=== PATIENT | female | born 1960 | race Caucasian/White ===

== ENCOUNTER 2019-08-10 00:04 | Day surgery (SDC) | payer BC, SELFPAY ==
[2019-08-05 10:26] VITALS: BMI 35.2
--- NOTE | 2019-08-08 15:32 | WPDANESEPP ---
Anes - Eval Pre Procedure Procedure: Operation Date: 08/10/19 11:30 Proposed Procedures p Colonoscopy - Reza Kamara MadelynestebanDO Date/Time: 08/08/19 15:32 Pre Op Diagnosis: LLQ/ Diarrhea Patient Data Age: 59 Gender: F Height: 5 ft 8 in Weight: 105 kg Allergies Allergy/AdvReac Type Severity Reaction Status Date / Time No Known Allergies Allergy Unknown Unverified 08/05/19 10:19 Home Medications Medication Instructions Recorded Confirmed Type aripiprazole 10 mg tablet 10 mg PO DAILY 06/01/19 08/05/19 History eszopiclone 3 mg tablet 3 mg PO HS 06/01/19 08/05/19 History lisinopril 20 mg tablet 20 mg PO DAILY 06/01/19 08/05/19 History hydrochlorothiazide 25 mg PO DAILY 08/05/19 08/05/19 History meclizine 12.5 mg PO BID PRN 08/05/19 08/05/19 History ondansetron HCl [Zofran] 8 mg PO Q12H PRN 08/05/19 08/05/19 History paroxetine HCl 40 mg PO QAM 08/05/19 08/05/19 History sumatriptan succinate 100 mg PO ONCE 08/05/19 08/05/19 History EC12/04/2018 SR 68 Patient hx anesthesia problems: none Family hx anesthesia problems: none PMFSH Past Medical History Medical History (Updated 08/08/19 @ 15:32 by Fely Torre CRNA) Anxiety Colon polyps Depression Depression Diverticulitis GERD (gastroesophageal reflux disease) HTN (hypertension) Hyperlipidemia Obesity (BMI 35.0-39.9 without comorbidity) CAMILLE (obstructive sleep apnea) has CPAP but is noncompliant Overactive bladder Surgical History Surgical History (Updated 08/08/19 @ 15:32 by Fely Torre CRNA) H/O shoulder surgery right History of cholecystectomy History of Luis Felipe fundoplication S/P insertion of spinal cord stimulator bladder stimulator. Status post laparoscopic-assisted sigmoidectomy ruptured diverticulitis Social History Social History Smoking status: Never smoker Smoking end date: 07/01/00 Alcohol intake: current Exam Day of Procedure 08/08/19 15:32
--- NOTE | 2019-08-10 11:01 | WPDANESEFPP ---
Anes - Eval Final PreProcedure Day of Procedure 08/10/19 11:01 Patient weight: obese Heart: regular rate and rhythm Lungs: clear to auscultation Airway: Mallampati scale class II Neurological: alert and oriented Last oral intake: >/= 8 hours ASA classification: III Anesthetic plan: proceed Anesthesia type and monitoring: general GIVS and standard monitoring Informed Consent: The patient's anesthetic plan and its attendant risks and benefits were discussed with the patient/family/POA. Questions were solicited and answers provided to the satisfaction of the patient/family/POA.
--- NOTE | 2019-08-10 11:08 | PM.IMHP ---
H&P: HPI History of Present Illness Chief complaint: LLQ/ Diarrhea Narrative: Kortney Haywood is a 59 year old female presents today for colonoscopy. She has hx of recurrent diverticulitis s/p sigmoid resection 2018. She has been having recurrent sharp LLQ abdominal pain and frequent diarrhea. These episodes can last 5-10 mins where she is doubled over in pain.She had enema xray ordered by Dr. Witt in 05/2019 and revealed diverticulosis. He did not feel this was related to diverticulitis. She also reports new onset nausea, multiple times per week. She has hx of GERD and fundoplication in 2016. She denies any acid reflux or indigestion, dysphagia or pain with swallowing. Denies abnormal weight loss, fever or chills. Review of Systems Review of Systems: All systems reviewed & are unremarkable except as noted in HPI and below PMFSH Past Medical History Medical History (Updated 08/10/19 @ 11:12 by Chelsea Nails, HARDWARE DESIGN ENGINEER) Anxiety Colon polyps Depression Depression Diverticulitis GERD (gastroesophageal reflux disease) HTN (hypertension) Hyperlipidemia Obesity (BMI 35.0-39.9 without comorbidity) CAMILLE (obstructive sleep apnea) has CPAP but is noncompliant Overactive bladder Surgical History Surgical History (Updated 08/08/19 @ 15:32 by Fely Torre, MASS COMMUNICATIONS INSTRUCTOR) H/O shoulder surgery right History of cholecystectomy History of Luis Felipe fundoplication S/P insertion of spinal cord stimulator bladder stimulator. Status post laparoscopic-assisted sigmoidectomy ruptured diverticulitis Social History Social History Smoking status: Never smoker Smoking end date: 07/01/00 Alcohol intake: current Meds Home Medications and Allergies Home Medications Medication Instructions Recorded Confirmed Type aripiprazole 10 mg tablet 10 mg PO DAILY 06/01/19 08/05/19 History eszopiclone 3 mg tablet 3 mg PO HS 06/01/19 08/05/19 History lisinopril 20 mg tablet 20 mg PO DAILY 06/01/19 08/05/19 History hydrochlorothiazide 25 mg PO DAILY 08/05/19 08/05/19 History meclizine 12.5 mg PO BID PRN 08/05/19 08/05/19 History ondansetron HCl [Zofran] 8 mg PO Q12H PRN 08/05/19 08/05/19 History paroxetine HCl 40 mg PO QAM 08/05/19 08/05/19 History sumatriptan succinate 100 mg PO ONCE 08/05/19 08/05/19 History Allergies Allergy/AdvReac Type Severity Reaction Status Date / Time No Known Allergies Allergy Unknown Unverified 08/05/19 10:19 Exam Const: General: cooperative, healthy appearing, comfortable, alert and awake Nutritional Appearance: average body habitus Orientation/consciousness: oriented to person, oriented to place, oriented to time and patient oriented x3 Limitations: no limitations HENMT: Head: normal to inspection and normocephalic Mouth: Yes Normal oral and palatal mucosa present and Yes moist mucous membranes Neck: Neck: normal visual inspection, supple and no JVD Carotids: no bruits Resp: Effort & Inspection: normal respiratory effort and no respiratory distress Auscultation: clear to auscultation bilaterally Cardio: Rate: regular rate Rhythm: regular rhythm Heart sounds: S1 normal heart sound present, S2 normal heart sound present, no gallops, no murmurs and no rubs GI: Inspection: normal to inspection and obesity GI Palp: No abdominal tenderness and No No hepatosplenomegaly present Percussion: Yes normal to percussion Auscultation: normal bowel sounds Rectal Exam: deferred Skin: General skin exam: normal color Lesions: no lesions Rashes: no rashes Neuro: General: oriented to person, oriented to place, oriented to time, patient oriented x3 and moves all extremities Cognition (Neuro): normal cognition Speech: normal speech Gait exam (Neuro): Normal gait present Extrem: General: normal to inspection Psych: Appearance: grossly normal Mental Status: mental status grossly normal Speech and movement: Normal speech and movement present Affect: normal
[2019-08-10] MEDS: LACTATED RINGERS 1,000 ML 150 ML IV CONT (12:04)
[2019-08-10 12:26] VITALS: BP 120/77; PULSE 70; RESP 16; O2SAT 100
[2019-08-10 12:36] VITALS: BP 121/82; PULSE 74; RESP 23; O2SAT 100
[2019-08-10 12:46] VITALS: BP 130/81; PULSE 73; RESP 19; O2SAT 100
== END 2019-08-10 12:52 | disposition home or self-care (01) ==
PROVIDERS: PCP Internal Medicine; Visit Provider Internal Medicine Gastroenterology
PROC: 0DJD8ZZ Inspection of Lower Intestinal Tract, Via Natural or Artificial Opening Endoscopic (ICD-10-PCS; CPT 45378; principal; 2019-08-10 11:30)
DX: K52.9 Noninfective gastroenteritis and colitis, unspecified (principal); D12.0 Benign neoplasm of cecum; K64.8 Other hemorrhoids; K57.30 Diverticulosis of large intestine without perforation or abscess without bleeding; Z98.0 Intestinal bypass and anastomosis status; Z87.19 Personal history of other diseases of the digestive system; K21.9 Gastro-esophageal reflux disease without esophagitis; I10 Essential (primary) hypertension; E78.5 Hyperlipidemia, unspecified; G47.33 Obstructive sleep apnea (adult) (pediatric); F41.8 Other specified anxiety disorders; Z90.49 Acquired absence of other specified parts of digestive tract; E66.9 Obesity, unspecified; Z68.35 Body mass index [BMI] 35.0-35.9, adult
CPT/HCPCS: 45380; 88305; J2704; J7120

== ENCOUNTER 2019-10-28 21:34 | Emergency (ER) | payer BC, SELFPAY ==
--- NOTE | ~2019-10-28 | CT_ITS ---
EXAMINATION: CT pelvis wo con EXAM DATE: 10/28/2019 22:19 INDICATION: Left hip pain. TECHNIQUE: Spiral CT pelvis was performed without contrast. Axial, coronal and sagittal images were reviewed. The dose-length product (DLP) for this examination was 888.44 mGy-cm. The exposure was t ailored according to patient size (auto mA exposure control), and iterative reconstruction (ASIR) was used as additional dose reduction technique. Comparison is made to prior examination from 03/30/2019. FINDINGS: There is minimal symmetric bilateral hip primary osteoarthritis. There is mild bilateral sa croiliac primary osteoarthritis. No evidence of avascular necrosis. Sacrum, sacroiliac joints, sacral arcuate lines are intact. There are no acute fractures identified. Rectosigmoid anastomosis site. Th ere is mild sigmoid colonic diverticulosis. There is no adjacent inflammatory change to suggest dive rticulitis. Small bilateral inguinal fat-containing hernias. No pelvic lymphadenopathy. Uterus is unr emarkable. IMPRESSION: Minimal hip, mild sacroiliac osteoarthritis. Reviewed, dictated and finalized at location G.
--- NOTE | ~2019-10-28 | CT_ITS ---
EXAMINATION: CT lumbar spine wo [facility] EXAM DATE: 10/28/2019 22:19 INDICATION: Low back pain, left hip pain, symptoms for months. TECHNIQUE: Spiral CT of the lumbar spine was performed without contrast. Axial, coronal and sagittal images were reviewed. The dose-length product (DLP) for this examination was 1341.97 mGy-cm. The exposure was tailored according to patient size (auto mA exposure control), and iterative reconstruct ion (ASIR) was used as additional dose reduction technique. There is no prior study for comparison. FINDINGS: Sacral neural stimulator entering at the left S3-4 level. There is rectosigmoid anastomosis . Mild sigmoid diverticulosis. Cholecystectomy clips. There is moderate disc disease at L5-S1 with 2 mm retrolisthesis. Mild disc disease at the other lumbar levels. There is 2-3 mm anterolisthesis L4 o n L5. No spondylolysis. No endplate erosive change. Level by level evaluation: T11-12: There is a mild diffuse disc bulge. Facet arthropathy: Mild. Neural foraminal stenosis: No stenosis. Central canal stenosis: No stenosis. T12-L1: There is a mild diffuse disc bulge. Facet arthropathy: None. Neural foraminal stenosis: No stenosis. Central canal stenosis: No stenosis. L1-L2: There is a mild diffuse disc bulge. Facet arthropathy: Minimal. Neural foraminal stenosis: No stenosis. Central canal stenosis: No stenosis. L2-L3: There is a mild diffuse disc bulge. Facet arthropathy: Mild. Neural foraminal stenosis: No stenosis. Central canal stenosis: No stenosis. L3-L4: There is a mild diffuse disc bulge. Facet arthropathy: Mild on the. Neural foraminal stenosis: Mild bilateral. Central canal stenosis: Mild. L4-L5: There is a mild to moderate diffuse disc bulge. Facet arthropathy: Moderate. Neural foraminal stenosis: Mild to moderate bilateral. Central canal stenosis: Mild to moderate. L5-S1: There is a mild to moderate diffuse disc bulge. Facet arthropathy: Mild to moderate. Neural foraminal stenosis: Moderate left, mild to moderate right. Central canal stenosis: Mild. IMPRESSION: 1. L5-S1 moderate disc disease and left neural foraminal stenosis. 2. Otherwise mild to moderate lumbar spondylosis as detailed above. Reviewed, dictated and finalized at location G.
[2019-10-28 21:36] VITALS: BP 154/87; PULSE 89; RESP 16; TEMP 36.4; O2SAT 100
--- NOTE | 2019-10-28 21:51 | ED.EXTPRO ---
HPI - Extremity Problem General Chief complaint: Extremity Problem,Nontraumatic Stated complaint: hip and back pains Time Seen by Provider: 10/28/19 21:43 History of Present Illness HPI Narrative: 59 yo female w/ h/o IBS, HTN presents c/o hip and back pain. She reports several months of pain in the left hip. She was initally seen by her PCP and had x-rays done, which she reports showed possible arthritis. She was scheduled for physical therapy and had a CT ordered. These were both canceled due to COVID-19. The pain has gotten worsen. She now has difficulty walking, feels as though her leg is giving out at times, and it has begun radiating into her lower back and down the leg. She has been taking tylenol without relief of the pain. No trauma, fever, recent illness. Related Data Home Medications Medication Instructions Recorded Confirmed aripiprazole 10 mg tablet 10 mg PO DAILY 06/01/19 08/05/19 eszopiclone 3 mg tablet 3 mg PO HS 06/01/19 08/05/19 lisinopril 20 mg tablet 20 mg PO DAILY 06/01/19 08/05/19 hydrochlorothiazide 25 mg PO DAILY 08/05/19 08/05/19 meclizine 12.5 mg PO BID PRN 08/05/19 08/05/19 ondansetron HCl [Zofran] 8 mg PO Q12H PRN 08/05/19 08/05/19 paroxetine HCl 40 mg PO QAM 08/05/19 08/05/19 sumatriptan succinate 100 mg PO ONCE 08/05/19 08/05/19 Allergies Allergy/AdvReac Type Severity Reaction Status Date / Time No Known Allergies Allergy Unknown Verified 10/28/19 21:52 Review of Systems Review of Systems: All systems reviewed & are unremarkable except as noted in HPI and below Constitutional: Constitutional: Denies fever(s) ENT: Denies dizziness Cardiovascular: Cardiovascular: Denies chest pain Respiratory: Respiratory: Denies dyspnea Gastrointestinal: Gastrointestinal: Reports abdominal pain Genitourinary: Genitourinary: Denies flank pain Musculoskeletal: Musculoskeletal: Reports back pain and Reports arthralgias Integumentary/Breasts: Skin/Breast: Denies erythema Neurologic: Reports focal weakness and Denies numbness PMF Past Medical History Medical History Anxiety Colon polyps Depression Depression Diverticulitis GERD (gastroesophageal reflux disease) HTN (hypertension) Hyperlipidemia Obesity (BMI 35.0-39.9 without comorbidity) CAMILLE (obstructive sleep apnea) has CPAP but is noncompliant Overactive bladder Surgical History Surgical History H/O shoulder surgery right History of cholecystectomy History of Luis Felipe fundoplication S/P insertion of spinal cord stimulator bladder stimulator. Status post laparoscopic-assisted sigmoidectomy ruptured diverticulitis Family History Family History Father Malignant neoplasm of prostate Hypertension Family history of arthritis Grandparent Diabetes mellitus Family history of glaucoma Sibling Hypertension Other Family history of throat cancer Social History Social History Smoking status: Never smoker Smoking end date: 07/01/00 Alcohol intake: current Gender identity (if verbalized by the patient): Female Exam Const: General: no acute distress and alert Nutritional Appearance: obese Orientation/consciousness: patient oriented x3 HENMT: Head: normal to inspection Resp: Effort & Inspection: normal respiratory effort Auscultation: clear to auscultation bilaterally Cardio: Rate: regular rate Rhythm: regular rhythm GI: GI Palp: Yes Soft to palpation and No Tenderness to palpation present (GI) : General: Yes no CVA tenderness Back/Spine/Pelvis: Other: tenderness through left lower lumbar paraspinal and gluteal muscles Skin: General skin exam: normal color Rashes: no rashes Wounds: no wounds Neuro: General: patient oriented x3, moves all extremities and no focal motor
[2019-10-28 23:30] VITALS: BP 122/82; PULSE 76; RESP 17; O2SAT 100
== END 2019-10-28 23:30 | disposition home or self-care (01) ==
PROVIDERS: Emergency Provider Emergency Medicine
DX: M47.817 Spondylosis without myelopathy or radiculopathy, lumbosacral region (principal); K58.9 Irritable bowel syndrome, unspecified; I10 Essential (primary) hypertension; K21.9 Gastro-esophageal reflux disease without esophagitis; E78.5 Hyperlipidemia, unspecified; E66.9 Obesity, unspecified; Z68.35 Body mass index [BMI] 35.0-35.9, adult; G47.33 Obstructive sleep apnea (adult) (pediatric); M47.818 Spondylosis without myelopathy or radiculopathy, sacral and sacrococcygeal region
CPT/HCPCS: 72131; 72192; 96372; 99284; J1100

== ENCOUNTER 2019-11-17 00:12 | Outpatient (CLI) | payer BC, SELFPAY ==
[2019-11-17 18:40] LABS: SARS-CoV-2 RNA PCR Negative
== END 2019-11-17 00:13 | disposition home or self-care (01) ==
LOC: ANHCOVIDDT 00:12
PROVIDERS: Visit Provider Podiatrist Foot & Ankle Surgery
DX: Z01.818 Encounter for other preprocedural examination (principal); Z11.59 Encounter for screening for other viral diseases
CPT/HCPCS: 87635; C9803; U0003

== ENCOUNTER 2019-11-18 08:58 | Outpatient (CLI) | payer BC, SELFPAY ==
--- NOTE | 2019-11-18 09:00 | ECG_ITS ---
Measurements Intervals [place] Rate: 62 P: 37 [place]: 170 QRS: 27 QRSD: 86 T: 12 QT: 389 QTc: 395 Interpretive Statements SINUS RHYTHM LOW QRS VOLTAGE IN PRECORDIAL LEADS BASELINE ARTIFACT- I, II, III, AVR, AVL, AVF BORDERLINE ECG Electronically Signed On 11-18-2019 10:17:06 CDT by Inder Drake D.O.
[2019-11-18 10:00] LABS: Potassium 4.1 mmol/L (3.4-5.0)
[2019-11-18 10:12] LABS: Blood Urea Nitrogen 15 mg/dL (7-17); Calcium 9.1 mg/dL (8.4-10.2); Carbon Dioxide 32 mmol/L (22-30); Chloride 98 mmol/L (98-107); Estimated Glomerular Filt Rate 57; Glucose 102 mg/dL (65-105); Sodium 135 mmol/L (137-145)
== END 2019-11-18 08:59 | disposition home or self-care (01) ==
LOC: ANHSURGERY 09:00
PROVIDERS: Anesthesiology; PCP Nurse Practitioner Family; Visit Provider Podiatrist Foot & Ankle Surgery
DX: I10 Essential (primary) hypertension (principal); R94.31 Abnormal electrocardiogram [ECG] [EKG]
CPT/HCPCS: 36415; 80048; 93005

== ENCOUNTER 2019-11-20 01:03 | Day surgery (SDC) | payer BC, SELFPAY ==
[2019-11-13 14:25] VITALS: BMI 36.5
[2019-11-20] VITALS (7 sets, daily range): BP systolic 118–155; BP diastolic 71–90; PULSE 73–97; RESP 14–18; TEMP 36.7–37.3; O2SAT 92–100
[2019-11-20] MEDS: LACTATED RINGERS 1,000 ML 30 ML IV CONT ×2 (06:25→08:18)
--- NOTE | 2019-11-20 06:45 | P.PNAN_ITS ---
Anes - Initial Pre Proc Eval Procedure: Operation Date: 11/20/19 07:30 Proposed Procedures p Partial Plantar Fasciotomy Right Foot - Lavelle Figueroa JR, MD Date/Time: 11/20/19 06:45 Surgeon: Lavelle Figueroa JR, MD Pre Op Diagnosis: Plantar Fasciitis Right Foot Patient Data Age: 59 Gender: F Height: 1.73 m Weight: 109.7 kg Last Vital Signs Temp 36.7 C 11/20/19 06:33 Pulse 73 11/20/19 06:33 Resp 18 11/20/19 06:33 BP 118/75 11/20/19 06:33 Pulse Ox 100 11/20/19 06:33 Allergies Allergy/AdvReac Type Severity Reaction Status Date / Time No Known Allergies Allergy Unknown Verified 11/20/19 06:07 Home Medications Medication Instructions Recorded Confirmed Type eszopiclone 3 mg tablet 3 mg PO HS 06/01/19 11/20/19 History lisinopril 20 mg tablet 20 mg PO DAILY 06/01/19 11/20/19 History hydrochlorothiazide 25 mg PO DAILY 08/05/19 11/20/19 History paroxetine HCl 40 mg PO QAM 08/05/19 11/20/19 History glycopyrrolate 1 mg PO BID #60 tablet 08/10/19 11/20/19 Rx amitriptyline 100 mg PO HS 11/13/19 11/20/19 History aripiprazole [Abilify] 15 mg PO HS 11/13/19 11/20/19 History meloxicam 15 mg PO DAILY 11/13/19 11/20/19 History ECG: Date of Service: 11/18/19 Procedure(s): CA 12 lead EKG Accession Number(s): [id number] cc: ~ Measurements Intervals [place] Rate: 62 P: 37 [place]: 170 QRS: 27 QRSD: 86 T: 12 QT: 389 QTc: 395 Interpretive Statements SINUS RHYTHM LOW QRS VOLTAGE IN PRECORDIAL LEADS BASELINE ARTIFACT- I, II, III, AVR, AVL, AVF BORDERLINE ECG Electronically Signed On 11-18-2019 10:17:06 CDT by Inder Drake D.O. Dictated By: Inder Drake DO 11/18/19 0928 Patient hx anesthesia problems: none Family hx anesthesia problems: none PMFSH Social History Social History Smoking status: Never smoker Smoking end date: 07/01/00 Alcohol intake: current Gender identity (if verbalized by the patient): Female Anes - Eval Final PreProcedure Day of Procedure 11/20/19 06:45 Patient weight: obese Heart: regular rate and rhythm Lungs: clear to auscultation and normal air movement Airway: Mallampati scale class II Neurological: alert and oriented Last oral intake: >/= 8 hours ASA classification: III Emergent: no Anesthetic plan: proceed Anesthesia type and monitoring: general LMA Informed Consent: The patient's anesthetic plan and its attendant risks and benefits were discussed with the patient/family/POA. Questions were solicited and answers provided to the satisfaction of the patient/family/POA.
--- NOTE | 2019-11-20 07:13 | WPDHPUPDATE1 ---
History and Physical Update Update Date/Time: 11/20/19 07:13 History and Physical has been reviewed, including an updated exam of the patient. There are NO changes in the patient's condition. Risks, benefits, and alternatives have been discussed and questions answered. Patient agrees to proceed with procedure.
[2019-11-20] MEDS: ceFAZolin 2 GM/D5W 50 ML 2 GM/50 ML BAG IVPB (07:24)
--- NOTE | 2019-11-20 08:05 | PM.OP ---
Procedure Note - Brief Procedure Note - Brief Date of procedure: 11/20/19 Pre-op diagnosis: Plantar Fasciitis Right Foot Post-op diagnosis: same Procedure performed: Partial plantar fasciectomy right foot Anesthesia: GLMA Surgeon: Lavelle Figueroa JR, DPM Estimated blood loss (mL): 1 Complications: No immediate complications Condition: stable Disposition: same day
[2019-11-20] MEDS: KETOROLAC 30 MG/ML VIAL (*BKC) IV PUSH (08:09)
--- NOTE | 2019-11-20 16:16 | OP_ITS ---
DATE OF PROCEDURE: 11/20/2019 PREOPERATIVE DIAGNOSIS: Recalcitrant plantar fasciitis of the right foot. POSTOPERATIVE DIAGNOSIS: Recalcitrant plantar fasciitis of the right foot. PROCEDURE: Partial plantar fasciectomy of the right foot. PATHOLOGY: None. ANESTHESIA: General with LMA with a local anesthetic block. HEMOSTASIS: Pneumatic ankle tourniquet at 250 mmHg. ESTIMATED BLOOD LOSS: Minimal. MATERIALS USED: 3-0 Vicryl, 2-0 Prolene, and 3-0 Prolene. INJECTABLES: 20 cc of Exparel injected preoperatively. COMPLICATIONS: None. PROCEDURE IN DETAIL: Under mild sedation, the patient was brought into the operating room, placed on the operating room table in the supine position. Pneumatic ankle tourniquet was placed about the patient's right ankle. Following general anesthesia, local anesthetic block was performed along the medial aspect of the ankle along the tibial nerve utilizing 20 cc of Exparel local anesthetic. The foot was then scrubbed, prepped, and draped in the usual aseptic manner. An Esmarch bandage was then used to examine the patient's right foot and pneumatic ankle tourniquet was inflated. Attention was directed to the plantar aspect of the right foot where an incision was made starting along the inferior calcaneus at the origin of the medial band of the plantar fascia and extending approximately 3 cm distally. Incision was continued deep down through subcutaneous tissues using sharp and blunt dissection. All bleeders were cauterized as necessary. At this point, the plantar fat pad was visualized and the dissection was continued deep as the plantar fat pad was mobilized medially and laterally. A large [facility] retractor was placed medially and laterally along the origin of the plantar fascia. At this point, utilizing a 15 blade, approximately 4 mm of the medial and central bands of the plantar fascia were transected at its origin and at the medial and central calcaneal tubercle. This plantar fascia was noted to be significantly 2nd, approximately 1 cm with some amorphous tissue noted. A rongeur was used to make sure that there were no remnants remaining and that there was enough plantar fascia resected and fully released. The extensor digitorum brevis muscle belly was visualized after removal of the medial and central portions of the plantar fascia. The lateral band was left intact. The wound site was flushed with copious amounts of sterile saline. Next, the plantar fat pad was reapproximated utilizing 3-0 Vicryl. Next, the subcutaneous structures were reapproximated and coapted utilizing 3-0 Vicryl in simple interrupted suture technique. Next, the skin was reapproximated and coapted utilizing 2-0 Prolene in vertical suture fashion technique interrupted and finally, a 3-0 Prolene was also used to reapproximate the skin in simple interrupted suture technique. Upon completion of the procedure, the incision was dressed with Adaptic, 4 x 4's, Kerlix, and Coban. The pneumatic ankle tourniquet was then deflated and a prompt hyperemic response was noted to all digits of the right foot. Posterior splint was then applied to the right lower extremity. It is important to note that I, Dr. Figueroa, was present throughout the procedure. The patient did very well with the procedure and the anesthesia. She was transferred to the recovery room with vital signs stable and vascular status intact to all toes of the right foot. Following a period of postoperative monitoring, the patient will be discharged home on the following written and oral postoperative instructions: 1. Keep the dressing clean, dry, and intact. 2. The patient to be strictly nonweightbearing for 1 week with a knee scooter/crutches. 3. The patient should ice, elevate the right foot when at rest. 4.
== END 2019-11-20 09:47 | disposition home or self-care (01) ==
PROVIDERS: PCP Nurse Practitioner Family; Visit Provider Podiatrist Foot & Ankle Surgery
PROC: (CPT 28119; principal; 2019-11-20 07:30)
DX: M72.2 Plantar fascial fibromatosis (principal); E66.9 Obesity, unspecified; Z68.36 Body mass index [BMI] 36.0-36.9, adult
CPT/HCPCS: 28060; A9270; C9290; J0690; J1100; J1885; J2250; J2405; J2704; J3010; J7120

== ENCOUNTER 2020-11-12 06:38 | Emergency (ER) | payer MEDICAID, SELFPAY ==
[2020-11-12] VITALS (22 sets, daily range): BP systolic 149–157; BP diastolic 72–92; PULSE 59–76; RESP 15–29; TEMP 36.6–36.7; O2SAT 91–99
--- NOTE | ~2020-11-12 | CT_ITS ---
EXAMINATION: CT abdomen pelvis w con DATE: 11/12/2020 08:26 INDICATION: Nausea, vomiting, diarrhea TECHNIQUE: Computed tomography (CT) of the abdomen and pelvis was performed with 100 cc Omnipaque 350 intravenous contrast. Automated exposure control and iterative reconstruction technique were employe d. Exam dose: 1466.68 mGy-cm total exam DLP. COMPARISON: 10/28/2019 CT pelvis 06/12/2019 water-soluble enema 03/30/2019 CT abdomen pelvis FINDINGS: Minimal bilateral dependent lower lobe atelectasis. Cardiomegaly. Coronary artery calcification. No pericardial or pleural effusion. Small sliding hiatal hernia. Status post cholecystectomy. No hepatic, splenic, pancreatic, adrenal or renal space-occupying mass lesion is evident. No urinary tract calculus or hydroureteronephrosis. Normal caliber of the abdominal aorta. No intraperitoneal or retroperitoneal or pelvic mass lesion or adenopathy or ascites. The urinary bladder, uterus and adnexal areas are unremarkable. There is a suture line at the distal sigmoid colon. Diverticulosis of the colon; no CT evidence of di verticulitis is evident. Normal appendix. No bowel obstruction, bowel wall thickening, pneumatosis or intraperitoneal free air . Small fat-containing umbilical hernia. No suspicious osteolytic or osteoblastic lesions. Degenerative spurring of the thoracic spine. Grade 1 anterolisthesis at L4-5 due to degenerative change at the apophyseal joints. IMPRESSION: Status post sigmoidectomy Diverticulosis of the colon; no CT evidence of diverticulitis Normal appendix Small sliding hiatal hernia Status post cholecystectomy Reviewed, dictated and finalized at [facility]. Reviewed, dictated and finalized at [facility].
--- NOTE | 2020-11-12 07:14 | ED.NAVMDI ---
HPI - Nausea/Vomiting/Diarrhea General Chief complaint: Abdominal Pain Stated complaint: Nausea, vomiting Time Seen by Provider: 11/12/20 07:13 History of Present Illness HPI Narrative: 60 yo female w/ h/o lauren fundoplication presents to the ED for nausea. She has had nausea and dry heaves since this morning. This is associated with mild epigastric pain and bloating. She has also had loose stools for the past few days. No bloody or dark stools. No dysuria, hematuria. Related Data Home Medications Medication Instructions Recorded Confirmed eszopiclone 3 mg tablet 3 mg PO HS 06/01/19 11/20/19 lisinopril 20 mg tablet 20 mg PO DAILY 06/01/19 11/20/19 hydrochlorothiazide 25 mg PO DAILY 08/05/19 11/20/19 paroxetine HCl 40 mg PO QAM 08/05/19 11/20/19 amitriptyline 100 mg PO HS 11/13/19 11/20/19 aripiprazole [Abilify] 15 mg PO HS 11/13/19 11/20/19 meloxicam 15 mg PO DAILY 11/13/19 11/20/19 Allergies Allergy/AdvReac Type Severity Reaction Status Date / Time No Known Allergies Allergy Unknown Verified 11/12/20 09:11 Review of Systems Review of Systems: All systems reviewed & are unremarkable except as noted in HPI and below Constitutional: Constitutional: Denies chills and Denies fever(s) ENT: Reports system reviewed and no additional complaints, except as documented Cardiovascular: Cardiovascular: Denies chest pain Respiratory: Respiratory: Denies dyspnea Gastrointestinal: Gastrointestinal: Reports as per HPI Genitourinary: Genitourinary: Reports as per HPI Musculoskeletal: Musculoskeletal: Denies back pain Neurologic: Denies dizziness and Denies weakness Endocrine: Endocrine: Denies polydipsia [facility] Past Medical History Medical History Anxiety Colon polyps Depression Depression Diverticulitis GERD (gastroesophageal reflux disease) HTN (hypertension) Hyperlipidemia Obesity (BMI 35.0-39.9 without comorbidity) CAMILLE (obstructive sleep apnea) has CPAP but is noncompliant Overactive bladder Surgical History Surgical History H/O shoulder surgery right History of cholecystectomy History of Lauren fundoplication S/P insertion of spinal cord stimulator bladder stimulator. Status post laparoscopic-assisted sigmoidectomy ruptured diverticulitis Family History Family History Father Malignant neoplasm of prostate Hypertension Family history of arthritis Grandparent Diabetes mellitus Family history of glaucoma Sibling Hypertension Other Family history of throat cancer Social History Social History Smoking status: Never smoker Smoking end date: 07/01/00 Alcohol intake: current Gender identity (if verbalized by the patient): Female Exam Const: General: no acute distress and alert Nutritional Appearance: obese Orientation/consciousness: patient oriented x3 HENMT: Head: normal to inspection Neck: Neck: normal visual inspection Chest: Chest palpation & inspection: no tenderness Resp: Effort & Inspection: normal respiratory effort Auscultation: clear to auscultation bilaterally, no rales, no rhonchi and no wheezes Cardio: Jugular venous distension: no JVD Rate: regular rate Rhythm: regular rhythm Heart sounds: no murmurs GI: Inspection: non-distended GI Palp: Yes Soft to palpation, Yes Tenderness to palpation present (GI) (minimal epigastric), No Guarding due to palpation present (GI) and No Rebound tenderness present Auscultation: normal bowel sounds Skin: General skin exam: normal color Neuro: General: patient oriented x3 and moves all extremities Speech: normal speech Extrem: General: normal to inspection and no edema Psych: Appearance: well kempt Affect: normal affect Course Vital Signs Vital signs: Vital Signs Tempera
[2020-11-12 07:35] LABS: Basophils Percent Auto 0.1 % (0.2-1.2); Hematocrit 34.8 % (37.0-47.0); Hemoglobin 11.6 g/dL (12.0-15.0); Immature Granulocyte Absolute 0.03 K/mm3 (0.00-0.031); Immature Granulocyte Percent A 0.4 % (0-0.5); Lymphocytes Absolute Auto 0.82 K/mm3 (0.9-3.2); Lymphocytes Percent Auto 10.2 % (18.3-44.2); Mean Corpuscular HGB Conc 33.3 g/dl (32-36); Mean Corpuscular Hemoglobin 29.1 pg (26-34); Mean Corpuscular Volume 87.4 fl (80-100); Mean Platelet Volume 9.2 fl (7.4-10.4); Monocytes Absolute Auto 0.3 K/mm3 (0.1-0.6); Monocytes Percent Auto 3.6 % (2.6-8.5); Neutrophils Absolute Auto 6.9 K/mm3 (1.3-6.7); Neutrophils Percent Auto 85.7 % (45.5-73.1); Platelet Count Result 361 k/mm3 (150-375); Red Blood Count 3.98 M/mm3 (4.2-5.4); Red Cell Distribution Width 12.9 % (11.5-14.5)
[2020-11-12 07:45] LABS: Alanine Aminotransferase 15 U/L (4-35); Albumin Level 4.5 g/dL (3.5-5.1); Alkaline Phosphatase 92 U/L (38-126); Anion Gap 8 mmol/L (8-16); Aspartate Amino Transferase 21 U/L (14-36); Bilirubin,Total 0.3 mg/dL (0.2-1.3); Blood Urea Nitrogen 12 mg/dL (7-17); Calcium 9.4 mg/dL (8.4-10.2); Carbon Dioxide 29 mmol/L (22-30); Chloride 94 mmol/L (98-107); Estimated CRCL calculation 52 ml/min; Estimated Glomerular Filt Rate > 60; Glucose 133 mg/dL (65-105); Lipase 48 U/L (23-300); Potassium 3.8 mmol/L (3.4-5.0); Sodium 131 mmol/L (137-145)
[2020-11-12] MEDS: ONDANSETRON INJ 4 MG/2 ML VIAL IV PUSH (08:30)
[2020-11-12] MEDS: SODIUM CHLORIDE 0.9% IV 1,000 ML 999 ML IV CONT (08:31)
[2020-11-12] MEDS: METOCLOPRAMIDE HCL INJ 10 MG/2 ML VIAL IV PUSH (09:39)
[2020-11-12 09:41] LABS: Add Urine Microscopic? NO; Appearance Urine Clear (Clear); Bilirubin Urine Negative (Negative); Blood Urine Negative (Negative); Color Urine Yellow (Yellow); Glucose Urine UA Negative (Negative); Ketones Urine Negative (Negative); Leukocyte Esterase Ur Negative LEU/UL (Negative); Nitrate Urine Negative (Negative); Protein Urine Negative (Negative); Urobilinogen Urine Negative mg/dL (<2.0)
[2020-11-12 09:43] LABS: Specific Grav Ur 1.058 (1.001-1.035)
[2020-11-12] MEDS: PANTOPRAZOLE SODIUM IV 40 MG VIAL IV PUSH (11:00)
== END 2020-11-12 11:35 | disposition home or self-care (01) ==
PROVIDERS: Emergency Provider Emergency Medicine; PCP Nurse Practitioner Family
DX: R11.0 Nausea (principal); K21.9 Gastro-esophageal reflux disease without esophagitis; I10 Essential (primary) hypertension; E78.5 Hyperlipidemia, unspecified; F41.9 Anxiety disorder, unspecified; F32.9 Major depressive disorder, single episode, unspecified; G47.33 Obstructive sleep apnea (adult) (pediatric); Z91.19 Patient's noncompliance with other medical treatment and regimen
CPT/HCPCS: 36415; 74177; 80053; 81003; 83690; 85025; 96361; 96374; 96375; 99284; C9113; J0171; J0461; J2405; J2765; J7030; Q9967

== ENCOUNTER 2020-11-13 13:37 | Emergency (ER) | payer MEDICAID, SELFPAY ==
[2020-11-13 13:41] VITALS: BP 147/97; PULSE 82; RESP 20; TEMP 36.8; O2SAT 99
[2020-11-13 13:58] LABS: Basophils Percent Auto 0.1 % (0.2-1.2); Hematocrit 35.1 % (37.0-47.0); Hemoglobin 12.4 g/dL (12.0-15.0); Immature Granulocyte Absolute 0.05 K/mm3 (0.00-0.031); Immature Granulocyte Percent A 0.7 % (0-0.5); Lymphocytes Absolute Auto 1.59 K/mm3 (0.9-3.2); Lymphocytes Percent Auto 21.8 % (18.3-44.2); Mean Corpuscular HGB Conc 35.3 g/dl (32-36); Mean Corpuscular Hemoglobin 29.5 pg (26-34); Mean Corpuscular Volume 83.4 fl (80-100); Mean Platelet Volume 9.2 fl (7.4-10.4); Monocytes Absolute Auto 0.4 K/mm3 (0.1-0.6); Monocytes Percent Auto 5.4 % (2.6-8.5); Neutrophils Absolute Auto 5.2 K/mm3 (1.3-6.7); Platelet Count Result 413 k/mm3 (150-375); Red Blood Count 4.21 M/mm3 (4.2-5.4); Red Cell Distribution Width 12.5 % (11.5-14.5); White Blood Count 7.3 K/mm3 (4.5-10.0)
[2020-11-13 14:08] LABS: Add Urine Microscopic? YES; Appearance Urine Cloudy (Clear); Bilirubin Urine Negative (Negative); Blood Urine 1+ (Negative); Color Urine Yellow (Yellow); Glucose Urine UA Negative (Negative); Ketones Urine Trace mg/dL (Negative); Leukocyte Esterase Ur Trace LEU/UL (Negative); Mucus Urine Rare /lpf; Nitrate Urine Negative (Negative); Protein Urine 2+ mg/dL (Negative); Specific Grav Ur 1.027 (1.001-1.035); Squamous Epithelial Cell Urine Many /hpf (Few); Urobilinogen Urine Negative mg/dL (<2.0)
[2020-11-13 14:12] LABS: Alanine Aminotransferase 16 U/L (4-35); Albumin Level 4.6 g/dL (3.5-5.1); Alkaline Phosphatase 101 U/L (38-126); Anion Gap 12 mmol/L (8-16); Aspartate Amino Transferase 21 U/L (14-36); Bilirubin,Total 0.4 mg/dL (0.2-1.3); Blood Urea Nitrogen 16 mg/dL (7-17); Carbon Dioxide 23 mmol/L (22-30); Chloride 98 mmol/L (98-107); Estimated CRCL calculation 76 ml/min; Estimated Glomerular Filt Rate > 60; Glucose 113 mg/dL (65-105); Lipase 79 U/L (23-300); Potassium 3.1 mmol/L (3.4-5.0); Sodium 133 mmol/L (137-145)
[2020-11-13 14:23] VITALS: BP 180/99; PULSE 78; RESP 22; TEMP 37.4; O2SAT 100
--- NOTE | 2020-11-13 15:08 | ECG_ITS ---
Measurements Intervals [place] Rate: 65 P: 1 [place]: 147 QRS: 33 QRSD: 89 T: 13 QT: 430 QTc: 449 Interpretive Statements SINUS RHYTHM VENTRICULAR PREMATURE COMPLEX LOW VOLTAGE- PRECORDIAL LEADS BORDERLINE ST-T WAVE ABNORMALITY- INFERIOR LEADS BASELINE ARTIFACT- I, II, III, AVR, AVL, AVF, V5-V6 BORDERLINE ECG Electronically Signed On 11-13-2020 19:19:32 CDT by Inder Drake D.O.
--- NOTE | 2020-11-13 15:09 | ED.NAVMDI ---
HPI - Nausea/Vomiting/Diarrhea General Chief complaint: Nausea/Vomiting/Diarrhea Stated complaint: sick to my stomach Time Seen by Provider: 11/13/20 14:36 Source: patient Mode of arrival: ambulatory Limitations: no limitations History of Present Illness HPI Narrative: 60-year-old female Past history of few abdominal operations including a resection for diverticulitis, cholecystectomy, and a fundoplication She complains of about a 2 or 3-day history of nausea no vomiting and a poor appetite No diarrhea no fever, and no urinary symptoms She was here yesterday morning for these very same symptoms and had effectively a completely normal work-up including usual blood work urine and abdominal CT scan She was discharged with [facility] Related Data Home Medications Medication Instructions Recorded Confirmed eszopiclone 3 mg tablet 3 mg PO HS 06/01/19 11/20/19 lisinopril 20 mg tablet 20 mg PO DAILY 06/01/19 11/20/19 hydrochlorothiazide 25 mg PO DAILY 08/05/19 11/20/19 paroxetine HCl 40 mg PO QA 08/05/19 11/20/19 amitriptyline 100 mg PO HS 11/13/19 11/20/19 aripiprazole [Abilify] 15 mg PO HS 11/13/19 11/20/19 meloxicam 15 mg PO DAILY 11/13/19 11/20/19 Allergies Allergy/AdvReac Type Severity Reaction Status Date / Time No Known Allergies Allergy Unknown Verified 11/12/20 09:11 Review of Systems Review of Systems: All systems reviewed & are unremarkable except as noted in HPI and below Constitutional: Constitutional: Denies chills, Denies fever(s) and Denies headache(s) Eyes: Eyes: Reports no additional eye complaints and Denies change in vision ENT: Reports dizziness, Denies headache(s) and Denies sore throat Cardiovascular: Cardiovascular: Denies chest pain and Denies dyspnea Respiratory: Respiratory: Denies cough and Denies dyspnea Gastrointestinal: Gastrointestinal: Reports abdominal pain, Denies bloating, Denies heartburn, Denies diarrhea, Reports nausea and Denies vomiting Genitourinary: Genitourinary: Denies hematuria, Denies urinary frequency and Denies dysuria Musculoskeletal: Musculoskeletal: Reports myalgias, Denies deformity, Denies arthralgias, Denies joint swelling and Denies numbness Integumentary/Breasts: Skin/Breast: Denies rash and Denies wounds Neurologic: Denies headache(s), Denies focal weakness and Denies numbness Psychiatric: Psychiatric: Reports no additional psychiatric complaints Comments: Trouble sleeping Endocrine: Endocrine: Reports no additional endocrine complaints Hematologic/Lymphatic: Hematologic/Lymphatic: Reports no additional hematologic/lymphatic complaints Allergic/Immunologic: Allergic/Immunologic: Reports no additional allergic/immunologic complaints [facility] Past Medical History Medical History (Updated 11/13/20 @ 16:16 by Reza Paniagua MD) Anxiety Colon polyps Depression Depression Diverticulitis GERD (gastroesophageal reflux disease) HTN (hypertension) Hyperlipidemia Obesity (BMI 35.0-39.9 without comorbidity) CAMILLE (obstructive sleep apnea) has CPAP but is noncompliant Overactive bladder Surgical History Surgical History H/O shoulder surgery right History of cholecystectomy History of Luis Felipe fundoplication S/P insertion of spinal cord stimulator bladder stimulator. Status post laparoscopic-assisted sigmoidectomy ruptured diverticulitis Family History Family History Father Malignant neoplasm of prostate Hypertension Family history of arthritis Grandparent Diabetes mellitus Family history of glaucoma Sibling Hypertension Other Family history of throat cancer Social History Social History Smoking status: Never smoker Smoking end date: 07/01/00 Alcohol intake: current Gender identity (if verbalized by the patient): Female Exam Const: Genera
[2020-11-13] MEDS: FAMOTIDINE 20 MG/2 ML VIAL 40 MG IV PUSH (15:29)
[2020-11-13] MEDS: HALOPERIDOL LACTATE 5 MG/ML VIAL IV PUSH (15:30)
[2020-11-13 16:00] VITALS: BP 191/87; PULSE 82; RESP 19; O2SAT 100
[2020-11-13 16:44] LABS: Troponin I < 0.012 ng/mL (0.000-0.034)
== END 2020-11-13 17:41 | disposition home or self-care (01) ==
PROVIDERS: Emergency Medicine; Emergency Provider Emergency Medicine; PCP Nurse Practitioner Family
DX: R11.0 Nausea (principal); I10 Essential (primary) hypertension; E78.5 Hyperlipidemia, unspecified; G47.33 Obstructive sleep apnea (adult) (pediatric); K21.9 Gastro-esophageal reflux disease without esophagitis; N32.81 Overactive bladder; F32.9 Major depressive disorder, single episode, unspecified; F41.9 Anxiety disorder, unspecified; Z86.010 Personal history of colon polyps; I49.3 Ventricular premature depolarization; R94.31 Abnormal electrocardiogram [ECG] [EKG]
CPT/HCPCS: 36415; 80053; 81001; 83690; 84484; 85025; 93005; 96374; 96375; 99284; J1630

== ENCOUNTER 2021-05-30 15:08 | Outpatient (CLI) | payer OTHER, SELFPAY ==
--- NOTE | ~2021-05-30 | US_ITS ---
EXAMINATION: US pelvic complete w TV EXAM DATE: 05/30/2021 15:50 INDICATION: N95.0 - Postmenopausal bleeding . TECHNIQUE: Pelvic transabdominal and transvaginal sonogram was performed. There are multiple graysca le and Doppler images available for interpretation. There is no prior study for comparison. FINDINGS: Uterus measures 5.9 x 2.5 x 4.0 cm, and is morphologically normal. Endometrial stripe arianna sures 2 mm, within normal limits. There is no free pelvic fluid. Right adnexa: The ovary is not identified. There is no adnexal mass. Left adnexa: The ovary is not identified. There is no adnexal mass. 2 small nodules of soft tissue echogenicity along the posterior aspect of the uterus which could be s mall exophytic fibroids correlating with prior CT, correlating with CT scan from October which demonstrat ed rectosigmoid anastomosis. IMPRESSION: 1. 2 small nonspecific soft tissue regions, most likely exophytic fibroids. 2. Normal endometrial thickness. Reviewed, dictated and finalized at [facility]. 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
== END 2021-05-30 15:09 | disposition home or self-care (01) ==
PROVIDERS: PCP Nurse Practitioner Family; Visit Provider Student in an Organized Health Care Education/Training Program
DX: N95.0 Postmenopausal bleeding (principal); R93.89 Abnormal findings on diagnostic imaging of other specified body structures
CPT/HCPCS: 76830; 76856

== ENCOUNTER 2021-06-27 09:43 | Outpatient (CLI) | payer OTHER, SELFPAY ==
--- NOTE | ~2021-06-27 | MM_ITS ---
EXAMINATION: MM screening [facility] BI w alli HISTORY: Screening TECHNIQUE: Craniocaudal and mediolateral oblique 3-D tomosynthesis images were obtained and synthetic 2-D images were generated. CAD analysis was submitted and interpreted. COMPARISON: Comparison to multiple prior studies sequentially, with oldest reviewed study dated 12/24. BREAST PARENCHYMAL COMPOSITION: There are scattered areas of fibroglandular density... FINDINGS: There is no evidence of suspicious mass, calcification, or architectural distortion to sugg est malignancy in either breast. There has been no suspicious interval change. IMPRESSION: 1. No mammographic evidence of malignancy. 2. Recommend routine screening mammography in one year. BI-RADS Category 1: Negative Reviewed, dictated and finalized at location [facility]. OR [employer]
== END 2021-06-27 09:44 | disposition home or self-care (01) ==
LOC: ANHIMG 09:45
PROVIDERS: PCP Nurse Practitioner Family; Visit Provider Student in an Organized Health Care Education/Training Program
DX: Z12.31 Encounter for screening mammogram for malignant neoplasm of breast (principal)
CPT/HCPCS: 77063; 77067

== ENCOUNTER 2021-12-01 08:22 | Outpatient (CLI) | payer OTHER, SELFPAY ==
--- NOTE | ~2021-12-01 | XR_ITS ---
EXAMINATION: XR chest 2V 12/01/2021 09:26 INDICATION: Cough PROCEDURE: 2 view chest COMPARISON: 11/06/2017 FINDINGS: The lungs are clear. The cardiomediastinal silhouette is within normal limits. There are no pleural effusions. There is no pneumothorax suspected. IMPRESSION: 1: NO ACUTE CARDIOPULMONARY DISEASE. Reviewed, dictated and finalized at [facility].
--- NOTE | 2021-12-01 13:47 | P.PCNPFT_ITS ---
PFT Procedure Performed PFT Procedure Performed Spirometry with Pre/Post Bronchodilator Flow Vol Loop PFT Interpretation This is a pulmonary function test with pre and post-bronchodilator spirometry. The test was performed and results interpreted in accordance with the 2019 and 2005 ATS/ERS Task Force guidelines respectively using the Global Lung Function Initiative-2012 reference equations. Patient demonstrated good effort and cooperation. Reproducibility criteria were met. The quality of the pre [facility] hodilator spirometry maneuver was Grade A and post bronchodilator spirometry maneuver was Grade A. Findings: Spirometry: The contour the inspiratory and expiratory flow tracing are normal. The pre bronchodilator FVC is 3.66 L, 100% predicted. The pre bronchodilator FEV1 is 2.57 L, 90% predicted. The pre bronchodilator FEV1: FVC ratio is 70%. The post bronchodilator FVC is 3.59 L, representing a 2% decrease. The post bronchodilator FEV1 is 2.66 L, representing a 4% increase. The post bronchodilator FEV1: FVC ratio is 74%. Impression: The spirometry is normal without evidence of an obstructive abnormality. There are no prior studies for comparison
== END 2021-12-01 08:23 | disposition home or self-care (01) ==
LOC: ANHPFT 08:23
PROVIDERS: PCP Nurse Practitioner Family; Visit Provider Internal Medicine Pulmonary Disease
DX: R05.9 Cough, unspecified (principal)
CPT/HCPCS: 71046; 94060

== ENCOUNTER 2021-12-11 13:20 | Emergency (ER) | payer OTHER, SELFPAY ==
[2021-12-11 13:35] VITALS: BP 147/90; PULSE 69; RESP 18; TEMP 36.6; O2SAT 100
--- NOTE | 2021-12-11 13:54 | ED.URI ---
HPI - URI/Sore Throat General Chief Complaint: Upper Respiratory Infection Stated Complaint: congestion, sore throat, eyes itchy Time Seen by Provider: 12/11/21 13:54 Source: patient Mode of arrival: ambulatory Limitations: no limitations History of Present Illness HPI Narrative: 61-year-old female presents with complaint of nasal congestion, sinus pressure for 2 to 3 days. Denies fever chills. Complaint of postnasal drainage but no cough. States today she woke up with left ear pain and pressure. Mildly decreased hearing. No fever or chills. Is concerned she has ear infection. Has not been taking any [id number] medications to treat congestion. Denies shortness of breath and chest pain. Did a home COVID test yesterday that was negative. All systems reviewed and negative except as noted above. Related Data Home Medications Medication Instructions Recorded Confirmed eszopiclone 3 mg tablet (Lunesta) 3 mg PO HS 06/01/19 06/14/21 paroxetine HCl 40 mg tablet 40 mg PO QAM 08/05/19 06/14/21 amitriptyline 100 mg tablet 100 mg PO HS 11/13/19 06/14/21 aripiprazole 15 mg tablet (Abilify) 15 mg PO HS 11/13/19 06/14/21 ondansetron 4 mg disintegrating 4 mg PO Q8H PRN nausea and vomiting 05/17/21 06/14/21 tablet alprazolam 1 mg tablet (Xanax) 1 mg PO DAILY 11/09/21 omeprazole 20 mg tablet,delayed 20 mg PO DAILY 11/09/21 release ondansetron HCl 8 mg tablet 8 mg PO Q12H PRN nausea and 11/09/21 vomiting oxybutynin chloride 10 mg 10 mg PO DAILY 11/09/21 tablet,extended release 24 hr sumatriptan succinate 100 mg tablet 100 mg PO ONCE PRN migraine 11/09/21 headache valsartan 160 1 tablet PO DAILY 11/09/21 mg-hydrochlorothiazide 25 mg tablet Allergies Allergy/AdvReac Type Severity Reaction Status Date / Time No Known Allergies Allergy Unknown Verified 12/11/21 13:45 Review of Systems Review of Systems: CONSTITUTIONAL: Denies fever, chills, or sweats. EYES: Denies visual changes, redness, or discharge. ENT: Reports rhinorrhea, congestion, postnasal drainage, left ear pain. Denies sore throat. CARDIOVASCULAR: Denies chest pain, palpitations, or edema. RESPIRATORY: Denies cough or dyspnea. GASTROINTESTINAL: Denies abdominal pain, nausea, vomiting, or diarrhea. GENITOURINARY: Denies dysuria or hematuria. SKIN: Denies rash or itching. MUSCULOSKELETAL: Denies back pain, joint pain, or myalgia. NEUROLOGIC: Denies headache, numbness, or weakness. PSYCHIATRIC: Denies anxiety or depression. All other systems reviewed are negative, except as documented in HPI. [facility] Past Medical History Medical History (Updated 12/11/21 @ 14:12 by Mira Whitney NP) Anxiety Colon polyps Depression Depression Diverticulitis GERD (gastroesophageal reflux disease) HTN (hypertension) Hyperlipidemia Obesity (BMI 35.0-39.9 without comorbidity) CAMILLE (obstructive sleep apnea) has CPAP but is noncompliant Overactive bladder Surgical History Surgical History H/O shoulder surgery right History of cholecystectomy History of Luis Felipe fundoplication S/P insertion of spinal cord stimulator bladder stimulator. Status post laparoscopic-assisted sigmoidectomy ruptured diverticulitis Family History Family History Father Malignant neoplasm of prostate Hypertension Family history of arthritis Grandparent Diabetes mellitus Family history of glaucoma Sibling Hypertension Other Family history of throat cancer Social History Social History Smoking status: Former smoker Smoking end date: 07/01/00 Alcohol intake: current Alcohol use details: Social alcohol use Gender identity (if verbalized by the patient): Female Comments At time of signature, agree with nursing past medical, surgical, social and family history. There is no relevant fa
== END 2021-12-11 14:16 | disposition home or self-care (01) ==
PROVIDERS: Emergency Provider Nurse Practitioner Family; PCP Nurse Practitioner Family
DX: H66.92 Otitis media, unspecified, left ear (principal); J01.90 Acute sinusitis, unspecified; Z87.891 Personal history of nicotine dependence; K21.9 Gastro-esophageal reflux disease without esophagitis; I10 Essential (primary) hypertension; E78.5 Hyperlipidemia, unspecified; G47.33 Obstructive sleep apnea (adult) (pediatric); E66.9 Obesity, unspecified; Z68.35 Body mass index [BMI] 35.0-35.9, adult; F41.9 Anxiety disorder, unspecified; F32.A Depression, unspecified
CPT/HCPCS: 99213; G0463

== ENCOUNTER 2021-12-29 15:28 | Emergency (ER) | payer OTHER, SELFPAY ==
[2021-12-29 15:34] VITALS: BP 162/96; PULSE 69; RESP 16; TEMP 37.2; O2SAT 100
--- NOTE | 2021-12-29 16:08 | ED.EYEPROB ---
HPI - Eye Problem General Chief complaint: Eye Problems Stated complaint: right eye irritation Time Seen by Provider: 12/29/21 16:10 Source: patient, RN notes reviewed and old records reviewed Mode of arrival: ambulatory Limitations: no limitations History of Present Illness HPI Narrative: 61 year old female who presents to doctors hospital care with complaints of it feeling like she sandpaper in her right eye since Saturday with increased watering and burning with redness to her right eye. Patient denies any trauma to her right eye, denies any foreign body or any matting from her eye or drainage. Patient denies any fevers, chills or sweats or any nasal congestion or drainage or any URI symptoms. Visual acuity 20/30 left eye and 20/50 to her right eye,denies any change in vision or any sharp pain to her eight eye. MD chief complaint: eye pain and eye redness Onset (ago): day(s) (2) Related Data Home Medications Medication Instructions Recorded Confirmed paroxetine HCl 40 mg tablet 40 mg PO QAM 08/05/19 12/29/21 aripiprazole 15 mg tablet (Abilify) 15 mg PO HS 11/13/19 12/29/21 alprazolam 1 mg tablet (Xanax) 1 mg PO TID 11/09/21 12/29/21 omeprazole 20 mg tablet,delayed 20 mg PO DAILY 11/09/21 12/29/21 release oxybutynin chloride 10 mg 10 mg PO DAILY 11/09/21 12/29/21 tablet,extended release 24 hr valsartan 160 1 tablet PO DAILY 11/09/21 12/29/21 mg-hydrochlorothiazide 25 mg tablet Allergies Allergy/AdvReac Type Severity Reaction Status Date / Time No Known Allergies Allergy Unknown Verified 12/29/21 15:41 Review of Systems Review of Systems: CONSTITUTIONAL: Denies fever, chills, or sweats. EYES: Denies visual changes,positive for burning, redness,and tearing right eye, no sharp pain ENT: Denies rhinorrhea, congestion, sore throat, or otalgia. CARDIOVASCULAR: Denies chest pain, palpitations, or edema. RESPIRATORY: Denies cough or dyspnea. GASTROINTESTINAL: Denies abdominal pain, nausea, vomiting, or diarrhea. GENITOURINARY: Denies dysuria or hematuria. SKIN: Denies rash or itching. MUSCULOSKELETAL: Chronic back pain, joint pain, or myalgia. NEUROLOGIC: Denies headache, numbness, or weakness. PSYCHIATRIC: Positive for anxiety or depression. All systems reviewed & are unremarkable except as noted in HPI and below PMFSH Past Medical History Medical History (Updated 12/30/21 @ 17:36 by Paola Shin NP) Anxiety Colon polyps Depression Depression Diverticulitis GERD (gastroesophageal reflux disease) HTN (hypertension) Hyperlipidemia Obesity (BMI 35.0-39.9 without comorbidity) CAMILLE (obstructive sleep apnea) has CPAP but is noncompliant Overactive bladder Surgical History Surgical History H/O shoulder surgery right History of cholecystectomy History of Luis Felipe fundoplication S/P insertion of spinal cord stimulator bladder stimulator. Status post laparoscopic-assisted sigmoidectomy ruptured diverticulitis Family History Family History Father Malignant neoplasm of prostate Hypertension Family history of arthritis Grandparent Diabetes mellitus Family history of glaucoma Sibling Hypertension Other Family history of throat cancer Social History Social History Smoking status: Former smoker Smoking end date: 07/01/00 Alcohol intake: current Alcohol use details: Social alcohol use Gender identity (if verbalized by the patient): Female Comments At time of signature, agree with nursing past medical, surgical, social and family history. There is no relevant family history pertinent to the presenting complaint Exam Narrative: GENERAL: Well-appearing, well-nourished, and in no acute distress. HEAD: Normocephalic, atraumatic. EYES: PERRLA and EOMI.Right eye is red with some mild redness to conjunctiva, no lesions
== END 2021-12-29 16:31 | disposition home or self-care (01) ==
PROVIDERS: Emergency Provider Registered Nurse; PCP Nurse Practitioner Family
DX: H10.9 Unspecified conjunctivitis (principal); Z87.891 Personal history of nicotine dependence; K21.9 Gastro-esophageal reflux disease without esophagitis; I10 Essential (primary) hypertension; E78.5 Hyperlipidemia, unspecified; G47.33 Obstructive sleep apnea (adult) (pediatric); E66.9 Obesity, unspecified; Z68.36 Body mass index [BMI] 36.0-36.9, adult; F41.9 Anxiety disorder, unspecified; F32.A Depression, unspecified
CPT/HCPCS: 99213; G0463

== ENCOUNTER 2022-06-14 00:03 | Emergency (ER) | payer OTHER, SELFPAY ==
--- NOTE | ~2022-06-14 | XR_ITS ---
EXAMINATION: XR abdomen obstructive series DATE: 06/14/2022 01:48 INDICATION: Nausea. TECHNIQUE: Upright and supine views of the abdomen on 4 radiographs were obtained. COMPARISON: CT abdomen and pelvis 11/12/2020 FINDINGS: There are no dilated loops of bowel. There is a moderate volume of stool in the proximal co harjinder. Surgical clips in the right upper quadrant are likely from cholecystectomy. No free intraperiton eal gas. Calcifications in the pelvis are likely phleboliths. IMPRESSION: 1. Nonobstructive bowel gas pattern. Reviewed, dictated and finalized at location [facility]. [facility]ER
[2022-06-14 00:09] VITALS: BP 179/93; PULSE 60; RESP 18; O2SAT 100
[2022-06-14 00:15] VITALS: PULSE 62; RESP 20; TEMP 36.6; O2SAT 98
--- NOTE | 2022-06-14 00:45 | ED.NAVMDI ---
HPI - Nausea/Vomiting/Diarrhea General Chief complaint: Nausea/Vomiting/Diarrhea Stated complaint: N/V GENERALIZED WEAKNESS Time Seen by Provider: 06/14/22 00:35 History of Present Illness HPI Narrative: This is a 62-year-old female past medical history of anxiety and GERD status post Luis Felipe fundoplication, brought in by EMS for nausea for the past 3 hours. Patient states her roommate has had cough, nausea vomiting and diarrhea for the past several days. Today she developed nausea, myalgias, and nonproductive cough. She denies chest pain or diarrhea. She states Zofran given her to her today did not help. EMS had a similar report with normal vital signs. The patient was given 4 mg IV Zofran in route. Related Data Home Medications Medication Instructions Recorded Confirmed paroxetine HCl 40 mg tablet 40 mg PO QAM 08/05/19 12/29/21 aripiprazole 15 mg tablet (Abilify) 15 mg PO HS 11/13/19 12/29/21 alprazolam 1 mg tablet (Xanax) 1 mg PO TID 11/09/21 12/29/21 omeprazole 20 mg tablet,delayed 20 mg PO DAILY 11/09/21 12/29/21 release oxybutynin chloride 10 mg 10 mg PO DAILY 11/09/21 12/29/21 tablet,extended release 24 hr valsartan 160 1 tablet PO DAILY 11/09/21 12/29/21 mg-hydrochlorothiazide 25 mg tablet Allergies Allergy/AdvReac Type Severity Reaction Status Date / Time No Known Allergies Allergy Unknown Verified 12/29/21 15:41 Review of Systems Review of Systems: CONSTITUTIONAL: Denies fever, chills, or sweats. EYES: Denies visual changes, redness, or discharge. ENT: Rhinorrhea, congestion denies sore throat, or otalgia. CARDIOVASCULAR: Denies chest pain, palpitations, or edema. RESPIRATORY: Denies cough or dyspnea. GASTROINTESTINAL: Nausea denies abdominal pain, vomiting, or diarrhea. GENITOURINARY: Denies dysuria or hematuria. SKIN: Denies rash or itching. MUSCULOSKELETAL: Myalgias denies back pain, joint pain NEUROLOGIC: Denies headache, numbness, dizziness, or weakness. PSYCHIATRIC: Denies anxiety or depression. [facility] Past Medical History Medical History (Updated 06/14/22 @ 00:50 by Fabien Rubio MD) Anxiety Colon polyps Depression Depression Diverticulitis GERD (gastroesophageal reflux disease) HTN (hypertension) Hyperlipidemia Obesity (BMI 35.0-39.9 without comorbidity) CAMILLE (obstructive sleep apnea) has CPAP but is noncompliant Overactive bladder Surgical History Surgical History H/O shoulder surgery right History of cholecystectomy History of Luis Felipe fundoplication S/P insertion of spinal cord stimulator bladder stimulator. Status post laparoscopic-assisted sigmoidectomy ruptured diverticulitis Family History Family History Father Malignant neoplasm of prostate Hypertension Family history of arthritis Grandparent Diabetes mellitus Family history of glaucoma Sibling Hypertension Other Family history of throat cancer Social History Social History Smoking status: Former smoker Smoking end date: 07/01/00 Alcohol intake: current Alcohol use details: Social alcohol use Gender identity (if verbalized by the patient): Female Exam Narrative: GENERAL: Well-developed, well-nourished, appears uncomfortable HEAD: Normocephalic, atraumatic. EYES: PERRLA and EOMI. ENT: Nares clear, no rhinorrhea or epistaxis. Mucous membranes moist. Oropharynx without tonsillar hypertrophy exudate or other lesions. NECK: Supple. No adenopathy or masses. No carotid bruits or JVD CHEST: Clear to auscultation. No respiratory distress. No wheezes rales or rhonchi HEART: Regular rate and rhythm. No murmur heard. Normal peripheral pulses. ABDOMEN: Soft, nontender, nondistended, normal active bowel sounds. EXTREMITIES: Normal range of motion. No edema. SKIN: Warm, dry, no rash. NEURO: No focal deficits.
[2022-06-14] MEDS: PROCHLORPERAZINE EDISYLATE 10 MG/2 ML VIAL IV PUSH (00:56)
[2022-06-14] MEDS: SODIUM CHLORIDE 0.9% IV 1,000 ML 999 ML IV CONT (00:56)
[2022-06-14 01:33] LABS: Influenza A QL RT-PCR Negative (Negative); Influenza B QL RT-PCR Negative (Negative); SARS-CoV-2 RNA PCR Negative
--- NOTE | 2022-06-14 01:52 | ECG_ITS ---
Measurements Intervals [place] Rate: 69 P: 53 NH: 160 QRS: 45 QRSD: 92 T: 32 QT: 415 QTc: 447 Interpretive Statements SINUS RHYTHM WITH OCCASIONAL VENTRICULAR PREMATURE COMPLEXES LOW QRS VOLTAGE IN PRECORDIAL LEADS [QRS DEFLECTION < 1.0 mV IN CHEST LEADS] COMPARED TO ECG 11/13/2020 15:24:15 NO SIGNIFICANT CHANGES Electronically Signed On 06-14-2022 11:43:50 CPO by Consuelo Rod M.D.
[2022-06-14] MEDS: LORazepam INJ (*CRX) 2 MG/ML VIAL 0.5 MG IV PUSH (02:00)
[2022-06-14 02:51] LABS: Troponin I < 0.012 ng/mL (0.000-0.034)
[2022-06-14 03:49] VITALS: PULSE 77; RESP 18; O2SAT 98
== END 2022-06-14 03:51 | disposition home or self-care (01) ==
PROVIDERS: Emergency Provider Preventive Medicine Aerospace Medicine; PCP Nurse Practitioner Family
DX: J11.1 Influenza due to unidentified influenza virus with other respiratory manifestations (principal); R11.0 Nausea; Z20.822 Contact with and (suspected) exposure to COVID-19; I10 Essential (primary) hypertension; E78.5 Hyperlipidemia, unspecified; K21.9 Gastro-esophageal reflux disease without esophagitis; G47.33 Obstructive sleep apnea (adult) (pediatric); N32.81 Overactive bladder; F41.9 Anxiety disorder, unspecified; F32.A Depression, unspecified; E66.9 Obesity, unspecified; Z96.82 Presence of neurostimulator; Z90.49 Acquired absence of other specified parts of digestive tract; Z87.891 Personal history of nicotine dependence; I49.3 Ventricular premature depolarization
CPT/HCPCS: 36415; 74019; 84484; 87636; 93005; 96361; 96374; 96375; 99284; J0780; J2060; J7030

== ENCOUNTER 2022-09-18 09:01 | Outpatient (CLI) | payer OTHER, SELFPAY ==
--- NOTE | ~2022-09-18 | MM_ITS ---
EXAMINATION: MM screening earl BI w alli HISTORY: Screening TECHNIQUE: Craniocaudal and mediolateral oblique 3-D tomosynthesis images were obtained and synthetic 2-D images were generated. CAD analysis was submitted and interpreted. COMPARISON: Comparison to multiple prior studies sequentially, with oldest reviewed study dated 12/24. BREAST PARENCHYMAL COMPOSITION: There are scattered areas of fibroglandular density. FINDINGS: There is no evidence of suspicious mass, calcification, or architectural distortion to sugg est malignancy in either breast. There has been no suspicious interval change. IMPRESSION: 1. No mammographic evidence of malignancy. 2. Recommend routine screening mammography in one year. BI-RADS Category 1: Negative Reviewed, dictated and finalized at location [facility].
--- NOTE | ~2022-09-18 | DEXA_ITS ---
Bone Density Report Name: DAVID COBOS Age: 62 Sex: Female Ethnicity: White Date of : 1960 Indication: postmenopausal; screening for osteoporosis; height loss; Referring Provider: ERICA MCMAHON Study: Bone densitometry was performed. Exam Date: September 18, 2022 Accession number: [id number] Bone Density: Region BMD T-score Z-score Classification AP Spine(L1-L4) 0.977 -0.6 0.9 Normal Femoral Neck (Left) 0.773 -0.7 0.7 Normal Total Hip (Left) 0.991 0.4 1.4 Normal Femoral Neck (Right) 0.784 -0.6 0.7 Normal Total Hip (Right) 0.956 0.1 1.1 Normal Total Hip Mean 0.974 0.3 1.3 Normal World Health Organization criteria for BMD impression classify patients as: Normal (T-score at or above -1.0), Osteopenia (T-score between -1.0 and -2.5), or Osteoporosis (T-score at or below -2.5). 10-year Fracture Risk: FRAX not reported because: All T-scores for Spine Total, Hip Total, Femoral Neck at or above -1.0 Previous Exams: Region Exam Age BMD T-score BMD Change BMD Change Date g/cm2 vs Baseline vs Previous AP Spine (L1-L4) 09/18/2022 62 0.977 -0.6 -0.054 (-5.2%) -0.049 (-4.7%) 04/08/2019 58 1.025 -0.2 -0.005 (-0.5%) 0.030 (3.0%)* 01/06/2016 55 0.995 -0.5 -0.036 (-3.4%) -0.036 (-3.4%) 03/05/2013 52 1.031 -0.1 Total Hip(Left) 09/18/2022 62 0.991 0.4 -0.059 (-5.7%) -0.068 (-6.4%) 04/08/2019 58 1.059 1.0 0.008 (0.8%)# 0.061 (6.1%)* 01/06/2016 55 0.997 0.5 -0.053 (-5.0%) -0.053 (-5.0%) 03/05/2013 52 1.050 0.9 Total Hip(Right) 09/18/2022 62 0.956 0.1 -0.122 (-11.3% -0.077 (-7.5%) 04/08/2019 58 1.033 0.7 -0.045 (-4.2%) 0.007 (0.7%) 01/06/2016 55 1.026 0.7 -0.052 (-4.8%) -0.052 (-4.8%) 03/05/2013 52 1.078 1.1 *Denotes significance at 95% confidence level, LSC for AP Spine = 0.022 g/cm2, LSC for Total Hip = 0.027 g/cm2 # Denotes dissimilar scan types or analysis methods Clinical Information Provided by Patient: Patient maximum height was 69 Menopause Age: 52 No regular weight bearing exercise Drinks caffeinated beverages Onset of menses at age 16 Number of children 0 Impression: The patient has normal bone mass. The BMD for the AP Spine (L1-L4) decreased, changing by -4.7% since the last DXA exam. The BMD for the Total Hip(Left) decreased, changing by -6.4% since the last DXA exam. The BMD for the Total Hip(Right) decreased, changing by -7.5% since the l
== END 2022-09-18 09:02 | disposition home or self-care (01) ==
LOC: ANHIMG 09:03
PROVIDERS: PCP Family Medicine Sports Medicine; Visit Provider Obstetrics & Gynecology
DX: Z12.31 Encounter for screening mammogram for malignant neoplasm of breast (principal); Z78.0 Asymptomatic menopausal state
CPT/HCPCS: 77063; 77067; 77080

== ENCOUNTER 2023-06-16 12:12 | Emergency (ER) | payer OTHER, SELFPAY ==
[2023-06-16] VITALS (16 sets, daily range): BP systolic 148–165; BP diastolic 73–98; PULSE 51–71; RESP 13–26; TEMP 36.6; O2SAT 91–100
--- NOTE | 2023-06-16 12:51 | ED.NAVMDI ---
HPI - Nausea/Vomiting/Diarrhea General Chief complaint: Nausea/Vomiting/Diarrhea Stated complaint: nausea, gen. weakness, SOB Time Seen by Provider: 06/16/23 12:18 History of Present Illness HPI Narrative: Patient is a 63-year-old female with a history of hypertension, GERD presenting with nausea. Patient states that for the last couple of days she has been persistently nauseated. States that she had a fundoplication in the past due to GERD so she is unable to throw up even when she wants to. she denies abdominal pain. Reports loose stools but no vomiting. No hematochezia or melena. No chest pain, cough, fevers. States that she feels a little short of breath whenever she is feeling very nauseated. No dysuria or hematuria. No flank pain. No further complaints. Related Data Home Medications Medication Instructions Recorded Confirmed paroxetine HCl 40 mg tablet 40 mg PO QAM 08/05/19 04/09/23 aripiprazole 15 mg tablet (Abilify) 15 mg PO HS 11/13/19 04/09/23 alprazolam 1 mg tablet (Xanax) 1 mg PO TID 11/09/21 04/09/23 omeprazole 20 mg tablet,delayed 20 mg PO DAILY 11/09/21 04/09/23 release oxybutynin chloride 10 mg 10 mg PO DAILY 11/09/21 04/09/23 tablet,extended release 24 hr valsartan 160 1 tablet PO DAILY 11/09/21 04/09/23 mg-hydrochlorothiazide 25 mg tablet sumatriptan succinate 25 mg tablet See Rx Instructions PO .COMPLEX 07/12/22 04/09/23 (Imitrex) Allergies Allergy/AdvReac Type Severity Reaction Status Date / Time No Known Allergies Allergy Unknown Verified 06/16/23 12:19 Review of Systems Review of Systems: All systems reviewed & are unremarkable except as noted in HPI and below PMFSH Past Medical History Medical History Anxiety Colon polyps Depression Depression Diverticulitis GERD (gastroesophageal reflux disease) HTN (hypertension) Hyperlipidemia Obesity (BMI 35.0-39.9 without comorbidity) CAMILLE (obstructive sleep apnea) has CPAP but is noncompliant Overactive bladder Surgical History Surgical History H/O shoulder surgery right History of cholecystectomy History of Luis Felipe fundoplication S/P insertion of spinal cord stimulator bladder stimulator. Removed in 08/2021 Status post laparoscopic-assisted sigmoidectomy ruptured diverticulitis Family History Family History Father Malignant neoplasm of prostate Hypertension Family history of arthritis Grandparent Diabetes mellitus Family history of glaucoma Sibling Hypertension Other Family history of throat cancer Social History Social History Smoking status: Former smoker Smoking end date: 07/01/00 Alcohol intake: former Substance use: never Substance use type: does not use Lack of Transportation: No Lack of Food: Never True Current Housing: I Have Housing Concerned About Future Housing: No Difficulty Paying Gas/Electric Bills: No Difficulty Paying for Meds: No Currently Unemployed: No Education: High School Diploma/GED Living arrangements: with friend(s) Occupation/Education: unemployed Gender identity (if verbalized by the patient): Female Exam Narrative: GENERAL: Well-appearing, In no acute distress, pleasant cooperative HEAD: Normocephalic, atraumatic. EYES: PERRLA and EOMI. ENT: Mucous membranes moist. NECK: Supple. CHEST: Clear to auscultation. No respiratory distress. HEART: Regular rate and rhythm ABDOMEN: Soft, nontender, nondistended EXTREMITIES: Normal range of motion. SKIN: Warm, dry, no rash. NEURO: Alert and oriented x3. PSYCH: Normal mood and affect. Course Vital Signs Vital signs: Vital Signs Temperature 97.8 F 06/16/23 12:12 Pulse Rate 65 06/16/23 12:12 Respiratory Rate 21 H 06/16/23 12
[2023-06-16] MEDS: SODIUM CHLORIDE 0.9% IV 1,000 ML 999 ML IV CONT ×2 (12:58→13:45)
[2023-06-16] MEDS: ONDANSETRON INJ 4 MG/2 ML VIAL IV PUSH (12:58)
[2023-06-16] MEDS: FAMOTIDINE 20 MG/2 ML VIAL IV PUSH (12:58)
[2023-06-16 13:14] LABS: Basophils Percent Auto 0.3 % (0.2-1.2); Eosinophils Percent Auto 0.1 % (0-4.4); Hematocrit 39.9 % (37.0-47.0); Hemoglobin 13.3 g/dL (12.0-15.0); Immature Granulocyte Absolute 0.03 K/mm3 (0.00-0.031); Immature Granulocyte Percent A 0.4 % (0-0.5); Lymphocytes Absolute Auto 1.92 K/mm3 (0.9-3.2); Lymphocytes Percent Auto 26.9 % (18.3-44.2); Mean Corpuscular HGB Conc 33.3 g/dl (32-36); Mean Corpuscular Hemoglobin 28.4 pg (26-34); Mean Corpuscular Volume 85.1 fl (80-100); Mean Platelet Volume 8.9 fl (7.4-10.4); Monocytes Absolute Auto 0.6 K/mm3 (0.1-0.6); Monocytes Percent Auto 7.7 % (2.6-8.5); Neutrophils Absolute Auto 4.6 K/mm3 (1.3-6.7); Neutrophils Percent Auto 64.6 % (45.5-73.1); Platelet Count Result 399 k/mm3 (150-375); Red Blood Count 4.69 M/mm3 (4.2-5.4); Red Cell Distribution Width 13.1 % (11.5-14.5); White Blood Count 7.2 K/mm3 (4.5-10.0)
[2023-06-16 13:20] LABS: Appearance Urine Cloudy (Clear); Bacteria Urine 1+ /hpf; Bilirubin Urine Negative (Negative); Blood Urine Negative (Negative); Color Urine Yellow (Yellow); Glucose Urine UA Negative (Negative); Ketones Urine Negative (Negative); Leukocyte Esterase Ur 2+ LEU/UL (Negative); Nitrate Urine Negative (Negative); Non Pathogenic Casts 0-2; Protein Urine Negative (Negative); RBC Urine 0-2 /hpf (0-2); Squamous Epithelial Cell Urine Moderate /hpf (Few); Urobilinogen Urine 0.2 mg/dL (<2.0); WBC Urine 21-50 /hpf; pH Urine 6.5 (5.0-9.0)
[2023-06-16 13:24] LABS: Alanine Aminotransferase 19 U/L (6-35); Albumin Level 4.4 g/dL (3.5-5.1); Alkaline Phosphatase 94 U/L (38-126); Anion Gap 7 mmol/L (8-16); Aspartate Amino Transferase 23 U/L (14-36); Bilirubin,Total 0.7 mg/dL (0.2-1.3); Blood Urea Nitrogen 16 mg/dL (7-17); Calcium 10.2 mg/dL (8.4-10.2); Carbon Dioxide 29 mmol/L (22-30); Chloride 94 mmol/L (98-107); Estimated CRCL calculation 71 ml/min; Estimated Glomerular Filt Rate > 60; Glucose 102 mg/dL (65-110); Lipase 46 U/L (23-300); Potassium 3.7 mmol/L (3.4-5.0); Sodium 130 mmol/L (137-145)
[2023-06-16 13:27] LABS: Add Urine Microscopic? YES
--- NOTE | 2023-06-16 14:32 | PC.NURSE ---
patient tolerating PO challenge
[2023-06-16] MEDS: CEPHALEXIN 500 MG CAPSULE PO (15:24)
== END 2023-06-16 15:41 | disposition home or self-care (01) ==
PROVIDERS: Emergency Provider Emergency Medicine; PCP Family Medicine Sports Medicine
DX: N39.0 Urinary tract infection, site not specified (principal); I10 Essential (primary) hypertension; E78.5 Hyperlipidemia, unspecified; E66.9 Obesity, unspecified; Z68.34 Body mass index [BMI] 34.0-34.9, adult; K21.9 Gastro-esophageal reflux disease without esophagitis; G47.33 Obstructive sleep apnea (adult) (pediatric); N32.81 Overactive bladder; F32.A Depression, unspecified; F41.9 Anxiety disorder, unspecified; Z86.010 Personal history of colon polyps; Z90.49 Acquired absence of other specified parts of digestive tract; Z87.891 Personal history of nicotine dependence
CPT/HCPCS: 36415; 80053; 81001; 83690; 85025; 87086; 87088; 96361; 96374; 96375; 99284; A9270; J2405; J7030

== ENCOUNTER 2023-10-17 17:36 | Emergency (ER) | payer OTHER, SELFPAY ==
--- NOTE | 2023-10-17 18:24 | ED.NAVMDI ---
HPI - Nausea/Vomiting/Diarrhea General Chief complaint: Nausea/Vomiting/Diarrhea <Jag Retana APRN - Last Filed: 11/06/23 08:49> Stated complaint: nausea <Jag Retana [employer]ICE - Last Filed: 11/06/23 08:49> Time Seen by Provider: 10/17/23 22:17 <Jag Retana APRN - Last Filed: 11/06/23 08:49> Focused HPI: GENERAL: ill-appearing, well-nourished, and in no acute distress. HEAD: Normocephalic, atraumatic. CHEST: Clear to auscultation. No respiratory distress. HEART: Regular rate and rhythm. NEURO: Alert and oriented x3. Patient screened in triage and initial orders placed. Additional care and disposition to be based upon diagnostic testing and treatment. 63-year-old female status post Luis Felipe fundoplication and cholecystectomy presents to the emergency room for evaluation of nausea since yesterday. Denies any abdominal pain. No constipation or diarrhea. Denies back pain flank pain. Denies fevers. Reports last bowel movement was this morning. <Jag Retana APRN - Last Filed: 11/06/23 08:49> Focused HPI: Patient screened in triage and initial orders placed. Additional care and disposition to be based upon diagnostic testing and treatment. 63-year-old female status post Luis Felipe fundoplication and cholecystectomy presents to the emergency room for evaluation of nausea since yesterday. Denies any abdominal pain. No constipation or diarrhea. Denies back pain flank pain. Denies fevers. Reports last bowel movement was this morning. GENERAL: ill-appearing, well-nourished, and in no acute distress. HEAD: Normocephalic, atraumatic. CHEST: Clear to auscultation. No respiratory distress. HEART: Regular rate and rhythm. NEURO: Alert and oriented x3. <Alexi Crowell MD - Last Filed: 10/17/23 23:16> History of Present Illness HPI Narrative: Agree with above HPI. Dry heaving throughout the day. No improvement with oral Zofran at home and no improvement with IV Zofran by EMS. No diarrhea. No abdominal pain. <Alexi Crowell MD - Last Filed: 10/17/23 23:16> Related Data Home medications: Home Medications Medication Instructions Recorded Confirmed paroxetine HCl 40 mg tablet 40 mg PO QAM 08/05/19 09/04/23 aripiprazole 15 mg tablet (Abilify) 15 mg PO HS 11/13/19 09/04/23 alprazolam 1 mg tablet (Xanax) 1 mg PO TID 11/09/21 09/04/23 omeprazole 20 mg tablet,delayed 20 mg PO DAILY 11/09/21 09/04/23 release oxybutynin chloride 10 mg 10 mg PO DAILY 11/09/21 09/04/23 tablet,extended release 24 hr valsartan 160 1 tablet PO DAILY 11/09/21 09/04/23 mg-hydrochlorothiazide 25 mg tablet sumatriptan succinate 25 mg tablet See Rx Instructions PO .COMPLEX 07/12/22 09/04/23 (Imitrex) <Jag Retana APRN - Last Filed: 11/06/23 08:49> Allergies/Adverse reactions: Allergies Allergy/AdvReac Type Severity Reaction Status Date / Time No Known Allergies Allergy Unknown Verified 09/04/23 13:47 <Jag Retana APRN - Last Filed: 11/06/23 08:49> Review of Systems Review of Systems: All systems reviewed & are unremarkable except as noted in HPI and below <Alexi Crowell MD - Last Filed: 10/17/23 23:16> ENT: Reports system reviewed and no additional complaints, except as documented <Alexi Crowell MD - Last Filed: 10/17/23 23:16> Cardiovascular: Cardiovascular: Reports no additional cardiovascular complaints <Alexi Crowell MD - Last Filed: 10/17/23 23:16> Respiratory: Respiratory: Reports no additional respiratory complaints <Alexi Crowell MD - Last Filed: 10/17/23 23:16> Gastrointestinal: Gastrointestinal: Denies abdominal pain, Denies constipation, Denies diarrhea, Reports nausea and Denies vomiting <Alexi Crowell MD - Last Filed: 10/17/23 23:16> Genitourinary: Genitourinary: Reports no additional female genitourinary complaints <Alexi Crowell MD - Last Filed: 10/17/23 23:16> Musculoskeletal: Musculoskeletal: Reports no additi
[2023-10-17 18:25] VITALS: BP 181/84; PULSE 70; RESP 16; TEMP 37.7; O2SAT 98
[2023-10-17 20:35] LABS: Basophils Percent Auto 0.2 % (0.2-1.2); Hemoglobin 13.2 g/dL (12.0-15.0); Immature Granulocyte Absolute 0.06 K/mm3 (0.00-0.031); Immature Granulocyte Percent A 0.7 % (0-0.5); Lymphocytes Percent Auto 17.4 % (18.3-44.2); Mean Corpuscular Hemoglobin 28.4 pg (26-34); Mean Platelet Volume 9.3 fl (7.4-10.4); Monocytes Absolute Auto 0.7 K/mm3 (0.1-0.6); Monocytes Percent Auto 7.9 % (2.6-8.5); Neutrophils Absolute Auto 6.8 K/mm3 (1.3-6.7); Neutrophils Percent Auto 73.8 % (45.5-73.1); Platelet Count Result 528 k/mm3 (150-375); Red Blood Count 4.65 M/mm3 (4.2-5.4); Red Cell Distribution Width 12.7 % (11.5-14.5); White Blood Count 9.2 K/mm3 (4.5-10.0)
[2023-10-17 20:48] LABS: Alanine Aminotransferase 16 U/L (6-35); Albumin Level 5.1 g/dL (3.5-5.1); Alkaline Phosphatase 116 U/L (38-126); Anion Gap 10 mmol/L (4-12); Aspartate Amino Transferase 20 U/L (14-36); Bilirubin,Total 0.8 mg/dL (0.2-1.3); Blood Urea Nitrogen 17 mg/dL (7-17); Calcium 10.7 mg/dL (8.4-10.2); Carbon Dioxide 26 mmol/L (22-30); Chloride 92 mmol/L (98-107); Estimated CRCL calculation 73 ml/min; Estimated Glomerular Filt Rate > 60; Glucose 106 mg/dL (65-110); Lipase 55 U/L (23-300); Sodium 128 mmol/L (137-145)
[2023-10-17 21:47] LABS: Appearance Urine Clear (Clear); Bacteria Urine 1+ /hpf; Bilirubin Urine Negative (Negative); Blood Urine Negative (Negative); Color Urine Yellow (Yellow); Glucose Urine UA Negative (Negative); Ketones Urine 1+ mg/dL (Negative); Leukocyte Esterase Ur 1+ LEU/UL (Negative); Need Manual Microscopic Reviewed; Nitrate Urine Negative (Negative); Non Pathogenic Casts 0-2; Protein Urine 1+ mg/dL (Negative); RBC Urine 0-2 /hpf (0-2); Specific Grav Ur 1.021 (1.001-1.035); Squamous Epithelial Cell Urine Occasional /hpf (Few); WBC Urine 0-5 /hpf (0-3); pH Urine 7.5 (5.0-9.0)
[2023-10-17 21:48] LABS: Add Urine Microscopic? NO
[2023-10-17] MEDS: SODIUM CHLORIDE 0.9% IV 500 ML 999 ML IV CONT (22:39)
[2023-10-17] MEDS: PROMETHAZINE HCL 25 MG/ML AMPUL 12.5 MG IV PUSH (22:40)
[2023-10-17] MEDS: POTASSIUM CHLORIDE 20 MEQ PACKET (FOR LIQUID) 40 MEQ PO (23:16)
[2023-10-17] MEDS: BELLADONNA ALK/PHENOB ELIX 10 ML, MAG HYDROX/ALUMINUM HYD/SIMETH 30 ML, LIDOCAINE HCL 2... PO (23:41)
[2023-10-17 23:49] VITALS: BP 150/69; PULSE 69; RESP 16; O2SAT 100
== END 2023-10-18 00:27 | disposition home or self-care (01) ==
PROVIDERS: Nurse Practitioner Family; Emergency Provider Emergency Medicine; PCP Family Medicine Sports Medicine
DX: R11.0 Nausea (principal); I10 Essential (primary) hypertension; E78.5 Hyperlipidemia, unspecified; E66.9 Obesity, unspecified; Z68.35 Body mass index [BMI] 35.0-35.9, adult; K21.9 Gastro-esophageal reflux disease without esophagitis; G47.33 Obstructive sleep apnea (adult) (pediatric); F32.A Depression, unspecified; F41.9 Anxiety disorder, unspecified; Z96.82 Presence of neurostimulator; Z86.010 Personal history of colon polyps; Z87.891 Personal history of nicotine dependence; Z90.49 Acquired absence of other specified parts of digestive tract
CPT/HCPCS: 36415; 80053; 81003; 83690; 85025; 96361; 96374; 99284; A9270; J2550; J7040

== ENCOUNTER 2023-10-19 01:23 | Emergency (ER) | payer OTHER, SELFPAY ==
[2023-10-19 01:26] VITALS: BP 220/90; PULSE 70; RESP 20; TEMP 36.9; O2SAT 100
[2023-10-19 02:03] LABS: Basophils Percent Auto 0.2 % (0.2-1.2); Hematocrit 40.2 % (37.0-47.0); Hemoglobin 13.3 g/dL (12.0-15.0); Immature Granulocyte Absolute 0.05 K/mm3 (0.00-0.031); Immature Granulocyte Percent A 0.5 % (0-0.5); Lymphocytes Absolute Auto 1.15 K/mm3 (0.9-3.2); Lymphocytes Percent Auto 10.6 % (18.3-44.2); Mean Corpuscular HGB Conc 33.1 g/dl (32-36); Mean Corpuscular Hemoglobin 28.7 pg (26-34); Mean Corpuscular Volume 86.8 fl (80-100); Mean Platelet Volume 9.1 fl (7.4-10.4); Monocytes Absolute Auto 0.3 K/mm3 (0.1-0.6); Monocytes Percent Auto 2.9 % (2.6-8.5); Neutrophils Absolute Auto 9.3 K/mm3 (1.3-6.7); Neutrophils Percent Auto 85.8 % (45.5-73.1); Platelet Count Result 497 k/mm3 (150-375); Red Blood Count 4.63 M/mm3 (4.2-5.4); Red Cell Distribution Width 12.7 % (11.5-14.5); White Blood Count 10.9 K/mm3 (4.5-10.0)
[2023-10-19 02:21] LABS: Alanine Aminotransferase 16 U/L (6-35); Alkaline Phosphatase 112 U/L (38-126); Anion Gap 9 mmol/L (4-12); Aspartate Amino Transferase 23 U/L (14-36); Bilirubin,Total 0.6 mg/dL (0.2-1.3); Blood Urea Nitrogen 20 mg/dL (7-17); Calcium 10.7 mg/dL (8.4-10.2); Carbon Dioxide 27 mmol/L (22-30); Chloride 97 mmol/L (98-107); Estimated CRCL calculation 66 ml/min; Estimated Glomerular Filt Rate 56; Glucose 141 mg/dL (65-110); Lipase 78 U/L (23-300); Potassium 3.3 mmol/L (3.4-5.0); Sodium 133 mmol/L (137-145)
[2023-10-19 02:41] LABS: Influenza A QL RT-PCR Negative (Negative); Influenza B QL RT-PCR Negative (Negative); RSV RNA, RT-PCR Negative (Negative); SARS-CoV-2 RNA PCR Negative (Negative)
[2023-10-19 02:47] LABS: Bacteria Urine 2+ /hpf; RBC Urine 0-2 /hpf (0-2); Squamous Epithelial Cell Urine Few /hpf (Few); WBC Urine 21-50 /hpf (0-3)
[2023-10-19 03:02] LABS: Appearance Urine Cloudy (Clear); Bilirubin Urine Negative (Negative); Blood Urine Negative (Negative); Color Urine Yellow (Yellow); Glucose Urine UA Negative (Negative); Ketones Urine Trace mg/dL (Negative); Leukocyte Esterase Ur 1+ LEU/UL (Negative); Nitrate Urine Negative (Negative); Protein Urine 1+ mg/dL (Negative); Specific Grav Ur 1.025 (1.001-1.035); Urobilinogen Urine 0.2 mg/dL (<2.0); pH Urine 5.5 (5.0-9.0)
[2023-10-19 03:06] LABS: Add Urine Microscopic? YES
[2023-10-19] MEDS: PROCHLORPERAZINE EDISYLATE 10 MG/2 ML VIAL IV PUSH (03:26)
[2023-10-19] MEDS: CEPHALEXIN 500 MG CAPSULE PO (03:26)
[2023-10-19] MEDS: SODIUM CHLORIDE 0.9% IV 1,000 ML 999 ML IV CONT (03:26)
[2023-10-19 04:00] VITALS: BP 186/90; PULSE 69; RESP 15; O2SAT 99
[2023-10-19] MEDS: ONDANSETRON INJ 4 MG/2 ML VIAL IV PUSH (04:55)
--- NOTE | 2023-10-19 05:00 | ED.NAVMDI ---
HPI - Nausea/Vomiting/Diarrhea General Chief complaint: Nausea/Vomiting/Diarrhea <Fabien Rubio MD - Last Filed: 10/19/23 05:17> Stated complaint: nausea <Fabien Rubio MD - Last Filed: 10/19/23 05:17> Time Seen by Provider: 10/19/23 02:04 <Fabien Rubio MD - Last Filed: 10/19/23 05:17> History of Present Illness HPI Narrative: This is a 63 year old female, with history of anxiety hypertension, who returns to the emergency department complaining of nausea. The patient states he was here approximately 2 days ago with nausea that initially improved with Zofran. She states earlier this evening, she ate and felt not sure. She states she is unable to vomit due to previous Luis Felipe fundoplication. She has no other complaints at this time. <Fabien Rubio MD - Last Filed: 10/19/23 05:17> Related Data Home medications: Home Medications Medication Instructions Recorded Confirmed paroxetine HCl 40 mg tablet 40 mg PO QAM 08/05/19 09/04/23 aripiprazole 15 mg tablet (Abilify) 15 mg PO HS 11/13/19 09/04/23 alprazolam 1 mg tablet (Xanax) 1 mg PO TID 11/09/21 09/04/23 omeprazole 20 mg tablet,delayed 20 mg PO DAILY 11/09/21 09/04/23 release oxybutynin chloride 10 mg 10 mg PO DAILY 11/09/21 09/04/23 tablet,extended release 24 hr valsartan 160 1 tablet PO DAILY 11/09/21 09/04/23 mg-hydrochlorothiazide 25 mg tablet sumatriptan succinate 25 mg tablet See Rx Instructions PO .COMPLEX 07/12/22 09/04/23 (Imitrex) <Fabien Rubio MD - Last Filed: 10/19/23 05:17> Allergies/Adverse reactions: Allergies Allergy/AdvReac Type Severity Reaction Status Date / Time No Known Allergies Allergy Unknown Verified 09/04/23 13:47 <Fabien Rubio MD - Last Filed: 10/19/23 05:17> Review of Systems Review of Systems: CONSTITUTIONAL: Denies fever, chills, or sweats. ENT: Denies rhinorrhea, congestion, sore throat, or otalgia. CARDIOVASCULAR: Denies chest pain, palpitations, or edema. RESPIRATORY: Denies cough or dyspnea. GASTROINTESTINAL: Nausea Denies abdominal pain, vomiting, or diarrhea. GENITOURINARY: Denies dysuria or hematuria. SKIN: Denies rash or itching. MUSCULOSKELETAL: Denies back pain, joint pain, or myalgia. NEUROLOGIC: Denies headache, numbness, dizziness, or weakness. PSYCHIATRIC: Denies anxiety or depression. <Fabien Rubio MD - Last Filed: 10/19/23 05:17> [facility] Past Medical History Medical History: Medical History Anxiety Colon polyps Depression Depression Diverticulitis GERD (gastroesophageal reflux disease) HTN (hypertension) Hyperlipidemia Obesity (BMI 35.0-39.9 without comorbidity) CAMILLE (obstructive sleep apnea) has CPAP but is noncompliant Overactive bladder <Fabien Rubio MD - Last Filed: 10/19/23 05:17> Surgical History Surgical History: Surgical History H/O shoulder surgery right History of cholecystectomy History of Luis Felipe fundoplication S/P insertion of spinal cord stimulator bladder stimulator. Removed in 08/2021 Status post laparoscopic-assisted sigmoidectomy ruptured diverticulitis <Fabien Rubio MD - Last Filed: 10/19/23 05:17> Family History Family History: Family History Father Malignant neoplasm of prostate Hypertension Family history of arthritis Grandparent Diabetes mellitus Family history of glaucoma Sibling Hypertension Other Family history of throat cancer <Fabien Rubio MD - Last Filed: 10/19/23 05:17> Social History Social History: Social History Smoking status: Former smoker Smoking end date: 07/01/00 Alcohol intake: former Substance use: never Substance use type: does not use Lack of Transportation: No [place]
[2023-10-19] MEDS: PANTOPRAZOLE SODIUM IV 40 MG VIAL IV PUSH (05:22)
[2023-10-19] MEDS: HALOPERIDOL LACTATE 5 MG/ML VIAL 2.5 MG IV PUSH (05:35)
[2023-10-19] MEDS: diphenhydrAMINE HCl INJ 50 MG/ML VIAL 25 MG IV PUSH (05:36)
[2023-10-19 06:44] VITALS: BP 180/91; PULSE 66; RESP 15; O2SAT 97
== END 2023-10-19 06:48 | disposition home or self-care (01) ==
PROVIDERS: Preventive Medicine Aerospace Medicine; Emergency Provider Emergency Medicine; PCP Family Medicine Sports Medicine
DX: N30.00 Acute cystitis without hematuria (principal); R11.0 Nausea; Z20.822 Contact with and (suspected) exposure to COVID-19; I10 Essential (primary) hypertension; E78.5 Hyperlipidemia, unspecified; E66.9 Obesity, unspecified; Z68.35 Body mass index [BMI] 35.0-35.9, adult; K21.9 Gastro-esophageal reflux disease without esophagitis; N32.81 Overactive bladder; G47.33 Obstructive sleep apnea (adult) (pediatric); F41.9 Anxiety disorder, unspecified; F32.A Depression, unspecified; Z96.82 Presence of neurostimulator; Z86.010 Personal history of colon polyps; Z87.891 Personal history of nicotine dependence; Z90.49 Acquired absence of other specified parts of digestive tract
CPT/HCPCS: 36415; 80053; 81001; 83690; 85025; 87086; 87088; 87637; 96361; 96374; 96375; 99284; A9270; C9113; J0780; J1200; J1630; J2405; J7030

== ENCOUNTER 2023-11-09 23:28 | Emergency (ER) | payer OTHER, SELFPAY ==
--- NOTE | ~2023-11-09 | CT_ITS ---
EXAMINATION: CT brain wo con DATE: 11/10/2023 01:45 INDICATION: Headache, nausea. Hypertension. TECHNIQUE: Computed tomography (CT) of the head was performed without intravenous contrast. The mA wa s adjusted according to patient size. Iterative reconstruction technique was employed. Exam dose: 60 5.33 mGy-cm total exam DLP. COMPARISON: 04/06/2014 CT brain FINDINGS: No intracranial mass lesion or hemorrhage or bronchovascular accident. No midline shift or mass effect. Normal ventricular size. Bilateral carotid siphon internal carotid artery calcifications. No subdural or epidural hematoma. There is mild patchy soft tissue thickening of the left ethmoid air cells. Included paranasal sinuses and the mastoid air cells otherwise appear normally developed and aerated. No fracture or bone destruction of the cranial vault. IMPRESSION: Cerebral atherosclerosis; no acute intracranial finding Reviewed, dictated and finalized at [facility]. Reviewed, dictated and finalized at location A.
--- NOTE | ~2023-11-09 | XR_ITS ---
XR chest 2V DATE: 11/10/2023 00:12 INDICATION: Nausea TECHNIQUE: PA and lateral views COMPARISON: 12/01/2021 2 view chest FINDINGS: Normal heart size. Aortic arch calcification, minimal aortic unfolding. No hilar or mediast inal enlargement. No pulmonary infiltrate or consolidation, pleural effusion or pulmonary velocity congestion or pneumo thorax. Chronic mild elevation right diaphragm. Surgical clips, right upper quadrant, likely due to cholecystectomy. IMPRESSION: No active cardiopulmonary disease or significant change since 12/01/2021 Reviewed, dictated and finalized at location A. IMPRESSION: No active cardiopulmonary disease or significant change since 022
[2023-11-09 23:44] VITALS: BP 199/117; PULSE 85; RESP 18; TEMP 36.3; O2SAT 100
--- NOTE | 2023-11-09 23:44 | ECG_ITS ---
SEE SCANNED COPY FOR CONFIRMED REPORT MTDD
--- NOTE | 2023-11-10 00:09 | PC.NURSE ---
Patient taken to xray via w/c from waiting room.
[2023-11-10 00:19] LABS: Alanine Aminotransferase 18 U/L (6-35); Albumin Level 5.2 g/dL (3.5-5.1); Alkaline Phosphatase 107 U/L (38-126); Anion Gap 13 mmol/L (4-12); Aspartate Amino Transferase 20 U/L (14-36); Bilirubin,Total 0.7 mg/dL (0.2-1.3); Blood Urea Nitrogen 20 mg/dL (7-17); Calcium 11.3 mg/dL (8.4-10.2); Carbon Dioxide 24 mmol/L (22-30); Chloride 95 mmol/L (98-107); Estimated Glomerular Filt Rate > 60; Glucose 154 mg/dL (65-110); Lipase 48 U/L (23-300); Potassium 3.9 mmol/L (3.4-5.0); Sodium 132 mmol/L (137-145)
[2023-11-10 00:20] LABS: INR 0.9; Prothrombin Time 12.8 Seconds (11.1-14.7)
[2023-11-10 00:21] LABS: Basophils Percent Auto 0.1 % (0.2-1.2); Hematocrit 39.4 % (37.0-47.0); Hemoglobin 13.4 g/dL (12.0-15.0); Immature Granulocyte Absolute 0.02 K/mm3 (0.00-0.031); Immature Granulocyte Percent A 0.3 % (0-0.5); Lymphocytes Absolute Auto 0.92 K/mm3 (0.9-3.2); Mean Corpuscular Hemoglobin 28.9 pg (26-34); Mean Corpuscular Volume 84.9 fl (80-100); Mean Platelet Volume 9.2 fl (7.4-10.4); Monocytes Absolute Auto 0.2 K/mm3 (0.1-0.6); Monocytes Percent Auto 2.1 % (2.6-8.5); Neutrophils Percent Auto 84.5 % (45.5-73.1); Partial Thromboplastin Time 26.7 Seconds (22.3-36.8); Platelet Count Result 454 k/mm3 (150-375); Red Blood Count 4.64 M/mm3 (4.2-5.4); Red Cell Distribution Width 12.6 % (11.5-14.5); White Blood Count 7.1 K/mm3 (4.5-10.0)
[2023-11-10 00:31] LABS: Troponin I < 0.012 ng/mL (0.000-0.034)
[2023-11-10 01:21] VITALS: BP 201/104; PULSE 73; RESP 25; TEMP 37; O2SAT 100
--- NOTE | 2023-11-10 01:32 | ED.NAVMDI ---
HPI - Nausea/Vomiting/Diarrhea General Chief complaint: Nausea/Vomiting/Diarrhea <Nelly Kim PA-C - Last Filed: 11/10/23 03:01> Stated complaint: Nausea <Nelly Kim PA-C - Last Filed: 11/10/23 03:01> Time Seen by Provider: 11/10/23 01:15 <Nelly Kim PA-C - Last Filed: 11/10/23 03:01> History of Present Illness HPI Narrative: 63-year-old female with a history of hypertension and GERD, s/p Gorge fundoplication presents to emergency department for nausea it started this morning. Patient states she was taking her morning medications which he felt like a pill got stuck in her lower esophagus and resulted in nausea. She states the pill later went down but she has had residual nausea with dry heaving and spitting up. She states she is unable to void secondary to descend and application. She denies chest pain, fever, abdominal pain, diarrhea, dysuria or hematuria. Patient found to be very hypertensive upon arrival. She is reporting a frontal headache for the past 2 days but denies vision changes, focal numbness or weakness, loss of consciousness. She takes valsartan and hydrochlorothiazide for hypertension and states she takes her blood pressure daily. Pressures are normally between 160/180 systolic and 99-116 diastolic. States she recently had her hydrochlorothiazide increased by her PCP and is scheduled for follow-up in 2 days. <Nelly Kim PA-C - Last Filed: 11/10/23 03:01> Related Data Home medications: Home Medications Medication Instructions Recorded Confirmed paroxetine HCl 40 mg tablet 40 mg PO QAM 08/05/19 09/04/23 aripiprazole 15 mg tablet (Abilify) 15 mg PO HS 11/13/19 09/04/23 alprazolam 1 mg tablet (Xanax) 1 mg PO TID 11/09/21 09/04/23 omeprazole 20 mg tablet,delayed 20 mg PO DAILY 11/09/21 09/04/23 release oxybutynin chloride 10 mg 10 mg PO DAILY 11/09/21 09/04/23 tablet,extended release 24 hr valsartan 160 1 tablet PO DAILY 11/09/21 09/04/23 mg-hydrochlorothiazide 25 mg tablet sumatriptan succinate 25 mg tablet See Rx Instructions PO .COMPLEX 07/12/22 09/04/23 (Imitrex) <Nelly Kim PA-C - Last Filed: 11/10/23 03:01> Allergies/Adverse reactions: Allergies Allergy/AdvReac Type Severity Reaction Status Date / Time No Known Allergies Allergy Unknown Verified 09/04/23 13:47 <Nelly Kim PA-C - Last Filed: 11/10/23 03:01> Review of Systems Review of Systems: CONSTITUTIONAL: Denies fever, chills, or sweats. EYES: Denies visual changes, redness, or discharge. ENT: Denies rhinorrhea, congestion, sore throat, or otalgia. CARDIOVASCULAR: Denies chest pain, palpitations, or edema. RESPIRATORY: Denies cough or dyspnea. GASTROINTESTINAL: See HPI GENITOURINARY: Denies dysuria or hematuria. SKIN: Denies rash or itching. MUSCULOSKELETAL: Denies back pain, joint pain, or myalgia. NEUROLOGIC: Denies headache, numbness, or weakness. PSYCHIATRIC: Denies anxiety or depression. <Nelly Kim PA-C - Last Filed: 11/10/23 03:01> [facility] Past Medical History Medical History: Medical History Anxiety Colon polyps Depression Depression Diverticulitis GERD (gastroesophageal reflux disease) HTN (hypertension) Hyperlipidemia Obesity (BMI 35.0-39.9 without comorbidity) CAMILLE (obstructive sleep apnea) has CPAP but is noncompliant Overactive bladder <Nelly Kim PA-C - Last Filed: 11/10/23 03:01> Surgical History Surgical History: Surgical History H/O shoulder surgery right History of cholecystectomy History of Luis Felipe fundoplication S/P insertion of spinal cord stimulator bladder stimulator. Removed in 08/2021 Status post laparoscopic-assisted sigmoidectomy ruptured diverticulitis <Nelly Kim PA-C - Last Filed: 11/10/23 03:01> Family History Family History: Fam
[2023-11-10] MEDS: ONDANSETRON INJ 4 MG/2 ML VIAL IV PUSH (01:51)
[2023-11-10] MEDS: SODIUM CHLORIDE 0.9% IV 1,000 ML 999 ML IV CONT ×2 (01:51→02:38)
[2023-11-10] MEDS: FAMOTIDINE 20 MG/2 ML VIAL IV PUSH (01:51)
[2023-11-10] MEDS: ACETAMINOPHEN 325 MG TABLET 650 MG PO (02:01)
[2023-11-10 02:35] LABS: Influenza A QL RT-PCR Negative (Negative); Influenza B QL RT-PCR Negative (Negative); SARS-CoV-2 RNA PCR Negative (Negative)
[2023-11-10] MEDS: PROCHLORPERAZINE EDISYLATE 10 MG/2 ML VIAL IV PUSH (02:38)
[2023-11-10] MEDS: diphenhydrAMINE HCl INJ 50 MG/ML VIAL 25 MG IV PUSH ×2 (02:38→03:52)
[2023-11-10 02:48] VITALS: BP 186/97; PULSE 91; RESP 16; O2SAT 96
--- NOTE | 2023-11-10 02:48 | ECG_ITS ---
SEE SCANNED COPY FOR CONFIRMED REPORT MTDD
[2023-11-10 03:16] LABS: Troponin I < 0.012 ng/mL (0.000-0.034)
[2023-11-10 03:18] VITALS: BP 198/109; PULSE 88; RESP 16; O2SAT 98
[2023-11-10] MEDS: METOCLOPRAMIDE HCL 10 MG/10 ML SOLN UDC PO (03:53)
[2023-11-10 04:05] LABS: Appearance Urine Clear (Clear); Bacteria Urine None Seen /hpf; Bilirubin Urine Negative (Negative); Blood Urine Trace (Negative); Color Urine Yellow (Yellow); Glucose Urine UA Negative (Negative); Ketones Urine Negative (Negative); Leukocyte Esterase Ur Negative LEU/UL (Negative); Nitrate Urine Negative (Negative); Non Pathogenic Casts 0-2; Protein Urine 1+ mg/dL (Negative); Specific Grav Ur 1.015 (1.001-1.035); Squamous Epithelial Cell Urine None Seen /hpf (Few); Urobilinogen Urine 0.2 mg/dL (<2.0); WBC Urine 0-5 /hpf (0-3); pH Urine 6.5 (5.0-9.0)
[2023-11-10 04:20] LABS: Add Urine Microscopic? YES
[2023-11-10 04:32] VITALS: BP 161/114; PULSE 81; RESP 16; O2SAT 99
[2023-11-10] MEDS: SCOPOLAMINE 1 MG PATCH 1 PATCH TRANSDERM (05:22)
== END 2023-11-10 05:27 | disposition home or self-care (01) ==
PROVIDERS: Physician Assistant; Emergency Provider Preventive Medicine Aerospace Medicine; PCP Family Medicine Sports Medicine
DX: R51.9 Headache, unspecified (principal); R11.0 Nausea; I10 Essential (primary) hypertension; E78.5 Hyperlipidemia, unspecified; E66.9 Obesity, unspecified; Z68.35 Body mass index [BMI] 35.0-35.9, adult; G47.33 Obstructive sleep apnea (adult) (pediatric); N32.81 Overactive bladder; K21.9 Gastro-esophageal reflux disease without esophagitis; Z86.010 Personal history of colon polyps; F32.A Depression, unspecified; F41.9 Anxiety disorder, unspecified; Z96.82 Presence of neurostimulator; Z87.891 Personal history of nicotine dependence; Z90.49 Acquired absence of other specified parts of digestive tract
CPT/HCPCS: 36415; 70450; 71046; 80053; 81001; 83690; 84484; 85025; 85610; 85730; 87636; 93005; 96361; 96374; 96375; 99284; A9270; J0780; J1200; J2405; J7030

== ENCOUNTER 2023-12-04 20:16 | Emergency (ER) | payer OTHER, SELFPAY ==
--- NOTE | ~2023-12-04 | CT_ITS ---
CT brain wo con Ordering provider: Patricia Monson MD History: 63 years Female with . headache . Comparison: November 10, 2023 Technique: CT of the head without contrast. Radiation reduction technique utilized. FINDINGS: BRAIN PARENCHYMA AND CSF SPACES: No midline shift, mass effect or hemorrhage. The brain parenchyma a nd CSF spaces are otherwise normal. VISUALIZED PARANASAL SINUSES: Normal. MASTOIDS: Normal. BONES: Normal. SOFT TISSUES: Visualized nasopharynx is normal. Superficial soft tissues are normal. IMPRESSION: No acute intracranial findings. Reviewed, dictated and finalized at location A.
--- NOTE | ~2023-12-04 | XR_ITS ---
XR chest 1V portable Ordering provider: Patricia Monson MD History: 63 years Female with . weakness, htn, and sob . Comparison: November 10, 2023 FINDINGS: MEDIASTINUM: The cardiac silhouette is not enlarged. LUNGS: No infiltrates, effusions or pneumothorax. OTHER: Degenerative spine. No free air under the diaphragm. IMPRESSION: No acute cardiopulmonary pathology. Reviewed, dictated and finalized at location A.
[2023-12-04 20:20] VITALS: BP 216/116; PULSE 76; RESP 17; TEMP 37.3; O2SAT 100
[2023-12-04 20:24] VITALS: BP 216/116; PULSE 74; RESP 19; TEMP 37.3; O2SAT 96
--- NOTE | 2023-12-04 20:26 | ECG_ITS ---
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 Measurements Intervals [place] Rate: 78 P: 25 MT: 169 QRS: 12 QRSD: 88 T: -1 QT: 380 QTc: 434 Interpretive Statements SINUS RHYTHM LOW QRS VOLTAGE IN PRECORDIAL LEADS [QRS DEFLECTION < 1.0 mV IN CHEST LEADS] No previous ECG available for comparison Electronically Signed On 12-05-2023 13:37:03 CDT by Deandra Modi M.D.
[2023-12-04 20:41] VITALS: BP 191/96; PULSE 94; RESP 20; O2SAT 94
[2023-12-04] MEDS: ASPIRIN 81 MG CHEWABLE TABLET 324 MG PO (20:41)
[2023-12-04 20:52] LABS: Basophils Absolute Auto 0.1 K/mm3 (0.0-0.1); Basophils Percent Auto 0.9 % (0.2-1.2); Eosinophils Absolute Auto 0.1 K/mm3 (0-0.3); Eosinophils Percent Auto 2.5 % (0-4.4); Hematocrit 35.2 % (37.0-47.0); Hemoglobin 11.7 g/dL (12.0-15.0); Immature Granulocyte Absolute 0.01 K/mm3 (0.00-0.031); Immature Granulocyte Percent A 0.2 % (0-0.5); Lymphocytes Absolute Auto 2.01 K/mm3 (0.9-3.2); Mean Corpuscular HGB Conc 33.2 g/dl (32-36); Mean Corpuscular Hemoglobin 28.5 pg (26-34); Mean Corpuscular Volume 85.9 fl (80-100); Mean Platelet Volume 9.1 fl (7.4-10.4); Monocytes Absolute Auto 0.4 K/mm3 (0.1-0.6); Neutrophils Percent Auto 53.4 % (45.5-73.1); Platelet Count Result 338 k/mm3 (150-375); Red Cell Distribution Width 12.6 % (11.5-14.5); White Blood Count 5.6 K/mm3 (4.5-10.0)
[2023-12-04 21:02] LABS: Alanine Aminotransferase 12 U/L (6-35); Albumin Level 4.3 g/dL (3.5-5.1); Alkaline Phosphatase 81 U/L (38-126); Anion Gap 6 mmol/L (4-12); Aspartate Amino Transferase 18 U/L (14-36); Bilirubin,Total 0.5 mg/dL (0.2-1.3); Blood Urea Nitrogen 12 mg/dL (7-17); Calcium 9.8 mg/dL (8.4-10.2); Carbon Dioxide 26 mmol/L (22-30); Chloride 102 mmol/L (98-107); Estimated CRCL calculation 73 ml/min; Estimated Glomerular Filt Rate > 60; Glucose 101 mg/dL (65-110); Lipase 63 U/L (23-300); Potassium 3.2 mmol/L (3.4-5.0); Sodium 134 mmol/L (137-145)
[2023-12-04 21:04] LABS: INR 0.9; Prothrombin Time 13.1 Seconds (11.1-14.7)
[2023-12-04 21:13] LABS: Troponin I < 0.012 ng/mL (0.000-0.034)
[2023-12-04] MEDS: LABETALOL HCL INJ 100 MG/20 ML VIAL 20 MG IV PUSH (21:18)
--- NOTE | 2023-12-04 21:26 | ED.GENADULT ---
HPI - General Adult General Chief complaint: Headache Stated complaint: hedache Time Seen by Provider: 12/04/23 21:03 History of Present Illness HPI narrative: Patient is a 64-year-old female who presents to the emergency department this evening complaining of elevated blood pressure and headache. Patient states that she does have a history of high blood pressure and normally takes her medications regularly. Today she felt sluggish and decided to check her blood pressure and initially it was in the 140 systolic. Patient states that throughout the day she continue to monitor it and it got as high as 213 systolic. Patient states that she also had a headache which since then has somewhat improved, but states that she still does have a mild headache at this time. Denies any history of recurrent headaches. Denies any chest pain or shortness of breath. Denies any sick contacts at home. No additional symptoms or concerns at this time. Related Data Home Medications Medication Instructions Recorded Confirmed paroxetine HCl 40 mg tablet 40 mg PO QAM 08/05/19 11/21/23 aripiprazole 15 mg tablet (Abilify) 15 mg PO HS 11/13/19 11/21/23 omeprazole 20 mg tablet,delayed 20 mg PO DAILY 11/09/21 11/21/23 release oxybutynin chloride 10 mg 10 mg PO DAILY 11/09/21 11/21/23 tablet,extended release 24 hr valsartan 160 1 tablet PO DAILY 11/09/21 11/21/23 mg-hydrochlorothiazide 25 mg tablet Allergies Allergy/AdvReac Type Severity Reaction Status Date / Time No Known Allergies Allergy Unknown Verified 11/21/23 14:56 Review of Systems Review of Systems: All systems are reviewed and are negative unless stated otherwise in the HPI. [facility] Past Medical History Medical History Anxiety Colon polyps Depression Depression Diverticulitis Dysphagia GERD (gastroesophageal reflux disease) HTN (hypertension) Hyperlipidemia Obesity (BMI 35.0-39.9 without comorbidity) CAMILLE (obstructive sleep apnea) has CPAP but is noncompliant Overactive bladder Surgical History Surgical History H/O shoulder surgery right History of cholecystectomy History of Luis Felipe fundoplication S/P insertion of spinal cord stimulator bladder stimulator. Removed in 08/2021 Status post laparoscopic-assisted sigmoidectomy ruptured diverticulitis Family History Family History Father Malignant neoplasm of prostate Hypertension Family history of arthritis Grandparent Diabetes mellitus Family history of glaucoma Sibling Hypertension Other Family history of throat cancer Social History Social History Smoking status: Former smoker Smoking end date: 07/01/00 Alcohol intake: current Alcohol use details: social Substance use: never Substance use type: does not use Lack of Transportation: No Lack of Food: Never True Current Housing: I Have Housing Concerned About Future Housing: No Difficulty Paying Gas/Electric Bills: No Difficulty Paying for Meds: No Currently Unemployed: No Education: High School Diploma/GED Living arrangements: with friend(s) Occupation/Education: unemployed Gender identity (if verbalized by the patient): Female Exam Narrative: General: Alert, awake, afebrile, in no acute distress. HEENT: PERRL, no rhinorrhea, no post nasal drip, oropharynx clear, no temporal tenderness. Cardiovascular: Regular rate and rhythm, no murmurs, rubs or gallops, no peripheral edema. Respiratory: Clear to auscultation bilaterally, no tachypnea, no wheezing, no rhonchi, no rubs, no respiratory distress. Abdomen: Soft, nontender, nondistended, no rebound, no guarding, no peritoneal signs. Musculoskeletal: No joint swelling or deformity, normal muscle tone. Skin: No rashes or petechia,
[2023-12-04 21:40] LABS: Magnesium 1.5 mg/dL (1.6-2.3)
[2023-12-04] MEDS: MAGNESIUM SULF 1 GM/D5W 100 ML 1 GM/100 ML BAG IVPB (21:58)
[2023-12-04] MEDS: POTASSIUM CHLORIDE 20 MEQ ER TABLET 40 MEQ PO (22:18)
[2023-12-04 22:24] VITALS: BP 154/86; PULSE 64; RESP 15; O2SAT 100
--- NOTE | 2023-12-04 22:26 | PC.NURSE ---
Pt unable to swallow potassium tablet whole and spit it out. A new 20 meq potassium pill was pulled from setObject, pill cutter used to cut pill in half. Pt received the ordered 40 meq of potassium.
[2023-12-04 23:06] VITALS: BP 155/83; PULSE 64; RESP 16; O2SAT 97
== END 2023-12-04 23:08 | disposition home or self-care (01) ==
PROVIDERS: Emergency Provider Emergency Medicine; PCP Family Medicine Sports Medicine
DX: R51.9 Headache, unspecified (principal); I10 Essential (primary) hypertension; F41.8 Other specified anxiety disorders; K21.9 Gastro-esophageal reflux disease without esophagitis; E78.5 Hyperlipidemia, unspecified; G47.33 Obstructive sleep apnea (adult) (pediatric); E66.9 Obesity, unspecified; Z68.35 Body mass index [BMI] 35.0-35.9, adult; Z87.891 Personal history of nicotine dependence
CPT/HCPCS: 36415; 70450; 71045; 80053; 83690; 83735; 84484; 85025; 85610; 85730; 93005; 96365; 96375; 99284; A9270; J3475

== ENCOUNTER 2023-12-09 19:41 | Emergency (ER) | payer OTHER, SELFPAY ==
[2023-12-09 19:52] VITALS: BP 181/95; PULSE 82; RESP 14; TEMP 37.2; O2SAT 96
--- NOTE | 2023-12-09 19:52 | ECG_ITS ---
Test Date: 2023-12-09 19:56:54 Measurements Intervals [place] Rate: 86 P: 38 MN: 150 QRS: 25 QRSD: 83 T: 12 QT: 362 QTc: 433 Interpretive Statements SINUS RHYTHM Compared to ECG 12/04/2023 20:31:50 No significant changes Electronically Signed On 12-10-2023 10:50:56 CDT by Deandra Modi M.D.
--- NOTE | 2023-12-09 21:13 | ED.GENADULT ---
HPI - General Adult General Chief complaint: Recheck/Abnormal Lab/Rx Stated complaint: elevated BP Time Seen by Provider: 12/09/23 21:03 Source: patient Mode of arrival: ambulatory Limitations: no limitations History of Present Illness HPI narrative: 63-year-old female presenting for high blood pressure. She this is her 3rd visit to a hospital in last 5 days for high blood pressure. She recently started checking it because she was having some headaches. Was started on amlodipine few days ago. Scheduled to see her doctor tomorrow came in today because her blood pressure was elevated again. Has a slight headache but no chest pain or shortness of breath. Triage notes that she was feeling dizzy but she is not describing that at all to me. Related Data Home Medications Medication Instructions Recorded Confirmed paroxetine HCl 40 mg tablet 40 mg PO QAM 08/05/19 11/21/23 aripiprazole 15 mg tablet (Abilify) 15 mg PO HS 11/13/19 11/21/23 omeprazole 20 mg tablet,delayed 20 mg PO DAILY 11/09/21 11/21/23 release oxybutynin chloride 10 mg 10 mg PO DAILY 11/09/21 11/21/23 tablet,extended release 24 hr valsartan 160 1 tablet PO DAILY 11/09/21 11/21/23 mg-hydrochlorothiazide 25 mg tablet Allergies Allergy/AdvReac Type Severity Reaction Status Date / Time No Known Allergies Allergy Unknown Verified 11/21/23 14:56 Review of Systems Review of Systems: All systems reviewed & are unremarkable except as noted in HPI and below PMFSH Past Medical History Medical History Anxiety Colon polyps Depression Depression Diverticulitis Dysphagia GERD (gastroesophageal reflux disease) HTN (hypertension) Hyperlipidemia Obesity (BMI 35.0-39.9 without comorbidity) CAMILLE (obstructive sleep apnea) has CPAP but is noncompliant Overactive bladder Surgical History Surgical History H/O shoulder surgery right History of cholecystectomy History of Luis Felipe fundoplication S/P insertion of spinal cord stimulator bladder stimulator. Removed in 08/2021 Status post laparoscopic-assisted sigmoidectomy ruptured diverticulitis Family History Family History Father Malignant neoplasm of prostate Hypertension Family history of arthritis Grandparent Diabetes mellitus Family history of glaucoma Sibling Hypertension Other Family history of throat cancer Social History Social History Smoking status: Former smoker Smoking end date: 07/01/00 Alcohol intake: current Alcohol use details: social Substance use: never Substance use type: does not use Lack of Transportation: No Lack of Food: Never True Current Housing: I Have Housing Concerned About Future Housing: No Difficulty Paying Gas/Electric Bills: No Difficulty Paying for Meds: No Currently Unemployed: No Education: High School Diploma/GED Living arrangements: with friend(s) Occupation/Education: unemployed Gender identity (if verbalized by the patient): Female Exam Narrative: Constitutional: Generally well appearing, no acute distress Head: Atraumatic, no deformities. Eyes: Pupils equal, round, and reactive to light. Neck: Supple, no tracheal deviation, no JVD. ENMT: Mucous membranes moist Cardiovascular: S1, S2 auscultated. No murmurs, rubs, or gallops. No S3/S4. Normal Distal pulses. No peripheral edema. Respiratory: Lung sounds equal. No wheezes, rales, or rhonchi. Gastrointestinal: Abdomen was soft and non-tender. Non-distended. No rebound or guarding. Genitourinary: Deferred Musculoskeletal: Normal muscle tone and bulk. No obvious deformities or tenderness over extremities. Skin: No rashes. Neurological: Strength 5/5 in extremities. Cranial nerves I-XII grossly intact. Distal sensation intact.
[2023-12-09] MEDS: ACETAMINOPHEN 500 MG TABLET 1000 MG PO (21:32)
[2023-12-09 21:34] VITALS: BP 165/92; PULSE 80; RESP 23; O2SAT 97
== END 2023-12-09 21:42 | disposition home or self-care (01) ==
PROVIDERS: Emergency Provider Emergency Medicine; PCP Family Medicine Sports Medicine
DX: I10 Essential (primary) hypertension (principal); E78.5 Hyperlipidemia, unspecified; E66.9 Obesity, unspecified; Z68.36 Body mass index [BMI] 36.0-36.9, adult; N32.81 Overactive bladder; G47.33 Obstructive sleep apnea (adult) (pediatric); K21.9 Gastro-esophageal reflux disease without esophagitis; F32.A Depression, unspecified; F41.9 Anxiety disorder, unspecified; Z86.010 Personal history of colon polyps; Z90.49 Acquired absence of other specified parts of digestive tract; Z87.891 Personal history of nicotine dependence; Z79.899 Other long term (current) drug therapy
CPT/HCPCS: 93005; 99283; A9270

== ENCOUNTER 2024-01-06 00:12 | Day surgery (SDC) | payer MEDICARE, OTHER, SELFPAY ==
[2023-12-19 13:23] VITALS: BMI 35.9
[2024-01-06 12:46] VITALS: BP 130/74; PULSE 71; RESP 18; TEMP 36.1; O2SAT 100
[2024-01-06] MEDS: LACTATED RINGERS 1,000 ML 150 ML IV CONT (12:56)
--- NOTE | 2024-01-06 12:57 | WPDANESEPPF ---
Anes - Initial Pre Proc Eval Procedure: Operation Date: 01/06/24 14:00 Proposed Procedures p Esophagogastroduodenoscopy & Colonoscopy - Nolberto Grace MD Date/Time: 01/06/24 12:57 Surgeon: Nolberto Grace MD Pre Op Diagnosis: Diarrhea unspecified, GERD without esophagitis Patient Data Age: 63 Gender: F Height: 1.73 m Weight: 103.6 kg Last Vital Signs Temp 97 F L 01/06/24 12:46 Pulse 71 01/06/24 12:46 Resp 18 01/06/24 12:46 BP 130/74 01/06/24 12:46 Pulse Ox 100 01/06/24 12:46 O2 Del Method Room Air 01/06/24 12:46 Allergies Allergy/AdvReac Type Severity Reaction Status Date / Time No Known Allergies Allergy Unknown Verified 01/06/24 12:38 Home Medications Medication Instructions Recorded Confirmed Type paroxetine HCl 40 mg tablet 40 mg PO QAM 08/05/19 12/19/23 History aripiprazole 15 mg tablet (Abilify) 15 mg PO HS 11/13/19 12/19/23 History omeprazole 20 mg tablet,delayed 20 mg PO DAILY 11/09/21 12/19/23 History release oxybutynin chloride 10 mg 10 mg PO DAILY 11/09/21 12/19/23 History tablet,extended release 24 hr ondansetron 4 mg disintegrating 4 mg PO Q8H PRN nausea and 06/16/23 12/19/23 Rx tablet vomiting #14 tabs prochlorperazine maleate 10 mg 10 mg PO Q8H PRN nausea and 10/19/23 12/19/23 Rx tablet vomiting #15 tabs metoclopramide HCl 5 mg/5 mL oral 5 mg (5 mL) PO Q8H nausea #473 mL 11/10/23 12/19/23 Rx solution amlodipine 10 mg tablet 10 mg PO DAILY 12/19/23 01/06/24 History hydrochlorothiazide 25 mg tablet 25 mg PO DAILY 12/19/23 01/06/24 History magnesium oxide 400 mg PO DAILY 12/19/23 12/19/23 History trazodone 100 mg tablet 100 mg PO HS 12/19/23 12/19/23 History valsartan 160 mg tablet 160 mg PO DAILY 12/19/23 01/06/24 History Patient hx anesthesia problems: none Family hx anesthesia problems: none Results Review: All pre-operative results and documents have been reviewed as part of the pre-operative evaluation. [facility] Past Medical History Medical History Anxiety Colon polyps Depression Depression Diverticulitis Dysphagia GERD (gastroesophageal reflux disease) HTN (hypertension) Hyperlipidemia Obesity (BMI 35.0-39.9 without comorbidity) CAMILLE (obstructive sleep apnea) has CPAP but is noncompliant Overactive bladder Surgical History Surgical History H/O shoulder surgery right History of cholecystectomy History of Luis Felipe fundoplication S/P insertion of spinal cord stimulator bladder stimulator. Removed in 08/2021 Status post laparoscopic-assisted sigmoidectomy ruptured diverticulitis Family History Family History Father Malignant neoplasm of prostate Hypertension Family history of arthritis Grandparent Diabetes mellitus Family history of glaucoma Sibling Hypertension Other Family history of throat cancer Social History Social History Years smoked: 2 Smoking status: Former smoker Tobacco type: cigarettes Smoking end date: 07/01/00 Alcohol intake: never Alcohol use details: social Substance use: never Substance use type: does not use Lack of Transportation: No Lack of Food: Never True Current Housing: I Have Housing Concerned About Future Housing: No Difficulty Paying Gas/Electric Bills: No Difficulty Paying for Meds: No Currently Unemployed: No Education: High School Diploma/GED Living arrangements: with roommate(s) Occupation/Education: unemployed Gender identity (if verbalized by the patient): Female Spiritual care concerns: No Anes - Eval Final PreProcedure Day of Procedure 01/06/24 12:57 Patient weight: obese Heart: regular rate and rhythm Lungs: clear to auscultation Airway: Mallampati scale class II
--- NOTE | 2024-01-06 13:35 | PM.HPGS ---
History of Present Illness History of Present Illness Consent: Risks, benefits, and alternatives have been discussed and questions answered. Patient agrees to proceed with procedure. Chief complaint: Diarrhea unspecified, GERD without esophagitis Narrative: Kortney Haywood is a 63 year old female here for egd and colonoscopy, h/o diverticulitis s/p sigmoid resection 2017 and at baseline with loose stools, last colonoscopy [address] Ozuna with small TA polyp and normal colon but bx showed mild colitis. She also has GERD and fundoplication in 2016 since unable to throw up. Lately with nausea and also some discomfort after swallowing pills- feels will get stuck and this will cause more nausea, last EGD more than 4 years ago. Review of Systems Review of Systems: All systems reviewed & are unremarkable except as noted in HPI and below PMFSH Past Medical History Medical History Anxiety Colon polyps Depression Depression Diverticulitis Dysphagia GERD (gastroesophageal reflux disease) HTN (hypertension) Hyperlipidemia Obesity (BMI 35.0-39.9 without comorbidity) CAMILLE (obstructive sleep apnea) has CPAP but is noncompliant Overactive bladder Surgical History Surgical History H/O shoulder surgery right History of cholecystectomy History of Luis Felipe fundoplication S/P insertion of spinal cord stimulator bladder stimulator. Removed in 08/2021 Status post laparoscopic-assisted sigmoidectomy ruptured diverticulitis Family History Family History Father Malignant neoplasm of prostate Hypertension Family history of arthritis Grandparent Diabetes mellitus Family history of glaucoma Sibling Hypertension Other Family history of throat cancer Social History Social History Years smoked: 2 Smoking status: Former smoker Tobacco type: cigarettes Smoking end date: 07/01/00 Alcohol intake: never Alcohol use details: social Substance use: never Substance use type: does not use Lack of Transportation: No Lack of Food: Never True Current Housing: I Have Housing Concerned About Future Housing: No Difficulty Paying Gas/Electric Bills: No Difficulty Paying for Meds: No Currently Unemployed: No Education: High School Diploma/GED Living arrangements: with roommate(s) Occupation/Education: unemployed Gender identity (if verbalized by the patient): Female Spiritual care concerns: No Meds Home Medications and Allergies Home Medications Medication Instructions Recorded Confirmed Type paroxetine HCl 40 mg tablet 40 mg PO QA 08/05/19 12/19/23 History aripiprazole 15 mg tablet (Abilify) 15 mg PO HS 11/13/19 12/19/23 History omeprazole 20 mg tablet,delayed 20 mg PO DAILY 11/09/21 12/19/23 History release oxybutynin chloride 10 mg 10 mg PO DAILY 11/09/21 12/19/23 History tablet,extended release 24 hr ondansetron 4 mg disintegrating 4 mg PO Q8H PRN nausea and 06/16/23 12/19/23 Rx tablet vomiting #14 tabs prochlorperazine maleate 10 mg 10 mg PO Q8H PRN nausea and 10/19/23 12/19/23 Rx tablet vomiting #15 tabs metoclopramide HCl 5 mg/5 mL oral 5 mg (5 mL) PO Q8H nausea #473 mL 11/10/23 12/19/23 Rx solution amlodipine 10 mg tablet 10 mg PO DAILY 12/19/23 01/06/24 History hydrochlorothiazide 25 mg tablet 25 mg PO DAILY 12/19/23 01/06/24 History magnesium oxide 400 mg PO DAILY 12/19/23 12/19/23 History trazodone 100 mg tablet 100 mg PO HS 12/19/23 12/19/23 History valsartan 160 mg tablet 160 mg PO DAILY 12/19/23 01/06/24 History Allergies Allergy/AdvReac Type Severity Reaction Status Date / Time No Known Allergies Allergy Unknown Verified 01/06/24 12:38 Vital Signs Vital Signs - 24 hr 01/06/24 12:46 Temperature 97 F L Pulse Rate 71
--- NOTE | 2024-01-06 13:40 | SUR.OPER ---
EGD: START- 134, END-1347 COLON: START-1351 END-1358
[2024-01-06 14:03] VITALS: BP 120/65; PULSE 61; RESP 24; O2SAT 100
[2024-01-06 14:13] VITALS: BP 118/66; PULSE 69; RESP 20; O2SAT 100
[2024-01-06 14:22] VITALS: BP 157/89; PULSE 69; RESP 18; O2SAT 100
== END 2024-01-06 14:36 | disposition home or self-care (01) ==
PROVIDERS: PCP Family Medicine Sports Medicine; Visit Provider Internal Medicine Gastroenterology
PROC: 0DJ08ZZ Inspection of Upper Intestinal Tract, Via Natural or Artificial Opening Endoscopic (ICD-10-PCS; CPT 43235; principal; 2024-01-06 14:00)
DX: K20.0 Eosinophilic esophagitis (principal); K57.30 Diverticulosis of large intestine without perforation or abscess without bleeding; F41.9 Anxiety disorder, unspecified; K21.9 Gastro-esophageal reflux disease without esophagitis; F32.A Depression, unspecified; I10 Essential (primary) hypertension; E78.5 Hyperlipidemia, unspecified; G47.33 Obstructive sleep apnea (adult) (pediatric); N32.81 Overactive bladder; E66.9 Obesity, unspecified; Z68.34 Body mass index [BMI] 34.0-34.9, adult; Z99.89 Dependence on other enabling machines and devices; Z98.890 Other specified postprocedural states; Z98.0 Intestinal bypass and anastomosis status; Z90.49 Acquired absence of other specified parts of digestive tract; Z96.82 Presence of neurostimulator; Z98.1 Arthrodesis status; Z87.891 Personal history of nicotine dependence; Z86.010 Personal history of colon polyps; Z80.42 Family history of malignant neoplasm of prostate; Z80.1 Family history of malignant neoplasm of trachea, bronchus and lung
CPT/HCPCS: 43239; 45380; 88305; J2704; J7120

== ENCOUNTER 2024-01-15 14:53 | Outpatient (CLI) | payer MEDICARE, MEDICAID, SELFPAY ==
--- NOTE | ~2024-01-15 | MM_ITS ---
EXAMINATION: MM screening [facility] HISTORY: Screening TECHNIQUE: Craniocaudal and mediolateral oblique 3-D tomosynthesis images were obtained and synthetic 2-D images were generated. CAD analysis was submitted and interpreted. COMPARISON: Comparison to multiple prior studies sequentially, with oldest reviewed study dated 06/01. BREAST PARENCHYMAL COMPOSITION: There are scattered areas of fibroglandular density. FINDINGS: There is no evidence of suspicious mass, calcification, or architectural distortion to sugg est malignancy in either breast. There has been no suspicious interval change. IMPRESSION: 1. No mammographic evidence of malignancy. 2. Recommend routine screening mammography in one year. BI-RADS Category 1: Negative Reviewed, dictated and finalized at location B.
== END 2024-01-15 14:54 | disposition home or self-care (01) ==
LOC: ANHIMG 14:55
PROVIDERS: PCP Family Medicine Sports Medicine; Visit Provider Registered Nurse
DX: Z12.31 Encounter for screening mammogram for malignant neoplasm of breast (principal)
CPT/HCPCS: 77063; 77067

== ENCOUNTER 2024-01-21 10:59 | Outpatient (RCR) | payer MEDICARE, MEDICAID, SELFPAY ==
--- NOTE | 2024-01-21 14:26 | OPREHPOC ---
Outpatient Therapy Plan of Care This is a Multidisciplinary Plan of Care that may contain components documented by all disciplines (PT, OT, and ST.) PT Problem 1 PT Problem #1 Knowledge Deficit PT Goal 1 Goal Pt to be IND with issued HEP Target Visit 10 PT Problem 2 PT Problem #2 Pain PT Goal 1 Goal Pt to report ankle pain no greater than 3/10 in the last week. Target Visit 10 PT Goal 2 Goal Pt to report 75% improvement in overall symptoms. Target Visit 10 PT Problem 3 PT Problem #3 Impaired Strength PT Goal 1 Goal Pt to improve 5xSTS time from 24s to 15s. Target Visit 10 PT Goal 2 Goal Pt to demonstrate 10 full range cory heel raises to show improving ankle strength for ambulation. Target Visit 10 PT Problem 4 PT Problem #4 Impaired Strength PT Goal 1 Goal Pt to demonstrate a 20lb lift and carry from ground level. Target Visit 10
--- NOTE | 2024-01-21 14:26 | PTOPEVAL1 ---
Assessment and note entered by Pedro Smith, PT, DPT Evaluation Information Assessment Status Evaluation Diagnosis L foot peroneal tendonitis ICD-10 Condition Codes (PT) M25.572,Difficulty Walking R26.2,R26.9,Weakness R53.1 Subjective Information Pt reports lateral L foot/ankle pain for the last 6-8 months. She states at times it is too painful to walk, she states she feels a snapping sensation . She declines a ORESTSE. She attempted injections without an relief. She got an insert from the foot doctor but does not wear them often. Reported Pain Level Pain Score 0: Self Report Assessment PT Clinical Summary Kortney presents to therapy today for her initial evaluation with a diagnosis of L foot peroneal tendonitis. Today she demonstrates significant strength deficits throughout her hips, feet, and ankles cory. She demonstrates an absent plantar arch with increased calcaneal inversion. She also demonstrates significant balance deficits. Skilled therapy services are indicated to address the deficits noted above, to manage pain, and to improve functional mobility. Plan of Care Interventions Gait Training,Hot Pack/Cold Pack,Manual Therapy, Neuro Re-education,Patient/Caregiver Educati, Therapeutic Activities,Therapeutic Exercise, Ultrasound PT Services Indicated Yes Treatment Frequency and 2x/wk for 10 visits Duration These treatments will address the objective and functional deficits as defined above. The patient will be advanced safely and appropriately in order for the patient to progress towards his/her prior level of function. Additional exercises will be introduced and as well as a comprehensive home exercise program upon discharge, if needed, ?to ensure carryover of functional gains achieved in the clinic. This treatment plan has been reviewed and agreement upon by the patient.
--- NOTE | 2024-01-24 13:17 | PCPTNOTE ---
Pt. cancelled this date due to feeling ill.
--- NOTE | 2024-01-31 10:41 | PCPTNOTE ---
Patient was a no show/no call for today's treatment.
--- NOTE | 2024-02-04 10:09 | PCPTNOTE ---
Called to follow up with pt as she has missed her last 3 appointments. She states she has a lot going on medically and will likely need to cancel all of her appointments.
--- NOTE | 2024-02-06 11:46 | PCPTNOTE ---
Patient called & cancelled scheduled appointment this date due to having other medical conditions going on. Called and LVM to see what we should do with the rest of her appointments.
--- NOTE | 2024-02-11 08:50 | PTOPDC ---
Assessment and note entered by Pedro Smith, PT, DPT Evaluation Information Assessment Status Discharge - Pt Not Present Diagnosis L foot peroneal tendonitis ICD-10 Condition Codes (PT) M25.572,Difficulty Walking R26.2,R26.9,Weakness R53.1 Subjective Information Pt called and cancelled all of her remaining appointments d/t having other current health issues she needs to worry about. Informed pt she will need a new order when she wants to return to therapy. Assessment PT Clinical Summary Pt completed her evaluation and did not attend any follow up visits. She will be discharged at this time.
== END 2024-02-11 09:21 | disposition home or self-care (01) ==
LOC: ANHGOSHPT 10:59
PROVIDERS: PCP Family Medicine Sports Medicine; Visit Provider Podiatrist Foot & Ankle Surgery
DX: M76.72 Peroneal tendinitis, left leg (principal)
CPT/HCPCS: 97110; 97161

== ENCOUNTER 2024-02-28 14:56 | Emergency (ER) | payer MEDICARE, MEDICAID, SELFPAY ==
[2024-02-28 15:19] VITALS: BP 152/71; PULSE 77; RESP 16; TEMP 36.7; O2SAT 100
[2024-02-28 15:37] VITALS: BP 164/73; PULSE 63; RESP 23; O2SAT 100
--- NOTE | 2024-02-28 15:42 | ECG_ITS ---
Test Date: 2024-02-28 15:40:27 Measurements Intervals [place] Rate: 63 P: 1 NM: 157 QRS: 34 QRSD: 107 T: 9 QT: 485 QTc: 497 Interpretive Statements SINUS RHYTHM PROLONGED QT INTERVAL Compared to ECG 12/09/2023 19:56:54 Prolonged QT interval now present Electronically Signed On 02-29-2024 14:32:29 CDT by Jose Manuel Castillo M.D.
[2024-02-28 15:54] LABS: Basophils Percent Auto 0.3 % (0.2-1.2); Hematocrit 36.6 % (37.0-47.0); Hemoglobin 12.4 g/dL (12.0-15.0); Immature Granulocyte Absolute 0.02 K/mm3 (0.00-0.031); Immature Granulocyte Percent A 0.2 % (0-0.5); Lymphocytes Absolute Auto 1.21 K/mm3 (0.9-3.2); Lymphocytes Percent Auto 11.3 % (18.3-44.2); Mean Corpuscular HGB Conc 33.9 g/dl (32-36); Mean Corpuscular Hemoglobin 28.7 pg (26-34); Mean Corpuscular Volume 84.7 fl (80-100); Mean Platelet Volume 9.3 fl (7.4-10.4); Monocytes Absolute Auto 0.5 K/mm3 (0.1-0.6); Monocytes Percent Auto 4.9 % (2.6-8.5); Neutrophils Absolute Auto 8.9 K/mm3 (1.3-6.7); Neutrophils Percent Auto 83.3 % (45.5-73.1); Platelet Count Result 397 k/mm3 (150-375); Red Blood Count 4.32 M/mm3 (4.2-5.4); Red Cell Distribution Width 13.5 % (11.5-14.5); White Blood Count 10.7 K/mm3 (4.5-10.0)
[2024-02-28 16:02] VITALS: BP 156/81; PULSE 64; RESP 23; O2SAT 100
[2024-02-28 16:04] LABS: Alanine Aminotransferase 15 U/L (6-35); Albumin Level 4.7 g/dL (3.5-5.1); Alkaline Phosphatase 113 U/L (38-126); Anion Gap 19 mmol/L (4-12); Aspartate Amino Transferase 20 U/L (14-36); Bilirubin,Total 0.7 mg/dL (0.2-1.3); Blood Urea Nitrogen 20 mg/dL (7-17); Calcium 10.4 mg/dL (8.4-10.2); Carbon Dioxide 19 mmol/L (22-30); Chloride 93 mmol/L (98-107); Estimated CRCL calculation 60 ml/min; Estimated Glomerular Filt Rate 50; Glucose 164 mg/dL (65-110); Lipase 75 U/L (23-300); Potassium 3.1 mmol/L (3.4-5.0); Sodium 131 mmol/L (137-145)
--- NOTE | 2024-02-28 16:05 | ED.NAVMDI ---
HPI - Nausea/Vomiting/Diarrhea General Chief complaint: Nausea/Vomiting/Diarrhea <Nelly Kim PA-C - Last Filed: 02/29/24 15:01> Stated complaint: Nausea/ Dry Heaves <Nelly Kim PA-C - Last Filed: 02/29/24 15:01> Time Seen by Provider: 02/28/24 15:37 <RAYMON Shaw Last Filed: 02/29/24 15:01> History of Present Illness HPI Narrative: 63-year-old female with history of partial colectomy secondary to diverticulitis, hypertension, CAMILLE and obesity presents to the emergency department via EMS for nausea after eating a [employer] hamburger. Patient states she was slightly nauseous prior to the [employer] and then when she ate half of a [employer] hamburger she became more nauseous. She has been spitting up but has not been vomiting. She states this happens frequently after her Gorge fundoplication. She denies focal abdominal pain, chest pain, fever, diarrhea, cough or congestion, dysuria or hematuria. She received Zofran EN route without improvement. <Nelly Kim PA-C - Last Filed: 02/29/24 15:01> Related Data Home medications: Home Medications Medication Instructions Recorded Confirmed paroxetine HCl 40 mg tablet 40 mg PO [facility] 08/05/19 01/15/24 aripiprazole 15 mg tablet (Abilify) 15 mg PO HS 11/13/19 01/15/24 omeprazole 20 mg tablet,delayed 20 mg PO DAILY 11/09/21 01/15/24 release oxybutynin chloride 10 mg 10 mg PO DAILY 11/09/21 01/15/24 tablet,extended release 24 hr amlodipine 10 mg tablet 10 mg PO DAILY 12/19/23 01/15/24 hydrochlorothiazide 25 mg tablet 25 mg PO DAILY 12/19/23 01/15/24 magnesium oxide 400 mg PO DAILY 12/19/23 01/15/24 trazodone 100 mg tablet 100 mg PO HS 12/19/23 01/15/24 valsartan 160 mg tablet 160 mg PO DAILY 12/19/23 01/15/24 <RAYMON Shaw Last Filed: 02/29/24 15:01> Allergies/Adverse reactions: Allergies Allergy/AdvReac Type Severity Reaction Status Date / Time No Known Allergies Allergy Unknown Verified 02/28/24 15:11 <Nelly Kim PA-C - Last Filed: 02/29/24 15:01> Review of Systems Review of Systems: All systems reviewed & are unremarkable except as noted in HPI and below <Nelly Kim PA-C - Last Filed: 02/29/24 15:01> [facility] Past Medical History Medical History: Medical History Anxiety Colon polyps Depression Depression Diverticulitis Dysphagia GERD (gastroesophageal reflux disease) HTN (hypertension) Hyperlipidemia Obesity (BMI 35.0-39.9 without comorbidity) CAMILLE (obstructive sleep apnea) has CPAP but is noncompliant Overactive bladder <Nelly Kim PA-C - Last Filed: 02/29/24 15:01> Surgical History Surgical History: Surgical History H/O shoulder surgery right History of cholecystectomy History of Luis Felipe fundoplication S/P insertion of spinal cord stimulator bladder stimulator. Removed in 08/2021 Status post laparoscopic-assisted sigmoidectomy ruptured diverticulitis <Nelly Kim PA-C - Last Filed: 02/29/24 15:01> Family History Family History: Family History Father Malignant neoplasm of prostate Hypertension Family history of arthritis Grandparent Diabetes mellitus Family history of glaucoma Sibling Hypertension Other Family history of throat cancer <Nelly Kim PA-C - Last Filed: 02/29/24 15:01> Social History Social History: Social History Years smoked: 2 Smoking status: Former smoker Tobacco type: cigarettes Smoking end date: 07/01/00 Alcohol intake: never Alcohol use details: social Substance use: never Substance use type: does not use Lack of Transportation: No Lack of Food: Never True Current Housing: I Have Housing Concerned About Future H
[2024-02-28] MEDS: METOCLOPRAMIDE HCL INJ 10 MG/2 ML VIAL IV PUSH (16:15)
[2024-02-28] MEDS: POTASSIUM CHLORIDE 20 MEQ PACKET (FOR LIQUID) 40 MEQ PO (16:18)
[2024-02-28] MEDS: SODIUM CHLORIDE 0.9% IV 1,000 ML 999 ML IV CONT ×2 (16:20→17:21)
[2024-02-28 16:43] LABS: Add Urine Microscopic? YES; Appearance Urine Clear (Clear); Bacteria Urine Rare /hpf; Bilirubin Urine Negative (Negative); Blood Urine Negative (Negative); Color Urine Yellow (Yellow); Glucose Urine UA Negative (Negative); Ketones Urine 2+ mg/dL (Negative); Leukocyte Esterase Ur 1+ LEU/UL (Negative); Need Manual Microscopic Reviewed; Nitrate Urine Negative (Negative); Protein Urine 1+ mg/dL (Negative); RBC Urine 0-2 /hpf (0-2); Specific Grav Ur 1.017 (1.001-1.035); Squamous Epithelial Cell Urine Occasional /hpf (Few); WBC Urine 0-5 /hpf (0-3); pH Urine 8.5 (5.0-9.0)
[2024-02-28 16:56] LABS: Influenza A QL RT-PCR Negative (Negative); Influenza B QL RT-PCR Negative (Negative); RSV RNA, RT-PCR Negative (Negative); SARS-CoV-2 RNA PCR Negative (Negative)
[2024-02-28 17:07] LABS: Magnesium 1.5 mg/dL (1.6-2.3)
[2024-02-28] MEDS: diphenhydrAMINE HCl INJ 50 MG/ML VIAL 25 MG IV PUSH (17:17)
[2024-02-28] MEDS: PROCHLORPERAZINE EDISYLATE 10 MG/2 ML VIAL 5 MG IV PUSH (17:19)
[2024-02-28] MEDS: MAGNESIUM SULF 2 GM/WATER 50ML 2 GM/50 ML BAG IVPB (17:26)
[2024-02-28 17:38] VITALS: BP 163/77; PULSE 63; RESP 24; O2SAT 99
[2024-02-28 18:55] VITALS: BP 167/78; PULSE 65; RESP 21; O2SAT 100
[2024-02-28 19:10] LABS: Anion Gap 13 mmol/L (4-12); Blood Urea Nitrogen 19 mg/dL (7-17); Calcium 9.4 mg/dL (8.4-10.2); Carbon Dioxide 20 mmol/L (22-30); Chloride 98 mmol/L (98-107); Estimated CRCL calculation 73 ml/min; Estimated Glomerular Filt Rate > 60; Glucose 139 mg/dL (65-110); Potassium 3.4 mmol/L (3.4-5.0); Sodium 131 mmol/L (137-145)
[2024-02-28 19:12] VITALS: BP 176/62; PULSE 69; RESP 18; O2SAT 100
[2024-02-28] MEDS: TRIMETHOBENZAMIDE HCL 200 MG/2 ML VIAL IM (19:30)
== END 2024-02-28 21:15 | disposition home or self-care (01) ==
PROVIDERS: Emergency Provider Physician Assistant; PCP Family Medicine Sports Medicine
DX: R11.0 Nausea (principal); Z20.822 Contact with and (suspected) exposure to COVID-19; I10 Essential (primary) hypertension; E78.5 Hyperlipidemia, unspecified; E66.9 Obesity, unspecified; Z68.35 Body mass index [BMI] 35.0-35.9, adult; K21.9 Gastro-esophageal reflux disease without esophagitis; G47.33 Obstructive sleep apnea (adult) (pediatric); F41.9 Anxiety disorder, unspecified; F32.A Depression, unspecified; Z86.010 Personal history of colon polyps; Z90.49 Acquired absence of other specified parts of digestive tract; R94.31 Abnormal electrocardiogram [ECG] [EKG]; Z79.899 Other long term (current) drug therapy
CPT/HCPCS: 36415; 80048; 80053; 81001; 83690; 83735; 85025; 87086; 87637; 93005; 96361; 96365; 96366; 96372; 96375; 99284; A9270; J0780; J1200; J2765; J3250; J3475; J7030

== ENCOUNTER 2024-03-02 05:26 | Emergency (ER) | payer MEDICARE, MEDICAID, SELFPAY ==
[2024-03-02] VITALS (11 sets, daily range): BP systolic 136–158; BP diastolic 93–106; PULSE 74–82; RESP 16; TEMP 36.6; O2SAT 95–100
--- NOTE | ~2024-03-02 | CT_ITS ---
CT of the Abdomen and Pelvis: Indication: Epigastric pain Technique: 2.5 mm axial scans were obtained through the abdomen and pelvis following intravenous adm inistration of 100 cc of Omnipaque 350. Dose reduction technique was used on this scan by utilizing a utomated exposure control and iterative reconstruction technique. The dose-length product (DLP) was 1 396.45 mGy-cm. COMPARISON: 11/12/2020 Findings: Scans through the lung bases are unremarkable. The liver, spleen, pancreas, adrenals and kidneys are within normal limits. Cholecystectomy clips are present. No evidence of aortic aneurysm. No lymphadenopathy. No bowel obstruction or bowel wall thickening. Rectosigmoid anastomosis noted. Images through the pelvis were performed. Urinary bladder unremarkable. 1.8 cm right ovarian cyst pre sent. No other pelvic mass seen. No ascites. Impression: No acute abnormality. 1.8 cm right ovarian cyst. Reviewed, dictated and finalized at [facility]. Impression: No acute abnormality. 1.8 cm right ovarian cyst.
[2024-03-02 06:07] LABS: Basophils Percent Auto 0.5 % (0.2-1.2); Eosinophils Percent Auto 0.3 % (0-4.4); Hemoglobin 12.7 g/dL (12.0-15.0); Immature Granulocyte Absolute 0.03 K/mm3 (0.00-0.031); Immature Granulocyte Percent A 0.3 % (0-0.5); Lymphocytes Absolute Auto 1.53 K/mm3 (0.9-3.2); Lymphocytes Percent Auto 17.5 % (18.3-44.2); Mean Corpuscular HGB Conc 34.3 g/dl (32-36); Mean Corpuscular Hemoglobin 29.3 pg (26-34); Mean Corpuscular Volume 85.5 fl (80-100); Mean Platelet Volume 9.4 fl (7.4-10.4); Monocytes Absolute Auto 0.7 K/mm3 (0.1-0.6); Monocytes Percent Auto 7.4 % (2.6-8.5); Neutrophils Absolute Auto 6.5 K/mm3 (1.3-6.7); Platelet Count Result 373 k/mm3 (150-375); Red Blood Count 4.33 M/mm3 (4.2-5.4); Red Cell Distribution Width 13.2 % (11.5-14.5); White Blood Count 8.7 K/mm3 (4.5-10.0)
[2024-03-02 06:19] LABS: Alanine Aminotransferase 13 U/L (6-35); Albumin Level 4.3 g/dL (3.5-5.1); Alkaline Phosphatase 86 U/L (38-126); Anion Gap 11 mmol/L (4-12); Aspartate Amino Transferase 20 U/L (14-36); Bilirubin,Total 0.6 mg/dL (0.2-1.3); Blood Urea Nitrogen 16 mg/dL (7-17); Calcium 9.8 mg/dL (8.4-10.2); Carbon Dioxide 25 mmol/L (22-30); Chloride 95 mmol/L (98-107); Estimated CRCL calculation 56 ml/min; Estimated Glomerular Filt Rate > 60; Glucose 105 mg/dL (65-110); Lipase 48 U/L (23-300); Potassium 3.4 mmol/L (3.4-5.0); Sodium 131 mmol/L (137-145)
[2024-03-02 06:58] LABS: Bacteria Urine None Seen /hpf; Non Pathogenic Casts 0-2; RBC Urine 0-2 /hpf (0-2); Squamous Epithelial Cell Urine None Seen /hpf (Few); WBC Urine 0-5 /hpf (0-3)
--- NOTE | 2024-03-02 07:04 | ED.NAVMDI ---
HPI - Nausea/Vomiting/Diarrhea General Chief complaint: Nausea/Vomiting/Diarrhea Stated complaint: nausea Time Seen by Provider: 03/02/24 07:01 Source: patient Mode of arrival: ambulatory Limitations: no limitations History of Present Illness HPI Narrative: 63-year-old female presents with persistent nausea. She has had this frequently occurring intermittently the past several years ever since having any sand fundoplication procedure years ago here at [facility] with Dr. Pineda. She is unable to vomit but has been dry heaving and occasionally spits up stuff but denies it being bloody. She was seen for this here in the emergency department on Saturday and diagnosed with gastritis and discharged with Zofran which she has been taking without any relief. Her last bowel movement was Saturday and she reports being normal without diarrhea, constipation, or blood. Last oral intake was Saturday. She does not have an appetite. Denies any fevers. Has a roommate who does not have similar symptoms. Denies any chest pain or shortness of breath. Related Data Home Medications Medication Instructions Recorded Confirmed paroxetine HCl 40 mg tablet 40 mg PO [facility] 08/05/19 01/15/24 aripiprazole 15 mg tablet (Abilify) 15 mg PO 11/13/19 01/15/24 omeprazole 20 mg tablet,delayed 20 mg PO DAILY 11/09/21 01/15/24 release oxybutynin chloride 10 mg 10 mg PO DAILY 11/09/21 01/15/24 tablet,extended release 24 hr amlodipine 10 mg tablet 10 mg PO DAILY 12/19/23 01/15/24 hydrochlorothiazide 25 mg tablet 25 mg PO DAILY 12/19/23 01/15/24 magnesium oxide 400 mg PO DAILY 12/19/23 01/15/24 trazodone 100 mg tablet 100 mg PO HS 12/19/23 01/15/24 valsartan 160 mg tablet 160 mg PO DAILY 12/19/23 01/15/24 Allergies Allergy/AdvReac Type Severity Reaction Status Date / Time No Known Allergies Allergy Unknown Verified 03/02/24 05:44 [facility] Past Medical History Medical History Anxiety Colon polyps Depression Diverticulitis Dysphagia GERD (gastroesophageal reflux disease) HTN (hypertension) Hyperlipidemia CAMILLE (obstructive sleep apnea) has CPAP but is noncompliant Overactive bladder Surgical History Surgical History H/O shoulder surgery right History of cholecystectomy History of Luis Felipe fundoplication Dr Oren Pineda S/P insertion of spinal cord stimulator bladder stimulator. Removed in 08/2021 Status post laparoscopic-assisted sigmoidectomy ruptured diverticulitis Family History Family History Father Malignant neoplasm of prostate Hypertension Family history of arthritis Grandparent Diabetes mellitus Family history of glaucoma Sibling Hypertension Other Family history of throat cancer Social History Social History Years smoked: 2 Smoking status: Former smoker Tobacco type: cigarettes Smoking end date: 07/01/00 Alcohol intake: never Alcohol use details: social Substance use: never Substance use type: does not use Lack of Transportation: No Lack of Food: Never True Current Housing: I Have Housing Concerned About Future Housing: No Difficulty Paying Gas/Electric Bills: No Difficulty Paying for Meds: No Currently Unemployed: No Education: High School Diploma/GED Living arrangements: with roommate(s) Occupation/Education: unemployed Gender identity (if verbalized by the patient): Female Spiritual care concerns: No Exam Narrative: GENERAL: Well-appearing, well-nourished, and in no acute distress. HEAD: Normocephalic, atraumatic. EYES: Non injected, non icteric ENT: Nares clear, no rhinorrhea or epistaxis. Tacky mucous membranes NECK: Supple. CHEST: Speaking in full sentences. No respiratory distress. HEART: Regular rate and rhythm. . AB
[2024-03-02 07:22] LABS: Appearance Urine Clear (Clear); Color Urine Light Yellow (Yellow); Glucose Urine UA Negative (Negative); Ketones Urine Negative (Negative); Protein Urine Negative (Negative); pH Urine 6.5 (5.0-9.0)
[2024-03-02 07:23] LABS: Add Urine Microscopic? YES; Bilirubin Urine Negative (Negative); Blood Urine Trace-Lysed (Negative); Leukocyte Esterase Ur Trace LEU/UL (Negative); Nitrate Urine Negative (Negative); Urobilinogen Urine 0.2 mg/dL (<2.0)
[2024-03-02] MEDS: SODIUM CHLORIDE 0.9% IV 1,000 ML 999 ML IV CONT (07:23)
[2024-03-02] MEDS: FAMOTIDINE 20 MG/2 ML VIAL IV PUSH (07:23)
[2024-03-02] MEDS: KETOROLAC 15 MG/ML VIAL (*BKC) IV PUSH (08:58)
[2024-03-02] MEDS: diphenhydrAMINE HCl INJ 50 MG/ML VIAL 25 MG IV PUSH (08:59)
[2024-03-02] MEDS: PROCHLORPERAZINE EDISYLATE 10 MG/2 ML VIAL IV PUSH (08:59)
--- NOTE | 2024-03-02 09:37 | PC.NURSE ---
Patent states nausea has resolved. patient resting at this time
== END 2024-03-02 09:55 | disposition home or self-care (01) ==
PROVIDERS: Emergency Medicine; Emergency Provider Student in an Organized Health Care Education/Training Program; PCP Family Medicine Sports Medicine
DX: E87.1 Hypo-osmolality and hyponatremia (principal); N83.201 Unspecified ovarian cyst, right side; R11.0 Nausea; I10 Essential (primary) hypertension; E78.5 Hyperlipidemia, unspecified; Z87.891 Personal history of nicotine dependence
CPT/HCPCS: 36415; 74177; 80053; 81001; 83690; 85025; 96361; 96374; 96375; 99284; J0780; J1200; J1885; J7030; Q9967

== ENCOUNTER 2024-03-17 07:59 | Outpatient (CLI) | payer MEDICARE, MEDICAID, SELFPAY ==
--- NOTE | ~2024-03-17 | NM_ITS ---
EXAM: NM gastric emptying study DATE: 03/17/2024 12:42 INDICATION: Nausea TECHNIQUE: A gastric emptying study was performed using the methodology of Mukesh DALLAS, et al. J Nucl Med 2007; 48:568-572. The patient was given a meal consisting of 2 scrambled eggs labeled with 0.972 mCi Tc-99m sulfur colloid, 2 slices of toast, two packages of jam, and approximately 120 mL of water . Simultaneous anterior and posterior 1-min images of the abdomen were obtained with the patient supi ne at multiple time points over a total period of 4 hours. The geometric mean of anterior and posteri or views was determined, and the percentage retention was calculated for each time point. COMPARISON: None. FINDINGS: Gastric retention of the radiotracer-labeled meal was 57%, 46%, and 20% at the 1-hour, 2-hour, and 4- hour time points, respectively. With this technique, apparent rapid gastric emptying is suggested by <30% gastric retention at 1 hour. Delayed gastric emptying is defined by gastric retention of >90% at 1 hour, >60% retention at 2 hours, or >10% retention at 4 hours. IMPRESSION: 1. Delayed gastric emptying. Reviewed, dictated and finalized at location B.
--- NOTE | ~2024-03-17 | US_ITS ---
US transvaginal Ordering provider: Mitzy Knox APRN History: . N83.209 - Unspecified ovarian cyst, unspecified side . Comparison: None. Technique: Transabdominal and endovaginal ultrasound of the pelvis (Doppler ultrasound interrogation techniques used as needed for this exam.) FINDINGS: CERVIX: Normal. UTERUS: Measures 4.6x 2x 3.4 cm in length which is within normal limits and is anteverted. No myomet rial masses. ENDOMETRIUM: Normal in thickness measuring 4 mm. (Note: the premenopausal endometrium may measure up to 16 mm when in the secretory phase.) No endometrial masses, cysts or fluid. CUL DE SAC: Mediastinal or free fluid. RIGHT OVARY: Normal in size measuring 1.3x 1.3x 1.2 Normal echotexture. Doppler vascular flow present . Small right ovarian cyst measuring 9 .6 0.7 x 0.8 cm. LEFT OVARY: Normal in size measuring 1.1x 0.9x 0. 8 cm. Normal echotexture. Doppler vascular flow present. ADNEXA: Normal. No mass. IMPRESSION: Small right ovarian cyst. Minimal fluid in the pelvis. Otherwise, normal pelvic ultrasound. Reviewed, dictated and finalized at location A.
== END 2024-03-17 08:00 | disposition home or self-care (01) ==
LOC: ANHIMG 08:00
PROVIDERS: PCP Family Medicine Sports Medicine; Visit Provider Surgery
DX: K30 Functional dyspepsia (principal); N83.201 Unspecified ovarian cyst, right side; R11.0 Nausea
CPT/HCPCS: 76830; 78264; A9541

== ENCOUNTER 2024-03-27 08:33 | Outpatient (CLI) | payer MEDICARE, MEDICAID, SELFPAY ==
--- NOTE | ~2024-03-27 | XR_ITS ---
EXAMINATION: XR UGI w barium swallow DATE: 03/27/2024 09:13 INDICATION: Dysphagia TECHNIQUE: The patient drank thick barium, gas-producing crystals, and thin barium. Fluoroscopic spot radiographs of the hypopharynx, esophagus, stomach and proximal small bowel were obtained. Fluorosco py exposure time was 2.7 minutes. A total of 1620 fluoroscopic images were recorded. Total DAP was 21 .0 Gycm^2 COMPARISON: None. FINDINGS: The pharynx is symmetric and without evidence of mass lesion or mucosal irregularity. The esophagus i s normal without mass or stricture. Esophageal motility is normal. There is no hiatal hernia. There i s an abnormal contour to the stomach at the gastric fundus with masslike projection of the gastroesop hageal junction into the gastric cardia which corresponds to a patient reported prior Luis Felipe complica tion which is also evident on the prior CT. The stomach and proximal small bowel are otherwise normal . There was no gastroesophageal reflux with provocative maneuvers. IMPRESSION: 1. Changes at the gastroesophageal junction consistent with prior Luis Felipe fundoplication. Otherwise no rmal esophagram and upper GI study. Reviewed, dictated and finalized at location A. IMPRESSION: 1. Changes at the gastroesophageal junction consistent with prior Luis Felipe fundop lication. Otherwise normal esophagram and upper GI study.
== END 2024-03-27 08:34 | disposition home or self-care (01) ==
PROVIDERS: PCP Family Medicine Sports Medicine; Visit Provider Surgery
DX: R13.10 Dysphagia, unspecified (principal)
CPT/HCPCS: 74240

== ENCOUNTER 2024-09-17 09:34 | Outpatient (CLI) | payer MEDICARE, SELFPAY ==
--- OUTSIDE RECORDS SUMMARY | 2024-09-17 10:01 | XMS_ITS | CONTINUITY OF CARE DOCUMENT ---
Author Name nanci christine Address Unknown Organization [facility] Address [address] [facility] [address] [place] [address] Phone [phone] Care Team Providers Care Double End Sewer Name Role Phone Matthias Mallory MD Unavailable [phone] Matthias Mallory MD Unavailable [phone] JASON BLANCHARD-BCYOANNA Unavailable PROBLEMS Condition Status Date Provider Notes HTN essential active Matthias Mallory MD Chest pain- neg workup active Meghna Rodriguez Pulmonic insufficiency active Meghna Rodriguez Tobacco use, quit active Meghna Rodriguez ENCOUNTERS Date Type Provider Location Encounter Diag nosis - In-person encounter Office Visit Matthias Mallory MD [place] [facility] Chest pain- neg workupPulmonic insufficiencyTobacco use, quit VITAL SIGNS Date Observation Value Provider Body Mass Index (Ratio) 37.40 kg/m2 Juan Rodriguez blood pressure, cuff size large Ke rri Gerardo blood pressure, diastolic 80 mm[Hg] Ke rri Shawuenekathy blood pressure, systolic 120 mm[Hg] Fernando Carrillo oxygen saturation, oximetry 94 % Shannon Carrillo respiratory rate E&M 16 /min Shannon rodrigues pulse rate 73 /min Shannon Menchaca [facility] weight E&M 246 [lb_av] Shannon Menchaca [facility] height E&M 68 [in_i] Shannon Menchaca [facility] weight E&M 230 [lb_av] Arsalan pablo height E&M 68 [in_i] Arsalan pablo RESULTS Date Observation Value Provider Reference Range Interpretation Location 7 alanine aminotransferase (SGPT), serum 12 1/L [facility] 0-32 7 aspartate aminotransferase (SGOT), serum 10 1/L [facility] 0-40 7 alkaline phosphatase, serum 107 1/L [facility] 39-117 7 bilirubin, serum, total 0.2 mg/dL [facility] 0.0-1.2 7 albumin/globulin ratio, serum 1.4 [facility] 1.2-2.2 7 globulin, serum 2.8 [facility] 1.5-4.5 7 albumin, serum 4.0 g/dL [facility] 3.8-4.9 7 protein, total, serum 6.8 g/dL [facility] 6.0-8.5 7 calcium, serum 9.3 mg/dL [facility] 8.7-10.2 7 carbon dioxide, venous blood 26 mmol/L [facility] 20-29 7 chloride, serum 97 mmol/L [facility] 96-106 7 potassium, serum 4.4 mmol/L [facility] 3.5-5.2 7 sodium, serum 137 mmol/L [facility] 811-209 1142/04/1 7 urea nitrogen/creatinine ratio, serum 13 [facility] 9-23 7 eGFR if 74 mL/min/{1 .73_m2} [facility] >59 7 eGFR if not 64 mL/min/{1 .73_m2} [facility] >59 7 creatinine, serum 0.97 mg/dL [facility] 0.57-1.00 7 urea nitrogen, blood 13 mg/dL [facility] 6-24 7 blood glucose, random 75 mg/dL [facility] 65-99 HISTORY OF MEDICATION USE Medication Status Instructions Dates Provider Indications Com ments LUNESTA TABLET active as needed for sleep 10/14 Shannon Jeannineer ZOFRAN TABLET active as needed 10/14 Shannon Carrillo HYDROCHLOROTHIAZIDE 12.5 MG ORAL CAPSULE active ONE TAB. DAILY. decreased dose 12/23 Meghna Rodriguez #90, 90 days supply, Prescribed by YOANNA GOMEZ, Filled 08/09/2020 LISINOPRIL 20 MG ORAL TABLET active TAKE 1 TABLET BY MOUTH ONCE DAILY 08/23 Shannon Carrillo #90, 90 days supply, Prescribed by YOANNA GOMEZ, Filled 08/23/2020 ONDANSETRON HCL 8 MG ORAL TABLET active TAKE 1 TABLET BY MOUTH EVERY 8 HOURS NEEDED FOR NAUSEA 11/04 Shannon Carrillo Chest pain- neg workup #30, 10 days supply, Prescribed by MEDARDO RIVERA, Filled 08/24/2020 PAROXETINE HCL 40 MG ORAL TABLET active TAKE 1 TABLET BY MOUTH ONCE DAILY 09/06 Shannon Carrillo #30, 30 days supply, Prescribed by MEDARDO JOSEPH, Filled 10/11/2020 ARIPIPRAZOLE 15 MG ORAL TABLET active TAKE 1 TABLET BY MOUTH ONCE DAILY 09/06 Shannon Paezer #30, 30 days supply, Prescribed by MEDARDO JOSEPH, Filled 10/11/2020 ASPIRIN 81 MG ORAL TABLET CHEWABLE active CHEW AND SWALLOW 1 TABLET BY MOUTH ONCE DAILY 10/02 Shannon Carrillo #30, 30 days supply, Prescribed by KARUNA GAO, Filled 10/13/2020 SOCIAL HISTORY Date Observation Value Provider social history E&M S moking History: Anyi uzair is a former smoker. Meghna Rodriguez social history reviewed E&M revi ewed - no changes required Rakeshgarth Michael number of years as a smoker 3 a Shannon Carrillo smoking history, tot al pack/day 2 cigs a day Shannon Carrillo smoking, year quit 2000 Shannon willis cigarette use yes Shannon layton smoking status Former smoker Shannon chavez INSURANCE PROVIDERS Payer name Policy type / Coverage type [employer] party ID [employer] MEDICAID (2) Medicaid [id number] ADVANCE DIRECTIVES Name Date DISCUSSED - NO DECISION MADE TREATMENT PLAN Date Name Performer [facility] w up 15 [facility] Follow up 15:no recurrence Stress 10/11/2020 Summary and Interpretation 1 . Normal exercise capacity 2 . Normal hemodynamic response to exercise 3 . No diagnostic ST or T changes 4 . No significant arrhythmias 5 . There is no evidence for exercise-induced myocardial ischemia Early 09/2020 Admitted to [facility] where she had negative workup including tropnonins, CXR, BNP, tele. fern Rodriguez Electrophysiology Ho spital Follow up 15:Echo 10/06/2020 O NCLUSIONS: 1 . Normal left ventricular systolic function. Normal left ventricular size. Normal left ventricular wall thickness. There is E to A w ave reversal consistent with impaired LV relaxation. E/E': 5.5. Left ventricular ejection fraction is measured at 65 %. 2 . Left atrium is upper limits of normal in size. 3 . There is non-specific thickening of the mitral valve leaflets. There is trace physiologic mitral valve regurgitation. 4 . Pulmonic valve leaflets appear structurally normal. Normal pulmonic valve velocities by Doppler. There is mild pulmonic r egurgitation. Meghna Rodriguez Electrophysiology spital Follow up 15: B P today: 120/80 Her updated medication list for this problem includes: Hydrochlorothiazide 12.5 Mg Oral Capsule (Hydrochlorothiazide) ..... One tab. daily. decreased dose Lisinopril 20 Mg Oral Tablet (Lisinopril) ..... Take 1 tablet by mouth once daily Aspirin 81 Mg Oral Tablet Chewable (Aspirin) ..... Chew and swallow 1 tablet by mouth once daily Orders: E KG (CPT-59175) C OMPREHENSIVE METABOLIC PANEL, W/EGFR (66079) Meghna Rodriguez Date Name COMPREHENSIVE METABO LIC PANEL, W/EGFR COMPREHENSIVE METABO LIC PANEL, W/EGFR Stress Routine Complete Echo HISTORY OF PROCEDURES Procedure Date Procedure Name Provider Procedure Notes S tatus EKG Matthias Mallory MD comp leted Schedule Followup Matthias lee execise stress test and ECHO and fu with Dr. Mohamud HAGAN completed
--- OUTSIDE RECORDS SUMMARY | 2024-09-17 10:01 | XMS_ITS | Encounter Summary ---
Author Organization [facility] Address [address] [place] [address] Phone Care Team Providers Care Sign Erector Name Role Phone Belen Kemp APRN, ADVANCED QUALITY ENGINEER Unavailable [phone] Reza Ozuna DO Unavailable [phone] aDnna Tran GOLD CHARMER Primary Care Provi doug Louise Recio APRN, ADVANCED QUALITY ENGINEER Primary Care Provider Reason for Visit * Reason Comments Medication Refill Encounter Details Date Type Department Care Team (Late st Contact Info) Description 01/02/2021 Refill [facility] - Gastroenterology - [address] [place] [id number] Reza Ozuna, [address] [address] Medication Refill Social History Tobacco Use Types Packs/Day Years Used Date Smoking Tobacco: Former Cigarettes 0.5 2 0 08/30/1993 - 08/31/1995 Smokeless Tobacco: Never Alcohol Use Standard Drinks/Week Comments Yes 1 (1 standard drink = 0.6 oz pur e alcohol) occasionally Comments No Sex and Gender Information Value Date Recorded Sex Assigned at Female 06/27/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 Legal Sex Female 7:32 PM CDT Gender Identity Female 06/27/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 [address] [place] [address] PCP - General Advanced Practice Nurse 08/20/19 Louise Recio, AMIE, ADVANCED QUALITY ENGINEER [address] [place] [address] [address] [place] [address] PCP - General Advanced Practice Nurse 03/21/21 Belen Kemp APRN, ADVANCED QUALITY ENGINEER Nurse Practitioner Advanced Practice Nurse 12/29/15 Reza Ozuna DO Consulting Physician Gastroenterology 10/31/17 documented as of this encounter
--- OUTSIDE RECORDS SUMMARY | 2024-09-17 10:01 | XMS_ITS | Clinical Summary ---
Author Organization [facility] Address [address] [facility] [address] [place] [address] Phone Care Team Providers Care Cognos Name Role Phone Belen Kemp APRN, FOOD SERVICE EMPLOYEE Unavailable [phone] Reza Ozuna DO Unavailable [phone] Louise Recio IMPLEMENTATION DIRECTOR, FOOD SERVICE EMPLOYEE Primary Care Provider Allergies No known active allergies Medications lisinopril-hydro chlorothiazide (PRINZIDE, ZESTORETIC) 10-12.5 MG TabletIndication s:once a day daily. Indications: once a day Active ARIPiprazole (ABILIFY) 10 MG Tablet Take 10 mg by mouth daily. Active hydroCHLOROthiaz benjamin 25 MG Tablet Take 25 mg by mouth daily. Active eszopiclone (LUNESTA) 2 MG Tablet Take 2 mg by mouth nightly as needed. Active PARoxetine (PAXIL) 20 MG Tablet Take 40 mg by mouth. 9 Active ondansetron (ZOFRAN) 8 MG Tablet Take 1 Tablet by mouth every 8 hours as needed for Nausea - 1st line. 120 Tablet 1 Active omeprazole (PriLOSEC) 20 MG CAPSULE DELAYED RELEASEIndicatio ns:Irritable bowel syndrome with diarrhea,Gastroe sophageal reflux disease, unspecified whether esophagitis present,Orophary ngeal dysphagia Take 1 Capsule by mouth daily. 90 Capsule 3 1 Active lisinopril (PRINIVIL, ZESTRIL) 10 MG Tablet Take 10 mg by mouth every morning. Active FLUoxetine (PROzac) 40 MG CapsuleIndicatio ns:Depression Take 40 mg by mouth daily. Indications: Depression Active ALPRAZolam (Xanax XR) 1 MG TABLET SR 24 HR Take 1 mg by mouth if needed for Anxiety. Active Active Problems Problem Noted Date Diagnosed Date Unspecified neurocognitive disorder 06/20/2023 History of diverticulitis 12/04/2017 Overview (01/26/2020): Chronic - Bowel resection scheduled Last Assessment & Plan: Patient states she had a colonoscopy 08/2019 and has chronic diverticuli. She is seen by Dr. Ozuna (GI) and has an appointment on 09/18/2019 and will wait for the appointment for treatment. Class 2 obesity due to exces s calories without serious comorbidity with body mass index (BMI) of 36.0 to 36.9 in adult 12/04/2017 Overview (01/26/2020): Last Assessment & Plan: BMI Follow-up includes: exercise counseling. HTN (hypertension) 04/18/2017 IBS (irritable bowel syndrome) 04/18/2017 Sleep apnea 04/18/2017 Overview (01/26/2020): Overview: CPAP CAP Adjustment disorder with mixed anxiety and depre ssed mood 11/14/2013 Overview (01/26/2020): Overview: Adjustment reaction with anxiety and depression Benign essential hypertension 11/14/2013 Overview (01/26/2020): Benign essential HTN Last Assessment & Plan: Hypertension is improving with treatment. Weight loss. Continue current medications. Blood pressure will be reassessed 6 months. Urinary incontinence 11/14/2013 Overview (01/26/2020): Overview: Incontinence of urine Persistent insomnia 11/14/2013 Overview (01/26/2020): Overview: Insomnia, persistent Multiple-type hyperlipidemia 11/14/2013 Overview (01/26/2020): Combined hyperlipidemia Last Assessment & Plan: Lipid abnormalities are stable. Pharmacotherapy not needed. Lipid level stable - Lipids will be reassessed in 1 year Abdominal pain Overview (06/08/2015): LLQ off and on Carpal tunnel syndrome Overview (06/08/2015): Bilateral release Dyslipidemia Esophageal reflux Nausea with vomiting Colon polyps Immunizations Immunization Administration Dates Next Due Covid-19, Mrna, Lnp-s, PF, 1 00 mcg/0.5 mL Dose (Moderna) 09/13/2020,08/16/2020 Influenza Vaccine 03/29/2015 Influenza Vaccine greater than 3 yrs 03/31/2015 Influenza Vaccine, Quadrivalent, PF 05/19/2019,0 03/18/2018,03/19/2017 Influenza Vaccine,unspecified Formulation 2017,03/31/2017 Influenza, Seasonal, Injectable, Undefined 03/31,03/25/2014 TDAP Vaccine 03/31/2017 Family History Medical History Relation Name Comments Cancer Brother 1 (72) unsure Crohn's Disease Brother 1 (72) Hypertension Brother 1 (72) Cancer Father Hypertension Father Prostate Cancer Father Diabetes Maternal Grandmother Other-comment Mother mother fr om surgery complications Cancer Paternal Uncle esophageal Relation Name Status Comments Brother 1 (72) Alive Brother 2 (70) Alive Brother 3 (63) Brother 4 (68) Alive Father Maternal Grandmother Mother Paternal Uncle Social History Tobacco Use Types Packs/Day Years Used Date Smoking Tobacco: Former Cigarettes 0.5 2 0 08/30/1993 - 08/31/1995 Smokeless Tobacco: Never Tobacco Cessation:Counseling Given: Not Answered Alcohol Use Standard Drinks/Week Comments Not Currently 1 (1 standard drink = 0.6 oz pur e alcohol) occasionally Sexually Active Control Partners Comments Not Currently Female Comments No Sex and Gender Information Value Date Recorded Sex Assigned at Female 06/27/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 Legal Sex Female 7:32 PM CDT Gender Identity Female 06/27/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19 03/16/2021 1:55 PM CDT Plan of Treatment Health Maintenance Due Date Last Done Comments Hepatitis C Virus (HCV) Screening 1961 Mammogram 1961 Pap Smear 1982 Cervical Cancer Screening (CCS) 1991 HPV/Cotest 1991 Cologuard 2011 Pneumococcal Immunization (50+ years) (1 of 1 - PCV) 2011 Immunochemical Fecal Occult Blood 12/17/2015 12/16/2014 Influenza Immunization (#1) 03/01/202405/31, 07/10/2022, 07/14/2021, Additional history exists SARS-COV-2 Immunization ( season) 2024 06/12/2023, 03/15/2022, 05/30/2021, Additional history exists Colonoscopy 08/10/2024 08/10/2019, 01/30, 09/10/2011 Colorectal Cancer Screening 08/10/2024 Td Immunization Every 10 Years (Adults With 1 Tdap) 03/31/2027 03/31/2017 Respiratory Syncytial Virus (RSV) Immunization (Adult) (1 - 1-dose 75+ series) 2036 08/10/2019, 01/30, 09/10/2011 DTaP/Tdap/Td Immunization Discontinued 03/31/2017 Zoster Immunization Completed 09/09/2022, 01/10/202 3 Hepatitis B Immunization Aged Out No longer eligible based on patient's age to complete this topic Meningococcal Immunization (ACWY) Aged Out No longer eligible based on patient's age to complete this topic Rotavirus Immunization Aged Out No lo nger eligible based on patient's age to complete this topic Procedures Procedure Name Priority Date/Time Associated Diagnosis Comments COLONOSCOPY Routine 08/10/2019 STOOL, OCCULT BLOOD, DIAGNOS TIC, VIA GUAIAC Routine 12/16/2014 from Last 3 Months or Most Recently Relevant to Health Maintenance Results * HM COLONOSCOPY (08/10/2019) us Reza Ozuna DO PROCEDURE/MINOR SURGICAL ORDERA BLES Final Result * STOOL, OCCULT BLOOD, DIAGNOSTIC (12/16/2014) Stool specimen (specimen) STOOL SPECIMEN / Unknown Marsha Hyde MD BODY FLUIDS & STOOLS ORDERA BLES Final Result from Last 3 Months or Most Recently Relevant to Health Maintenance Insurance MEDICAID [employer] Care Teams Cognos Relationship Specialty Start Date End Date Louise Recio APRN, FOOD SERVICE EMPLOYEE [address] [facility] [place] [place] [address] [place] [address] PCP - General Advanced Practice Nurse 03/21/21 Belen Kemp APRN, FOOD SERVICE EMPLOYEE Nurse Practitioner Advanced Practice Nurse 12/29/15 Reza Ozuna DO Consulting Physician Gastroenterology 10/31/17
--- OUTSIDE RECORDS SUMMARY | 2024-09-17 10:01 | XMS_ITS | Clinical Summary ---
Author Organization [facility] Address [address] [address] Care Team Providers Care Oil Separator Name Role Phone Unavailable Primary Care Provider Unavailabl e Source Comments [facility],non-owned Affiliates and Associated Physician Practices is amultiple site organization consisting of ambulatory clinics and hospital sitesin [place], [place], [place] and [place]. This disclosure is being madepursuant to the Care Everywhere program and may not contain all information available regarding this patient. Last updated 18.[facility] Allergies No known active allergies Medications * Be aware that medications may not be up to date on this document. Alwaysverify current medications with the patient. Medication Sig Dispensed Refills Start Date End Date Status hydroCHLOROthiazide (HYDRODIURIL) 25 MG tablet Take 25 mg by mouth once daily Active lisinopril (PRINIVIL; ZESTRIL) 10 MG tablet Take 10 mg by mouth once daily Active ARIPiprazole (ABILIFY) 10 MG tablet Take 10 mg by mouth once daily Active dicyclomine (BENTYL) 20 MG tablet Take 20 mg by mouth 2 times daily Active eszopiclone (LUNESTA) 2 MG tablet Take 2 mg by mouth nightly as needed for Insomnia Active sertraline (ZOLOFT) 50 MG tablet Take 50 mg by mouth Act chikis venlafaxine (EFFEXOR) 37.5 MG tablet Take 75 mg by mouth once daily Active Active Problems Problem Noted Date Diagnosed Date Carpal tunnel syndrome 04/18/2017 Overview (04/18/2017): Overview: Bilateral release Dyslipidemia 04/18/2017 GERD (gastroesophageal reflux disease) 7 Anxiety 04/18/2017 Depression 04/18/2017 HTN (hypertension) 04/18/2017 IBS (irritable bowel syndrome) 04/18/2017 Sleep apnea 04/18/2017 Overview (04/18/2017): CPAP Obesity due to excess calories with serious marlon rbidity 04/18/2017 Class 2 obesity due to exces s calories with serious comorbidity in adult 04/18/2017 Family History Medical History Relation Name Comments Crohn's Disease Brother Hypertension Brother Cancer - Prostate Father Diabetes - Gestational Maternal Grandmother Diabetes - Type 2 Maternal Grandmother Relation Name Status Comments Brother Father Maternal Grandmother Social History Tobacco Use Types Packs/Day Years Used Date Smoking Tobacco: Never Smokeless Tobacco: Never Alcohol Use Standard Drinks/Week Comments No 0 (1 standard drink = 0.6 oz pur e alcohol) Sex and Gender Information Value Date Recorded Sex Assigned at Not on file Gender Identity Not on file Sexual Orientation Not on file Last Filed Vital Signs Vital Sign Reading Time Taken Comments Blood Pressure 137/89 04/18/2017 9:57 AM CDT Pulse 76 04/18/2017 9:57 AM CDT Temperature - - Respiratory Rate - - Oxygen Saturation - - Inhaled Oxygen Concentration - - Weight 108.4 kg (239 lb) 04/18/2017 9:57 AM CDT Height 171.5 cm (5' 7.5 ) 04/18/2017 9:57 AM CDT Body Mass Index 36.88 04/18/2017 9:57 AM CDT Plan of Treatment Health Maintenance Due Date Last Done Comments COLOGUARD (AGES 45-75) - COLON CA SCREENING 1961 COLON MONITORING 1961 COLONOSCOPY - COLON CA SCREENING 1961 CT COLONOGRAPHY - COLON CA SCREENING 1961 Colorectal Cancer Screening 1961 FIT - COLON CA SCREENING 1961 FLEX SIG - COLON CA SCREENING 1961 MAMMOGRAM 1961 PAP SMEAR 1961 HIV SCREENING 1976 DTAP/TDAP/TD VACCINES (1 - Tdap) 1980 PNEUMOCOCCAL VACCINE 50+ (1 of 1 - PCV) 2011 ZOSTER VACCINE (1 of 2) 2011 SCREENING FOR DIABETES 04/18/2020 04/18/2017, 2016 LIPID TESTING 04/18/2022 04/18/2017 COVID-19 VACCINE ( season) 2024 05/10/2021, 09/13/2020, 08/16/2020 INFLUENZA VACCINE (#1) 2024 , 07/10/2022, 07/14/2021, Additional history exists DEPRESSION SCREENING 07/01/2024 Respiratory Syncytial Virus (RSV) Vaccine Pt: or over 60 yrs (1 - 1-dose 75+ series) 2036 HEPATITIS C SCREENING Completed 02/25/2024, 024 HEPATITIS B VACCINE Aged Out No longe r eligible based on patient's age to complete this topic HIB VACCINE Aged Out No longer eligi ble based on patient's age to complete this topic HPV VACCINE Aged Out No longer eligi ble based on patient's age to complete this topic MENINGOCOCCAL (Group B) VACCINE SHARED DECISION-MAKING Aged Out No longer eligible based on patient's age to complete this topic MENINGOCOCCAL GROUPS A/C/Y/W VACCINE Aged Out No longer eligible based on patient's age to complete this topic PNEUMOCOCCAL VACCINE Aged Out No long er eligible based on patient's age to complete this topic Procedures Procedure Name Priority Date/Time Associated Diagnosis Comments HEMOGLOBIN A1C Routine 04/18/2017 12:24 PM CDT Class 2 obesity due to excess calories with serious comorbidity in adult, unspecified BMI Essential hypertension Dyslipidemia Gastroesophageal reflux disease, esophagitis presence not specified Irritable bowel syndrome, unspecified type Sleep apnea, unspecified type LIPID PROFILE Routine 04/18/2017 12:24 PM CDT Class 2 obesity due to excess calories with serious comorbidity in adult, unspecified BMI Essential hypertension Dyslipidemia Gastroesophageal reflux disease, esophagitis presence not specified Irritable bowel syndrome, unspecified type Sleep apnea, unspecified type from Last 3 Months or Most Recently Relevant to Health Maintenance Results * HEMOGLOBIN A1C (04/18/2017 12:24 PM CDT) Hemoglobin A1c 5.5 4.8 - 5.6 % [facility] ACCOUNT BILL Comment: . Pre-diabetes: 5.7 - 6.4 Diabetes: >6.4 Glycemic control for adults with diabetes: <7.0 Whole Blood BLOOD SPECIMEN WITH EDTA / Unknown 04/18/2017 12:24 PM CDT 04/18/2017 Narrative Resulting Agency Comment [facility] [place] [address] [address] [id number] Anoop Romero MD LAB - CHEMISTRY O RDERABLES [facility] ACCOUNT BILL [address] [place] [address] * (ABNORMAL) LIPID PROFILE (04/18/2017 12:24 PM CDT) Cholesterol 235(H) 100 - 199 mg/dL [facility] ACCOUNT BILL Triglycerides 135 0 - 149 mg/dL [facility] ACCOUNT BILL HDL Cholesterol 55 >39 mg/dL [facility] ACCOUNT BILL VLDL Calculated 27 5 - 40 mg/dL [facility] ACCOUNT BILL LDL Calculated 153(H) 0 - 99 mg/dL [facility] ACCOUNT BILL Comment NOT NEEDED [facility] ACCOUNT BILL Comment:Ancillary determined the test is not needed Blood BLOOD SPECIMEN / Unknown 04/18/2017 12:24 PM CDT 04/18/2017 Narrative Resulting Agency Comment [facility] [place] [address] [id number] Anoop Romero MD LAB - CHEMISTRY O RDERABLES Performing Organization Address City/[facility]/ZIP Co de Phone Number [facility] ACCOUNT BILL [address] [place] [address] from Last 3 Months or Most Recently Relevant to Health Maintenance KORTNEY HAYWOOD Personal/Family [address] [place] [address] KORTNEY HAYWOOD Personal/Family [address] [place] [address] KORTNEY HAYWOOD Personal/Family [address] [place] [address] Kortney Haywood Personal/Family Self 1960 [address] [place] [address]
[2024-09-18 08:08] LABS: CA-125 10 U/mL (<35)
== END 2024-09-17 09:35 | disposition home or self-care (01) ==
PROVIDERS: PCP Family Medicine Sports Medicine; Visit Provider Nurse Practitioner Obstetrics & Gynecology
DX: R19.09 Other intra-abdominal and pelvic swelling, mass and lump (principal)
CPT/HCPCS: 36415; 86304

== ENCOUNTER 2024-10-05 10:39 | Outpatient (CLI) | payer MEDICARE, SELFPAY ==
--- NOTE | ~2024-10-05 | CT_ITS ---
CT Scan of the Chest without Contrast: Clinical Indication: Shortness of breath Technique: Contiguous sections were acquired throughout the chest without intravenous contrast. Dose reduction technique was used on this scan by utilizing automated exposure control and iterative recon struction technique. The dose-length product (DLP) was 499.60 mGy-cm. Findings: There is no evidence of any significant mediastinal, hilar or axillary lymphadenopathy. Coronary isabella ry calcifications present. There is no evidence of pleural or pericardial effusion. The lungs are clear. No pulmonary nodules or infiltrates are noted. Images through the upper abdomen reveal no abnormalities. Impression: No significant abnormalities seen. Reviewed, dictated and finalized at location . Impression: No significant abnormalities seen.
--- OUTSIDE RECORDS SUMMARY | 2024-10-05 12:22 | XMS_ITS | Encounter Summary ---
Author Organization [facility] Address [address] [place] [address] Care Team Providers Care Civil Engineering Designer Name Role Phone Reza Ozuna DO Unavailable [phone] Bharath Witt MD Unavailable [phone] Atul Garrido MD Unavailable [phone] Jane Felix MD Primary Care Provider Yamilet Bernal DO Unavailable [phone] Brandon Gutierrez MD Unavailable [phone] Brandon Roque MD Unavailable [phone] Tucekr Evans Unavailable Unavailable Nolberto Uriostegui MD Unavailable + David Guy MD Primary Care Provider Jane Felix MD Primary Care Provider Jane Felix MD Primary Care Provider Louise Recio NP Primary Care Provider [phone] Encounter Details Date Type Department Care Team (Late st Contact Info) Description 01/28/[address] [address] [address] [place], [place] Social History Tobacco Use Types Packs/Day Years Used Date Smoking Tobacco: Former Cigarettes 0 07/01/1978 - 07/01/2001 Passive Smoke Exposure: Past Smokeless Tobacco: Never Passive Exposure Comments:Da d smoked Alcohol Use Standard Drinks/Week Comments Yes 0 (1 standard drink = 0.6 oz pur e alcohol) rarely AUDIT-C Answer Date Recorded Q1: How often do you have a drink containing alcohol? Never 12/25/2023 Q2: How many drinks containi ng alcohol do you have on a typical day when you are drinking? Patient does not drink Q3: How often do you have si x or more drinks on one occasion? Never 12/25/2023 PHQ-2 Answer Date Recorded PHQ-2 Total Score (If total score is 3 or more points, staff should administer the PHQ-9) 2 01/07/2023 Personal Safety Answer Date Recorded Have you ever been in or are you currently in a harmful physical or emotional relationship or is someone making you feel afraid or unsafe? 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 Gender Identity Female 09/08/2020 1:16 PM PRINCIPAL SYSTEM SOFTWARE ENGINEER Sexual Orientation Not on file documented as of this encounter Plan of Treatment Not on file documented as of this encounter Visit Diagnoses Not on filedocumented in this encounter Care Teams Civil Engineering Designer Relationship Specialty Start Date End Date Jane Felix MD [address] [address] [facility] [address] [place] [address] PCP - General Family Practice 07/09/22 04/09/24 David Guy MD [address] [place] [address] DR CEJA A [facility] [address] [place] [address] PCP - General Family Medicine 04/10/24 08/02/24 Jane Felix MD [address] [facility] [address] [place] [address] PCP - General Family Medicine 08/03/24 08/03/24 Jane Felix MD [address] [facility] [address] [place] [address] PCP - General Family Medicine 08/19/24 08/19/24 Louise Recio COLOR MIXER [address] [facility] [address] [place], [place] [id number] PCP - General Family Medicine 08/20/24 Reza Ozuna DO Consulting Physician Gastroenterology 12/04/17 02/24/24 Bharath Witt MD [address] [facility] [address] [place] [address] Referring Physician Vascular Surgery 12/04/17 Atul Garrido MD [address] [facility] [address] [place] [address] Referring Physician Obstetrics and Gynecology 04/17/19 Yamilet Bernal DO [address] BRENNA Guerrier [facility] [address] [place] [address] Consulting Physician Otolaryngology 02/25/24 Brandon Gutierrez MD [address] [place] [address] DR BRENNA Guerrier [facility] [address] [place] [address] Consulting Physician Neurology 02/25/24 Brandon Roque MD [address] [facility] [address] [place] [address] Consulting Physician Cardiology 02/25/24 Tucker Evans Neuropsychology 02/25/24 Nolberto Uriostegui MD [address] [facility] [address] [place] [address] Referring Physician Gastroenterology 02/25/24 documented as of this encounter
--- OUTSIDE RECORDS SUMMARY | 2024-10-05 12:22 | XMS_ITS | Referral Summary ---
Author Organization [facility] Medical Office Building B Address [address] [place] [address] Care Team Providers Care Side Stitcher Name Role Phone Bharath Witt MD Unavailable [phone] Atul Garrido MD Unavailable [phone] Yamilet Bernal DO Unavailable [phone] Brandon Gutierrez MD Unavailable [phone] Brandon Roque MD Unavailable [phone] Tucker Evans Unavailable Unavailable Nolberto Uriostegui MD Unavailable + Louise Recio NP Primary Care Provider [phone] Encounters Date Type Department Care Team Description 08/27/2024 Telephone [facility] Primary Care at [address] [phone] Louise Recio NP 08/26/2024 Orders Only [facility] Primary Care at [address] [phone] Louise Recio NP Primary hypertension (Primary Dx); Palpitations 08/26/2024 1:20 PM INTERVENTIONAL RADIOLOGY TECH Office Visit [facility] Orthopaedic Surgery [address] [place] [address] 2nd [address] [place] [address] Rex Che MD Trigger middle finger of left hand (Primary Dx) 08/21/2024 Results Follow-Up [facility] Primary Care at [address] [phone] Bethany Islas NP 08/21/2024 2:22 PM INTERVENTIONAL RADIOLOGY TECH - 08/21/2024 11:59 PM INTERVENTIONAL RADIOLOGY TECH Hospital Encounter [address] [address] Right flank pain; Acute cystitis with hematuria Discharge Disposition: Discharge to home or self care 08/21/2024 8:04 AM INTERVENTIONAL RADIOLOGY TECH - 08/21/2024 11:59 PM INTERVENTIONAL RADIOLOGY TECH Hospital Encounter [address] [address] Right flank pain Discharge Disposition: Discharge to home or self care 08/20/[address] [address] Mira Hay, 08/20/2024 1:30 PM INTERVENTIONAL RADIOLOGY TECH Office Visit [facility] Primary Care at [address] [phone] Louise Recio NP Mixed hyperlipidemia (Primary Dx); Primary hypertension; Right flank pain; Adjustment disorder with mixed anxiety and depressed mood; Memory loss; Acute cystitis with hematuria; Stress incontinence of urine 08/16/2024 11:30 AM INTERVENTIONAL RADIOLOGY TECH Office Visit [facility] Care at [address] [place] [address] Yuridia Gillespie NP Acute cystitis with hematuria (Primary Dx) 08/06/2024 Orders Only [facility] Primary Care at [address] [phone] Bethany Islas NP 08/04/2024 7:45 AM INTERVENTIONAL RADIOLOGY TECH - 08/04/2024 8:30 AM INTERVENTIONAL RADIOLOGY TECH Surgery [facility] [address] [address] Rex Che MD Left long finger trigger release 08/04/2024 7:35 AM INTERVENTIONAL RADIOLOGY TECH Anesthesia Event [facility] [address] [address] Kwame Scott MD Gangloff, Kerry Marie, NP 08/04/2024 5:54 AM INTERVENTIONAL RADIOLOGY TECH - 08/04/2024 8:59 AM INTERVENTIONAL RADIOLOGY TECH Hospital Encounter [facility] [id number] [place] [phone] Rex Che MD Trigger middle finger of left hand (Primary Dx) Discharge Disposition: Discharge to home or self care 08/03/2024 1:11 PM INTERVENTIONAL RADIOLOGY TECH - 08/03/2024 11:59 PM INTERVENTIONAL RADIOLOGY TECH Hospital Encounter [address] [address] Encounter for screening examination for intermediate hyperglycemia and diabetes mellitus; Primary hypertension Discharge Disposition: Discharge to home or self care 08/03/2024 1:15 PM INTERVENTIONAL RADIOLOGY TECH Lab [facility] Outpatient Lab at [address] [phone] Primary hypertension (Primary Dx) 08/03/2024 12:30 PM INTERVENTIONAL RADIOLOGY TECH Office Visit [facility] Primary Care at [address] [phone] Bethany Islas NP Primary hypertension (Primary Dx); Encounter for screening examination for intermediate hyperglycemia and diabetes mellitus 08/03/2024 Nurse Triage [facility] Primary Care at [address] [place] [phone] David Guy MD 07/22/2024 11:10 AM INTERVENTIONAL RADIOLOGY TECH Office Visit [facility] Orthopaedic Surgery [address] [facility] 2nd Floor [address] [place] [address] Rex Che MD Trigger middle finger of left hand (Primary Dx) from Last 3 Months Allergies No known active allergies Medications ARIPiprazole (ABILIFY) 15 mg tabletIndications :Depression Treatment Adjunct,depressio n Take 1 tablet (15 mg total) by mouth daily with lunch Active SUMAtriptan (IMITREX) 100 mg tabletIndications :Migraine Take one tabet po q2h prn as soon as feel headache is coming. No more than 2 tablets in 24 hours. 9 tablet 3 3 Active busPIRone (BUSPAR) 15 mg tabletIndications :Generalized Anxiety Disorder Take 1 tablet (15 mg total) by mouth 2 (two) times a day 4 Active traZODone (DESYREL) 150 mg tabletIndications :insomnia associated with depression Take 1 tablet (150 mg total) by mouth nightly 4 Active zolpidem (AMBIEN) 10 mg tabletIndications :Sleep-Onset Insomnia Take 1 tablet (10 mg total) by mouth nightly at bedtime. 4 Active donepeziL (ARICEPT) 10 mg tablet Take half tablet by mouth once a day for two weeks, then one tablet once a day 30 tablet 5 4 Active valsartan (DIOVAN) 160 mg tabletIndications :Primary hypertension Take 1 tablet (160 mg total) by mouth 2 (two) times a day 180 tablet 1 4 Active oxyBUTYnin XL (DITROPAN-XL) 5 mg 24 hr tablet Take 1 tablet by mouth once daily 90 tablet 5 Active triamcinolone (KENALOG) 0.1 % creamIndications: Skin Inflammation Apply 1 g topically as needed for irritation 5 Active acetaminophen (TYLENOL) 500 mg tablet Take 2 tablets (1,000 mg total) by mouth every 6 (six) hours as needed for pain Active metoclopramide (REGLAN) 10 mg tablet 5 Active metoprolol XL (TOPROL-XL) 25 mg extended release tabletIndications :Primary hypertension Take 1 tablet (25 mg total) by mouth daily 90 tablet 1 5 02/17/20 25 Active amLODIPine (NORVASC) 10 mg tablet Take 1 tablet (10 mg total) by mouth daily 90 tablet 1 5 Active Active Problems Problem Noted Date Diagnosed Date Right flank pain 08/20/2024 Assessment & Plan (08/20/2024 2:48 PM INTERVENTIONAL RADIOLOGY TECH): Urine dip shows trace of blood. Otherwise negative. Will send urine for culture but I do not think this is a UTI. She has had no improvement with Bactrim. Could be muscular but we are going to rule out a kidney stone. Order CT renal stone protocol stat at [facility]. Trigger middle finger of left hand 07/23/2024 Chronic pain of both knees 02/25/2024 Overview (02/25/2024): Suspect knee OA. Trial of PT. Fall precautions recommended Memory loss 04/24/2023 Assessment & Plan (08/20/2024 1:55 PM INTERVENTIONAL RADIOLOGY TECH): Has follow up with neurology in August. Was started on donepezil last year for mild cognitive decline. Assessment & Plan (02/25/2024 5:39 PM CDT): Chronic. Saw neuropsychology. Working with neuropsych as well as Neurology. Was felt to have a degree of neurocognitive decline and not just pure pseudodementia. Continue working closely with specialists. Had recent lumbar puncture and brain MRI Gastroparesis 01/07/2023 Assessment & Plan (02/25/2024 5:38 PM CDT): Chronic. Sees GI. Avoid dietary triggers. Patient believes she is on Compazine currently. Pulmonary hypertension 10/24/2022 Assessment & Plan (02/25/2024 5:37 PM CDT): Chronic. Following with specialists. Continue risk factor modification. Encouraged weight loss PVC's (premature ventricular contractions) 08/31 Chronic fatigue 08/31/2022 Assessment & Plan (02/25/2024 5:37 PM CDT): Chronic. Likely multifactorial. Check labs. Could be side effect of mental health issues and her mental health meds. Has CAMILLE but is treated. Sensorineural hearing loss ( SNHL) of left ear with restricted hearing of right ear 02/28/2022 Assessment & Plan (02/28/2022 2:35 PM CDT): Hearing and Balance testing [facility] Imaging based on Hearing test results OAB (overactive bladder) 05/04/2021 Assessment & Plan (02/25/2024 5:37 PM CDT): Chronic. Struggles some despite oxybutynin. Continue prescription medication Assessment & Plan (07/12/2021 2:14 PM INTERVENTIONAL RADIOLOGY TECH): Has he use pads daily so they are getting expensive. Asking for help pain for them to her insurance. Will order prescription. Pulmonary valve insufficiency 10/14/2020 History of tobacco abuse 10/14/2020 Chronic migraine without aur a without status migrainosus, not intractable 08/06/2018 CAMILLE on CPAP 12/04/2017 Overview (01/27/2019): CAP Assessment & Plan (02/25/2024 5:37 PM CDT): Chronic. On CPAP. Encouraged compliance Assessment & Plan (01/08/2022 1:40 PM CDT): Pt has a cpap. Uses a nasal pillow. Uses every night. Follow sleep medicine Assessment & Plan (07/12/2021 2:14 PM INTERVENTIONAL RADIOLOGY TECH): History of sleep apnea but no longer uses CPAP. Will refer back to Sleep Medicine IBS (irritable bowel syndrome) 04/18/2017 Assessment & Plan (12/25/2021 2:28 PM CDT): Hi fiuber diet Mixed hyperlipidemia 11/14/2013 Overview (10/04/2016): Combined hyperlipidemia Assessment & Plan (08/20/2024 2:46 PM INTERVENTIONAL RADIOLOGY TECH): The 10-year ASCVD risk score (Agustin BLISS, et al., 2019) is: 7% Values used to calculate the score: Age: 64 years Sex: Female Is Non- : No Diabetic: No Tobacco smoker: No Systolic Blood Pressure: 134 mmHg Is BP treated: Yes HDL Cholesterol: 54 mg/dL Total Cholesterol: 218 mg/dL Statin may be recommended. Assessment & Plan (02/25/2024 5:36 PM CDT): Chronic. Encouraged healthy diet, exercise, weight loss. Last cholesterol level was not high enough to warrant cholesterol medication given ASCVD risk less than 10%. Assessment & Plan (01/08/2022 1:31 PM CDT): Lipid abnormalities are stable, reviewed previous lipid levels in [facility]. Pharmacotherapy as ordered. Order for lipid panel was given today to be obtained. Pt voiced understanding of lab drawn and continuation of current medication regimen. Assessment & Plan (09/19/2020 9:46 AM CDT): Lipid abnormalities are stable, reviewed previous lipid levels in [facility]. Pharmacotherapy as ordered. Order for lipid panel was given today to be obtained. Pt voiced understanding of lab drawn and continuation of current medication regimen. Assessment & Plan (12/24/2019 8:59 PM CDT): Lipid abnormalities are stable. Pharmacotherapy not needed. Lipid level stable - Lipids will be reassessed in 1 year Assessment & Plan (06/22/2019 1:32 PM INTERVENTIONAL RADIOLOGY TECH): Diet controlled. Last LDL 133. Will have her f/u in 6 months with repeat lipid panel and cmp Adjustment disorder with mixed anxiety and depre ssed mood 11/14/2013 Overview (10/04/2016): Adjustment reaction with anxiety and depression Assessment & Plan (08/20/2024 1:54 PM INTERVENTIONAL RADIOLOGY TECH): Managed by psychiatry. Has been on abilify and buspar for many years. Assessment & Plan (02/25/2024 5:36 PM CDT): Chronic. Improving. Could be a little bit better. Continue close follow up with Psychiatry. Patient is able to contract for safety. Continue counseling Assessment & Plan (09/19/2020 9:46 AM CDT): Stable. Being treated by Psychiatry Primary hypertension 11/14/2013 Overview (10/04/2016): Benign essential HTN Assessment & Plan (08/20/2024 2:47 PM INTERVENTIONAL RADIOLOGY TECH): Improved but not quite at goal. Will increase amlodipine to 10 mg once daily. She will send his home blood pressures. Follow up in 6 months Assessment & Plan (08/03/2024 1:08 PM INTERVENTIONAL RADIOLOGY TECH): Initial BP elevated, repeat improved (still increased but better). EKG fine in office, labs ordered. Add in Amlodipine to 2.5 mg daily and continue Valsartan and Metoprolol. Home BP log x 1 week, follow up in 2 weeks to establish with Ramona Recio DNP (used to see her in [place]). ER precautions provided. Assessment & Plan (02/25/2024 5:37 PM CDT): Chronic. HTN controlled. Cont prescription Rx as indicated in HPI under HTN diagnosis. Low sodium diet (DASH or Mediterranean), exercise, wt loss (if over weight) discussed Assessment & Plan (01/08/2022 1:31 PM CDT): Stable/ Improved. Blood pressure is adequately controlled on current medication. We will not make any medication changes today. Will have her follow-up in 6 months for continued monitoring and management Assessment & Plan (06/16/2021 9:24 AM INTERVENTIONAL RADIOLOGY TECH): Discontinue hydrochlorothiazide. Discontinue lisinopril 20 mg. Will change to valsartan hydrochlorothiazide. Will have her follow-up in 1 month for recheck on cough and blood pressure Assessment & Plan (09/19/2020 9:46 AM CDT): No blood pressure obtained today. Will continue current medications. I encouraged her to get a blood pressure either by stopping in the office when she gets her labs drawn or at other outside facility since she does not have a blood pressure cuff at home and report back to us Assessment & Plan (12/24/2019 8:55 PM CDT): Hypertension is improving with treatment. Weight loss. Continue current medications. Blood pressure will be reassessed 6 months. Assessment & Plan (06/22/2019 1:31 PM INTERVENTIONAL RADIOLOGY TECH): Hypertension is improving with treatment. Regular aerobic exercise. Continue current medications. Blood pressure will be reassessed 6 months. Urinary incontinence 11/14/2013 Overview (10/04/2016): Incontinence of urine Assessment & Plan (08/20/2024 2:49 PM INTERVENTIONAL RADIOLOGY TECH): Stable. Continue oxybutynin Assessment & Plan (02/25/2024 5:37 PM CDT): Primarily urge incontinence. Uses adult pad/diapers. Has tried bladder training and timed voiding. On oxybutynin for treatment of overactive bladder. Continue Rx Lumbago 11/05/2013 Assessment & Plan (09/08/2019 3:51 PM CDT): Patient states she has been seen previously for this condition and was sent for xray and the plan was to get a CT scan of the hip for further evaluation. She has not gotten that CT as of yet. She states she has pain on range of motion and when in bed. Resolved Problems Problem Noted Date Diagnosed Date Resolved Date Trigger finger, right ring finger 02/12/2023 08/20/2024 DENNIS (dyspnea on exertion) 08/31/2022 Exercise intolerance 08/31/2022 023 Trigger ring finger of right hand 08/10/2022 01/07/2023 Overview (08/10/2022): Added automatically from request for surgery [id number] Dizziness and giddiness 02/28/2022 02/2 Assessment & Plan (02/28/2022 2:33 PM CDT): Hearing and Balance testing [facility] Hypoglycemia 01/08/2022 02/25/2024 Assessment & Plan (01/08/2022 1:41 PM CDT): Having symptomatic episodes. We discussed lower carb meals. Will check hemoglobin A1c with labs today. Does have family history of diabetes Dysphagia 12/25/2021 01/08/2022 Assessment & Plan (12/25/2021 2:28 PM CDT): Post Gorge egd and dil Dysphagia 12/25/2021 08/20/2024 Overview (02/02/2022): Added automatically from request for surgery [id number] Assessment & Plan (02/25/2024 5:38 PM CDT): Intermittent episodes of dysphagia. Saw GI. Had EGD which may have had very subtle eosinophilic esophagitis. She will continue working with the specialists. She also has a history of gastroparesis Trigger middle finger of right hand 10/23/2021 01/08/2022 Overview (10/23/2021): Added automatically from request for surgery [id number] Chronic cough 07/12/2021 01/08/2022 Assessment & Plan (07/12/2021 2:15 PM INTERVENTIONAL RADIOLOGY TECH): Encouraged her to follow back up with GI which she has scheduled in August at [facility] Morbid (severe) obesity due to excess calories 07/11/2021 01/08/2022 Assessment & Plan (07/12/2021 2:13 PM INTERVENTIONAL RADIOLOGY TECH): BMI Follow-up includes: exercise counseling. ZHANG-inhibitor cough 06/16/2021 07/11/19 Assessment & Plan (06/16/2021 9:23 AM INTERVENTIONAL RADIOLOGY TECH): will change to Arb Acute bronchitis 05/05/2021 07/12/2021 Unexplained night sweats 09/19/202005/2022 Assessment & Plan (09/19/2020 9:49 AM CDT): Will obtain chest x-ray, TSH, CBC and urine culture. Along with other labs. Differential includes increase in menopausal symptoms. Chronic left hip pain 09/08/20192022 Assessment & Plan (09/08/2019 4:06 PM CDT): Pt has had xrays of left hip and back. She has not tried meds or Physical therapy yet. We will order diclofenac 75mg twice daily as needed for pain Will also give diclofenac gel to use for pain as this will not be as systemically absorbed and will cause less GI distress We will have patient do a month of physical therapy. If not improving, we will order CT left hip. She cannot have MRI due to bladder stimulator. Pt feels comfortable with this plan. Meralgia paresthetica of right side 05/08/2019 01/08/2022 Dizziness 05/04/2019 06/22/2019 Assessment & Plan (05/04/2019 2:33 PM INTERVENTIONAL RADIOLOGY TECH): Have eye exam Increase to 64 ounces of caffeine free and soda free fluid daily Decrease to 2 glasses of ice tea per day. Call if no improvement after eye exam recommendations completed, will order Vestibular rehab Talk to Dr. Gutierrez regarding Right leg numbness and tingling Colon polyps 10/03/2018 01/08/2022 Occipital neuralgia of right side 08/29/2018 01/08/2022 Gait disturbance 08/06/2018 01/27/2019 Vestibular disequilibrium in volving both inner ears 07/07/2018 06/22/2019 Assessment & Plan (07/07/2018 12:27 PM INTERVENTIONAL RADIOLOGY TECH): Patient presents symptoms of feeling imbalance with a tendency to fall to one side or the other. She has not felt as though the right or the left side was more susceptible. She is also experiencing some numbness over her right thigh. There is no symptoms of spinning, change in hearing, tinnitus, change in vision, lightheadedness or headaches associated with her symptoms. Today's examination revealed normal Romberg, tandem Romberg and Vladislav-Hallpike maneuver. There was no signs of any cranial neuropathies or unilateral neurological deficits. Patient would benefit from an ENG, calorics, posturography and additional vestibular testing. We will get her scheduled. Possible need for MRI of the head with and without gadolinium. Diverticulitis 12/13/2017 01/27/2019 Nausea 12/04/2017 01/07/2023 Assessment & Plan (06/05/2022 2:39 PM INTERVENTIONAL RADIOLOGY TECH): Continue the reglan and zofran. History of diverticulitis 12/04/2017 Overview (12/04/2017): Chronic - Bowel resection scheduled Assessment & Plan (09/08/2019 3:50 PM CDT): Patient states she had a colonoscopy 08/2019 and has chronic diverticuli. She is seen by Dr. Ozuna (GI) and has an appointment on 09/18/2019 and will wait for the appointment for treatment. Class 2 obesity due to exces s calories without serious comorbidity with body mass index (BMI) of 38.0 to 38.9 in adult 12/04/201705/2022 Assessment & Plan (12/24/2019 8:55 PM CDT): BMI Follow-up includes: exercise counseling. Assessment & Plan (09/08/2019 4:08 PM CDT): Healthy, low carbohydrate lifestyle and exercise for 150min/week recommended Assessment & Plan (10/22/2018 2:09 PM CDT): Obesity is worsening. Discussed the patient's BMI. The BMI is above average; BMI management plan is completed. General weight loss/lifestyle modification strategies discussed (elicit support from others; identify saboteurs; non-food rewards, etc). Assessment & Plan (12/04/2017 8:53 AM CDT): Obesity is newly identified. Discussed the patient's BMI. The BMI is above average; BMI management plan is completed. General weight loss/lifestyle modification strategies discussed (elicit support from others; identify saboteurs; non-food rewards, etc). Fracture of phalanx of finger 05/28/2017 01/27/2019 Anxiety 04/18/2017 09/19/2020 Overview (01/27/2019): Managed by Dr. Melendez Carpal tunnel syndrome 04/18/201701/07 Overview (10/03/2018): Overview: Overview: Bilateral release Overview: Bilateral release Depression 04/18/2017 09/19/2020 Dyslipidemia 04/18/2017 10/22/2018 HTN (hypertension) 04/18/2017 9 Gastroesophageal reflux disease 11/14/2013 12/04/2017 Overview (10/04/2016): GERD (gastroesophageal reflux disease) Persistent insomnia 11/14/2013 01/08/20 Overview (10/04/2016): Insomnia, persistent Other chest pain 11/14/2013 02/25/2024 Overview (10/04/2016): Chest pain syndrome Snoring 11/14/2013 06/22/2019 Overview (10/05/2016): Primary snoring Immunizations Immunization Administration Dates Next Due Influenza, Quadrivalent, Kiley l Culture-based MDCK, Preservative Free, Antibiotic Free, Intramuscular 07/14/2021 Influenza, Quadrivalent, Spl it, Preservative Free, Intramuscular 06/12/2023,07/10/2022,05/19/2019,03/18,03/19/2017 Influenza, Trivalent, IM (MDV) 03/31/2015,2013 Influenza, Trivalent, Preser vative Free, Intramuscular 05/08/2024,03/29/2015 Influenza, Unspecified 06/12/2023,2021(Deferred: Patient Refused),03/31/2020(Deferred: Patient Refused),05/31/2018,03/31/2017 Moderna SARS-CoV-2 Monovalen t Vaccination (12+ YRS) 05/10/2021,09/13/2020,08/16/2020 RSV Vaccine, Pref, Recombina nt, Subunit, Adjuvanted, PF, IM (Arexvy) 05/08/2024 Tdap 03/31/2017 ZOSTER Recombinant 09/09/2022,07/10/2022 Social History Tobacco Use Types Packs/Day Years Used Date Smoking Tobacco: Former Cigarettes 0 07/01/1978 - 07/01/2001 Passive Smoke Exposure: Past Smokeless Tobacco: Never Tobacco Cessation:Counseling Given: Not Answered Passive Exposure Comments:Dad smoked Alcohol Use Standard Drinks/Week Comments Yes 0 (1 standard drink = 0.6 oz pur e alcohol) rarely AUDIT-C Answer Date Recorded Q1: How often do you have a drink containing alc ohol? Monthly or less 08/04/2024 Q2: How many drinks containi ng alcohol do you have on a typical day when you are drinking? 1 or 2 08/04/2024 Q3: How often do you have si x or more drinks on one occasion? Never 08/04/2024 PHQ-2 Answer Date Recorded PHQ-2 Total Score (If total score is 3 or more points, staff should administer the PHQ-9) 2 02/25/2024 PHQ-9 Answer Date Recorded PHQ-9 Total Score 11 02/25/2024 Personal Safety Answer Date Recorded Have you ever been in or are you currently in a harmful physical or emotional relationship or is someone making you feel afraid or unsafe? Denies 08/04/2024 Comments No Sex and Gender Information Value Date Recorded Sex Assigned at Not on file Legal Sex Female 3:05 PM INTERVENTIONAL RADIOLOGY TECH Gender Identity Female 09/08/2020 1:16 PM INTERVENTIONAL RADIOLOGY TECH Sexual Orientation Not on file Last Filed Vital Signs Vital Sign Reading Time Taken Comments Blood Pressure 134/90 08/20/2024 1:30 PM INTERVENTIONAL RADIOLOGY TECH Pulse 63 08/20/2024 1:30 PM INTERVENTIONAL RADIOLOGY TECH Temperature 36.6 C (97.9 F) 08/20/2024 1:30 PM INTERVENTIONAL RADIOLOGY TECH Respiratory Rate 18 08/20/2024 1:30 PM INTERVENTIONAL RADIOLOGY TECH Oxygen Saturation 97% 08/20/2024 1:30 PM INTERVENTIONAL RADIOLOGY TECH Inhaled Oxygen Concentration - - Weight 107.4 kg (236 lb 12.8 oz) 08/20/2024 1:30 PM INTERVENTIONAL RADIOLOGY TECH Height 172.7 cm (5' 8 ) 08/20/2024 1:30 PM INTERVENTIONAL RADIOLOGY TECH Body Mass Index 36.01 08/20/2024 1:30 PM INTERVENTIONAL RADIOLOGY TECH Plan of Treatment Not on file Medical Devices Explanted Type Area [employer] Device Identifier Shelf Expiration Date Model / Serial / Lot Other-Bladder Stimulator-08/30 Implanted:08/30 (Quantity not on file) Explanted:Qty: 1 on 09/05/2021 by Roger Gillespie MD at [facility] Other - see comments Pelvis [employer] [id number] / [id number] / Description:DEVICE: BLADDER STIMULATOR [employer] MODEL # 3058 SERIAL # [id number] CONTACT # 09-25-2013 NEEDS: TRANSMIT RECEIVE HEAD COIL Procedures Procedure Name Priority Date/Time Associated Diagnosis Comments URINE CULTURE Routine 08/21/2024 2:22 PM INTERVENTIONAL RADIOLOGY TECH Right flank pain Acute cystitis with hematuria CT RENAL STONE Schedule DANYA, Read DANYA (Appt Today, Awaiting Results) 08/21/2024 8:18 AM INTERVENTIONAL RADIOLOGY TECH Right flank pain POCT URINALYSIS DIPSTICK Routine 08/20/2024 2:15 PM INTERVENTIONAL RADIOLOGY TECH Right flank pain POCT URINALYSIS DIPSTICK Routine 08/16/2024 11:31 AM INTERVENTIONAL RADIOLOGY TECH Acute cystitis with hematuria RELEASE TRIGGER FINGER 08/04/2024 7:40 AM INTERVENTIONAL RADIOLOGY TECH Trigger middle finger of left hand EGFR Routine 08/03/2024 1:11 PM INTERVENTIONAL RADIOLOGY TECH Primary hypertension DIFFERENTIAL AUTO Routine 08/03/2024 1:1 1 PM INTERVENTIONAL RADIOLOGY TECH Primary hypertension CBC WITH AUTO DIFFERENTIAL Routine 08/03/2024 1:11 PM INTERVENTIONAL RADIOLOGY TECH Primary hypertension COMPREHENSIVE METABOLIC PANEL Routine 08/03/2024 1:11 PM INTERVENTIONAL RADIOLOGY TECH Primary hypertension LIPID PANEL Routine 08/03/2024 1:11 PM INTERVENTIONAL RADIOLOGY TECH Primary hypertension THYROID FUNCTION CASCADE Routine 08/03/2024 1:11 PM INTERVENTIONAL RADIOLOGY TECH Primary hypertension HEMOGLOBIN A1C Routine 08/03/2024 1:11 PM INTERVENTIONAL RADIOLOGY TECH Encounter for screening examination for intermediate hyperglycemia and diabetes mellitus ECG 12-LEAD Routine 08/03/2024 12:54 PM INTERVENTIONAL RADIOLOGY TECH Primary hypertension HM PAP SMEAR Routine 02/27/2024 10:56 AM CDT HM MAMMOGRAPHY Routine 02/26/2024 10:11 AM CDT HM COLONOSCOPY Routine 01/10/2024 4:12 PM CDT HEPATITIS C ANTIBODY Routine 12/22/2019 2:20 PM CDT Encounter for hepatitis C screening test for low risk patient from Last 3 Months or Most Recently Relevant to Health Maintenance Results * Urine culture Urine, clean voided (08/21/2024 2:22 PM INTERVENTIONAL RADIOLOGY TECH) Report Final Report: Less than 100,000 colonies/mL (clinically insignificant growth based on current clinical standards) Comment:Testing performed by : [facility], [address] [place]., [address] Organism (CLINICALLY INSIGNIFICANT GROWTH JASMYN Urine, clean voided 08/21/2024 2:22 PM INTERVENTIONAL RADIOLOGY TECH 08/21/2024 6:07 PM INTERVENTIONAL RADIOLOGY TECH Narrative JASMYN - 08/22/2024 8:19 PM INTERVENTIONAL RADIOLOGY TECH Testing performed by [facility] ([phone]) Louise Recio NP LAB MICROBIOLOGY - GENERAL OR DERABLES Final Result JASMYN [id number] [address] Department of Laboratories [place], [place] [id number] * CT Renal Stone (08/21/2024 8:18 AM INTERVENTIONAL RADIOLOGY TECH) Anatomical Region Laterality Modality Abdomen N/A Computed Tomogra phy 08/21/2024 1:1 0 PM INTERVENTIONAL RADIOLOGY TECH Narrative 08/21/2024 1:38 PM INTERVENTIONAL RADIOLOGY TECH EXAM DESCRIPTION: CT RENAL STONE REASON FOR STUDY: Abdominal/flank pain, stone suspected R flank pain, frequent urination, and microscopic hematuria x 2 weeks. Pt reports being on antibiotics or UTI TECHNIQUE: CT scan of the abdomen and pelvis performed without intravenous and without oral contrast using helical scanning technique. Reconstructed coronal and sagittal MPR images reviewed. All images stored on PACS. Automated exposure control was used as a dose optimization technique for this examination. COMPARISON: 11/15/2020 FINDINGS: The sensitivity for detection of visceral lesions is diminished without the use of intravenous contrast. LOWER CHEST: There is no consolidation in either lung base. Mild atelectasis. There are a few distal paraesophageal nodes present, subcentimeter in size, stable from prior study. LIVER: The liver is within normal limits in size. Suspicious mass within the limitations of this study. GALLBLADDER: Surgically absent BILE DUCTS: Within normal limits post cholecystectomy. SPLEEN: Normal size. No focal lesions. PANCREAS: No peripancreatic inflammatory process or fluid collection. No pancreatic ductal dilatation. ADRENALS: Unremarkable. KIDNEYS/URINARY TRACT: The kidneys are symmetric in size. Punctate 1 mm nonobstructing calculi suggested at the lower pole of both kidneys. There is no hydronephrosis or hydroureter. No obstructing urolithiasis.. Urinary bladder is unremarkable for the degree of decompression. GI: Stomach is unremarkable. Proximal small bowel loops are normal in caliber. There are a few fluid filled small bowel loops in the left hemiabdomen, which do remain within normal limits in caliber. Fluid-filled loops lead up to an area of fecalization of contents within the small bowel as demonstrated on axial image number 117 and coronal image number 44 there is a change in caliber as visualized on axial images numbers 109-112, and on coronal image number 41 just distal to this fecalization. This could represent mild small bowel wall thickening and a mild transition zone. Alternatively this could represent some stasis with decompression of the bowel distal to the fecalized section. Correlate clinically with regards to enteritis. The remainder of the small bowel is unremarkable. The appendix is normal. There is diverticulosis of the colon, without diverticulitis. The descending colon is position within the central abdomen in the supraumbilical region and and extends to the right lower quadrant. Anastomosis in the region of the rectosigmoid is again noted, unremarkable. PERITONEUM: There is no free intraperitoneal air. There is no free fluid. No mesenteric adenopathy. RETROPERITONEUM: No retroperitoneal mass or adenopathy. REPRODUCTIVE: The uterus is unremarkable. There is a cystic lesion within the right ovary measuring 2 cm. Correlation with ultrasound recommended in this postmenopausal female. VASCULATURE: The abdominal aorta is atherosclerotic, without aneurysm. MUSCULOSKELETAL: There is no acute osseous abnormality. Thoracic and lumbar spondylosis with degenerative disc disease. Mild osteoarthritis of the SI joints. OTHER: There are small bilateral fat containing inguinal hernias. Tiny fat containing umbilical hernia. IMPRESSION: No obstructing urolithiasis, hydronephrosis or hydroureter. Punctate 1 mm nonobstructing calculi suggested at the lower pole of both kidneys. Fluid-filled small bowel loops in the left hemiabdomen, which remain within normal limits in caliber. There is some fecalization of contents within the small bowel just distal to these fluid-filled loops and just proximal to either decompressed or mildly thickened small bowel as detailed above. This could reflect stasis. A pseudo transition point related to peristalsis could have this appearance, as could a true transition point such as with a partial small-bowel obstruction. Though partial small bowel obstruction is less likely, it can not be entirely excluded. Correlate with any current symptomatology. Small-bowel follow-through with Gastrografin can be considered for further evaluation if warranted clinically. Diverticulosis. 2 cm cystic lesion within the right ovary. Correlation with ultrasound recommended in this postmenopausal female. Additional findings as above. Findings were discussed with Bethany Islas NP via phone call at 1:32 p.m. on 08/21/2024 THIS IS AN ELECTRONICALLY VERIFIED FINAL REPORT 08/21/2024 1:38 PM - Electronically signed by Cris Navarrete M.D. TW: TW Report ID: [id number] Reading Location: [id number] Procedure Note Cris Navarrete MD - 08/21/2024 EXAM DESCRIPTION: CT RENAL STONE REASON FOR STUDY: Abdominal/flank pain, stone suspected R flank pain, frequent urination, and microscopic hematuria x 2 weeks. Pt reports being on antibiotics or UTI TECHNIQUE: CT scan of the abdomen and pelvis performed without intravenousand without oral contrast using helical scanning technique. Reconstructed coronal and sagittal MPR images reviewed. All images stored on PACS.Automated exposure control was used as a dose optimization technique for this examination. COMPARISON: 11/15/2020 FINDINGS: The sensitivity for detection of visceral lesions is diminished withoutthe use of intravenous contrast. LOWER CHEST: There is no consolidation in either lung base. Mild atelectasis. There are a few distal paraesophageal nodes present, subcentimeter in size, stable from prior study. LIVER: The liver is within normal limits in size. Suspicious masswithin the limitations of this study. GALLBLADDER: Surgically absent BILE DUCTS: Within normal limits post cholecystectomy. SPLEEN: Normal size. No focal lesions. PANCREAS: No peripancreatic inflammatory process or fluid collection.No pancreatic ductal dilatation. ADRENALS: Unremarkable. KIDNEYS/URINARY TRACT: The kidneys are symmetric in size. Punctate 1 mm nonobstructing calculi suggested at the lower pole of both kidneys. Thereis no hydronephrosis or hydroureter. No obstructing urolithiasis..Urinary bladder is unremarkable for the degree of decompression. GI: Stomach is unremarkable. Proximal small bowel loops are normal in caliber. There are a few fluid filled small bowel loops in the left hemiabdomen, which do remain within normal limits in caliber.Fluid-filled loops lead up to an area of fecalization of contents within the smallbowel as demonstrated on axial image number 117 and coronal image number 44 thereis a change in caliber as visualized on axial images numbers 109-112, and on coronal image number 41 just distal to this fecalization. This could represent mild small bowel wall thickening and a mild transition zone. Alternatively this could represent some stasis with decompression of thebowel distal to the fecalized section. Correlate clinically with regards to enteritis. The remainder of the small bowel is unremarkable. Theappendix is normal. There is diverticulosis of the colon, without diverticulitis.The descending colon is position within the central abdomen in thesupraumbilical region and and extends to the right lower quadrant. Anastomosis in theregion of the rectosigmoid is again noted, unremarkable. PERITONEUM: There is no free intraperitoneal air. There is no freefluid. No mesenteric adenopathy. RETROPERITONEUM: No retroperitoneal mass or adenopathy. REPRODUCTIVE: The uterus is unremarkable. There is a cystic lesionwithin the right ovary measuring 2 cm. Correlation with ultrasound recommendedin this postmenopausal female. VASCULATURE: The abdominal aorta is atherosclerotic, without aneurysm. MUSCULOSKELETAL: There is no acute osseous abnormality. Thoracic andlumbar spondylosis with degenerative disc disease. Mild osteoarthritis of the SI joints. OTHER: There are small bilateral fat containing inguinal hernias. Tinyfat containing umbilical hernia. IMPRESSION: No obstructing urolithiasis, hydronephrosis or hydroureter. Punctate 1 mm nonobstructing calculi suggested at the lower pole of both kidneys. Fluid-filled small bowel loops in the left hemiabdomen, which remainwithin normal limits in caliber. There is some fecalization of contents withinthe small bowel just distal to these fluid-filled loops and just proximal to either decompressed or mildly thickened small bowel as detailed above.This could reflect stasis. A pseudo transition point related to peristalsiscould have this appearance, as could a true transition point such as with apartial small-bowel obstruction. Though partial small bowel obstruction is less likely, it can not be entirely excluded. Correlate with any current symptomatology. Small-bowel follow-through with Gastrografin can be considered for further evaluation if warranted clinically. Diverticulosis. 2 cm cystic lesion within the right ovary. Correlation with ultrasound recommended in this postmenopausal female. Additional findings as above. Findings were discussed with Bethany Islas NP via phone call at 1:32 p.m. on 08/21/2024 THIS IS AN ELECTRONICALLY VERIFIED FINAL REPORT 08/21/2024 1:38 PM - Electronically signed by Cris Navarrete M.D. TW: TW Report ID: [id number] Reading Location: [id number] Louise Recio NP IMG CT PROCEDURES Final Resul t * (ABNORMAL) POCT urinalysis dipstick (08/20/2024 2:15 PM INTERVENTIONAL RADIOLOGY TECH) Color, Urine, POC Yellow Clarity, ur, POC Clear Clear Glucose, ur, POC Negative Negative MG/DL Bilirubin, ur, POC Negative Negative, Small, Moderate, Large Ketones, ur, POC Negative Negative Specific [place], POC 1.015 1.003 - 1.030 Blood, ur, POC Trace(A) Negative pH, ur, POC 6.0 5.0 - 8.0 Protein, ur, POC Negative Negative Urobilinogen, urine, POC 0.2 0.2 - 1.0 mg/dL Nitrite, ur, POC Negative Negative Leukocytes, ur, POC Negative Negative Lot Number [id number] Urine 08/20/2024 2:15 PM INTERVENTIONAL RADIOLOGY TECH Louise Recio [employer] POINT OF CARE TEST ORDERABLES Final Result * (ABNORMAL) POCT urinalysis dipstick (08/16/2024 11:31 AM INTERVENTIONAL RADIOLOGY TECH) Color, Urine, POC Light Yellow Clarity, ur, POC Clear Clear Glucose, ur, POC Negative Negative MG/DL Bilirubin, ur, POC Negative Negative, Small, Moderate, Large Ketones, ur, POC Negative Negative Specific [place], POC 1.020 1.003 - 1.030 Blood, ur, POC Small(A) Negative pH, ur, POC 7.0 5.0 - 8.0 Protein, ur, POC 30.(A) Negative Urobilinogen, urine, POC 0.2 0.2 - 1.0 mg/dL Nitrite, ur, POC Negative Negative Leukocytes, ur, POC Trace(A) Negative Lot Number [id number] Urine 08/16/2024 11:3 1 AM INTERVENTIONAL RADIOLOGY TECH Yuridia Gillespie [employer] POINT OF CARE TEST ORDERABLES Final Result * eGFR (08/03/2024 1:11 PM INTERVENTIONAL RADIOLOGY TECH) eGFR 63 >=60 mL/min/1. 73 m2 Comment: Interpretive Data Reference Interval Normal >/= 90 mL/min/1.73m2 Mildly decreased* 60 - 89 mL/min/1.73m2 Mildly to moderately decreased 45 - 59 mL/min/1.73m2 Moderately to severely decreased 30 - 44 mL/min/1.73m2 Severely decreased 15 - 29 mL/min/1.73m2 Kidney Failure < 15 mL/min/1.73m2 *Relative to young adult level Estimated glomerular filtration rate is determined by the 2020 CKD-EPI equation recommended by the National Kidney Foundation (A Unifying Approach to GFR Estimation: Recommendations of the NKF-ASK Task Force on Reassessing the Inclusion of Race in Diagnosing Kidney Disease, JASN 2020). The CKD-EPI equation should not be used for patients with unstable renal function and has not been validated in children and those over 70. Current interpretive data was last reviewed 2021. Blood 08/03/2024 1:11 PM INTERVENTIONAL RADIOLOGY TECH 08/04/2024 12:03 AM INTERVENTIONAL RADIOLOGY TECH us Bethany Islas NP LAB BLOOD ORDERABLES Final Resul t [facility] [address] [address] Department [place] [address] * Differential, auto (08/03/2024 1:11 PM INTERVENTIONAL RADIOLOGY TECH) Neutrophil abs 3.2 1.5 - 6.5 K/cumm Imm gran abs 0.0 0.0 - 0.1 K/cumm [facility] Lymphocyte abs 1.9 0.8 - 3.3 K/cumm [facility] Monocyte abs 0.5 0.2 - 0.8 K/cumm [facility] Eosinophil abs 0.1 0.0 - 0.5 K/cumm [facility] Basophil abs 0.1 0.0 - 0.1 K/cumm [facility] Neutrophil pct 54.7 % [facility] Comment: Interpretive Data Percent cell count reference ranges are not reported, since discordance with absolute values may lead to misinterpretation of CBC data. Current Interpretive Data was last revised on 2017. Imm gran pct 0.3 % [facility] Comment: Interpretive Data Percent cell count reference ranges are not reported, since discordance with absolute values may lead to misinterpretation of CBC data. Current Interpretive Data was last revised on 2017. Lymphocyte pct 32.9 % [facility] Comment: Interpretive Data Percent cell count reference ranges are not reported, since discordance with absolute values may lead to misinterpretation of CBC data. Current Interpretive Data was last revised on 2017. Monocyte pct 8.9 % [facility] Comment: Interpretive Data Percent cell count reference ranges are not reported, since discordance with absolute values may lead to misinterpretation of CBC data. Current Interpretive Data was last revised on 2017. Eosinophil pct 2.0 % [facility] Comment: Interpretive Data Percent cell count reference ranges are not reported, since discordance with absolute values may lead to misinterpretation of CBC data. Current Interpretive Data was last revised on 2017. Basophil pct 1.2 % [facility] Comment: Interpretive Data Percent cell count reference ranges are not reported, since discordance with absolute values may lead to misinterpretation of CBC data. Current Interpretive Data was last revised on 2017. Blood 08/03/2024 1:11 PM INTERVENTIONAL RADIOLOGY TECH 08/03/2024 11:26 PM INTERVENTIONAL RADIOLOGY TECH us Bethany Islas [employer] LAB BLOOD ORDERABLES Final Resul t Performing Organization Address [facility] Co de Phone Number JASMYN [id number] [address] Department [place] [place] [address] * Thyroid Function [place] (08/03/2024 1:11 PM INTERVENTIONAL RADIOLOGY TECH) Pathologist [facility] TSH 1.37 0.30 - 4.20 mcIUnit/mL Blood 08/03/2024 1:11 PM INTERVENTIONAL RADIOLOGY TECH 08/03/2024 11:26 PM INTERVENTIONAL RADIOLOGY TECH us Bethany Islas [employer] LAB BLOOD ORDERABLES Final Resul t Performing Organization Address [facility] de Phone Number JASMYN [address] [address] Department [employer] [place], [place] [phone] * (ABNORMAL) CBC with auto differential (08/03/2024 1:11 PM INTERVENTIONAL RADIOLOGY TECH) Pathologist [facility] WBC 5.9 3.8 - 9.9 K/cumm Hgb 12.5 11.9 - 15.5 g/dL [facility] Hct 39.2 35.6 - 45.5 % [facility] Plt 392 150 - 400 K/cumm [facility] MPV 9.4 9.1 - 12.3 fL [facility] RBC 4.32 3.90 - 5.20 M/cumm [facility] MCV 90.7 81.3 - 96.4 fL [facility] MCH 28.9 27.1 - 33.3 pg [facility] MCHC 31.9(L) 32.3 - 35.7 g/dL [facility] RDW CV 13.3 11.1 - 14.9 % [facility] RDW SD 44.3 35.7 - 48.1 fL [facility] NRBC abs 0.00 0.00 - 0.01 K/cumm JASMYN Blood 08/03/2024 1:11 PM INTERVENTIONAL RADIOLOGY TECH 08/03/2024 11:26 PM INTERVENTIONAL RADIOLOGY TECH Bethany Islas [employer] LAB BLOOD ORDERABLES Final Resul t Performing Organization Address [facility] de Phone Number [facility] [id number] [address] [facility] [place] [address] * Hemoglobin A1c (08/03/2024 1:11 PM INTERVENTIONAL RADIOLOGY TECH) Hgb A1C 5.4 4.0 - 5.6 % Estimated Average Glucose 108 mg/dL JASMYN Comment: The ADA recommends reporting an estimated Average Glucose (eAG) with all Hemoglobin A1c results using the equation derived from a study of 507 normal and diabetic adults. Minority populations were underrepresented and children were not included. (Diabetes Care 31:8218-4060, 2008). The eAG is not equivalent to a fasting glucose. Blood 08/03/2024 1:11 PM INTERVENTIONAL RADIOLOGY TECH 08/03/2024 11:26 PM INTERVENTIONAL RADIOLOGY TECH us Bethany Islas [employer] LAB BLOOD ORDERABLES Final Resul t Performing Organization Address [facility] de Phone Number [facility] [address] [address] [facility] [place] [address] * (ABNORMAL) Lipid panel (08/03/2024 1:11 PM INTERVENTIONAL RADIOLOGY TECH) Cholesterol 218(H) 30 - 199 mg/dL Comment: Interpretive Data Ages < or = 19 years Acceptable: <170 mg/dL Borderline high: 170-199 mg/dL High: >or= 200 mg/dL Ages > or = 20 years Desirable: <200 mg/dL Borderline high: 200-239 mg/dL High: >or= 240 mg/dL Literature References: 1. Expert Panel on Integrated Guidelines for Cardiovascular Health and Risk Reduction in Children and Adolescents. Pediatrics 2011;128:S213 2. NCEP Expert Panel. Circulation 2004;110:227 Current Interpretive Data was last revised on 2018. Triglycerides 97 <=149 mg/dL JASMYN Comment: Interpretive Data Ages < or = 9 years Acceptable: <75 mg/dL Borderline high: 75-99 mg/dL High: >or= 100 mg/dL Ages 10 to 20 years Acceptable: <90 mg/dL Borderline high: 90-129 mg/dL High: >or= 130 mg/dL Ages > or = 20 years Desirable: <150 mg/dL Borderline high: 150-199 mg/dL High: 200-499 mg/dL Very high: >or= 499 mg/dL Literature References: 1. Expert Panel on Integrated Guidelines for Cardiovascular Health and Risk Reduction in Children and Adolescents. Pediatrics 2011;128:S213 2. NCEP Expert Panel. Circulation 2004;110:227 Current Interpretive Data was last revised on 2018. HDL 54 >=40 mg/dL JASMYN Comment: Interpretive Data Ages < or = 19 years Acceptable: >45 mg/dL Borderline low: 40-45 mg/dL Low: <40 mg/dL Ages > or = 20 years Desirable: >or= 60 mg/dL Low: <40 mg/dL Literature References: 1. Expert Panel on Integrated Guidelines for Cardiovascular Health and Risk Reduction in Children and Adolescents. Pediatrics 2011;128:S213 2. NCEP Expert Panel. Circulation 2004;110:227 Current Interpretive Data was last revised on 2018. LDL, calculated 147(H) <=129 mg/dL JASMYN Comment: Interpretive Data Ages < or = 19 years Acceptable: <110 mg/dL Borderline high: 110-129 mg/dL High: >or= 130 mg/dL Ages > or = 20 years Optimal: <100 mg/dL Near optimal: 100-129 mg/dL Borderline high: 130-159 mg/dL High: >160 mg/dL Calculated using the [place] LDL-C estimating equation. This equation was implemented on 2024. Prior to this date LDL-C was estimated using the Friedewald equation. Literature References: 1. Expert Panel on Integrated Guidelines for Cardiovascular Health and Risk Reduction in Children and Adolescents. Pediatrics 2011;128:S213 2. NCEP Expert Panel. Circulation 2004;110:227 3. [place] Santos al. NASIMA Cardiol. 2019October 29;5(5):540-548. doi: 10.1001/jamacardio.2020.0013 Current Interpretive Data was last revised on 2024. Non-HDL Cholesterol 164 mg/dL [facility] Comment: Interpretive Data Ages < or = 19 years Acceptable: <120 mg/dL Borderline high: 120-144 mg/dL High: >145 mg/dL Ages > or = 20 years When triglycerides are >200 mg/dL, Non-HDL cholesterol is a secondary target of therapy with treatment goals that are 30 mg/dL greater than the LDL cholesterol target. Literature References: 1. Expert Panel on Integrated Guidelines for Cardiovascular Health and Risk Reduction in Children and Adolescents. Pediatrics 2011;128:S213 2. NCEP Expert Panel. Circulation 2004;110:227 Current Interpretive Data was last revised on 2018. Chol/HDL ratio 4 [facility] Blood 08/03/2024 1:11 PM INTERVENTIONAL RADIOLOGY TECH 08/03/2024 11:26 PM INTERVENTIONAL RADIOLOGY TECH us Bethany Islas NP LAB BLOOD ORDERABLES Final Resul t [facility] [id number] [address] Department [place] [address] * Comprehensive metabolic panel (08/03/2024 1:11 PM INTERVENTIONAL RADIOLOGY TECH) Sodium 137 135 - 145 mmol/L Potassium, pl 4.3 3.3 - 4.9 mmol/L [facility] Chloride 100 97 - 110 mmol/L [facility] CO2 25 22 - 32 mmol/L [facility] Anion gap 12 2 - 15 mmol/L [facility] 13 6 - 25 mg/dL [facility] Creatinine 1.01 0.60 - 1.10 mg/dL [facility] Glucose 88 70 - 199 mg/dL [facility] Comment: Interpretive Data Fasting glucose >/= 126 mg/dl is diagnostic for diabetes. Fasting is defined as no caloric intake for at least 8 hours. Fasting glucose between 100 mg/dl to 125 mg/dl is diagnostic of prediabetes. In a patient with classic symptoms of hyperglycemia or hyperglycemic crisis, a random glucose >/= 200 mg/dl is diagnostic for diabetes. In the absence of unequivocal hyperglycemia, results should be confirmed by repeat testing. The classification and Diagnosis of Diabetes Diabetes Care 2021; 46: S19-S40. Current interpretive data was last revised 2022. Calcium 10.2 8.5 - 10.3 mg/dL [facility] Bilirubin, total 0.3 0.1 - 1.2 mg/dL [facility] Protein, pl 7.6 6.5 - 8.5 g/dL [facility] Albumin 4.3 3.5 - 5.0 g/dL [facility] Alk phos 107 40 - 130 Units/L [facility] ALT 12 7 - 45 Units/L [facility] AST 28 10 - 45 Units/L [facility] Blood 08/03/2024 1:11 PM INTERVENTIONAL RADIOLOGY TECH 08/03/2024 11:26 PM INTERVENTIONAL RADIOLOGY TECH Result [facility] Bethany Islas NP LAB BLOOD ORDERABLES Final Resul t JASMYN FELIX [address] [address] Department of Laboratories [place] [phone] * ECG 12-LEAD (08/03/2024 12:54 PM INTERVENTIONAL RADIOLOGY TECH) Narrative Bethany Islas NP - 08/03/2024 12:54 PM INTERVENTIONAL RADIOLOGY TECH Bethany Islas NP 08/03/2024 12:55 PM ECG 12 lead Date/Time: 08/03/2024 12:54 PM Performed by: Bethany Islas NP Authorized by: Bethany Islas NP Rhythm: sinus rhythm Rate: normal QRS axis: normal Conduction: conduction normal ST Segments: ST segments normal T Waves: T waves normal Result [facility] Bethany Islas NP ECG ORDERABLES Edited Result - Final * PAP SMEAR (02/27/2024 10:56 AM CDT) SCRIBED Pap test n Historical Provider HEALTH MAINTENANCE Final Result * MAMMOGRAPHY (02/26/2024 10:11 AM CDT) Mammography Normal Historical Provider HEALTH MAINTENANCE Final Result * COLONOSCOPY (01/10/2024 4:12 PM CDT) Scribed HM Colonoscopy Normal Nolberto Slaughter MD HEALTH MAINTENANCE Final Result * Hepatitis C antibody (12/22/2019 2:20 PM CDT) Hep C Ab Nonreactive Nonreactive JASMYN HATCH ([place]) Comment: Interpretive Data Nonreactive: Antibodies to HCV not detected. Does NOT exclude the possibility of recent exposure to HCV. Equivocal: Equivocal for HCV antibodies. Supplemental molecular testing will be automatically performed to determine infection status in accordance with current CDC screening recommendations. Reactive: Positive for HCV antibodies. This may represent current or past HCV infection. Supplemental molecular testing will be automatically performed to determine current infection status in accordance with current CDC screening recommendations. Interpretive data was last revised on 2019. Testing performed by: [facility], [address] [place] [address]., [id number] Blood specimen (specimen) 12/22/2019 2:20 PM CDT 12/23/2019 9:46 AM CDT Louise Recio NP LAB MICROBIOLOGY - GENERAL OR DERABLES Final Result JASMYN HATCH ([place]) [facility] Department [place] [address] from Last 3 Months or Most Recently Relevant to Health Maintenance Insurance [employer] MEDICARE PPO [facility] HU[employer] CHOICE MEDICARE PPO Advance Directives For more information, please contact: [phone] * Full Code (Latest Code Status on File) Date Activated Date Inactivated Comments 02/08/2022 11:09 AM 02/08/2022 5:49 PM * Full Code Date Activated Date Inactivated Comments 02/08/2022 11:09 AM 02/08/2022 11:09 AM Care Teams Side Stitcher Relationship Specialty Start Date End Date Louise Recio NP [address] [facility] [address] [place] [address] PCP - General Family Medicine 08/20/24 Bharath Witt MD [address] [place] [address] Referring Physician Vascular Surgery 12/04/17 Atul Garrido MD [address] [facility] [address] [facility] [address] [place], [place] [id number] Referring Physician Obstetrics and Gynecology 04/17/19 Yamilet Bernal DO [address] [place] [address] DR BRENNA Guerrier [facility] [address] [place] [address] Consulting Physician Otolaryngology 02/25/24 Brandon Gutierrez MD [address] [place] [address] DR BRENNA Guerrier [facility] [address] [place] [address] Consulting Physician Neurology 02/25/24 Brandon Roque MD [address] [place] [address] Consulting Physician Cardiology 02/25/24 Tucker Evans Neuropsychology 02/25/24 Nolberto Uriostegui MD [address] [place] [address] Referring Physician Gastroenterology 02/25/24
--- OUTSIDE RECORDS SUMMARY | 2024-10-05 12:22 | XMS_ITS | CONTINUITY OF CARE DOCUMENT ---
Author Name nanci christine Address Unknown Organization [facility] Address [address] [place] [address] Phone [phone] Care Team Providers Care Restaurant Supervisor Name Role Phone Matthias Mallory MD Unavailable Matthias Mallory MD Unavailable [phone] JASON BLANCHARD-BCYOANNA Unavailable [phone] PROBLEMS Condition Status Date Provider Notes HTN essential active Matthias Mallory MD Chest pain- neg workup active Meghna Rodriguez Pulmonic insufficiency active Meghna Rodriguez Tobacco use, quit active Meghna Rodriguez ENCOUNTERS Date Type Provider Location Encounter Diag nosis - In-person encounter Office Visit Matthias Mallory MD [facility] Chest pain- neg workupPulmonic insufficiencyTobacco use, [...] rodrigues pulse rate 73 /min Shannon Menchaca [facility] weight E&M 246 [lb_av] Shannon Menchaca [facility] height E&M 68 [in_i] Shannon Menchaca [facility] weight E&M 230 [lb_av] Arsalan [...] 3.5-5.2 7 sodium, serum 137 mmol/L [employer] [id number] 1071/04/1 7 urea nitrogen/creatinine ratio, serum 13 [employer] [...] Payer name Policy type / Coverage type [place] [employer] party ID [employer] MEDICA[employer] (2) Medicaid [id number] ADVANCE DIRECTIVES Name Date DISCUSSED - NO DECISION MADE TREATMENT PLAN Date Name Performer Electrophysiology [facility] w up [facility] Follow up 15:no recurrence Stress 10/11/2020 Summary and Interpretation 1 . Normal exercise capacity 2 . Normal hemodynamic response to exercise 3 . No diagnostic ST or T changes 4 . No significant arrhythmias 5 . There is no evidence for exercise-induced myocardial ischemia Early 09/[address] [facility] where she had negative workup including tropnonins, [...] by mouth once daily Orders: E KG ([id number]) C OMPREHENSIVE METABOLIC PANEL, W/EGFR ([id number]) Meghna Rodriguez Date Name COMPREHENSIVE METABO LIC PANEL, W/EGFR COMPREHENSIVE METABO LIC PANEL, W/EGFR Stress Routine Complete Echo HISTORY OF PROCEDURES Procedure Date Procedure Name Provider Procedure Notes S tatus EKG Matthias Mallory MD comp leted Schedule Followup Matthias lee execise stress test and ECHO and fu with Dr. Mohamud HAGAN completed
--- OUTSIDE RECORDS SUMMARY | 2024-10-05 12:22 | XMS_ITS | Encounter Summary ---
Author Organization [facility] Address [address] [place] [address] Care Team Providers Care Cod Clerk Name Role Phone Bharath Wtit MD Unavailable [phone] Atul Garrido MD Unavailable [phone] Yamilet Bernal DO Unavailable [phone] Brandon Gutierrez MD Unavailable [phone] Brandon Roque MD Unavailable [phone] Tucker Evans Unavailable Unavailable Nolberto Uriostegui MD Unavailable + Louise Recio NP Primary Care Provider [phone] Encounter Details Date Type Department Care Team (Late st Contact Info) Description 08/21/2024 Results Follow-Up [facility] Primary Care at [address] [address] Bethany Islas NP [address] [place] [address] [address] [place] [address] Social History Tobacco Use Types Packs/Day Years [...] on file Legal Sex Female 3:05 PM PRECINCT CAPTAIN Gender Identity Female 09/08/2020 1:16 PM PRECINCT CAPTAIN Sexual Orientation Not on file documented as of this encounter Miscellaneous Notes * Telephone Encounter - Yolis Grey MA - 08/27/2024 7:37 AM CST Called and left patient a voicemail asking for return call. Please relay if patient calls back INCT CAPTAIN * Telephone Encounter - Louise Recio NP - 08/26/2024 7:40 AM CST I placed referral to cardiology to Rick. However, she did not complain of a high heart rate when Isaw her in office. It was a new patient appointment and we went over chronic conditions and then itwas all about her right flank pain. Her blood pressure was borderline, but her heart rate was 63. If she is feeling weak and shaky she needs to be seen or go to ER. INCT CAPTAIN * Telephone Encounter - Yolis Grey MA - 08/25/2024 5:07 PM CST Spoke with patient. She said that she is concerned on about her heart rate and blood pressure. Saidher brother felt the same way when he had heart issues. She said that she will get short of breath with small tasks like doing dishes. Feels real weak and shaky. Recommended that she goes to the ER to be evaluated. She said she will monitor and go if she starts to feel worse. She would like a new referral for cardiology at [facility]. INCT CAPTAIN * Result Encounter Note - Louise Recio NP - 08/23/2024 1:56 PM CST Urine culture negative, so no urinary tract infection either. INCT CAPTAIN documented in this encounter Plan of Treatment Not on file documented as of this encounter Visit Diagnoses Not on filedocumented in this encounter Care Teams Cod Clerk Relationship Specialty Start Date End Date Louise Recio NP [address] [facility] [address] [place] [address] PCP - General Family Medicine 08/20/24 Bharath Witt MD [address] [facility] [address] [facility] [address] [place] [address] Referring Physician Vascular Surgery 12/04/17 Atul Garrido MD [address] [facility] [address] [facility] [address] [place] [address] Referring Physician Obstetrics and Gynecology 04/17/19 Yamilet Bernal DO [address] [place] [address] DR BRENNA Guerrier [facility] [address] [place] [address] Consulting Physician Otolaryngology 02/25/24 Brandon Gutierrez MD [address] [place] [address] DR BRENNA Guerrier [facility] [address] [place] [address] Consulting Physician Neurology 02/25/24 Brandon Roque MD [address] [facility] [address] [place] [address] Consulting Physician Cardiology 02/25/24 Tucker Evans Neuropsychology 02/25/24 Nolberto Uriostegui MD [address] [facility] [address] [place] [address] Referring Physician Gastroenterology 02/25/24 documented as of this encounter
--- OUTSIDE RECORDS SUMMARY | 2024-10-05 12:22 | XMS_ITS | Clinical Summary ---
Author Organization [facility] Address [address] [place] [address] Care Team Providers Care Safety Physician Name Role Phone Unavailable Primary Care Provider Unavailabl e Source Comments [facility],non-owned Affiliates and Associated Physician Practices is amultiple site organization consisting of ambulatory clinics and hospital sitesin [place], [place], [place] and [place]. This disclosure is being madepursuant to the Care Everywhere program and may not contain all information available regarding this patient. Last updated 18.[facility] Allergies No known active allergies Medications * [...] VACCINE ( season) 2024 05/10/2021, 09/13/2020, 08/16/2020 DEPRESSION SCREENING 07/01/2024 INFLUENZA VACCINE (Season Ended) 2025 06/12/2023, 07/10/2022, 07/14/2021, Additional history exists Respiratory Syncytial Virus (RSV) Vaccine Pt: or [...] CDT 04/18/2017 Narrative Resulting Agency Comment [facility] [address] [facility] [id number] Anoop Romero MD LAB - CHEMISTRY O RDERABLES [facility] ACCOUNT BILL [address] [place] [address] * (ABNORMAL) LIPID PROFILE (04/18/2017 12:24 PM [...] Narrative Resulting Agency Comment [facility] [place] [address] [facility] [phone] Anoop Romero MD LAB - CHEMISTRY O RDERABLES Performing Organization Address City/[facility]/ZIP Co de Phone Number [facility] ACCOUNT BILL [address] [place] [address] from Last 3 Months or Most Recently Relevant to Health Maintenance KORTNEY HAYWOOD Personal/Family [address] [place] [address] KORTNEY HAYWOOD Personal/Family [address] [place] [address] KORTNEY HAYWOOD Personal/Family [address] [place] [address] Kortney Haywood Personal/Family Self 1960 [address] [place] [address]
--- OUTSIDE RECORDS SUMMARY | 2024-10-05 12:22 | XMS_ITS | Clinical Summary ---
Author Organization [facility] Address [address] [facility] [address] [place] [address] Phone Care Team Providers Care Diesel Crane Operator Name Role Phone Belen Kemp APRN, QUALITY PROCESS AUDITOR Unavailable [phone] Reza Ozuna DO Unavailable [phone] Louise Recio FINISH ROLLS OPERATOR, QUALITY PROCESS AUDITOR Primary Care Provider Allergies No known active [...] Sex Assigned at Female 06/27/2023 7:46 PM FRONT DESK CLERK Legal Sex Female 7:32 PM CDT Gender Identity Female 06/27/2023 7:46 PM FRONT DESK CLERK Sexual Orientation Choose not to disclose 12/28/ 2023 7:46 PM FRONT DESK CLERK Occupation Industry Job Start Date Job End Date [employer] Not on file Not on file Not [...] Insurance MEDICAID [employer] Care Teams Diesel Crane Operator Relationship Specialty Start Date End Date Louise Recio APRN, QUALITY PROCESS AUDITOR [address] [facility] [place] [address] PCP - General Advanced Practice Nurse 03/21/21 Belen Kemp APRN, QUALITY PROCESS AUDITOR Nurse Practitioner Advanced Practice Nurse 12/29/15 Reza Ozuna DO Consulting Physician Gastroenterology 10/31/17
--- OUTSIDE RECORDS SUMMARY | 2024-10-05 12:22 | XMS_ITS | Encounter Summary ---
Author Organization [facility] Address [address] [place] [address] Phone Care Team Providers Care Alliance Manager Name Role Phone Belen Kemp APRN, BALANCE CLERK Unavailable [phone] Reza Ozuna DO Unavailable Danna Tran PRIVACY SPECIALIST Primary Care Provi doug Louise Recio APRN, BALANCE CLERK Primary Care Provider Reason for Visit * Reason Comments Medication Refill Encounter Details Date Type Department Care Team (Late st Contact Info) Description 01/02/2021 Refill [facility] - [place] [address] [place] [id number] Reza Ozuna, [address] [address] Medication Refill Social History Tobacco Use Types Packs/Day Years Used Date Smoking Tobacco: Former Cigarettes 0.5 2 0 08/30/1993 - 08/31/1995 Smokeless Tobacco: Never Alcohol Use Standard Drinks/Week Comments Yes 1 (1 standard drink = 0.6 oz pur e alcohol) occasionally Comments No Sex and Gender Information Value Date Recorded Sex Assigned at Female 06/27/2023 7:46 PM PATENT PROSECUTION PARALEGAL Legal Sex Female 7:32 PM CDT Gender Identity Female 06/27/2023 7:46 PM PATENT PROSECUTION PARALEGAL Sexual Orientation Choose not to disclose 2022 7:46 PM PATENT PROSECUTION PARALEGAL Occupation Industry Job Start Date Job End [...] on filedocumented in this encounter Care Teams Alliance Manager Relationship Specialty Start Date End Date Danna Tran NP [address] [facility] [address] [place] [address] PCP - General Advanced Practice Nurse 08/20/19 Louise Recio, AMIE, BALANCE CLERK [address] [place] [address] [address] [place] [address] PCP - General Advanced Practice Nurse 03/21/21 Belen Kemp APRN, BALANCE CLERK Nurse Practitioner Advanced Practice Nurse 12/29/15 Reza Ozuna DO Consulting Physician Gastroenterology 10/31/17 documented as of this encounter
--- OUTSIDE RECORDS SUMMARY | 2024-10-05 12:22 | XMS_ITS | Clinical Summary ---
Author Organization [facility] Medical Office Building [address] Address [address] [place] [address] Care Team Providers Care Boom Man Name Role Phone Bharath Witt MD Unavailable [phone] Atul Garrido MD Unavailable [phone] Yamilet Bernal DO Unavailable [phone] Brandon Gutierrez MD Unavailable [phone] Brandon Roque MD Unavailable [phone] Tucker Evans Unavailable Unavailable Nolberto Uriostegui MD Unavailable + Louise Recio NP Primary Care Provider Allergies No known active allergies Medications ARIPiprazole (ABILIFY) 15 mg tabletIndications :Depression Treatment Adjunct,depressio n Take 1 tablet (15 mg total) by mouth daily with lunch 1 Active SUMAtriptan (IMITREX) 100 mg tabletIndications :Migraine [...] 08/20/2024 Assessment & Plan (08/20/2024 2:48 PM STATISTICAL CLERK): Urine dip shows trace of blood. Otherwise negative. Will send urine for culture but I do not think this is a UTI. She has had no improvement with Bactrim. Could be muscular but we are going to rule out a kidney stone. Order CT renal stone protocol stat at [facility]. Trigger middle finger of left hand 07/23/2024 Chronic pain of both knees 02/25/2024 Overview (02/25/2024): Suspect knee OA. Trial of PT. Fall precautions recommended Memory loss 04/24/2023 Assessment & Plan (08/20/2024 1:55 PM STATISTICAL CLERK): Has follow up with neurology in August. [...] 2:35 PM CDT): Hearing and Balance testing [facility] Audiology Imaging based on Hearing test results OAB (overactive bladder) 05/04/2021 Assessment & Plan (02/25/2024 5:37 PM CDT): Chronic. Struggles some despite oxybutynin. Continue prescription medication Assessment & Plan (07/12/2021 2:14 PM STATISTICAL CLERK): Has he use pads daily so they [...] medicine Assessment & Plan (07/12/2021 2:14 PM STATISTICAL CLERK): History of sleep apnea but no longer uses CPAP. Will refer back to Sleep Medicine IBS (irritable bowel syndrome) 04/18/2017 Assessment & Plan (12/25/2021 2:28 PM CDT): Hi fiuber diet Mixed hyperlipidemia 11/14/2013 Overview (10/04/2016): Combined hyperlipidemia Assessment & Plan (08/20/2024 2:46 PM STATISTICAL CLERK): The 10-year ASCVD risk score (Agustin BLISS, [...] are stable, reviewed previous lipid levels in [facility]. Pharmacotherapy as ordered. Order for lipid panel was given today to be obtained. Pt voiced understanding of lab drawn and continuation of current medication regimen. Assessment & Plan (09/19/2020 9:46 AM CDT): Lipid abnormalities are stable, reviewed previous lipid levels in [facility]. Pharmacotherapy as ordered. Order for lipid panel was given today to be obtained. Pt voiced understanding of lab drawn and continuation of current medication regimen. Assessment & Plan (12/24/2019 8:59 PM CDT): Lipid abnormalities are stable. Pharmacotherapy not needed. Lipid level stable - Lipids will be reassessed in 1 year Assessment & Plan (06/22/2019 1:32 PM STATISTICAL CLERK): Diet controlled. Last LDL 133. Will have her f/u in 6 months with repeat lipid panel and cmp Adjustment disorder with mixed anxiety and depre ssed mood 11/14/2013 Overview (10/04/2016): Adjustment reaction with anxiety and depression Assessment & Plan (08/20/2024 1:54 PM STATISTICAL CLERK): Managed by psychiatry. Has been on abilify [...] HTN Assessment & Plan (08/20/2024 2:47 PM STATISTICAL CLERK): Improved but not quite at goal. Will increase amlodipine to 10 mg once daily. She will send his home blood pressures. Follow up in 6 months Assessment & Plan (08/03/2024 1:08 PM STATISTICAL CLERK): Initial BP elevated, repeat improved (still increased but better). EKG fine in office, labs ordered. Add in Amlodipine to 2.5 mg daily and continue Valsartan and Metoprolol. Home BP log x 1 week, follow up in 2 weeks to establish with Ramona Recio DNP (used to see her in [place]). ER precautions provided. Assessment & Plan (02/25/2024 [...] management Assessment & Plan (06/16/2021 9:24 AM STATISTICAL CLERK): Discontinue hydrochlorothiazide. Discontinue lisinopril 20 mg. Will [...] months. Assessment & Plan (06/22/2019 1:31 PM STATISTICAL CLERK): Hypertension is improving with treatment. Regular aerobic exercise. Continue current medications. Blood pressure will be reassessed 6 months. Urinary incontinence 11/14/2013 Overview (10/04/2016): Incontinence of urine Assessment & Plan (08/20/2024 2:49 PM STATISTICAL CLERK): Stable. Continue oxybutynin Assessment & Plan (02/25/2024 [...] (08/10/2022): Added automatically from request for surgery [id number] Dizziness and giddiness 02/28/2022 02/2 Assessment & Plan (02/28/2022 2:33 PM CDT): Hearing and Balance testing [facility] Audiology Hypoglycemia 01/08/2022 02/25/2024 Assessment & Plan (01/08/2022 1:41 PM CDT): Having symptomatic episodes. We discussed lower carb meals. Will check hemoglobin A1c with labs today. Does have family history of diabetes Dysphagia 12/25/2021 01/08/2022 Assessment & Plan (12/25/2021 2:28 PM CDT): Post Gorge egd and dil Dysphagia 12/25/2021 08/20/2024 Overview (02/02/2022): Added automatically from request for surgery [id number] Assessment & Plan (02/25/2024 5:38 PM CDT): Intermittent episodes of dysphagia. Saw GI. Had EGD which may have had very subtle eosinophilic esophagitis. She will continue working with the specialists. She also has a history of gastroparesis Trigger middle finger of right hand 10/23/2021 01/08/2022 Overview (10/23/2021): Added automatically from request for surgery [id number] Chronic cough 07/12/2021 01/08/2022 Assessment & Plan (07/12/2021 2:15 PM STATISTICAL CLERK): Encouraged her to follow back up with GI which she has scheduled in August at [facility] Morbid (severe) obesity due to excess calories 07/11/2021 01/08/2022 Assessment & Plan (07/12/2021 2:13 PM STATISTICAL CLERK): BMI Follow-up includes: exercise counseling. ZHANG-inhibitor cough 06/16/2021 07/11/19 Assessment & Plan (06/16/2021 9:23 AM STATISTICAL CLERK): will change to Arb Acute bronchitis 05/05/2021 [...] 06/22/2019 Assessment & Plan (05/04/2019 2:33 PM STATISTICAL CLERK): Have eye exam Increase to 64 ounces [...] 06/22/2019 Assessment & Plan (07/07/2018 12:27 PM STATISTICAL CLERK): Patient presents symptoms of feeling imbalance with [...] 01/07/2023 Assessment & Plan (06/05/2022 2:39 PM STATISTICAL CLERK): Continue the reglan and zofran. History of [...] 09/19/2020 Dyslipidemia 04/18/2017 10/22/2018 HTN (hypertension) 04/18/2017 04/24/201 9 Gastroesophageal reflux disease 11/14/2013 12/04/2017 Overview (10/04/2016): GERD (gastroesophageal reflux disease) Persistent insomnia 11/14/2013 01/08/20 Overview (10/04/2016): Insomnia, persistent Other chest pain 11/14/2013 02/25/2024 Overview (10/04/2016): Chest pain syndrome Snoring 11/14/2013 06/22/2019 Overview (10/05/2016): Primary snoring Encounters Date Type Department Care Team Description 08/27/[address] [facility] Primary Care at [address] [phone] Louise Recio NP 08/26/2024 1:20 PM STATISTICAL CLERK Office Visit [facility] Orthopaedic Surgery [address] [place] [address] 2nd Floor [address] [place] [phone] Rex Che MD Trigger middle finger of left hand (Primary Dx) 08/26/2024 Orders Only [facility] Primary Care at [address] [phone] Louise Recio NP Primary hypertension (Primary Dx); Palpitations 08/21/2024 2:22 PM STATISTICAL CLERK - 08/21/2024 11:59 PM STATISTICAL CLERK Hospital Encounter [address] [address] Right flank pain; Acute cystitis with hematuria Discharge Disposition: Discharge to home or self care 08/21/2024 8:04 AM STATISTICAL CLERK - 08/21/2024 11:59 PM STATISTICAL CLERK Hospital Encounter [facility] [address] [place] [address] Right flank pain Discharge Disposition: Discharge to home or self care 08/21/2024 Results Follow-Up [facility] Primary Care at [address] [phone] Bethany Islas NP 08/20/2024 1:30 PM STATISTICAL CLERK Office Visit [facility] Primary Care at [address] [phone] Louise Recio NP Mixed hyperlipidemia (Primary Dx); Primary hypertension; Right flank pain; Adjustment disorder with mixed anxiety and depressed mood; Memory loss; Acute cystitis with hematuria; Stress incontinence of urine 08/20/[address] [facility] [address] [place] [address] Mira Hay, RT 08/16/2024 11:30 AM STATISTICAL CLERK Office Visit [facility] Medical [facility] Care at [address] [place] [address] [place] [phone] Yuridia Gillespie NP Acute cystitis with hematuria (Primary Dx) 08/06/2024 Orders Only [facility] Primary Care at [address] [phone] Bethany Islas NP 08/04/2024 7:45 AM STATISTICAL CLERK - 08/04/2024 8:30 AM STATISTICAL CLERK Surgery [facility] Operating [facility] at the [facility] [address] [place] [id number] Rex Che MD Left long finger trigger release 08/04/2024 7:35 AM STATISTICAL CLERK Anesthesia Event [facility] [address] [place] [phone] Kwame Scott MD Gangloff, Kerry Marie, NP 08/04/2024 5:54 AM STATISTICAL CLERK - 08/04/2024 8:59 AM STATISTICAL CLERK Hospital Encounter [facility] [address] [place] [phone] Rex Che MD Trigger middle finger of left hand (Primary Dx) Discharge Disposition: Discharge to home or self care 08/03/2024 1:15 PM STATISTICAL CLERK Lab [facility] Medical [facility] Outpatient Lab at [address] [phone] Primary hypertension (Primary Dx) 08/03/2024 1:11 PM STATISTICAL CLERK - 08/03/2024 11:59 PM STATISTICAL CLERK Hospital Encounter [address] [address] Encounter for screening examination for intermediate hyperglycemia and diabetes mellitus; Primary hypertension Discharge Disposition: Discharge to home or self care 08/03/2024 12:30 PM STATISTICAL CLERK Office Visit [facility] Primary Care at [address] [phone] Bethany Islas NP Primary hypertension (Primary Dx); Encounter for screening examination for intermediate hyperglycemia and diabetes mellitus 08/03/2024 Nurse Triage [facility] Primary Care at [address] [place] [phone] David Guy MD 07/22/2024 11:10 AM STATISTICAL CLERK Office Visit [facility] Orthopaedic Surgery [address] [facility] 2nd Floor [address] [place] [address] Rex Che MD Trigger middle finger of left hand (Primary Dx) from Last 3 Months Immunizations Immunization Administration Dates Next Due Influenza, [...] (Arexvy) 05/08/2024 Tdap 03/31/2017 ZOSTER Recombinant 09/09/2022,07/10/2022 Surgical History Surgery Date Site/Laterality Comments LAPAROSCOPIC CHOLECYSTECTOMY 07/01/1999 - 06/30/2000 lap [place] ELBOW SURGERY 07/01/1998 - 06/30/1999 right tennis elbow OTHER SURGICAL HISTORY 07/01/1996 - 06/30/1997 left ulnar release OTHER SURGICAL HISTORY 07/01/1994 - 06/30/1995 cervical cryo/? cone KNEE ARTHROSCOPY 07/01/2000 - 06/30/2001 Right Arthroscopy knee CARPAL TUNNEL RELEASE 07/01/1996 - 06/30/1997 Bilateral Carpal tunnel release KALINA FUNDOPLICATION 07/01/2015 - 06/30/2016 BLADDER SURGERY 07/01/2012 - 06/30/2013 Interstim in and removed in 2021 FOOT ARTHRODESIS 12/15/2018 Right arthrodesis of 1st metatarsophangel joint of R foot due to osteoarthritis Dr. Figueroa PLANTAR FASCIA SURGERY 07/01/2019 - 06/30/2020 Right BOWEL RESECTION diverticulitis TRIGGER FINGER RELEASE 10/31/2021 Right Right Long Finger ESOPHAGOGASTRODUODENOSCOPY 07/01/2021 - 06/30/2022 CHOLECYSTECTOMY 07/01/1998 - 06/30/1999 ABDOMINAL SURGERY [place] FLUORO GUIDED LUMBAR PUNCTURE 02/12/2024 Right ESOPHAGOGASTRODUODENOSCOPY 02/08/2022 TRIGGER FINGER RELEASE 03/19/2023 Right 4th finger COLON SURGERY Medical History Medical History Date Comments Gastroesophageal reflux disease well controlled Depression Depression Anxiety disorder Anxiety Hypertension well controlled Hx Other Medical inner stim for bladder control; Comments: EMB 06/21/2015 - Hx Other Medical right shoulder surgery; Comments: EMB 06/21/2015 - Diverticulosis IBS (irritable bowel syndrome) Rosacea Headache, tension-type Sleep apnea Couldn't tolerat e cpap, pt is planning on dental appt for oral appliance Bronchitis 05/2021 reports lingeri ng dry cough- reports seeing pulm 10/2021. Denies SOB OAB (overactive bladder) Trigger middle finger of right hand 10/23/2021 Added automatically from request for surgery [id number] Dysphagia Anemia Arthritis History of diverticulitis 12/04/2017 Chroni c - Bowel resection scheduled Carpal tunnel syndrome 04/18/2017 Overview: Overview: Bilateral release Overview: Bilateral release Persistent insomnia 11/14/2013 Insomnia, pe rsistent Chickenpox Basal cell carcinoma (BCC) 10/2023 4 excision planned Family History Medical History Relation Name Comments Prostate cancer Brother Rex Arthritis Father Alex Family history of arthritis - (Added by TW Conv) Bleeding Disorder Father Alex Family his tory of bleeding disorder - (Added by TW Conv) Cancer Father Alex Family history of malignant neoplasm - (Added by TW Conv) Hypertension Father Alex Hypertension; / Family history of hypertension - (Added by TW Conv) Arthritis Mother Faith Family history of arthritis - (Added by TW Conv) Bleeding Disorder Mother [place] Family his tory of bleeding disorder - (Added by TW Conv) Cancer Mother Faith Family history of malignant neoplasm - (Added by TW Conv) Hypertension Mother Faith Family history of hypertension - (Added by TW Conv) Prostate cancer Other Family histo ry of Cancer, prostate; Anesthesia problems Neg Hx Malig Hypertension Neg Hx Malig Hyperthermia Neg Hx Pseudochol deficiency Neg Hx Relation Name Status Comments Brother Rex Alive Father Alex Mother [place] Other Social History Tobacco Use Types Packs/Day Years [...] on file Legal Sex Female 3:05 PM STATISTICAL CLERK Gender Identity Female 09/08/2020 1:16 PM STATISTICAL CLERK Sexual Orientation Not on file Obstetrics History Last Filed Vital Signs Vital Sign Reading Time Taken Comments Blood Pressure 134/90 08/20/2024 1:30 PM STATISTICAL CLERK Pulse 63 08/20/2024 1:30 PM STATISTICAL CLERK Temperature 36.6 C (97.9 F) 08/20/2024 1:30 PM STATISTICAL CLERK Respiratory Rate 18 08/20/2024 1:30 PM STATISTICAL CLERK Oxygen Saturation 97% 08/20/2024 1:30 PM STATISTICAL CLERK Inhaled Oxygen Concentration - - Weight 107.4 kg (236 lb 12.8 oz) 08/20/2024 1:30 PM STATISTICAL CLERK Height 172.7 cm (5' 8 ) 08/20/2024 1:30 PM STATISTICAL CLERK Body Mass Index 36.01 08/20/2024 1:30 PM STATISTICAL CLERK Plan of Treatment Health Maintenance Due Date Last Done Comments Depression Screening 02/24/2025 02/25/2024, 02/25/2024, 01/07/2023, Additional history exists Regular Well Visit/Exam 18-64 02/24/2025 02/25/2024, 01/07/2023, 12/24/2019 Breast Cancer Screening-Mammogram 02/25/2025 02/26/2024, 01/30/2024, 09/18/2022, Additional history exists Cervical Cancer Screening 02/26/20252023, 08/12/2023, 03/18/2019 DTaP/Tdap/Td Vaccine (2 - Td or Tdap) 03/31/2027 03/31/2017 Colon Cancer Screening-Colonoscopy 01/09/2029 01/10/2024, 01/06/2024, 08/10/2019, Additional history exists Hepatitis C Screening Completed 12/22/2019 Zoster Vaccine Completed 09/09/2022, 07/10/2022 Colon Cancer Screening-CT Colonography Discontinued 01/10/2024, 01/06/2024, 08/10/2019, Additional history exists Colon Cancer Screening-DNA Stool Discontinued 01/10/2024, 01/06/2024, 08/10/2019, Additional history exists Colon Cancer Screening-FIT Discontinued 01/09, 01/06/2024, 08/10/2019, Additional history exists Colon Cancer Screening-Sigmoidoscopy Discontinued 01/10/2024, 01/06/2024, 08/10/2019, Additional history exists Hepatitis B Screening Completed 02/25/2024 Covid-19 Vaccine Completed 05/08/2024, , 03/15/2022, Additional history exists Influenza Vaccine Completed 05/08/2024, , 06/12/2023, Additional history exists Pneumococcal vaccine <65 Aged Out No longer eligible based on patient's age to complete this topic Medical Devices Explanted Type Area Credit Officer Device Identifier Shelf Expiration Date Model / Serial / Lot Other-Bladder Stimulator-08/30 Implanted:08/30 (Quantity not on file) Explanted:Qty: 1 on 09/05/2021 by Roger Gillespie MD at [facility] Other - see comments Pelvis [employer] 3058 / [id number] / Description:DEVICE: BLADDER STIMULATOR [employer] MODEL # 3058 SERIAL # [id number] CONTACT # 09-25-2013 NEEDS: TRANSMIT RECEIVE HEAD COIL Procedures Procedure Name Priority Date/Time Associated Diagnosis Comments URINE CULTURE Routine 08/21/2024 2:22 PM STATISTICAL CLERK Right flank pain Acute cystitis with hematuria CT RENAL STONE Schedule DANYA, Read DANYA (Appt Today, Awaiting Results) 08/21/2024 8:18 AM STATISTICAL CLERK Right flank pain POCT URINALYSIS DIPSTICK Routine 08/20/2024 2:15 PM STATISTICAL CLERK Right flank pain POCT URINALYSIS DIPSTICK Routine 08/16/2024 11:31 AM STATISTICAL CLERK Acute cystitis with hematuria RELEASE TRIGGER FINGER 08/04/2024 7:40 AM STATISTICAL CLERK Trigger middle finger of left hand EGFR Routine 08/03/2024 1:11 PM STATISTICAL CLERK Primary hypertension DIFFERENTIAL AUTO Routine 08/03/2024 1:1 1 PM STATISTICAL CLERK Primary hypertension CBC WITH AUTO DIFFERENTIAL Routine 08/03/2024 1:11 PM STATISTICAL CLERK Primary hypertension COMPREHENSIVE METABOLIC PANEL Routine 08/03/2024 1:11 PM STATISTICAL CLERK Primary hypertension LIPID PANEL Routine 08/03/2024 1:11 PM STATISTICAL CLERK Primary hypertension THYROID FUNCTION CASCADE Routine 08/03/2024 1:11 PM STATISTICAL CLERK Primary hypertension HEMOGLOBIN A1C Routine 08/03/2024 1:11 PM STATISTICAL CLERK Encounter for screening examination for intermediate hyperglycemia and diabetes mellitus ECG 12-LEAD Routine 08/03/2024 12:54 PM STATISTICAL CLERK Primary hypertension HM PAP SMEAR Routine 02/27/2024 10:56 AM CDT HM MAMMOGRAPHY Routine 02/26/2024 10:11 AM CDT HM COLONOSCOPY Routine 01/10/2024 4:12 PM CDT HEPATITIS C ANTIBODY Routine 12/22/2019 2:20 PM CDT Encounter for hepatitis C screening test for low risk patient from Last 3 Months or Most Recently Relevant to Health Maintenance Results * Urine culture Urine, clean voided (08/21/2024 2:22 PM STATISTICAL CLERK) Report Final Report: Less than 100,000 colonies/mL (clinically insignificant growth based on current clinical standards) Comment:Testing performed by : [facility], [address] [place]., [address] Organism (CLINICALLY INSIGNIFICANT GROWTH JASMYN FELIX Urine, clean voided 08/21/2024 2:22 PM STATISTICAL CLERK 08/21/2024 6:07 PM STATISTICAL CLERK Narrative JASMYN FELIX - 08/22/2024 8:19 PM STATISTICAL CLERK Testing performed by [facility] Microbiology Laboratory ([phone]) Louise Recio NP LAB MICROBIOLOGY - GENERAL OR DERABLES Final Result JASMYN FELIX [address] Department [place] [address] * CT Renal Stone (08/21/2024 8:18 AM STATISTICAL CLERK) Anatomical Region Laterality Modality Abdomen N/A Computed Tomogra phy 08/21/2024 1:10 PM STATISTICAL CLERK Narrative 08/21/2024 1:38 PM STATISTICAL CLERK EXAM DESCRIPTION: CT RENAL STONE REASON FOR [...] Electronically signed by Cris Navarrete M.D. TW: MERCEDES Report ID: [id number] Reading Location: [id number] Procedure Note Cris Navarrete MD - 08/21/2024 [...] Electronically signed by Cris Navarrete M.D. TW: MERCEDES Report ID: [id number] Reading Location: [id number] Louise Reico NP IMG CT PROCEDURES Final Resul t * (ABNORMAL) POCT urinalysis dipstick (08/20/2024 2:15 PM STATISTICAL CLERK) Color, Urine, POC Yellow Clarity, ur, POC Clear Clear Glucose, ur, POC Negative Negative MG/DL Bilirubin, ur, POC Negative Negative, Small, Moderate, Large Ketones, ur, POC Negative Negative Specific [place], POC 1.015 1.003 - 1.030 Blood, ur, POC Trace(A) Negative pH, ur, POC 6.0 5.0 - 8.0 Protein, ur, POC Negative Negative Urobilinogen, urine, POC 0.2 0.2 - 1.0 mg/dL Nitrite, ur, POC Negative Negative Leukocytes, ur, POC Negative Negative Lot Number 0 Urine 08/20/2024 2:15 PM STATISTICAL CLERK Louise Recio LOGISTICS SERVICE REPRESENTATIVE POINT OF CARE TEST ORDERABLES Final Result * (ABNORMAL) POCT urinalysis dipstick (08/16/2024 11:31 AM STATISTICAL CLERK) Color, Urine, POC Light Yellow Clarity, ur, POC Clear Clear Glucose, ur, POC Negative Negative MG/DL Bilirubin, ur, POC Negative Negative, Small, Moderate, Large Ketones, ur, POC Negative Negative Specific [place], POC 1.020 1.003 - 1.030 Blood, ur, POC Small(A) Negative pH, ur, POC 7.0 5.0 - 8.0 Protein, ur, POC 30.(A) Negative Urobilinogen, urine, POC 0.2 0.2 - 1.0 mg/dL Nitrite, ur, POC Negative Negative Leukocytes, ur, POC Trace(A) Negative Lot Number [id number] Urine 08/16/2024 11:3 1 AM STATISTICAL CLERK Yuridia Gillespie LOGISTICS SERVICE REPRESENTATIVE POINT OF CARE TEST ORDERABLES Final Result * eGFR (08/03/2024 1:11 PM STATISTICAL CLERK) eGFR 63 >=60 mL/min/1. 73 m2 Comment: [...] of Race in Diagnosing Kidney Disease, JASN 202). The CKD-EPI equation should not be used for patients with unstable renal function and has not been validated in children and those over 70. Current interpretive data was last reviewed 2021. Blood 08/03/2024 1:11 PM STATISTICAL CLERK 08/04/2024 12:03 AM STATISTICAL CLERK us Bethany Islas NP LAB BLOOD ORDERABLES Final Resul t [facility] [address] [address] Department [place] [address] * Differential, auto (08/03/2024 1:11 PM STATISTICAL CLERK) Neutrophil abs 3.2 1.5 - 6.5 K/cumm Imm gran abs 0.0 0.0 - 0.1 K/cumm [facility] Lymphocyte abs 1.9 0.8 - 3.3 K/cumm [facility] Monocyte abs 0.5 0.2 - 0.8 K/cumm [facility] Eosinophil abs 0.1 0.0 - 0.5 K/cumm [facility] Basophil abs 0.1 0.0 - 0.1 K/cumm [facility] Neutrophil pct 54.7 % [facility] Comment: Interpretive Data Percent cell count reference ranges are not reported, since discordance with absolute values may lead to misinterpretation of CBC data. Current Interpretive Data was last revised on 2017. Imm gran pct 0.3 % [facility] Comment: Interpretive Data Percent cell count reference ranges are not reported, since discordance with absolute values may lead to misinterpretation of CBC data. Current Interpretive Data was last revised on 2017. Lymphocyte pct 32.9 % [facility] Comment: Interpretive Data Percent cell count reference ranges are not reported, since discordance with absolute values may lead to misinterpretation of CBC data. Current Interpretive Data was last revised on 2017. Monocyte pct 8.9 % [facility] Comment: Interpretive Data Percent cell count reference ranges are not reported, since discordance with absolute values may lead to misinterpretation of CBC data. Current Interpretive Data was last revised on 2017. Eosinophil pct 2.0 % [facility] Comment: Interpretive Data Percent cell count reference ranges are not reported, since discordance with absolute values may lead to misinterpretation of CBC data. Current Interpretive Data was last revised on 2017. Basophil pct 1.2 % [facility] Comment: Interpretive Data Percent cell count reference ranges are not reported, since discordance with absolute values may lead to misinterpretation of CBC data. Current Interpretive Data was last revised on 2017. Blood 08/03/2024 1:11 PM STATISTICAL CLERK 08/03/2024 11:26 PM STATISTICAL CLERK Bethany Islas LOGISTICS SERVICE REPRESENTATIVE LAB BLOOD ORDERABLES Final Resul t Performing Organization Address [facility] de Phone Number [facility] [facility] [address] [address] [place] [address] * Thyroid Function [place] (08/03/2024 1:11 PM STATISTICAL CLERK) Pathologist [facility] TSH 1.37 0.30 - 4.20 mcIUnit/mL Blood 08/03/2024 1:11 PM STATISTICAL CLERK 08/03/2024 11:26 PM STATISTICAL CLERK Bethany Islas LOGISTICS SERVICE REPRESENTATIVE LAB BLOOD ORDERABLES Final Resul t Performing Organization Address [facility] de Phone Number [facility] [address] [address] [place] [address] * (ABNORMAL) CBC with auto differential (08/03/2024 1:11 PM STATISTICAL CLERK) Pathologist [facility] WBC 5.9 3.8 - 9.9 K/cumm Hgb 12.5 11.9 - 15.5 g/dL [facility] Hct 39.2 35.6 - 45.5 % [facility] Plt 392 150 - 400 K/cumm [facility] MPV 9.4 9.1 - 12.3 fL [facility] RBC 4.32 3.90 - 5.20 M/cumm [facility] MCV 90.7 81.3 - 96.4 fL [facility] MCH 28.9 27.1 - 33.3 pg [facility] MCHC 31.9(L) 32.3 - 35.7 g/dL [facility] RDW CV 13.3 11.1 - 14.9 % [facility] RDW SD 44.3 35.7 - 48.1 fL [facility] NRBC abs 0.00 0.00 - 0.01 K/cumm [facility] Blood 08/03/2024 1:11 PM STATISTICAL CLERK 08/03/2024 11:26 PM STATISTICAL CLERK us Bethany Islas NP LAB BLOOD ORDERABLES Final Resul t Performing Organization Address City/[facility] de Phone Number [facility]UL[facility]AN[facility] FEL[facility] [address] [address] [place] [address] * Hemoglobin A1c (08/03/2024 1:11 PM STATISTICAL CLERK) Hgb A1C 5.4 4.0 - 5.6 % Estimated Average Glucose 108 mg/dL [facility] Comment: The ADA recommends reporting an estimated Average Glucose (eAG) with all Hemoglobin A1c results using the equation derived from a study of 507 normal and diabetic adults. Minority populations were underrepresented and children were not included. (Diabetes Care 31:2447-3893, 2008). The eAG is not equivalent to a fasting glucose. Blood 08/03/2024 1:11 PM STATISTICAL CLERK 08/03/2024 11:26 PM STATISTICAL CLERK us Bethany Islas NP LAB BLOOD ORDERABLES Final Resul t Performing Organization Address City/[facility] Co de Phone Number [facility] [address] [address] [facility] [place] [place] [address] * (ABNORMAL) Lipid panel (08/03/2024 1:11 PM STATISTICAL CLERK) Cholesterol 218(H) 30 - 199 mg/dL Comment: [...] on 2018. HDL 54 >=40 mg/dL JASMY[facility] FELIX Comment: Interpretive Data Ages < or = [...] NCEP Expert Panel. Circulation 2004;110:227 3. [place] Mandel et al. NASIMA Cardiol. 2019October 29;5(5):540-548. doi: 10.1001/jamacardio.2020.0013 Current Interpretive Data was last revised on 2024. Non-HDL Cholesterol 164 mg/dL CERNER Comment: Interpretive Data Ages < or = [...] revised on 2018. Chol/HDL ratio 4 [facility] CH Blood 08/03/2024 1:11 PM STATISTICAL CLERK 08/03/2024 11:26 PM STATISTICAL CLERK us Bethany Islas NP LAB BLOOD ORDERABLES Final Resul t JASMYN [address] [address] Department [place] [address] * Comprehensive metabolic panel (08/03/2024 1:11 PM STATISTICAL CLERK) Sodium 137 135 - 145 mmol/L Potassium, pl 4.3 3.3 - 4.9 mmol/L [facility] Chloride 100 97 - 110 mmol/L [facility] CO2 25 22 - 32 mmol/L [facility] Anion gap 12 2 - 15 mmol/L [facility] BUN 13 6 - 25 mg/dL [facility] Creatinine 1.01 0.60 - 1.10 mg/dL [facility] Glucose 88 70 - 199 mg/dL [facility] Comment: Interpretive Data Fasting glucose >/= 126 [...] Units/L [facility] CH Blood 08/03/2024 1:11 PM STATISTICAL CLERK 08/03/2024 11:26 PM STATISTICAL CLERK Bethany Islas NP LAB BLOOD ORDERABLES Final Resul t JASMYN [address] [address] Department of Laboratories [place] [id number] * ECG 12-LEAD (08/03/2024 12:54 PM STATISTICAL CLERK) Narrative Bethany Islas NP - 08/03/2024 12:54 PM STATISTICAL CLERK Bethany Islas NP 08/03/2024 12:55 PM ECG 12 lead Date/Time: 08/03/2024 12:54 PM Performed by: Bethany Islas NP Authorized by: Bethany Islas NP Rhythm: sinus rhythm Rate: normal QRS axis: normal Conduction: conduction normal ST Segments: ST segments normal T Waves: T waves normal Bethany Islas NP ECG ORDERABLES Edited Result - Final * HM PAP SMEAR (02/27/2024 10:56 AM CDT) SCRIBED Pap test n Historical Provider HEALTH MAINTENANCE Final Result * MAMMOGRAPHY (02/26/2024 10:11 AM CDT) Mammography Normal Historical Provider HEALTH MAINTENANCE Final Result * COLONOSCOPY (01/10/2024 4:12 PM CDT) Scribed HM Colonoscopy Normal Nolberto Slaughter MD HEALTH MAINTENANCE Final Result * Hepatitis C antibody (12/22/2019 2:20 PM CDT) Hep C Ab Nonreactive Nonreactive JASMYN HATCH (COPIAGUE) Comment: Interpretive Data Nonreactive: Antibodies to HCV [...] last revised on 2019. Testing performed by: [facility], [address] [place] [address]., [id number] Blood specimen (specimen) 12/22/2019 2:20 PM CDT 12/23/2019 9:46 AM CDT Louise Recio NP LAB MICROBIOLOGY - GENERAL OR DERABLES Final Result JASMYN HATCH (COPIAGUE) 1 [facility] Department [place] [address] from Last 3 Months or Most Recently Relevant to Health Maintenance Insurance [facility] CHOICE MEDICARE PPO [facility] CHOICE MEDICARE PPO Advance Directives For more information, please contact: [phone] * Full Code (Latest Code Status on File) Date Activated Date Inactivated Comments 02/08/2022 11:09 AM 02/08/2022 5:49 PM * Full Code Date Activated Date Inactivated Comments 02/08/2022 11:09 AM 02/08/2022 11:09 AM Care Teams Boom Man Relationship Specialty Start Date End Date Louise Recio NP [address] [facility] [address] [place] [address] PCP - General Family Medicine 08/20/24 Bharath Witt MD [address] [facility] [address] [facility] [address] [place] [address] Referring Physician Vascular Surgery 12/04/17 Atul Garrido MD [address] [place] [address] Referring Physician Obstetrics and Gynecology 04/17/19 Yamilet Bernal DO [address] [place] [address] DR BRENNA Guerrier [facility] [address] [place] [address] Consulting Physician Otolaryngology 02/25/24 Brandon Gutierrez MD [address] [place] [address] DR BRENNA Guerrier [facility] [address] [place] [address] Consulting Physician Neurology 02/25/24 Brandon Roque MD [address] [place] [address] Consulting Physician Cardiology 02/25/24 Tucker Evans Neuropsychology 02/25/24 Nolberto Uriostegui MD [address] [place] [address] Referring Physician Gastroenterology 02/25/24
== END 2024-10-05 10:40 | disposition home or self-care (01) ==
PROVIDERS: PCP Family Medicine Sports Medicine; Visit Provider Physician Assistant
DX: R06.09 Other forms of dyspnea (principal)
CPT/HCPCS: 71250

== ENCOUNTER 2024-10-14 16:02 | Outpatient (CLI) | payer MEDICARE, SELFPAY ==
--- NOTE | ~2024-10-14 | US_ITS ---
EXAM: PELVIC ULTRASOUND HISTORY: N83.209 - Unspecified ovarian cyst, unspecified side . Postmenopausal. COMPARISON: 03/17/2024 FINDINGS: UTERUS: 7.8 x 1.8 x 3.3 cm. The uterus is anteverted and anteflexed. The endometrial complex measures 2.8 mm. RIGHT OVARY: The right ovary was difficult to evaluate, secondary to poor acoustic penetration. Despite patient urinating immediately before the transvaginal portion of the examination, the bladder remained distended with urine, suggesting post void residual. The right ovary appeared to have a small amount of ovarian tissue along the periphery of the ovary bu t was primarily cystic along the internal portion of the ovary. Secondary to poor acoustic penetratio n, the cystic portion was difficult to measure. Dopplerable flow is identified within the noncystic portion of the ovarian tissue. LEFT OVARY: The left ovary is unremarkable in echogenicity and size measuring 0.8 x 0.8 x 1.1cm. Dopplerable flow is identified. No free fluid is identified within the pelvis. IMPRESSION: Small cystic portion of the right ovary, difficult to evaluate secondary to poor acoustic penetration . In addition, findings which suggest a post void residual following bladder emptying for further evalu ation may be performed. Reviewed, dictated and finalized at location A. IMPRESSION: Small cystic portion of the right ovary, difficult to evaluate secondary to poo r acoustic penetration. In addition, findings which suggest a post void residual following bladder empt marques for further evaluation may be performed.
--- OUTSIDE RECORDS SUMMARY | 2024-10-14 16:52 | XMS_ITS | CONTINUITY OF CARE DOCUMENT ---
Author Name nanci christine Address Unknown Organization [facility] Address [address] [place] [address] Phone [phone] Care Team Providers Care Automotive Maintenance Technician Name Role Phone Matthias Mallory MD Unavailable [phone] Matthias Mallory MD Unavailable [phone] JASON BLANCHARD-BCYOANNA Unavailable [phone] PROBLEMS Condition Status Date Provider Notes HTN essential active Matthias Mallory MD Tobacco use, quit active Meghna Rodriguez Pulmonic insufficiency active Meghna Rodriguez Chest pain- neg workup active Meghna Rodriguez ENCOUNTERS Date Type Provider Location Encounter Diag nosis - In-person encounter Office Visit Matthias Mallory MD [place] [facility] Chest pain- neg workupPulmonic insufficiencyTobacco use, quit VITAL SIGNS Date Observation Value Provider Body Mass Index (Ratio) 37.40 kg/m2 Juan Rodriguez blood pressure, cuff size large Ke rri Gerardo blood pressure, diastolic 80 mm[Hg] Ke rri Gerardo blood pressure, systolic 120 mm[Hg] Fernando Carrillo oxygen saturation, oximetry 94 % Shannon Carrillo respiratory rate E&M 16 /min Shannon rodrigues pulse rate 73 /min Shannon [place] weight E&M 246 [lb_av] Shannon [place] height E&M 68 [in_i] Shannon [place] [facility] weight E&M 230 [lb_av] Arsalan pablo height [...] 3.5-5.2 7 sodium, serum 137 mmol/L [employer] [id number] 6944/04/1 7 urea nitrogen/creatinine ratio, serum 13 [employer] [...] Payer name Policy type / Coverage type [place] [employer] [place] [employer] MEDICA[employer] (2) Medicaid [id number] ADVANCE DIRECTIVES Name Date DISCUSSED - NO DECISION MADE TREATMENT PLAN Date Name Performer [facility] w up [facility] Follow up 15:no recurrence Stress 10/11/2020 Summary and Interpretation 1 . Normal exercise capacity 2 . Normal hemodynamic response to exercise 3 . No diagnostic ST or T changes 4 . No significant arrhythmias 5 . There is no evidence for exercise-induced myocardial ischemia Early 09/[address] [facility] where she had negative workup including [...] by mouth once daily Orders: E KG (CPT-[id number]) C OMPREHENSIVE METABOLIC PANEL, W/EGFR (15509) Meghna Rodriguez Date Name COMPREHENSIVE METABO LIC PANEL, W/EGFR COMPREHENSIVE METABO LIC PANEL, W/EGFR Stress Routine Complete Echo HISTORY OF PROCEDURES Procedure Date Procedure Name Provider Procedure Notes S tatus EKG Matthias Mallory MD comp leted Schedule Followup Matthias lee execise stress test and ECHO and fu with Dr. Mohamud HAGAN completed
--- OUTSIDE RECORDS SUMMARY | 2024-10-14 16:52 | XMS_ITS | Continuity of Care Document ---
Author Organization [facility] Address [address] [place] [address] [address] [place] [address] Phone Care Team Providers Care Swahili Teacher Name Role Phone Kal PT,MPT,ATC, Herrera Unavailable [...] Diagnoses Date Provider Providers Copied on Encounter [facility], [id number], tel:[phone] [place] No Information 0 - 4 [facility]. [facility], [address] [facility], [place], [place], [id number], tel:[phone] [place] No Information 0 8 [facility] [place]. Referring Provider: Nguyễn Abel1 [facility] 6th Floor [address], [place], [address]. tel:[phone] [facility] [address] [place] [address], [place], [place], [id number], tel:[phone] [place] No Information 0 3-201 8 Bernard Potter. [address] [facility], [address], [place], [address], [place]. tel:[phone] Referring Provider: Ed Abel [facility] 6th Floor [address], [place], [address]. tel:[phone] [place] [address], [address] [place], [place] [address], [place], [place], [id number], [place] tel:[phone] [place] No Information Dec-2 9-201 7 [facility]. [address] [place] [address], [address], [place], [place], [facility], . tel:[phone] Referring Provider: Ed Abel [facility] 6th Floor [address], [place], [address]. tel:[phone] [place] [address], [address] [place], [place] [address], [place], [place], [address], tel:[phone] [place] No Information Dec-2 7-201 7 [facility]. [address] [place] [address], [address], [place], [facility], [place]. tel:[phone] Referring Provider: Ed Abel [facility] 6th Floor [address], [place], [address]. tel:[phone] [place] [address], [address] [facility], [place], [place], [address], [place] tel:[phone] [place] No Information Dec-2 2-201 7 [facility]. [address] [place] [address], [address], [place], [address], [place]. tel:[phone] Referring Provider: Ed Abel [facility] 6th Floor [address], [place], [address]. tel:[phone] [place] [address], [address] [facility], [place], [place], [id number], [place] tel:[phone] [place] No Information Dec-2 0-201 7 Hamateo Escobarfer. [address] [place] [address], [address], [place], [address], [place]. tel:[phone] Referring Provider: Ed Abel [facility] 6th Floor [address], [place], [address]. tel:[phone] [place] [address], [facility] [address], [place], [place], [id number], [place] tel:[phone] [place] No Information Bernard Potter. [address] [facility], [address], [place], [facility], [place]. tel:[phone] Referring Provider: Nguyễn Abel1 [facility] 6th Floor [address], [place], [address]. tel:[phone] [place] [address], [id number], tel:[phone] [place] No Information Bernard Potter. [address] [place] [address], [address], [place], [facility], [place]. tel:[phone] Referring Provider: Rex Che [address] [place] [address] [address]th [address], [place], [address]. tel:[phone] [place] [address], [id number], tel:[phone] [place] No Information Bernard Potter. [address] [place] [address], [address], [place], [facility], [place]. tel:[phone] Referring Provider: Rex Che [facility] 6th Floor [address], [place], [address]. tel:[phone] [place] [address], [id number], [place] tel:[phone] [place] Stiffness of right hand, not elsewhere classifiedPain in right handEffusion, right handOth symptoms and signs involving the musculoskeletal systemOther specified health statusDisp fx of dist phalanx of r idx fngr, 7thD Bernard Potter. [address] [place] [address], [address], [place], [facility], [place]. tel:[phone] Referring Provider: Ed Abel [facility] 6th Floor [address], [place], [address]. tel:[phone] [facility], [address] [place] [address] [address], [place], [place], [id number], tel:[phone] [place] No Information 1 0-201 4 Therese Chandler. [address] [place] [address], [address], [place], [facility], . tel:[phone] Referring Provider: Jayson Gutiérrez, [address], [place], [address]. tel:[phone] [facility] [address] [place], [place] [address], [place], [place], [id number], tel:[phone] [place] No Information Aug-0 7-201 4 Therese Chandler. [address] [place] [address], [address], [place], [facility], . tel:[phone] Referring Provider: Jayson Gutiérrez, [address], [place], [address]. tel:[phone] [facility] [address] [place], [place] [address], [place], [place], [address], tel:[phone] [place] No Information 0 6-201 4 Therese Chandler. [address] [place] [address], [address], [place], [facility], . tel:[phone] Referring Provider: Jayson Gutiérrez, [address], [place], [address]. tel:[phone] [facility] [address] [place], [place] [address], [place], [place], [id number], tel:[phone] [place] No Information b0 3-201 4 Therese Chandler. [address] [place] [address], [address], [place], [facility], . tel:[phone] Referring Provider: Jayson Gutiérrez, [address], [place], [address]. tel:[phone] [facility], [facility] [address], [place], [place], [id number], tel:[phone] [place] No Information Fabrizio-3 1-201 4 Therese Chandler. [address] [place] [address], [address], [place], [facility], . tel:[phone] Referring Provider: Jayson Gutiérrez, [address], [place], [address]. tel:[phone] [address], [place], [place], [id number], tel:[phone] [place] No Information 4 Therese Chandler. [address] [place] [address], [address], [place], [facility], [place]. tel:[phone] Referring Provider: Jayson Gutiérrez, [address], [place], [address]. tel:[phone] [address], [place], [place], [address], tel:[phone] [place] No Information 4 Therese Chandler. [address] [place] [address], [address], [place], [facility], [place]. tel:[phone] Referring Provider: Jayson Gutiérrez, [address], [place], [address]. tel:[phone] [address], [place], [place], [id number], [place] tel:[phone] [place] No Information 4 Therese Chandler. [address] [place] [address], [address], [place], [facility], [place]. tel:[phone] Referring Provider: Jayson Gutiérrez, [address], [place], [address]. tel:[phone] [address], [place], [place], [address], tel:[phone] [place] No Information 0 4 Therese Chandler. [address] [place] [address], [address], [place], [facility], . tel:[phone] Referring Provider: Jayson Gutiérrez, [address], [place], [address]. tel:[phone] [facility], [address], [place], [place], [address], [place] tel:[phone] [place] No Information 4 Therese Chandler. [address] [place] [address], [address], [place], [facility], . tel:[phone] Referring Provider: Jayson Gutiérrez, [address], [place], [address]. tel:[phone] [facility] [address], [place], [place], [id number], [place] tel:[phone] [place] No Information 4 Therese Chandler. [address] [place] [address], [address], [place], [facility], . tel:[phone] Referring Provider: Jayson Gutiérrez, [address], [place], [address]. tel:[phone] [facility], [facility] [address], [place], [place], [id number], [place] tel:[phone] [place] No Information 4 Therese Chandler. [address] [place] [address], [address], [place], [facility], . tel:[phone] Referring Provider: Jayson Gutiérrez, [address], [place], [address]. tel:[phone] [facility], [address], [place], [place], [address], [place] tel:[phone] [place] No Information 4 Therese Chandler. [address] [place] [address], [address], [place], [facility], . tel:[phone] Referring Provider: Jayson Gutiérrez, [address], [place], [address]. tel:[phone] [facility], [facility] [address], [place], [place], [address], tel:[phone] [place] No Information 0 8-201 4 Therese Chandler. [address] [place] [address], [address], [place], [facility], . tel:[phone] Referring Provider: Jayson Gutiérrez, [address], [place], [address]. tel:[phone] [address], [place], [place], [address], tel:[phone] [place] No Information Jul-0 3-201 4 Therese Chandler. [address] [place] [address], [address], [place], [facility], . tel:[phone] Referring Provider: Jayson Gutiérrez, [address], [place], [address]. tel:[phone] [address], [place], [place], [address], tel:[phone] [place] No Information 0 2-201 4 Therese Chandler. [address] [place] [address], [address], [place], [facility], . tel:[phone] Referring Provider: Jayson Gutiérrez, [address], [place], [address]. tel:[phone] [address], [place], [place], [address], tel:[phone] [place] No Information May-3 0-201 3 Therese Chandler. [address] [place] [address], [address], [place], [facility], [place]. tel:[phone] Referring Provider: Jayson Gutiérrez, [address], [place], [address]. tel:[phone] [facility], [address] [place], [place] [address], [place], [place], [address], tel:[phone] [place] No Information Dec-2 6-201 3 Mcmahan Alda. [address] [place] [address], [address], [place], [facility], . tel:[phone] Referring Provider: Jayson Gutiérrez, [address], [place], [address]. tel:[phone] [address], [place], [place], [address], tel:[phone] [place] No Information Dec-2 0-201 3 Trinity Villarreal. [address] [place] [address], [address], [place], [facility], . tel:[phone] Referring Provider: Jayson Gutiérrez, [address], [place], [address]. tel:[phone] [address], [place], [place], [address], tel:[phone] [place] No Information Dec-1 8-201 3 Therese Chandler. [address] [place] [address], [address], [place], [facility], . tel:[phone] Referring Provider: Jayson Gutiérrez, [address], [place], [address]. tel:[phone] [address], [place], [place], [address], tel:[phone] [place] No Information Dec-1 6-201 3 Therese Chandler. [address] [place] [address], [address], [place], [facility], . tel:[phone] Referring Provider: Jayson Gutiérrez, [address], [place], [address]. tel:[phone] [address], [place], [place], [address], tel:[phone] [place] No Information Dec-1 3-201 3 Therese Chandler. [address] [place] [address], [address], [place], [facility], . tel:[phone] Referring Provider: Jayson Gutiérrez, [address], [place], [address]. tel:[phone] [facility], [facility] [address], [place], [place], [address], tel:[phone] [place] No Information Dec-1 1-201 3 Therese Chandler. [address] [place] [address], [address], [place], [facility], . tel:[phone] Referring Provider: Jayson Gutiérrez, [address], [place], [address]. tel:[phone] [facility] [address], [place], [place], [address], tel:[phone] [place] No Information Dec-0 9-201 3 Therese Chandler. [address] [place] [address], [address], [place], [facility], . tel:[phone] Referring Provider: Jayson Gutiérrez, [address], [place], [address]. tel:[phone] [facility], [facility] [address], [place], [place], [address], tel:[phone] [place] No Information Dec-0 6-201 3 Therese Chandler. [address] [place] [address], [address], [place], [facility], . tel:[phone] Referring Provider: Jayson Gutiérrez, [address], [place], [address]. tel:[phone] [facility] [address], [place], [place], [address], tel:[phone] [place] No Information Dec-0 4-201 3 Therese Chandler. [address] [place] [address], [address], [place], [facility], . tel:[phone] Referring Provider: Jayson Gutiérrez, [address], [place], [address]. tel:[phone] [facility], [facility] [address], [place], [place], [address], tel:[phone] [place] No Information Oct-1 5-201 3 Therese Chandler. [address] [place] [address], [address], [place], [facility], . tel:[phone] Referring Provider: Jayson Gutiérrez, [address], [place], [address]. tel:[phone] [address], [place], [place], [address], tel:[phone] [place] No Information Oct-1 1-201 3 Therese Chandler. [address] [place] [address], [address], [place], [facility], . tel:[phone] Referring Provider: Jayson Gutiérrez, [address], [place], [address]. tel:[phone] [address], [place], [place], [address], tel:[phone] [place] No Information Oct-1 0-201 3 Haq Maribell. [address] [place] [address], [address], [place], [facility], . tel:[phone] Referring Provider: Jayson Gutiérrez, [address], [place], [address]. tel:[phone] [address], [place], [place], [address], tel:[phone] [place] No Information Mar-0 9-201 3 Therese Chandler. [address] [place] [address], [address], [place], [facility], . tel:[phone] Referring Provider: Jayson Gutiérrez, [address], [place], [address]. tel:[phone] [address], [place], [place], [address], tel:[phone] [place] No Information Oct-0 4-201 3 Therese Chandler. [address] [place] [address], [address], [place], [facility], . tel:[phone] Referring Provider: Jayson Gutiérrez, [address], [place], [address]. tel:[phone] [facility], [address] [place] [address] [address], [place], [place], [address], tel:[phone] [place] No Information Oct-0 2-201 3 Therese Chandler. [address] [place] [address], [address], [place], [facility], . tel:[phone] Referring Provider: Jayson Gutiérrez, [address], [place], [address]. tel:[phone], [place], [place], [address], tel:[phone] [place] No Information Sep-3 0-201 3 Therese Chandler. [address] [place] [address], [address], [place], [facility], . tel:[phone] Referring Provider: Jayson Gutiérrez, [address], [place], [address]. tel:[phone], [place], [place], [address], tel:[phone] [place] No Information Sep-2 7-201 3 Therese Chandler. [address] [place] [address], [address], [place], [facility], . tel:[phone] Referring Provider: Jayson Gutiérrez, [address], [place], [address]. tel:[phone] [facility], [facility] [address], [place], [place], [address], tel:[phone] [place] No Information Sep-2 5-201 3 Therese Chandler. [address] [place] [address], [address], [place], [facility], . tel:[phone] Referring Provider: Jayson Gutiérrez, [address], [place], [address]. tel:[phone] [facility], [facility] [address], [place], [place], [address], [place] tel:[phone] [place] No Information Sep-2 3 Therese Chandler. [address] [place] [address], [address], [place], [facility], . tel:[phone] Referring Provider: Jayson Gutiérrez, [address], [place], [address]. tel:[phone], [place], [place], [address], [place] tel:[phone] [place] No Information Sep-1 9 3 Therese Chandler. [address] [place] [address], [address], [place], [facility], . tel:[phone] Referring Provider: Jayson Gutiérrez, [address], [place], [address]. tel:[phone] [facility] [address] [place], [place] [address], [place], [place], [address], [place] tel:[phone] [place] No Information Sep-1 8 3 Haqrebecca Gardineri. [address] [place] [address], [address], [place], [facility], [place]. tel:[phone] Referring Provider: Jayson Gutiérrez, [address], [place], [address]. tel:[phone] [facility] [address], [place], [place], [address], [place] tel:[phone] [place] No Information Sep-1 3201 3 Therese Chandler. [address] [place] [address], [address], [place], [facility], [place]. tel:[phone] Referring Provider: Jayson Gutiérrez, [address], [place], [address]. tel:[phone] [facility] [address], [place], [place], [address], [place] tel:[phone] [place] No Information Sep-1 3 Therese Chandler. [address] [place] [address], [address], [place], [facility], . tel:[phone] Referring Provider: Jayson Gutiérrez, [address], [place], [address]. tel:[phone] [address], [place], [place], [address], tel:[phone] [place] No Information Sep-1 0-201 3 Therese Chandler. [address] [place] [address], [address], [place] [address], . tel:[phone] Referring Provider: Jayson Gutiérrez, [address], [place], [address]. tel:[phone], [place], [place], [address], tel:[phone] [place] No Information Sep-0 4-201 3 Therese Chandler. [address] [place] [address], [address], [place], [facility], . tel:[phone] Referring Provider: Jayson Gutiérrez, [address], [place], [address]. tel:[phone], [place], [place], [address], tel:[phone] [place] No Information Sep-0 3-201 3 Therese Chandler. [address] [place] [address], [address], [place], [facility], . tel:[phone] Referring Provider: Jayson Gutiérrez, [address], [place], [address]. tel:[phone] [place] [address], [id number], tel:[phone] [place] No Information Aug-3 0-201 3 Therese Chandler. [address] [place] [address], [address], [place], [facility], . tel:[phone] Referring Provider: Jayson Gutiérrez, [address], [place], [address]. tel:[phone] [facility], [address], [place], [place], [address], [place] tel:[phone] [place] No Information 3 Therese Chandler. [address] [place] [address], [address], [place], [address], [place]. tel:[phone] Referring Provider: Jayson Gutiérrez, [address] [facility] [address], [place], [address]. tel:[phone] [facility], [address], [place], [place], [address], [place] tel:[phone] [place] No Information 3 Therese Chandler. [address] [place] [address], [address], [place], [address], [place]. tel:[phone] [facility] [address], [place], [place], [address], [place] tel:[phone] [place] No Information 3 Therese Chandler. [address] [place] [address], [address], [place], [address], [place]. tel:[phone] [facility] [address], [place], [place], [address], [place] tel:[phone] [place] No Information 3 Trinity Villarreal. [address] [place] [address], [address], [place], [address], [place]. tel:[phone] [facility] [address], [place], [place], [address], [place] tel:[phone] [place] No Information 3 Therese Chandler. [address] [place] [address], [address], [place], [address], [place]. tel:[phone] [facility], [address], [place], [place], [address], [place] tel:[phone] [place] No Information 3 Therese Chandler. [facility], [address], [place], [facility], [place]. tel:[phone], [id number], tel:[phone] [place] No Information 3 Therese Arteaga. [address] [facility], [address], [place], [facility], [place]. tel:[phone], [place], [place], [address], tel:[phone] [place] Pain in joint involving shoulder region 3 Therese Arteaga. [address] [facility], [address], [place], [address], [place]. tel:[phone] Family History Family Member Type Diagnosis Age At Onset No Information Payers Payer name Insurance type Covered democrat ID Anshu nguyễn(s) Medicare [place] MB [id number] Medicaid OON Write Off CI 00 Social [...]
--- OUTSIDE RECORDS SUMMARY | 2024-10-14 16:52 | XMS_ITS | Encounter Summary ---
Author Organization [facility] Address [address] [place] [address] Phone Care Team Providers Care Speech Correction Assistant Name Role Phone Belen Kemp APRN, HYBRID POWERTRAIN DEVELOPMENT ENGINEER Unavailable [phone] Reza Ozuna DO Unavailable [phone] Danna Tran TESTING ANALYST Primary Care Provi doug Louise Recio APRN, HYBRID POWERTRAIN DEVELOPMENT ENGINEER Primary Care Provider Reason for Visit * Reason Comments Medication Refill Encounter Details Date Type Department Care Team (Late st Contact Info) Description 01/02/2021 Refill [facility] - Gastroenterology - [place] [address] [place] [phone] Reza Ozuna, [address] [address] Medication Refill Social History Tobacco Use Types Packs/Day Years Used Date Smoking Tobacco: Former Cigarettes 0.5 2 0 08/30/1993 - 08/31/1995 Smokeless Tobacco: Never Alcohol Use Standard Drinks/Week Comments Yes 1 (1 standard drink = 0.6 oz pur e alcohol) occasionally Comments No Sex and Gender Information Value Date Recorded Sex Assigned at Female 06/27/2023 7:46 PM INTERIOR DESIGN TEACHER Legal Sex Female 7:32 PM CDT Gender Identity Female 06/27/2023 7:46 PM INTERIOR DESIGN TEACHER Sexual Orientation Choose not to disclose 2022 7:46 PM INTERIOR DESIGN TEACHER Occupation Industry Job Start Date Job End [...] on filedocumented in this encounter Care Teams Speech Correction Assistant Relationship Specialty Start Date End Date Danna Tran NP [address] [place] [address] PCP - General Advanced Practice Nurse 08/20/19 Louise Recio, AMIE, HYBRID POWERTRAIN DEVELOPMENT ENGINEER [address] [place] [address] [address] [place] [address] PCP - General Advanced Practice Nurse 03/21/21 Belen Kemp APRN, HYBRID POWERTRAIN DEVELOPMENT ENGINEER Nurse Practitioner Advanced Practice Nurse 12/29/15 Reza Ozuna DO Consulting Physician Gastroenterology 10/31/17 documented as of this encounter
--- OUTSIDE RECORDS SUMMARY | 2024-10-14 16:52 | XMS_ITS | Clinical Summary ---
Author Organization [facility] Address [address], [facility] [address] [place] [address] Phone Care Team Providers Care Loan Underwriter Name Role Phone Belen Kemp APRN, AIRLINE TICKET AGENT Unavailable [phone] Reza Ozuna DO Unavailable [phone] Louise Recio DIRECTOR OF EMPLOYEE DEVELOPMENT, AIRLINE TICKET AGENT Primary Care Provider Allergies No known active allergies Medications lisinopril-hydro chlorothiazide (PRINZIDE, ZESTORETIC) 10-12.5 MG TabletIndication s:once a day daily. Indications: once a day Active ARIPiprazole (ABILIFY) 10 MG Tablet Take 10 mg by mouth daily. Active hydroCHLOROthiaz benjaimn 25 MG Tablet Take 25 mg by [...] chronic diverticuli. She is seen by Dr. zOuna (GI) and has an appointment on 09/18/2019 [...] Sex Assigned at Female 06/27/2023 7:46 PM CLINICAL APPEALS REVIEWER Legal Sex Female 7:32 PM CDT Gender Identity Female 06/27/2023 7:46 PM CLINICAL APPEALS REVIEWER Sexual Orientation Choose not to disclose 12/28/ 2023 7:46 PM CLINICAL APPEALS REVIEWER Occupation Industry Job Start Date Job End Date reji evidanza Not on file Not on file Not [...] Insurance MEDICAID [employer] Care Teams Loan Underwriter Relationship Specialty Start Date End Date Louise Recio APRN, AIRLINE TICKET AGENT [address] [place] [address] PCP - General Advanced Practice Nurse 03/21/21 Belen Kemp APRN, AIRLINE TICKET AGENT Nurse Practitioner Advanced Practice Nurse 12/29/15 Reza Ozuna DO Consulting Physician Gastroenterology 10/31/17
--- OUTSIDE RECORDS SUMMARY | 2024-10-14 16:52 | XMS_ITS | Continuity of Care Document ---
Author Organization [facility] Address [address] [place] [address] [address] [place] [address] Phone Care Team Providers Care Switch Adjuster Name Role Phone Vero, Edprudecnio Unavailable Unavailable Advance Directives Directive Yes / No Effective Date File Name No Information Encounters Encounter Description Practice Location Reason(s) For Visit Diagnoses Date Provider Providers Copied on Encounter [facility], [address], [place], [place], [id number], [place] tel:[phone] [facility] No Information Dec-2 4-200 2 Do[address] Edward. [address] , [address], [place], [address], [place]. tel:[phone] Family History Family Member Type Diagnosis Age [...]
--- OUTSIDE RECORDS SUMMARY | 2024-10-14 16:52 | XMS_ITS | Clinical Summary ---
Author Organization [facility] Address [address] [facility] [place] [address] Care Team Providers Care Flanging Operator Name Role Phone Unavailable Primary Care Provider Unavailabl e Source Comments [facility],non-owned Affiliates and Associated Physician Practices is amultiple site organization consisting of ambulatory clinics and hospital sitesin [place], [place], [place] and [place]. This disclosure is being madepursuant to the Care Everywhere program and may not contain all information available regarding this patient. Last updated 18.[facility] Allergies No known active allergies Medications * Be aware that medications may not be up to date on this document. Alwaysverify current medications with the patient. hydroCHLOROthia zide (HYDRODIURIL) 25 MG tablet Take 25 mg [...] MG tablet Take 50 mg by mouth Active venlafaxine (EFFEXOR) 37.5 MG tablet Take 75 [...] drink = 0.6 oz pur e alcohol) Comments Unknown Sex and Gender Information Value Date Recorded Sex Assigned at Not on file Legal Sex Female 8:59 AM CDT Gender Identity Not on file Sexual Orientation [...] CDT 04/18/2017 Narrative Resulting Agency Comment [facility] [address] [facility] [id number] Anoop Romero MD LAB - CHEMISTRY ORDERABLE S Final Result Performing Organization Address City/[facility]/ZIP Co de Phone Number [facility] ACCOUNT BILL [address] [place] [address] * (ABNORMAL) LIPID PROFILE (04/18/2017 12:24 PM [...] CDT 04/18/2017 Narrative Resulting Agency Comment [facility] [address] [facility] [id number] Anoop Romero MD LAB - CHEMISTRY ORDERABLE S Final Result Performing Organization Address [facility] de Phone Number [facility] ACCOUNT BILL [address] [place] [address] from Last 3 Months or Most Recently Relevant to Health Maintenance Insurance [facility] * Guarantor: KORTNEY HAYWOOD Account Type Relation to Patient Date of Phone Billing Address Personal/Family [address] [address] [facility] SELF PAY NO INSURANCE Member Subscriber Plan / Payer (Ef fective for All Dates) Name:Kortney Haywood Member ID:Not on file Relation to Subscriber:Not on file Name:KORTNEY HAYWOOD Subscriber ID:Not on file Address: [address] [place] [address] Payer ID:Not on file Group ID:Not on file Type:Self Pay Address: [place], [place] * Guarantor: KORTNEY HAYWOOD Account Type Relation to Patient Date of Phone Billing Address Personal/Family [address] [place] [address] [facility] SELF PAY NO INSURANCE Member Subscriber Plan / Payer (Ef fective for All Dates) Name:Korntey Haywood Member ID:Not on file Relation to Subscriber:Not on file Name:KORTNEY HAYWOOD Subscriber ID:Not on file (Home) Address: [address] [place] [address] Payer ID:Not on file Group ID:Not on file Type:Self Pay Address: [place], [place] * Guarantor: KORTNEY HAYWOOD Account Type Relation to Patient Date of Phone Billing Address Personal/Family [address] [place] [address] [facility] SELF PAY NO INSURANCE Member Subscriber Plan / Payer (Ef fective for All Dates) Name:Kortney Haywood Member ID:Not on file Relation to Subscriber:Not on file Name:KORTNEY HAYWOOD Subscriber ID:Not on file (Home) Address: [address] [place] [address] Payer ID:Not on file Group ID:Not on file Type:Self Pay Address: [place], [place]
--- OUTSIDE RECORDS SUMMARY | 2024-10-14 16:52 | XMS_ITS | Encounter Summary ---
Author Organization [facility] Address [address] [place] [address] Care Team Providers Care Entertainment & Media Correspondent Name Role Phone Bharath Witt MD Unavailable [phone] Atul Garrido MD Unavailable [phone] Yamilet Bernal DO Unavailable [phone] Brandon Gutierrez MD Unavailable [phone] Brandon Roque MD Unavailable [phone] Tucker Evans Unavailable Unavailable Nolberto Uriostegui MD Unavailable + Louise Recio NP Primary Care Provider [phone] Encounter Details Date Type Department Care Team (Late st Contact Info) Description 08/21/2024 Results Follow-Up [facility] Primary Care at [address] [address] Bethany Islas NP [address] [place] [address] [address] [place] [address] Social History Tobacco Use Types [...] on file Legal Sex Female 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 Please relay if patient calls back T METAL ROOFER * Telephone Encounter - Louise Recio NP [...] to be seen or go to ER. T METAL ROOFER * Telephone Encounter - Yolis Grey MA [...] like a new referral for cardiology at [facility]. T METAL ROOFER * Result Encounter Note - Louise Recio NP - 08/23/2024 1:56 PM CST Urine culture negative, so no urinary tract infection either. T METAL ROOFER documented in this encounter Plan of Treatment Not on file documented as of this encounter Visit Diagnoses Not on filedocumented in this encounter Care Teams Entertainment & Media Correspondent Relationship Specialty Start Date End Date Louise Recio NP [address] [facility] [address] [place] [address] PCP - General Family Medicine 08/20/24 Bharath Witt MD [address] [facility] [address] [facility] [address] [place] [address] Referring Physician Vascular Surgery 12/04/17 Atul Garrido MD [address] [facility] [address] [facility] [address] [place] [address] Referring Physician Obstetrics and Gynecology 04/17/19 Yamilet Bernal DO [address] [place] [address] [address] BRENNA Gu[address] [facility] [address] [place] [address] Consulting Physician Otolaryngology 02/25/24 Brandon Gutierrez MD [address] [place] [address] [address] BRENNA Gu[address] [facility] [address] [place] [address] Consulting Physician Neurology 02/25/24 Brandon Roque MD [address] [facility] [address] [place] [address] Consulting Physician Cardiology 02/25/24 Tucker Evans Neuropsychology 02/25/24 Nolberto Uriostegui MD [address] [facility] [address] [place] [address] Referring Physician Gastroenterology 02/25/24 documented as of this encounter
--- OUTSIDE RECORDS SUMMARY | 2024-10-14 16:52 | XMS_ITS | Encounter Summary ---
Author Organization [facility] Address [address] [place] [address] Care Team Providers Care Enrober Tender Name Role Phone Reza Ozuna DO Unavailable [phone] Bharath Witt MD Unavailable [phone] Atul Garrido MD Unavailable [phone] Jane Felix MD Primary Care Provider Yamilet Bernal DO Unavailable [phone] Brandon Gutierrez MD Unavailable [phone] Brandon Roque MD Unavailable [phone] Tucker Evans Unavailable Unavailable Nolberto Uriostegui MD Unavailable + David Guy MD Primary Care Provider Jane Felix MD Primary Care Provider Jane Felix MD Primary Care Provider Louise Recio NP Primary Care Provider [phone] Encounter Details Date Type Department Care Team (Late st Contact Info) Description 01/28/[address] [address] El[address] Arriaza, [place] Social History Tobacco Use [...] on file 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 Gender Identity Female 09/08/2020 1:16 PM SULFIDE HEAD OPERATOR Sexual Orientation Not on file documented as of this encounter Plan of Treatment Not on file documented as of this encounter Visit Diagnoses Not on filedocumented in this encounter Care Teams Enrober Tender Relationship Specialty Start Date End Date Jane Felix MD [address] [facility] [address] [facility] [address] [place] [address] PCP - General Family Practice 07/09/22 04/09/24 David Guy MD [address] [place] [address] [address] CEJA A [facility] [address] [place] [address] PCP - General Family Medicine 04/10/24 08/02/24 Jane Felix MD [address] [facility] [address] [place] [address] PCP - General Family Medicine 08/03/24 08/03/24 Jane Felix MD [address] [facility] [address] [place] [address] PCP - General Family Medicine 08/19/24 08/19/24 Louise Recio LINEMAN A CLASS [address] [facility] [address] [place], [place] [address] PCP - General Family Medicine 08/20/24 Reza Ozuna DO Consulting Physician Gastroenterology 12/04/17 02/24/24 Bharath Witt MD [address] [facility] [address] [place] [address] Referring Physician Vascular Surgery 12/04/17 Atul Garrido MD [address] [facility] [address] [place] [address] Referring Physician Obstetrics and Gynecology 04/17/19 Yamilet Bernal DO [address] [facility] [address] Gu[address] [facility] [address] [place] [address] Consulting Physician Otolaryngology 02/25/24 Brandon Gutierrez MD [address] [place] [address] [address] BRENNA Gu[address] [facility] [address] [place] [address] Consulting Physician Neurology 02/25/24 Brandon Roque MD [address] [facility] [address] [place] [address] Consulting Physician Cardiology 02/25/24 Tucker Evans Neuropsychology 02/25/24 Nolberto Uriostegui MD [address] [facility] [address] [place] [address] Referring Physician Gastroenterology 02/25/24 documented as of this encounter
--- OUTSIDE RECORDS SUMMARY | 2024-10-14 16:52 | XMS_ITS | Referral Summary ---
Author Organization [facility] Building B Address [address] [place] [address] Care Team Providers Care Button Sewer Hand Name Role Phone Bharath Witt MD Unavailable [phone] Atul Garrido MD Unavailable [phone] Yamilet Bernal DO Unavailable [phone] Brandon Gutierrez MD Unavailable [phone] Brandon Roque MD Unavailable [phone] Tucker Evans Unavailable Unavailable Nolberto Uriostegui MD Unavailable + Louise Recio NP Primary Care Provider [phone] Encounters Date Type Department Care Team Description 08/27/2024 Telephone [facility] Primary Care at [address] [phone] Louise Recio NP 08/26/2024 Orders Only [facility] Primary Care at [address] [phone] Louise Recio NP Primary hypertension (Primary Dx); Palpitations 08/26/2024 1:20 PM EMPLOYMENT ASSISTANT Office Visit [facility] Orthopaedic Surgery [address] [place] [address] [address]nd [address] [place] [address] Rex Che MD Trigger middle finger of left hand (Primary Dx) 08/21/2024 Results Follow-Up [facility] Primary Care at [address] [phone] Bethany Islas NP 08/21/2024 2:22 PM EMPLOYMENT ASSISTANT - 08/21/2024 11:59 PM EMPLOYMENT ASSISTANT Hospital Encounter [address] [address] Right flank pain; Acute cystitis with hematuria Discharge Disposition: Discharge to home or self care 08/21/2024 8:04 AM EMPLOYMENT ASSISTANT - 08/21/2024 11:59 PM EMPLOYMENT ASSISTANT Hospital Encounter [address] [address] Right flank pain Discharge Disposition: Discharge to home or self care 08/20/[address] [address] Mira Hay, 08/20/2024 1:30 PM EMPLOYMENT ASSISTANT Office Visit [facility] Primary Care at [address] [phone] Louise Recio NP Mixed hyperlipidemia (Primary Dx); Primary hypertension; Right flank pain; Adjustment disorder with mixed anxiety and depressed mood; Memory loss; Acute cystitis with hematuria; Stress incontinence of urine 08/16/2024 11:30 AM EMPLOYMENT ASSISTANT Office Visit [facility] Care at [address] [place] [address] Yuridia Gillespie NP Acute cystitis with hematuria (Primary Dx) 08/06/2024 Orders Only [facility] Primary Care at [address] [phone] Bethany Islas NP 08/04/2024 7:45 AM EMPLOYMENT ASSISTANT - 08/04/2024 8:30 AM EMPLOYMENT ASSISTANT Surgery [facility] Operating Room at the Orthopedic [address] [address] Rex Che MD Left long finger trigger release 08/04/2024 7:35 AM EMPLOYMENT ASSISTANT Anesthesia Event [facility] Operating Room at the Orthopedic [address] [address] Kwame Scott MD Gangloff, Kerry Marie, NP 08/04/2024 5:54 AM EMPLOYMENT ASSISTANT - 08/04/2024 8:59 AM EMPLOYMENT ASSISTANT Hospital Encounter [facility] [id number] [place] [address] Rex Che MD Trigger middle finger of left hand (Primary Dx) Discharge Disposition: Discharge to home or self care 08/03/2024 1:11 PM EMPLOYMENT ASSISTANT - 08/03/2024 11:59 PM EMPLOYMENT ASSISTANT Hospital Encounter [address] [address] Encounter for screening examination for intermediate hyperglycemia and diabetes mellitus; Primary hypertension Discharge Disposition: Discharge to home or self care 08/03/2024 1:15 PM EMPLOYMENT ASSISTANT Lab [facility] Outpatient Lab at [address] [phone] Primary hypertension (Primary Dx) 08/03/2024 12:30 PM EMPLOYMENT ASSISTANT Office Visit [facility] Group Primary Care at [address] [address] Bethany Islas NP Primary hypertension (Primary Dx); Encounter for screening examination for intermediate hyperglycemia and diabetes mellitus 08/03/2024 Nurse Triage [facility] Primary Care at [address] [place] [phone] David Guy MD 07/22/2024 11:10 AM EMPLOYMENT ASSISTANT Office Visit [facility] Orthopaedic Surgery [address] [facility] 2nd Floor [address] [place] [address] Rex Che MD Trigger middle finger of [...] 08/20/2024 Assessment & Plan (08/20/2024 2:48 PM EMPLOYMENT ASSISTANT): Urine dip shows trace of blood. Otherwise negative. Will send urine for culture but I do not think this is a UTI. She has had no improvement with Bactrim. Could be muscular but we are going to rule out a kidney stone. Order CT renal stone protocol stat at [facility]. Trigger middle finger of left hand 07/23/2024 Chronic pain of both knees 02/25/2024 Overview (02/25/2024): Suspect knee OA. Trial of PT. Fall precautions recommended Memory loss 04/24/2023 Assessment & Plan (08/20/2024 1:55 PM EMPLOYMENT ASSISTANT): Has follow up with neurology in August. [...] 2:35 PM CDT): Hearing and Balance testing [facility] Audiology Imaging based on Hearing test results OAB (overactive bladder) 05/04/2021 Assessment & Plan (02/25/2024 5:37 PM CDT): Chronic. Struggles some despite oxybutynin. Continue prescription medication Assessment & Plan (07/12/2021 2:14 PM EMPLOYMENT ASSISTANT): Has he use pads daily so they [...] medicine Assessment & Plan (07/12/2021 2:14 PM EMPLOYMENT ASSISTANT): History of sleep apnea but no longer uses CPAP. Will refer back to Sleep Medicine IBS (irritable bowel syndrome) 04/18/2017 Assessment & Plan (12/25/2021 2:28 PM CDT): Hi fiuber diet Mixed hyperlipidemia 11/14/2013 Overview (10/04/2016): Combined hyperlipidemia Assessment & Plan (08/20/2024 2:46 PM EMPLOYMENT ASSISTANT): The 10-year ASCVD risk score (Agustin BLISS, [...] are stable, reviewed previous lipid levels in [facility]. Pharmacotherapy as ordered. Order for lipid panel was given today to be obtained. Pt voiced understanding of lab drawn and continuation of current medication regimen. Assessment & Plan (09/19/2020 9:46 AM CDT): Lipid abnormalities are stable, reviewed previous lipid levels in [facility]. Pharmacotherapy as ordered. Order for lipid panel was given today to be obtained. Pt voiced understanding of lab drawn and continuation of current medication regimen. Assessment & Plan (12/24/2019 8:59 PM CDT): Lipid abnormalities are stable. Pharmacotherapy not needed. Lipid level stable - Lipids will be reassessed in 1 year Assessment & Plan (06/22/2019 1:32 PM EMPLOYMENT ASSISTANT): Diet controlled. Last LDL 133. Will have her f/u in 6 months with repeat lipid panel and cmp Adjustment disorder with mixed anxiety and depre ssed mood 11/14/2013 Overview (10/04/2016): Adjustment reaction with anxiety and depression Assessment & Plan (08/20/2024 1:54 PM EMPLOYMENT ASSISTANT): Managed by psychiatry. Has been on abilify [...] HTN Assessment & Plan (08/20/2024 2:47 PM EMPLOYMENT ASSISTANT): Improved but not quite at goal. Will increase amlodipine to 10 mg once daily. She will send his home blood pressures. Follow up in 6 months Assessment & Plan (08/03/2024 1:08 PM EMPLOYMENT ASSISTANT): Initial BP elevated, repeat improved (still increased but better). EKG fine in office, labs ordered. Add in Amlodipine to 2.5 mg daily and continue Valsartan and Metoprolol. Home BP log x 1 week, follow up in 2 weeks to establish with Ramona Recio DNP (used to see her in [address]). ER precautions provided. Assessment & Plan (02/25/2024 [...] management Assessment & Plan (06/16/2021 9:24 AM EMPLOYMENT ASSISTANT): Discontinue hydrochlorothiazide. Discontinue lisinopril 20 mg. Will [...] months. Assessment & Plan (06/22/2019 1:31 PM EMPLOYMENT ASSISTANT): Hypertension is improving with treatment. Regular aerobic exercise. Continue current medications. Blood pressure will be reassessed 6 months. Urinary incontinence 11/14/2013 Overview (10/04/2016): Incontinence of urine Assessment & Plan (08/20/2024 2:49 PM EMPLOYMENT ASSISTANT): Stable. Continue oxybutynin Assessment & Plan (02/25/2024 [...] (08/10/2022): Added automatically from request for surgery [id number] Dizziness and giddiness 02/28/2022 02/2 Assessment & Plan (02/28/2022 2:33 PM CDT): Hearing and Balance testing [facility] Audiology Hypoglycemia 01/08/2022 02/25/2024 Assessment & Plan (01/08/2022 1:41 PM CDT): Having symptomatic episodes. We discussed lower carb meals. Will check hemoglobin A1c with labs today. Does have family history of diabetes Dysphagia 12/25/2021 01/08/2022 Assessment & Plan (12/25/2021 2:28 PM CDT): Post Gorge egd and dil Dysphagia 12/25/2021 08/20/2024 Overview (02/02/2022): Added automatically from request for surgery [id number] Assessment & Plan (02/25/2024 5:38 PM CDT): Intermittent episodes of dysphagia. Saw GI. Had EGD which may have had very subtle eosinophilic esophagitis. She will continue working with the specialists. She also has a history of gastroparesis Trigger middle finger of right hand 10/23/2021 01/08/2022 Overview (10/23/2021): Added automatically from request for surgery [id number] Chronic cough 07/12/2021 01/08/2022 Assessment & Plan (07/12/2021 2:15 PM EMPLOYMENT ASSISTANT): Encouraged her to follow back up with GI which she has scheduled in August at [facility] Morbid (severe) obesity due to excess calories 07/11/2021 01/08/2022 Assessment & Plan (07/12/2021 2:13 PM EMPLOYMENT ASSISTANT): BMI Follow-up includes: exercise counseling. ZHANG-inhibitor cough 06/16/2021 07/11/19 Assessment & Plan (06/16/2021 9:23 AM EMPLOYMENT ASSISTANT): will change to Arb Acute bronchitis 05/05/2021 [...] 06/22/2019 Assessment & Plan (05/04/2019 2:33 PM EMPLOYMENT ASSISTANT): Have eye exam Increase to 64 ounces [...] 06/22/2019 Assessment & Plan (07/07/2018 12:27 PM EMPLOYMENT ASSISTANT): Patient presents symptoms of feeling imbalance with [...] examination revealed normal Romberg, tandem Romberg and [place]-Hallpike maneuver. There was no signs of any cranial neuropathies or unilateral neurological deficits. Patient would benefit from an ENG, calorics, posturography and additional vestibular testing. We will get her scheduled. Possible need for MRI of the head with and without gadolinium. Diverticulitis 12/13/2017 01/27/2019 Nausea 12/04/2017 01/07/2023 Assessment & Plan (06/05/2022 2:39 PM EMPLOYMENT ASSISTANT): Continue the reglan and zofran. History of [...] on file Legal Sex Female 3:05 PM EMPLOYMENT ASSISTANT Gender Identity Female 09/08/2020 1:16 PM EMPLOYMENT ASSISTANT Sexual Orientation Not on file Last Filed Vital Signs Vital Sign Reading Time Taken Comments Blood Pressure 134/90 08/20/2024 1:30 PM EMPLOYMENT ASSISTANT Pulse 63 08/20/2024 1:30 PM EMPLOYMENT ASSISTANT Temperature 36.6 C (97.9 F) 08/20/2024 1:30 PM EMPLOYMENT ASSISTANT Respiratory Rate 18 08/20/2024 1:30 PM EMPLOYMENT ASSISTANT Oxygen Saturation 97% 08/20/2024 1:30 PM EMPLOYMENT ASSISTANT Inhaled Oxygen Concentration - - Weight 107.4 kg (236 lb 12.8 oz) 08/20/2024 1:30 PM EMPLOYMENT ASSISTANT Height 172.7 cm (5' 8 ) 08/20/2024 1:30 PM EMPLOYMENT ASSISTANT Body Mass Index 36.01 08/20/2024 1:30 PM EMPLOYMENT ASSISTANT Plan of Treatment Not on file Medical Devices Explanted Type Area Glass Production Machine Operator Device Identifier Shelf Expiration Date Model / Serial / Lot Other-Bladder Stimulator-08/30 Implanted:08/30 (Quantity not on file) Explanted:Qty: 1 on 09/05/2021 by Roger Gillespie MD at [facility] Other - see comments Pelvis [employer] 3058 / [id number] / Description:DEVICE: BLADDER STIMULATOR [employer] MODEL # 3058 SERIAL # [id number] CONTACT # 09-25-2013 NEEDS: TRANSMIT RECEIVE HEAD COIL Procedures Procedure Name Priority Date/Time Associated Diagnosis Comments URINE CULTURE Routine 08/21/2024 2:22 PM EMPLOYMENT ASSISTANT Right flank pain Acute cystitis with hematuria CT RENAL STONE Schedule DANYA, Read DANYA (Appt Today, Awaiting Results) 08/21/2024 8:18 AM EMPLOYMENT ASSISTANT Right flank pain POCT URINALYSIS DIPSTICK Routine 08/20/2024 2:15 PM EMPLOYMENT ASSISTANT Right flank pain POCT URINALYSIS DIPSTICK Routine 08/16/2024 11:31 AM EMPLOYMENT ASSISTANT Acute cystitis with hematuria RELEASE TRIGGER FINGER 08/04/2024 7:40 AM EMPLOYMENT ASSISTANT Trigger middle finger of left hand EGFR Routine 08/03/2024 1:11 PM EMPLOYMENT ASSISTANT Primary hypertension DIFFERENTIAL AUTO Routine 08/03/2024 1:1 1 PM EMPLOYMENT ASSISTANT Primary hypertension CBC WITH AUTO DIFFERENTIAL Routine 08/03/2024 1:11 PM EMPLOYMENT ASSISTANT Primary hypertension COMPREHENSIVE METABOLIC PANEL Routine 08/03/2024 1:11 PM EMPLOYMENT ASSISTANT Primary hypertension LIPID PANEL Routine 08/03/2024 1:11 PM EMPLOYMENT ASSISTANT Primary hypertension THYROID FUNCTION CASCADE Routine 08/03/2024 1:11 PM EMPLOYMENT ASSISTANT Primary hypertension HEMOGLOBIN A1C Routine 08/03/2024 1:11 PM EMPLOYMENT ASSISTANT Encounter for screening examination for intermediate hyperglycemia and diabetes mellitus ECG 12-LEAD Routine 08/03/2024 12:54 PM EMPLOYMENT ASSISTANT Primary hypertension HM PAP SMEAR Routine 02/27/2024 10:56 AM CDT HM MAMMOGRAPHY Routine 02/26/2024 10:11 AM CDT HM COLONOSCOPY Routine 01/10/2024 4:12 PM CDT HEPATITIS C ANTIBODY Routine 12/22/2019 2:20 PM CDT Encounter for hepatitis C screening test for low risk patient from Last 3 Months or Most Recently Relevant to Health Maintenance Results * Urine culture Urine, clean voided (08/21/2024 2:22 PM EMPLOYMENT ASSISTANT) Report Final Report: Less than 100,000 colonies/mL (clinically insignificant growth based on current clinical standards) Comment:Testing performed by : [facility], [address] [place]., [address] Organism (CLINICALLY INSIGNIFICANT GROWTH JASMYN Urine, clean voided 08/21/2024 2:22 PM EMPLOYMENT ASSISTANT 08/21/2024 6:07 PM EMPLOYMENT ASSISTANT Narrative JASMYN - 08/22/2024 8:19 PM EMPLOYMENT ASSISTANT Testing performed by [facility] Microbiology Laboratory ([phone]) Louise Recio NP LAB MICROBIOLOGY - GENERAL OR DERABLES Final Result JASMYN [address] Department of Laboratories [place], [place] [id number] * CT Renal Stone (08/21/2024 8:18 AM EMPLOYMENT ASSISTANT) Anatomical Region Laterality Modality Abdomen N/A Computed Tomogra phy 08/21/2024 1:1 0 PM EMPLOYMENT ASSISTANT Narrative 08/21/2024 1:38 PM EMPLOYMENT ASSISTANT EXAM DESCRIPTION: CT RENAL STONE REASON FOR [...] Cris Navarrete M.D. TW: TW Report ID: [id number] Reading Location: [id number] Procedure Note Cris Navarrete MD - 08/21/2024 [...] Cris Navarrete M.D. TW: TW Report ID: [id number] Reading Location: [id number] Louise Recio NP IMG CT PROCEDURES Final Resul t * (ABNORMAL) POCT urinalysis dipstick (08/20/2024 2:15 PM EMPLOYMENT ASSISTANT) Color, Urine, POC Yellow Clarity, ur, POC Clear Clear Glucose, ur, POC Negative Negative MG/DL Bilirubin, ur, POC Negative Negative, Small, Moderate, Large Ketones, ur, POC Negative Negative Specific [place], POC 1.015 1.003 - 1.030 Blood, ur, POC Trace(A) Negative pH, ur, POC 6.0 5.0 - 8.0 Protein, ur, POC Negative Negative Urobilinogen, urine, POC 0.2 0.2 - 1.0 mg/dL Nitrite, ur, POC Negative Negative Leukocytes, ur, POC Negative Negative Lot Number 0 Urine 08/20/2024 2:15 PM EMPLOYMENT ASSISTANT Louise Recio MEDICAL SCIENTIST POINT OF CARE TEST ORDERABLES Final Result * (ABNORMAL) POCT urinalysis dipstick (08/16/2024 11:31 AM EMPLOYMENT ASSISTANT) Color, Urine, POC Light Yellow Clarity, ur, POC Clear Clear Glucose, ur, POC Negative Negative MG/DL Bilirubin, ur, POC Negative Negative, Small, Moderate, Large Ketones, ur, POC Negative Negative Specific [place], POC 1.020 1.003 - 1.030 Blood, ur, POC Small(A) Negative pH, ur, POC 7.0 5.0 - 8.0 Protein, ur, POC 30.(A) Negative Urobilinogen, urine, POC 0.2 0.2 - 1.0 mg/dL Nitrite, ur, POC Negative Negative Leukocytes, ur, POC Trace(A) Negative Lot Number [id number] Urine 08/16/2024 11:3 1 AM EMPLOYMENT ASSISTANT Yuridia Gillespie MEDICAL SCIENTIST POINT OF CARE TEST ORDERABLES Final Result * eGFR (08/03/2024 1:11 PM EMPLOYMENT ASSISTANT) eGFR 63 >=60 mL/min/1. 73 m2 Comment: [...] last reviewed 2021. Blood 08/03/2024 1:11 PM EMPLOYMENT ASSISTANT 08/04/2024 12:03 AM EMPLOYMENT ASSISTANT us Bethany Islas NP LAB BLOOD ORDERABLES Final Resul t [facility] [address] [address] Department [place] [address] * Differential, auto (08/03/2024 1:11 PM EMPLOYMENT ASSISTANT) Neutrophil abs 3.2 1.5 - 6.5 K/cumm Imm gran abs 0.0 0.0 - 0.1 K/cumm [facility] Lymphocyte abs 1.9 0.8 - 3.3 K/cumm [facility] Monocyte abs 0.5 0.2 - 0.8 K/cumm [facility] Eosinophil abs 0.1 0.0 - 0.5 K/cumm [facility] Basophil abs 0.1 0.0 - 0.1 K/cumm [facility] Neutrophil pct 54.7 % [facility] Comment: Interpretive Data Percent cell count reference ranges are not reported, since discordance with absolute values may lead to misinterpretation of CBC data. Current Interpretive Data was last revised on 2017. Imm gran pct 0.3 % [facility] Comment: Interpretive Data Percent cell count reference ranges are not reported, since discordance with absolute values may lead to misinterpretation of CBC data. Current Interpretive Data was last revised on 2017. Lymphocyte pct 32.9 % [facility] Comment: Interpretive Data Percent cell count reference ranges are not reported, since discordance with absolute values may lead to misinterpretation of CBC data. Current Interpretive Data was last revised on 2017. Monocyte pct 8.9 % [facility] Comment: Interpretive Data Percent cell count reference ranges are not reported, since discordance with absolute values may lead to misinterpretation of CBC data. Current Interpretive Data was last revised on 2017. Eosinophil pct 2.0 % [facility] Comment: Interpretive Data Percent cell count [...] revised on 2017. Blood 08/03/2024 1:11 PM EMPLOYMENT ASSISTANT 08/03/2024 11:26 PM EMPLOYMENT ASSISTANT us Bethany Islas MEDICAL SCIENTIST LAB BLOOD ORDERABLES Final Resul t Performing Organization Address [facility] Co de Phone Number JASMYN [address] [address] [email or web address] [address] * Thyroid Function [place] (08/03/2024 1:11 PM EMPLOYMENT ASSISTANT) Pathologist [facility] TSH 1.37 0.30 - 4.20 mcIUnit/mL Blood 08/03/2024 1:11 PM EMPLOYMENT ASSISTANT 08/03/2024 11:26 PM EMPLOYMENT ASSISTANT us Bethany Islas MEDICAL SCIENTIST LAB BLOOD ORDERABLES Final Resul t Performing Organization Address [facility] de Phone Number JASMYN [address] Department [place], [place] [id number] * (ABNORMAL) CBC with auto differential (08/03/2024 1:11 PM EMPLOYMENT ASSISTANT) Pathologist [facility] WBC 5.9 3.8 - 9.9 K/cumm Hgb 12.5 11.9 - 15.5 g/dL [facility] Hct 39.2 35.6 - 45.5 % [facility] Plt 392 150 - 400 K/cumm [facility] MPV 9.4 9.1 - 12.3 fL [facility] RBC 4.32 3.90 - 5.20 M/cumm [facility] MCV 90.7 81.3 - 96.4 fL [facility] MCH 28.9 27.1 - 33.3 pg [facility] MCHC 31.9(L) 32.3 - 35.7 g/dL [facility] RDW CV 13.3 11.1 - 14.9 % [facility] RDW SD 44.3 35.7 - 48.1 fL [facility] NRBC abs 0.00 0.00 - 0.01 K/cumm JASMYN Blood 08/03/2024 1:11 PM EMPLOYMENT ASSISTANT 08/03/2024 11:26 PM EMPLOYMENT ASSISTANT Bethany Islas MEDICAL SCIENTIST LAB BLOOD ORDERABLES Final Resul t Performing Organization Address [facility] de Phone Number [facility] [address] [address] [facility] [email or web address] [address] * Hemoglobin A1c (08/03/2024 1:11 PM EMPLOYMENT ASSISTANT) Hgb A1C 5.4 4.0 - 5.6 % Estimated Average Glucose 108 mg/dL JASMYN Comment: The ADA recommends reporting an estimated Average Glucose (eAG) with all Hemoglobin A1c results using the equation derived from a study of 507 normal and diabetic adults. Minority populations were underrepresented and children were not included. (Diabetes Care 31:0412-3613, 2008). The eAG is not equivalent to a fasting glucose. Blood 08/03/2024 1:11 PM EMPLOYMENT ASSISTANT 08/03/2024 11:26 PM EMPLOYMENT ASSISTANT us Bethany Islas MEDICAL SCIENTIST LAB BLOOD ORDERABLES Final Resul t Performing Organization Address [facility] de Phone Number [facility] [address] [address] [facility] [email or web address] [address] * (ABNORMAL) Lipid panel (08/03/2024 1:11 PM EMPLOYMENT ASSISTANT) Cholesterol 218(H) 30 - 199 mg/dL Comment: [...] revised on 2024. Non-HDL Cholesterol 164 mg/dL [facility] Comment: Interpretive Data Ages < or [...] ratio 4 CERNER Blood 08/03/2024 1:11 PM EMPLOYMENT ASSISTANT 08/03/2024 11:26 PM EMPLOYMENT ASSISTANT us Bethany Islas NP LAB BLOOD ORDERABLES Final Resul t [facility] [address] [address] Department [place] [address] * Comprehensive metabolic panel (08/03/2024 1:11 PM EMPLOYMENT ASSISTANT) Sodium 137 135 - 145 mmol/L Potassium, pl 4.3 3.3 - 4.9 mmol/L CERNER Chloride 100 97 - 110 mmol/L CERNER CH CO2 25 22 - 32 mmol/L CERNER Anion gap 12 2 - 15 mmol/L [facility] BUN 13 6 - 25 mg/dL [facility] Creatinine 1.01 0.60 - 1.10 mg/dL [facility] Glucose 88 70 - 199 mg/dL [facility] Comment: Interpretive Data Fasting glucose >/= [...] Units/L CERNER CH Blood 08/03/2024 1:11 PM EMPLOYMENT ASSISTANT 08/03/2024 11:26 PM EMPLOYMENT ASSISTANT Result [facility] Bethany Islas NP LAB BLOOD ORDERABLES Final Resul t JASMYN [place]EL[place] [address] [address] Department of Laboratories [place] [phone] * ECG 12-LEAD (08/03/2024 12:54 PM EMPLOYMENT ASSISTANT) Narrative Bethany Islas NP - 08/03/2024 12:54 PM EMPLOYMENT ASSISTANT Bethany Islas NP 08/03/2024 12:55 PM ECG 12 lead Date/Time: 08/03/2024 12:54 PM Performed by: Bethany Islas NP Authorized by: Bethany Islas NP Rhythm: sinus rhythm Rate: normal QRS axis: normal Conduction: conduction normal ST Segments: ST segments normal T Waves: T waves normal Result [facility] Bethany Islas NP ECG ORDERABLES Edited Result [...] last revised on 2019. Testing performed by: [facility], [address] [place] [address]., [id number] Blood specimen (specimen) 12/22/2019 2:20 PM CDT 12/23/2019 9:46 AM CDT Louise Recio NP LAB MICROBIOLOGY - GENERAL OR DERABLES Final Result JASMYN [place] [facility]) 1 [facility] [place] [address] from Last 3 Months or Most Recently Relevant to Health Maintenance Insurance [employer] MEDICARE PPO [facility] [employer] MEDICARE PPO Advance Directives For more information, please contact: [phone] * Full Code (Latest Code Status on File) Date Activated Date Inactivated Comments 02/08/2022 11:09 AM 02/08/2022 5:49 PM * Full Code Date Activated Date Inactivated Comments 02/08/2022 11:09 AM 02/08/2022 11:09 AM Care Teams Button Sewer Hand Relationship Specialty Start Date End Date Louise Recio NP [address] [facility] [address] [place] [address] PCP - General Family Medicine 08/20/24 Bharath Witt MD [address] [place] [address] Referring Physician Vascular Surgery 12/04/17 Atul Garrido MD [address] [facility] [address] [facility] [address] [place], [place] [id number] Referring Physician Obstetrics and Gynecology 04/17/19 Yamilet Bernal DO [address] [place] [address] DR BRENNA Guerrier [facility] [address] [place] [address] Consulting Physician Otolaryngology 02/25/24 Brandon Gutierrez MD [address] [place] [address] DR BRENNA Guerrier [facility] [address] [place] [address] Consulting Physician Neurology 02/25/24 Brandon Roque MD [address] [place] [address] Consulting Physician Cardiology 02/25/24 Tucker Evans Neuropsychology 02/25/24 Nolberto Uriostegui MD [address] [place] [address] Referring Physician Gastroenterology 02/25/24
--- OUTSIDE RECORDS SUMMARY | 2024-10-14 16:52 | XMS_ITS | Clinical Summary ---
Author Organization [facility] Medical Office Building B Address [address] [place] [address] Care Team Providers Care Drilling Inspector Name Role Phone Bharath Witt MD Unavailable [phone] Atul Garrido MD Unavailable [phone] Yamilet Bernal DO Unavailable [phone] Brandon Gutierrez MD Unavailable [phone] Brandon Roque MD Unavailable [phone] Tucker Evans Unavailable Unavailable Nolberto Uriostegui MD Unavailable + Louise Recio NP Primary Care Provider [phone] Allergies No known active allergies Medications ARIPiprazole [...] 08/20/2024 Assessment & Plan (08/20/2024 2:48 PM RN TRAUMA): Urine dip shows trace of blood. Otherwise negative. Will send urine for culture but I do not think this is a UTI. She has had no improvement with Bactrim. Could be muscular but we are going to rule out a kidney stone. Order CT renal stone protocol stat at [facility]. Trigger middle finger of left hand 07/23/2024 Chronic pain of both knees 02/25/2024 Overview (02/25/2024): Suspect knee OA. Trial of PT. Fall precautions recommended Memory loss 04/24/2023 Assessment & Plan (08/20/2024 1:55 PM RN TRAUMA): Has follow up with neurology in August. [...] 2:35 PM CDT): Hearing and Balance testing [facility] Audiology Imaging based on Hearing test results OAB (overactive bladder) 05/04/2021 Assessment & Plan (02/25/2024 5:37 PM CDT): Chronic. Struggles some despite oxybutynin. Continue prescription medication Assessment & Plan (07/12/2021 2:14 PM RN TRAUMA): Has he use pads daily so they [...] medicine Assessment & Plan (07/12/2021 2:14 PM RN TRAUMA): History of sleep apnea but no longer uses CPAP. Will refer back to Sleep Medicine IBS (irritable bowel syndrome) 04/18/2017 Assessment & Plan (12/25/2021 2:28 PM CDT): Hi fiuber diet Mixed hyperlipidemia 11/14/2013 Overview (10/04/2016): Combined hyperlipidemia Assessment & Plan (08/20/2024 2:46 PM RN TRAUMA): The 10-year ASCVD risk score (Agustin BLISS, [...] are stable, reviewed previous lipid levels in [facility]. Pharmacotherapy as ordered. Order for lipid panel was given today to be obtained. Pt voiced understanding of lab drawn and continuation of current medication regimen. Assessment & Plan (09/19/2020 9:46 AM CDT): Lipid abnormalities are stable, reviewed previous lipid levels in [facility]. Pharmacotherapy as ordered. Order for lipid panel was given today to be obtained. Pt voiced understanding of lab drawn and continuation of current medication regimen. Assessment & Plan (12/24/2019 8:59 PM CDT): Lipid abnormalities are stable. Pharmacotherapy not needed. Lipid level stable - Lipids will be reassessed in 1 year Assessment & Plan (06/22/2019 1:32 PM RN TRAUMA): Diet controlled. Last LDL 133. Will have her f/u in 6 months with repeat lipid panel and cmp Adjustment disorder with mixed anxiety and depre ssed mood 11/14/2013 Overview (10/04/2016): Adjustment reaction with anxiety and depression Assessment & Plan (08/20/2024 1:54 PM RN TRAUMA): Managed by psychiatry. Has been on abilify [...] HTN Assessment & Plan (08/20/2024 2:47 PM RN TRAUMA): Improved but not quite at goal. Will increase amlodipine to 10 mg once daily. She will send his home blood pressures. Follow up in 6 months Assessment & Plan (08/03/2024 1:08 PM RN TRAUMA): Initial BP elevated, repeat improved (still increased but better). EKG fine in office, labs ordered. Add in Amlodipine to 2.5 mg daily and continue Valsartan and Metoprolol. Home BP log x 1 week, follow up in 2 weeks to establish with Ramona Recio DNP (used to see her in [place]). ER precautions provided. Assessment & Plan (02/25/2024 [...] management Assessment & Plan (06/16/2021 9:24 AM RN TRAUMA): Discontinue hydrochlorothiazide. Discontinue lisinopril 20 mg. Will [...] months. Assessment & Plan (06/22/2019 1:31 PM RN TRAUMA): Hypertension is improving with treatment. Regular aerobic exercise. Continue current medications. Blood pressure will be reassessed 6 months. Urinary incontinence 11/14/2013 Overview (10/04/2016): Incontinence of urine Assessment & Plan (08/20/2024 2:49 PM RN TRAUMA): Stable. Continue oxybutynin Assessment & Plan (02/25/2024 [...] (08/10/2022): Added automatically from request for surgery [id number] Dizziness and giddiness 02/28/2022 02/2 Assessment & Plan (02/28/2022 2:33 PM CDT): Hearing and Balance testing [facility] Audiology Hypoglycemia 01/08/2022 02/25/2024 Assessment & Plan (01/08/2022 1:41 PM CDT): Having symptomatic episodes. We discussed lower carb meals. Will check hemoglobin A1c with labs today. Does have family history of diabetes Dysphagia 12/25/2021 01/08/2022 Assessment & Plan (12/25/2021 2:28 PM CDT): Post Gorge egd and dil Dysphagia 12/25/2021 08/20/2024 Overview (02/02/2022): Added automatically from request for surgery [id number] Assessment & Plan (02/25/2024 5:38 PM CDT): Intermittent episodes of dysphagia. Saw GI. Had EGD which may have had very subtle eosinophilic esophagitis. She will continue working with the specialists. She also has a history of gastroparesis Trigger middle finger of right hand 10/23/2021 01/08/2022 Overview (10/23/2021): Added automatically from request for surgery [id number] Chronic cough 07/12/2021 01/08/2022 Assessment & Plan (07/12/2021 2:15 PM RN TRAUMA): Encouraged her to follow back up with GI which she has scheduled in August at [facility] Morbid (severe) obesity due to excess calories 07/11/2021 01/08/2022 Assessment & Plan (07/12/2021 2:13 PM RN TRAUMA): BMI Follow-up includes: exercise counseling. ZHANG-inhibitor cough 06/16/2021 07/11/19 Assessment & Plan (06/16/2021 9:23 AM RN TRAUMA): will change to Arb Acute bronchitis 05/05/2021 [...] 06/22/2019 Assessment & Plan (05/04/2019 2:33 PM RN TRAUMA): Have eye exam Increase to 64 ounces [...] 06/22/2019 Assessment & Plan (07/07/2018 12:27 PM RN TRAUMA): Patient presents symptoms of feeling imbalance with [...] examination revealed normal Romberg, tandem Romberg and Little Neck-Hallpike maneuver. There was no signs of any cranial neuropathies or unilateral neurological deficits. Patient would benefit from an ENG, calorics, posturography and additional vestibular testing. We will get her scheduled. Possible need for MRI of the head with and without gadolinium. Diverticulitis 12/13/2017 01/27/2019 Nausea 12/04/2017 01/07/2023 Assessment & Plan (06/05/2022 2:39 PM RN TRAUMA): Continue the reglan and zofran. History of [...] Department Care Team Description 08/27/[address] [facility] Primary Care at [address] [phone] Louise Recio NP 08/26/2024 1:20 PM RN TRAUMA Office Visit [facility] [address] [place] [address] 2nd Floor [address] [place] [phone] Rex Che MD Trigger middle finger of left hand (Primary Dx) 08/26/2024 Orders Only [facility] Primary Care at [address] [phone] Louise Recio NP Primary hypertension (Primary Dx); Palpitations 08/21/2024 2:22 PM RN TRAUMA - 08/21/2024 11:59 PM RN TRAUMA Hospital Encounter [address] [address] Right flank pain; Acute cystitis with hematuria Discharge Disposition: Discharge to home or self care 08/21/2024 8:04 AM RN TRAUMA - 08/21/2024 11:59 PM RN TRAUMA Hospital Encounter [facility] [address] [place] [address] Right flank pain Discharge Disposition: Discharge to home or self care 08/21/2024 Results Follow-Up [facility] Primary Care at [address] [phone] Bethany Islas NP 08/20/2024 1:30 PM RN TRAUMA Office Visit [facility] Primary Care at [address] [phone] Louise Recio NP Mixed hyperlipidemia (Primary Dx); Primary hypertension; Right flank pain; Adjustment disorder with mixed anxiety and depressed mood; Memory loss; Acute cystitis with hematuria; Stress incontinence of urine 08/20/2024 Telephone [facility] [address] [place] [address] Mira Hay, RT 08/16/2024 11:30 AM RN TRAUMA Office Visit [facility] Medical [facility] Care at [place] [address] [place] [phone] Yuridia Gillespie NP Acute cystitis with hematuria (Primary Dx) 08/06/2024 Orders Only [facility] Primary Care at [address] [phone] Bethany Islas NP 08/04/2024 7:45 AM RN TRAUMA - 08/04/2024 8:30 AM RN TRAUMA Surgery [facility] [address] [place] [address] Rex Che MD Left long finger trigger release 08/04/2024 7:35 AM RN TRAUMA Anesthesia Event [facility] [address] [place] [address] Kwame Scott MD Gangloff, Kerry Marie, NP 08/04/2024 5:54 AM RN TRAUMA - 08/04/2024 8:59 AM RN TRAUMA Hospital Encounter [facility] [address] [place] [address] Rex Che MD Trigger middle finger of left hand (Primary Dx) Discharge Disposition: Discharge to home or self care 08/03/2024 1:[address] Lab [facility] Medical [facility] Outpatient Lab at [address] [phone] Primary hypertension (Primary Dx) 08/03/2024 1:11 PM RN TRAUMA - 08/03/2024 11:59 PM RN TRAUMA Hospital Encounter [address] [address] Encounter for screening examination for intermediate hyperglycemia and diabetes mellitus; Primary hypertension Discharge Disposition: Discharge to home or self care 08/03/2024 12:30 PM RN TRAUMA Office Visit [facility] Primary Care at [address] [phone] Bethany Islas NP Primary hypertension (Primary Dx); Encounter for screening examination for intermediate hyperglycemia and diabetes mellitus 08/03/2024 Nurse Triage [facility] Primary Care at [address] [place] [phone] David Guy MD 07/22/2024 11:10 AM RN TRAUMA Office Visit [facility] [address] [facility] 2nd Floor [address] [place] [address] Rex Che MD Trigger middle finger of [...] Comments LAPAROSCOPIC CHOLECYSTECTOMY 07/01/1999 - 06/30/2000 lap [place] ELBOW SURGERY 07/01/1998 - 06/30/1999 right tennis [...] of R foot due to osteoarthritis Dr. Figueora PLANTAR FASCIA SURGERY 07/01/2019 - 06/30/2020 Right [...] 10/23/2021 Added automatically from request for surgery [id number] Dysphagia Anemia Arthritis History of diverticulitis 12/04/2017 [...] (Added by TW Conv) Bleeding Disorder Mother [place] Family his tory of bleeding disorder - (Added by TW Conv) Cancer Mother [place] Family history of malignant neoplasm - (Added by TW Conv) Hypertension Mother [place] Family history of hypertension - (Added by TW Conv) Prostate cancer Other Family histo ry of Cancer, prostate; Anesthesia problems Neg Hx Malig Hypertension Neg Hx [place] Hyperthermia Neg Hx Pseudochol deficiency Neg Hx Relation Name Status Comments Brother Rex Alive Father Alex Mother Faith Other Social History Tobacco Use Types Packs/Day [...] on file Legal Sex Female 3:05 PM RN TRAUMA Gender Identity Female 09/08/2020 1:16 PM RN TRAUMA Sexual Orientation Not on file Obstetrics History Last Filed Vital Signs Vital Sign Reading Time Taken Comments Blood Pressure 134/90 08/20/2024 1:30 PM RN TRAUMA Pulse 63 08/20/2024 1:30 PM RN TRAUMA Temperature 36.6 C (97.9 F) 08/20/2024 1:30 PM RN TRAUMA Respiratory Rate 18 08/20/2024 1:30 PM RN TRAUMA Oxygen Saturation 97% 08/20/2024 1:30 PM RN TRAUMA Inhaled Oxygen Concentration - - Weight 107.4 kg (236 lb 12.8 oz) 08/20/2024 1:30 PM RN TRAUMA Height 172.7 cm (5' 8 ) 08/20/2024 1:30 PM RN TRAUMA Body Mass Index 36.01 08/20/2024 1:30 PM RN TRAUMA Plan of Treatment Health Maintenance Due Date [...] this topic Medical Devices Explanted Type Area Craft Superintendent Device Identifier Shelf Expiration Date Model / Serial / Lot Other-Bladder Stimulator-08/30 Implanted:08/30 (Quantity not on file) Explanted:Qty: 1 on 09/05/2021 by Roger Gillespie MD at [facility] Other - see comments Pelvis [employer] 3058 / [id number] / Description:DEVICE: BLADDER STIMULATOR [employer] MODEL # 3058 SERIAL # [id number] CONTACT # 09-25-2013 NEEDS: TRANSMIT RECEIVE HEAD COIL Procedures Procedure Name Priority Date/Time Associated Diagnosis Comments URINE CULTURE Routine 08/21/2024 2:22 PM RN TRAUMA Right flank pain Acute cystitis with hematuria CT RENAL STONE Schedule DANYA, Read DANYA (Appt Today, Awaiting Results) 08/21/2024 8:18 AM RN TRAUMA Right flank pain POCT URINALYSIS DIPSTICK Routine 08/20/2024 2:15 PM RN TRAUMA Right flank pain POCT URINALYSIS DIPSTICK Routine 08/16/2024 11:31 AM RN TRAUMA Acute cystitis with hematuria RELEASE TRIGGER FINGER 08/04/2024 7:40 AM RN TRAUMA Trigger middle finger of left hand EGFR Routine 08/03/2024 1:11 PM RN TRAUMA Primary hypertension DIFFERENTIAL AUTO Routine 08/03/2024 1:1 1 PM RN TRAUMA Primary hypertension CBC WITH AUTO DIFFERENTIAL Routine 08/03/2024 1:11 PM RN TRAUMA Primary hypertension COMPREHENSIVE METABOLIC PANEL Routine 08/03/2024 1:11 PM RN TRAUMA Primary hypertension LIPID PANEL Routine 08/03/2024 1:11 PM RN TRAUMA Primary hypertension THYROID FUNCTION CASCADE Routine 08/03/2024 1:11 PM RN TRAUMA Primary hypertension HEMOGLOBIN A1C Routine 08/03/2024 1:11 PM RN TRAUMA Encounter for screening examination for intermediate hyperglycemia and diabetes mellitus ECG 12-LEAD Routine 08/03/2024 12:54 PM RN TRAUMA Primary hypertension HM PAP SMEAR Routine 02/27/2024 10:56 AM CDT HM MAMMOGRAPHY Routine 02/26/2024 10:11 AM CDT HM COLONOSCOPY Routine 01/10/2024 4:12 PM CDT HEPATITIS C ANTIBODY Routine 12/22/2019 2:20 PM CDT Encounter for hepatitis C screening test for low risk patient from Last 3 Months or Most Recently Relevant to Health Maintenance Results * Urine culture Urine, clean voided (08/21/2024 2:22 PM RN TRAUMA) Report Final Report: Less than 100,000 colonies/mL (clinically insignificant growth based on current clinical standards) Comment:Testing performed by : [facility], [address] [place]., [address] Organism (CLINICALLY INSIGNIFICANT GROWTH JASMYN FELIX Urine, clean voided 08/21/2024 2:22 PM RN TRAUMA 08/21/2024 6:07 PM RN TRAUMA Narrative JASMYN FELIX - 08/22/2024 8:19 PM RN TRAUMA Testing performed by [facility] ([phone]) Louise Recio NP LAB MICROBIOLOGY - GENERAL OR DERABLES Final Result JASMYN FELIX [address] [address] Department [place] [address] * CT Renal Stone (08/21/2024 8:18 AM RN TRAUMA) Anatomical Region Laterality Modality Abdomen N/A Computed Tomogra phy 08/21/2024 1:10 PM RN TRAUMA Narrative 08/21/2024 1:38 PM RN TRAUMA EXAM DESCRIPTION: CT RENAL STONE REASON FOR [...] Cris Navarrete M.D. TW: MERCEDES Report ID: [id number] Reading Location: [id number] Procedure Note Cris Navarrete MD - 08/21/2024 [...] Cris Navarrete M.D. TW: MERCEDES Report ID: [id number] Reading Location: [id number] Louise Recio NP IMG CT PROCEDURES Final Resul t * (ABNORMAL) POCT urinalysis dipstick (08/20/2024 2:15 PM RN TRAUMA) Color, Urine, POC Yellow Clarity, ur, POC Clear Clear Glucose, ur, POC Negative Negative MG/DL Bilirubin, ur, POC Negative Negative, Small, Moderate, Large Ketones, ur, POC Negative Negative Specific [place], POC 1.015 1.003 - 1.030 Blood, ur, POC Trace(A) Negative pH, ur, POC 6.0 5.0 - 8.0 Protein, ur, POC Negative Negative Urobilinogen, urine, POC 0.2 0.2 - 1.0 mg/dL Nitrite, ur, POC Negative Negative Leukocytes, ur, POC Negative Negative Lot Number 0 Urine 08/20/2024 2:15 PM RN TRAUMA Louise Recio REHAB DIRECTOR OCCUPATIONAL THERAPIST POINT OF CARE TEST ORDERABLES Final Result * (ABNORMAL) POCT urinalysis dipstick (08/16/2024 11:31 AM RN TRAUMA) Color, Urine, POC Light Yellow Clarity, ur, POC Clear Clear Glucose, ur, POC Negative Negative MG/DL Bilirubin, ur, POC Negative Negative, Small, Moderate, Large Ketones, ur, POC Negative Negative Specific [place], POC 1.020 1.003 - 1.030 Blood, ur, POC Small(A) Negative pH, ur, POC 7.0 5.0 - 8.0 Protein, ur, POC 30.(A) Negative Urobilinogen, urine, POC 0.2 0.2 - 1.0 mg/dL Nitrite, ur, POC Negative Negative Leukocytes, ur, POC Trace(A) Negative Lot Number [id number] Urine 08/16/2024 11:3 1 AM RN TRAUMA Yuridia Gillespie REHAB DIRECTOR OCCUPATIONAL THERAPIST POINT OF CARE TEST ORDERABLES Final Result * eGFR (08/03/2024 1:11 PM RN TRAUMA) eGFR 63 >=60 mL/min/1. 73 m2 Comment: [...] last reviewed 2021. Blood 08/03/2024 1:11 PM RN TRAUMA 08/04/2024 12:03 AM RN TRAUMA us Bethany Islas NP LAB BLOOD ORDERABLES Final Resul t [facility] [address] [address] Department [place] [address] * Differential, auto (08/03/2024 1:11 PM RN TRAUMA) Neutrophil abs 3.2 1.5 - 6.5 K/cumm Imm gran abs 0.0 0.0 - 0.1 K/cumm [facility] Lymphocyte abs 1.9 0.8 - 3.3 K/cumm [facility] Monocyte abs 0.5 0.2 - 0.8 K/cumm [facility] Eosinophil abs 0.1 0.0 - 0.5 K/cumm [facility] Basophil abs 0.1 0.0 - 0.1 K/cumm [facility] Neutrophil pct 54.7 % [facility] Comment: Interpretive Data Percent cell count reference ranges are not reported, since discordance with absolute values may lead to misinterpretation of CBC data. Current Interpretive Data was last revised on 2017. Imm gran pct 0.3 % [facility] Comment: Interpretive Data Percent cell count reference ranges are not reported, since discordance with absolute values may lead to misinterpretation of CBC data. Current Interpretive Data was last revised on 2017. Lymphocyte pct 32.9 % [facility] Comment: Interpretive Data Percent cell count reference ranges are not reported, since discordance with absolute values may lead to misinterpretation of CBC data. Current Interpretive Data was last revised on 2017. Monocyte pct 8.9 % [facility] Comment: Interpretive Data Percent cell count reference ranges are not reported, since discordance with absolute values may lead to misinterpretation of CBC data. Current Interpretive Data was last revised on 2017. Eosinophil pct 2.0 % [facility] Comment: Interpretive Data Percent cell count reference ranges are not reported, since discordance with absolute values may lead to misinterpretation of CBC data. Current Interpretive Data was last revised on 2017. Basophil pct 1.2 % [facility] Comment: Interpretive Data Percent cell count reference ranges are not reported, since discordance with absolute values may lead to misinterpretation of CBC data. Current Interpretive Data was last revised on 2017. Blood 08/03/2024 1:11 PM RN TRAUMA 08/03/2024 11:26 PM RN TRAUMA Bethany Islas REHAB DIRECTOR OCCUPATIONAL THERAPIST LAB BLOOD ORDERABLES Final Resul t Performing Organization Address [facility] de Phone Number [facility] [address] [address] [place] [address] * Thyroid Function [place] (08/03/2024 1:11 PM RN TRAUMA) Pathologist [facility] TSH 1.37 0.30 - 4.20 mcIUnit/mL Blood 08/03/2024 1:11 PM RN TRAUMA 08/03/2024 11:26 PM RN TRAUMA Bethany Islas REHAB DIRECTOR OCCUPATIONAL THERAPIST LAB BLOOD ORDERABLES Final Resul t Performing Organization Address [facility] de Phone Number [facility] [address] [address] Department [place] [address] * (ABNORMAL) CBC with auto differential (08/03/2024 1:11 PM RN TRAUMA) Pathologist [facility] WBC 5.9 3.8 - 9.9 K/cumm Hgb 12.5 11.9 - 15.5 g/dL [facility] Hct 39.2 35.6 - 45.5 % [facility] Plt 392 150 - 400 K/cumm [facility] MPV 9.4 9.1 - 12.3 fL [facility] RBC 4.32 3.90 - 5.20 M/cumm [facility] MCV 90.7 81.3 - 96.4 fL [facility] MCH 28.9 27.1 - 33.3 pg [facility] MCHC 31.9(L) 32.3 - 35.7 g/dL [facility] RDW CV 13.3 11.1 - 14.9 % [facility] RDW SD 44.3 35.7 - 48.1 fL [facility] NRBC abs 0.00 0.00 - 0.01 K/cumm [facility] Blood 08/03/2024 1:11 PM RN TRAUMA 08/03/2024 11:26 PM RN TRAUMA us Bethany Islas NP LAB BLOOD ORDERABLES Final Resul t Performing Organization Address [facility] de Phone Number GULSHAN[facility] FELIX [address] [address] [place] [address] * Hemoglobin A1c (08/03/2024 1:11 PM RN TRAUMA) Hgb A1C 5.4 4.0 - 5.6 % Estimated Average Glucose 108 mg/dL [facility] Comment: The ADA recommends reporting an estimated Average Glucose (eAG) with all Hemoglobin A1c results using the equation derived from a study of 507 normal and diabetic adults. Minority populations were underrepresented and children were not included. (Diabetes Care 31:6728-1324, 2008). The eAG is not equivalent to a fasting glucose. Blood 08/03/2024 1:11 PM RN TRAUMA 08/03/2024 11:26 PM RN TRAUMA us Bethany Islas NP LAB BLOOD ORDERABLES Final Resul t Performing Organization Address City/[facility] Co de Phone Number [facility] [address] [address] [facility] [place] [address] * (ABNORMAL) Lipid panel (08/03/2024 1:11 PM RN TRAUMA) Cholesterol 218(H) 30 - 199 mg/dL Comment: [...] 4 CERNER CH Blood 08/03/2024 1:11 PM RN TRAUMA 08/03/2024 11:26 PM RN TRAUMA us Bethany Islas NP LAB BLOOD ORDERABLES Final Resul t JASMYN [address] [address] Department [place] [address] * Comprehensive metabolic panel (08/03/2024 1:11 PM RN TRAUMA) Sodium 137 135 - 145 mmol/L Potassium, [...] Units/L CERNER CH Blood 08/03/2024 1:11 PM RN TRAUMA 08/03/2024 11:26 PM RN TRAUMA Bethany Islas NP LAB BLOOD ORDERABLES Final Resul t [facility] [address] [address] Department of Laboratories [place] [id number] * ECG 12-LEAD (08/03/2024 12:54 PM RN TRAUMA) Narrative Bethany Islas NP - 08/03/2024 12:54 PM RN TRAUMA Bethany Islas NP 08/03/2024 12:55 PM ECG [...] Hep C Ab Nonreactive Nonreactive [facility] ([place]) Comment: Interpretive Data Nonreactive: Antibodies to HCV [...] last revised on 2019. Testing performed by: [facility], [address] [place] [address]., [id number] Blood specimen (specimen) 12/22/2019 2:20 PM CDT 12/23/2019 9:46 AM CDT Louise Recio NP LAB MICROBIOLOGY - GENERAL OR DERABLES Final Result [facility] ([place]) 1 [facility] Department [place] [address] from Last 3 Months or Most Recently Relevant to Health Maintenance Insurance [facility] CHOICE MEDICARE PPO [facility] Advance Directives For more information, please contact: [phone] * Full Code (Latest Code Status on File) Date Activated Date Inactivated Comments 02/08/2022 11:09 AM 02/08/2022 5:49 PM * Full Code Date Activated Date Inactivated Comments 02/08/2022 11:09 AM 02/08/2022 11:09 AM Care Teams Drilling Inspector Relationship Specialty Start Date End Date Louise Recio NP [address] [facility] [address] [place] [address] PCP - General Family Medicine 08/20/24 Bharath Witt MD [address] [facility] [address] [facility] [address] [place] [address] Referring Physician Vascular Surgery 12/04/17 Atul Garrido MD [address] [place] [address] Referring Physician Obstetrics and Gynecology 04/17/19 Yamilet Bernal DO [address] [place] [address] DR BRENNA Guerrier [facility] [address] [place] [address] Consulting Physician Otolaryngology 02/25/24 Brandon Gutierrez MD [address] [place] [address] DR BRENNA Guerrier [facility] [address] [place] [address] Consulting Physician Neurology 02/25/24 Brandon Roque MD [address] [place] [address] Consulting Physician Cardiology 02/25/24 Tucker Evans Neuropsychology 02/25/24 Nolberto Uriostegui MD [address] [address] [place] [address] Referring Physician Gastroenterology 02/25/24
== END 2024-10-14 16:03 | disposition home or self-care (01) ==
PROVIDERS: PCP Family Medicine Sports Medicine; Visit Provider Nurse Practitioner Obstetrics & Gynecology
DX: N83.201 Unspecified ovarian cyst, right side (principal)
CPT/HCPCS: 76830; 76856

== ENCOUNTER 2025-01-12 10:37 | Outpatient (CLI) | payer MEDICARE, SELFPAY ==
--- OUTSIDE RECORDS SUMMARY | 2025-01-12 10:57 | XMS_ITS | Clinical Summary ---
Author Organization [facility] Address [address], [facility] [address] [place] [address] Phone Care Team Providers Care Business Systems Developer Name Role Phone Belen Kemp APRN, HAND BULLDOZER Unavailable [phone] Reza Ozuna DO Unavailable [phone] Louise Recio RISK ASSESSMENT ANALYST, HAND BULLDOZER Primary Care Provider Allergies No known active [...] Sex Assigned at Female 06/27/2023 7:46 PM [employer] Legal Sex Female 7:32 PM CDT Gender Identity Female 06/27/2023 7:46 PM [employer] Sexual Orientation Choose not to disclose 2022 7:46 PM [employer] Occupation Industry Job Start Date Job End Date [email or web address] Not on file Not on file Not [...] 1:55 PM CDT Height 172.7 cm (5' 8) 03/16/2021 1:55 PM CDT Body Mass Index 36.19 03/16/2021 1:55 PM CDT Plan of Treatment Health Maintenance Due Date Last Done Comments Hepatitis C Virus (HCV) Screening 1961 Mammogram 1961 Pap Smear 1982 Cervical Cancer Screening (CCS) 1991 HPV/Cotest 1991 Cologuard 2006 Pneumococcal Immunization (50+ years) (1 of 1 - PCV) 2011 Immunochemical Fecal Occult Blood 12/17/2015 12/16/2014 SARS-COV-2 Immunization ( season) 2024 06/12/2023, 03/15/2022, 05/30/2021, Additional history exists Colonoscopy 08/10/2024 08/10/2019, 01/30, 09/10/2011 Colorectal Cancer Screening 08/10/2024 Influenza Immunization (#1) 03/01/202505/31, 07/10/2022, 07/14/2021, Additional history exists Td Immunization Every 10 Years (Adults With 1 Tdap) 03/31/2027 03/31/2017 Respiratory Syncytial Virus (RSV) Immunization (Adult) (1 - 1-dose 75+ series) 2036 DTaP/Tdap/Td Immunization Discontinued 03/31/2017 Zoster Immunization Completed 09/09/2022, Hepatitis B Immunization Aged Out No longer eligible based on patient's age to complete this topic Human Papillomavirus (HPV) Immunization Aged Out No longer eligible based [...] Recently Relevant to Health Maintenance Results * COLONOSCOPY (08/10/2019) us Reza Ozuna DO PROCEDURE/MINOR SURGICAL ORDERA BLES Final Result * STOOL, OCCULT BLOOD, DIAGNOSTIC (12/16/2014) Stool specimen (specimen) STOOL SPECIMEN / Unknown Marsha Hyde MD BODY FLUIDS & STOOLS ORDERA BLES Final Result from Last 3 Months or Most Recently Relevant to Health Maintenance Insurance [employer] Care Teams Business Systems Developer Relationship Specialty Start Date End Date Louise Recio APRN, HAND BULLDOZER [address] [place] [address] [place] [place] [address] PCP - General Advanced Practice Nurse 03/21/21 Belen Kemp APRN, HAND BULLDOZER Nurse Practitioner Advanced Practice Nurse 12/29/15 Reza Ozuna DO Consulting Physician Gastroenterology 10/31/17
--- OUTSIDE RECORDS SUMMARY | 2025-01-12 10:57 | XMS_ITS | Clinical Summary ---
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 Role Phone Bharath Witt MD Unavailable [phone] Atul Garrido MD Unavailable [phone] Yamilet Bernal DO Unavailable [phone] Brandon Gutierrez MD Unavailable [phone] Brandon Roque MD Unavailable [phone] Tucker Evans Unavailable Unavailable Nolberto Uriostegui MD Unavailable + Louise Recio NP Primary Care Provider [phone] Allergies No known active allergies Medications ARIPiprazole (ABILIFY) 15 mg tabletIndication s:Depression Treatment Adjunct,depressi on Take 1 tablet (15 mg total) by mouth daily with lunch 1 Active SUMAtriptan (IMITREX) 100 mg tabletIndication s:Migraine Take one tabet po q2h prn as soon as feel headache is coming. No more than 2 tablets in 24 hours. 9 tablet 3 3 Active busPIRone (BUSPAR) 15 mg tabletIndication s:Generalized Anxiety Disorder Take 1 tablet (15 mg total) by mouth 2 (two) times a day 4 Active traZODone (DESYREL) 150 mg tabletIndication s:insomnia associated with depression Take 1 tablet (150 mg total) by mouth nightly 4 Active donepeziL (ARICEPT) 10 mg tablet Take half tablet by mouth once a day for two weeks, then one tablet once a day 30 tablet 5 4 Active oxyBUTYnin XL (DITROPAN-XL) 5 mg 24 hr tablet Take 1 tablet by mouth once daily 90 tablet 5 Active triamcinolone (KENALOG) 0.1 % creamIndications :Skin Inflammation Apply 1 g topically as needed for irritation 5 Active acetaminophen (TYLENOL) 500 mg tablet Take 2 tablets (1,000 mg total) by mouth every 6 (six) hours as needed for pain Active metoclopramide (REGLAN) 10 mg tablet 5 Active amLODIPine (NORVASC) 10 mg tablet Take 1 tablet (10 mg total) by mouth daily 90 tablet 1 5 Active Belsomra 15 mg tablet 5 Active metoprolol XL (TOPROL-XL) 25 mg extended release tablet Take 1 tablet (25 mg total) by mouth daily 90 tablet 3 5 11/20/19 26 Active Additional Information Patient not taking.Reported on 11/20/2024 valsartan (DIOVAN) 160 mg tabletIndication s:Primary hypertension Take 1 tablet (160 mg total) by mouth 2 (two) times a day 180 tablet 3 5 11/20/19 26 Active albuterol HFA (PROVENTIL HFA,VENTOLIN HFA,PROAIR HFA) 90 mcg/actuation inhaler INHALE 1 TO 2 PUFFS BY MOUTH EVERY 4 TO 6 HOURS NEEDED FOR SHORTNESS OF BREATH FOR WHEEZING 5 Active eszopiclone (LUNESTA) 1 mg tablet TAKE DIRECTED AT THE SLEEP LAB, IF NEEDED, AT THE START OF THE TEST. DO NOT TAKE AT HOME. 5 Active FLUoxetine (PROzac) solution 20 mg/5 mL TAKE 10 ML BY MOUTH IN THE MORNING 5 Active Active Problems Problem Noted Date Diagnosed Date Right flank pain 08/20/2024 Assessment & Plan (08/20/2024 2:48 PM AUDIT LEAD): Urine dip shows trace of blood. Otherwise negative. Will send urine for culture but I do not think this is a UTI. She has had no improvement with Bactrim. Could be muscular but we are going to rule out a kidney stone. Order CT renal stone protocol stat at [facility]. Trigger middle finger of left hand 07/23/2024 Chronic pain of both knees 02/25/2024 Overview (02/25/2024): Suspect knee OA. Trial of PT. Fall precautions recommended Memory loss 04/24/2023 Assessment & Plan (08/20/2024 1:55 PM AUDIT LEAD): Has follow up with neurology in August. [...] 2:35 PM CDT): Hearing and Balance testing [facility] Imaging based on Hearing test results OAB (overactive bladder) 05/04/2021 Assessment & Plan (02/25/2024 5:37 PM CDT): Chronic. Struggles some despite oxybutynin. Continue prescription medication Assessment & Plan (07/12/2021 2:14 PM AUDIT LEAD): Has he use pads daily so they [...] medicine Assessment & Plan (07/12/2021 2:14 PM AUDIT LEAD): History of sleep apnea but no longer uses CPAP. Will refer back to Sleep Medicine IBS (irritable bowel syndrome) 04/18/2017 Assessment & Plan (12/25/2021 2:28 PM CDT): Hi fiuber diet Mixed hyperlipidemia 11/14/2013 Overview (10/04/2016): Combined hyperlipidemia Assessment & Plan (08/20/2024 2:46 PM AUDIT LEAD): The 10-year ASCVD risk score (Agustin BLISS, [...] stable, reviewed previous lipid levels in [place]. Pharmacotherapy as ordered. Order for lipid panel was given today to be obtained. Pt voiced understanding of lab drawn and continuation of current medication regimen. Assessment & Plan (09/19/2020 9:46 AM CDT): Lipid abnormalities are stable, reviewed previous lipid levels in [place]. Pharmacotherapy as ordered. Order for lipid panel was given today to be obtained. Pt voiced understanding of lab drawn and continuation of current medication regimen. Assessment & Plan (12/24/2019 8:59 PM CDT): Lipid abnormalities are stable. Pharmacotherapy not needed. Lipid level stable - Lipids will be reassessed in 1 year Assessment & Plan (06/22/2019 1:32 PM AUDIT LEAD): Diet controlled. Last LDL 133. Will have her f/u in 6 months with repeat lipid panel and cmp Adjustment disorder with mixed anxiety and depre ssed mood 11/14/2013 Overview (10/04/2016): Adjustment reaction with anxiety and depression Assessment & Plan (08/20/2024 1:54 PM AUDIT LEAD): Managed by psychiatry. Has been on abilify [...] HTN Assessment & Plan (08/20/2024 2:47 PM AUDIT LEAD): Improved but not quite at goal. Will increase amlodipine to 10 mg once daily. She will send his home blood pressures. Follow up in 6 months Assessment & Plan (08/03/2024 1:08 PM AUDIT LEAD): Initial BP elevated, repeat improved (still increased but better). EKG fine in office, labs ordered. Add in Amlodipine to 2.5 mg daily and continue Valsartan and Metoprolol. Home BP log x 1 week, follow up in 2 weeks to establish with Ramona Recio DNP (used to see her in [place]). ER precautions provided. Assessment & Plan (02/25/2024 [...] management Assessment & Plan (06/16/2021 9:24 AM AUDIT LEAD): Discontinue hydrochlorothiazide. Discontinue lisinopril 20 mg. Will [...] months. Assessment & Plan (06/22/2019 1:31 PM AUDIT LEAD): Hypertension is improving with treatment. Regular aerobic exercise. Continue current medications. Blood pressure will be reassessed 6 months. Urinary incontinence 11/14/2013 Overview (10/04/2016): Incontinence of urine Assessment & Plan (08/20/2024 2:49 PM AUDIT LEAD): Stable. Continue oxybutynin Assessment & Plan (02/25/2024 [...] (08/10/2022): Added automatically from request for surgery [id number] Dizziness and giddiness 02/28/202208/02 Assessment & Plan (02/28/2022 2:33 PM CDT): Hearing and Balance testing [facility] Hypoglycemia 01/08/2022 02/25/2024 Assessment & Plan (01/08/2022 1:41 PM CDT): Having symptomatic episodes. We discussed lower carb meals. Will check hemoglobin A1c with labs today. Does have family history of diabetes Dysphagia 12/25/2021 01/08/2022 Assessment & Plan (12/25/2021 2:28 PM CDT): Post Gorge egd and dil Dysphagia 12/25/2021 08/20/2024 Overview (02/02/2022): Added automatically from request for surgery [id number] Assessment & Plan (02/25/2024 5:38 PM CDT): Intermittent episodes of dysphagia. Saw GI. Had EGD which may have had very subtle eosinophilic esophagitis. She will continue working with the specialists. She also has a history of gastroparesis Trigger middle finger of right hand 10/23/2021 01/08/2022 Overview (10/23/2021): Added automatically from request for surgery [id number] Chronic cough 07/12/2021 01/08/2022 Assessment & Plan (07/12/2021 2:15 PM AUDIT LEAD): Encouraged her to follow back up with GI which she has scheduled in August at [facility] Morbid (severe) obesity due to excess calories 07/11/2021 01/08/2022 Assessment & Plan (07/12/2021 2:13 PM AUDIT LEAD): BMI Follow-up includes: exercise counseling. ZHANG-inhibitor cough 06/16/2021 07/11/19 Assessment & Plan (06/16/2021 9:23 AM AUDIT LEAD): will change to Arb Acute bronchitis 05/05/2021 [...] 06/22/2019 Assessment & Plan (05/04/2019 2:33 PM AUDIT LEAD): Have eye exam Increase to 64 ounces [...] 06/22/2019 Assessment & Plan (07/07/2018 12:27 PM AUDIT LEAD): Patient presents symptoms of feeling imbalance with [...] examination revealed normal Romberg, tandem Romberg and [place]-Hallpike maneuver. There was no signs of any cranial neuropathies or unilateral neurological deficits. Patient would benefit from an ENG, calorics, posturography and additional vestibular testing. We will get her scheduled. Possible need for MRI of the head with and without gadolinium. Diverticulitis 12/13/2017 01/27/2019 Nausea 12/04/2017 01/07/2023 Assessment & Plan (06/05/2022 2:39 PM AUDIT LEAD): Continue the reglan and zofran. History of [...] Encounters Date Type Department Care Team Description 01/07/2025 Orders Only [place] [facility] at [address] [place] [id number] Modesta Tejada NP SOB (shortness of breath) (Primary Dx) 12/14/2024 Results Follow-Up [place] [facility] [address] [facility] [address] [place] [address] Modesta Tejada NP NM MPI SPECT (Rest and/or Stress) Multiple Studies, MCT Mobile Cardiac Telemetry Event Monitor 12/11/2024 10:22 AM CDT - 12/11/2024 11:59 PM CDT Hospital Encounter [address] [address] Discharge Disposition: Discharge to home or self care 12/11/2024 9:00 AM CDT - 12/11/2024 11:59 PM CDT Hospital Encounter [address] [address] Discharge Disposition: Discharge to home or self care 12/11/2024 8:10 AM CDT - 12/11/2024 11:59 PM CDT Hospital Encounter [facility] [address] [place] [address] Chest pain, unspecified type; SOB (shortness of breath); Abnormal EKG Discharge Disposition: Discharge to home or self care 12/11/2024 8:05 AM CDT - 12/11/2024 11:59 PM CDT Hospital Encounter [facility] [address] [place] [address] Chest pain, unspecified type; SOB (shortness of breath); Abnormal EKG Discharge Disposition: Discharge to home or self care 11/30/2024 11:17 AM CDT - 11/30/2024 11:59 PM CDT Hospital Encounter [facility] [address] [place] [address] Palpitations Discharge Disposition: Discharge to home or self care 11/24/2024 Telephone [place] [facility] at [address] [address] Modesta Tejada NP 11/20/2024 11:45 AM CDT Office Visit [facility] [address] [facility] [address] [place] [address] Brandon Gutierrez MD Chronic migraine without aura without status migrainosus, not intractable (Primary Dx); Memory loss 11/19/2024 10:00 AM CDT Office Visit [place] at [address] [address] Modesta Tejada NP PVC's (premature ventricular contractions) (Primary Dx); Primary hypertension; CAMILLE on CPAP; Mixed hyperlipidemia; Chest pain, unspecified type; PVC (premature ventricular contraction); SOB (shortness of breath); Abnormal EKG; Dyslipidemia; Palpitations 11/18/2024 Telephone [place] at [address] [phone] Franny Martinez MA from Last 3 Months Immunizations Immunization Administration [...] 10/23/2021 Added automatically from request for surgery [id number] Dysphagia Anemia Arthritis History of diverticulitis 12/04/2017 [...] - (Added by TW Conv) Arthritis Mother Weikert Family history of arthritis - (Added by TW Conv) Bleeding Disorder Mother Weikert Family his tory of bleeding disorder - (Added by TW Conv) Cancer Mother Weikert Family history of malignant neoplasm - (Added by TW Conv) Hypertension Mother Weikert Family history of hypertension - (Added by TW Conv) Prostate cancer Other Family histo ry of Cancer, prostate; Anesthesia problems Neg Hx Malig Hypertension Neg Hx Malig Hyperthermia Neg Hx Pseudochol deficiency Neg Hx Relation Name Status Comments Brother Rex Alive Father Alex Mother Weikert Other Social History Tobacco Use Types Packs/Day [...] on file Legal Sex Female 3:05 PM AUDIT LEAD Gender Identity Female 09/08/2020 1:16 PM AUDIT LEAD Sexual Orientation Not on file Obstetrics History Last Filed Vital Signs Vital Sign Reading Time Taken Comments Blood Pressure 152/98 11/20/2024 12:02 PM CDT Pulse 59 11/20/2024 12:02 PM CDT Temperature 36.6 C (97.9 F) 08/20/2024 1:30 PM AUDIT LEAD Respiratory Rate 18 11/19/2024 9:47 AM CDT Oxygen Saturation 99% 11/20/2024 12:02 PM CDT Inhaled Oxygen Concentration - - Weight 110.7 kg (244 lb) 11/20/2024 12:02 PM CDT Height 172.7 cm (5' 8) 11/20/2024 12:02 PM CDT Body Mass Index 37.1 11/20/2024 12:02 PM CDT Plan of Treatment Health Maintenance Due Date Last Done Comments Depression Screening 02/24/2025 02/25/2024, 02/25/2024, 01/07/2023, Additional history exists Regular Well Visit/Exam 18-64 02/24/2025 02/25/2024, 01/07/2023, 12/24/2019 Breast Cancer Screening-Mammogram 02/25/2025 02/26/2024, 01/30/2024, 09/18/2022, Additional history exists Cervical Cancer Screening 02/26/20252023, 08/12/2023, 03/18/2019 Influenza Vaccine (#1) 2025 , 06/12/2023, 06/12/2023, Additional history exists DTaP/Tdap/Td Vaccine (2 - Td or Tdap) [...] Completed 05/08/2024, , 03/15/2022, Additional history exists Pneumococcal vaccine <65 Aged Out No longer eligible based on patient's age to complete this topic Medical Devices Explanted 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 Device 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 Shelf Expiration Date Model / Serial / Lot Other-Bladder Stimulator-08/30 Implanted:08/30 (Quantity not on file) Explanted:Qty: 1 on 09/05/2021 by Roger Gillespie MD at [facility] Other - see comments Pelvis [employer] 3058 / [id number] / Description:DEVICE: BLADDER STIMULATOR [employer] MODEL # 3058 SERIAL # [id number] CONTACT # 09-25-2013 NEEDS: TRANSMIT RECEIVE HEAD COIL Procedures Procedure Name Priority Date/Time Associated Diagnosis Comments STRESS TEST FOR DUAL READ Schedule Routine, Read Routine (OP Routine) 12/11/2024 10:23 AM CDT Chest pain, unspecified type SOB (shortness of breath) Abnormal EKG NM MPI SPECT (REST AND/OR STRESS) MULTIPLE STUDIES Schedule Routine, Read Routine (OP Routine) 12/11/2024 10:23 AM CDT Chest pain, unspecified type SOB (shortness of breath) Abnormal EKG MCT - MOBILE CARDIAC TELEMETRY EVENT MONITOR Routine 11/30/2024 11:21 AM CDT Palpitations PAP SMEAR Routine 02/27/2024 10:56 AM CDT MAMMOGRAPHY Routine 02/26/2024 10:11 AM CDT COLONOSCOPY Routine 01/10/2024 4:12 PM CDT HEPATITIS C ANTIBODY Routine 12/22/2019 2:20 PM CDT Encounter for hepatitis C screening test for low risk patient from Last 3 Months or Most Recently Relevant to Health Maintenance Results * NM MPI SPECT (Rest and/or Stress) Multiple Studies (12/11/2024 10:23 AM CDT) Anatomical Region Laterality Modality Body N/A Nuclear Medicine 12/11/2024 9:05 AM CDT Narrative 12/11/2024 3:06 PM CDT [address] [place] [address] Lexiscan Report Patient Name: DAVID HAYWOOD J : 1960 Study Date: 12/11/2024 9:05:44 AM Gender: F Tech: Ref Provider: MODESTA TEJADA Height(Cm): BSA: Weight(Kg): Order Provider: MODESTA TEJADA PROCEDURES: Pharmacologic SPECT Report.: Myocardial perfusion imaging with Sestamibi SPECT at rest and post regadenoson (Lexiscan) infusion. INDICATIONS: R07.9 Chest pain, unspecified, R06.02 Shortness of breath, and R94.31 Abnormal electrocardiogram (ECG) (EKG). FINDINGS: Procedure Data: Sestamibi injected at rest was 10.9 millicuries Sestamibi injected at peak exercise was 32.3 millicuries Predicted Maximal HR 157 bpm Perfusion: Normal perfusion imaging. LV Function: Left ventricular ejection fraction is 78 %. CONCLUSIONS: 1. Myocardial Perfusion: Probably normal rest and stress images. 2. Anterior wall breast attenuation artifact. No ischemia noted. 3. Left ventricle: Normal size and systolic function (visually confirmed EF >50%). Electronically Signed By: Michelle Sanders MD 12/11/2024 3:05:42 PM CDT Procedure Note Michelle Sanders MD - 12/11/2024 [place] [address] Singular Report Patient Name: DAVID HAYWOOD J : 1960 Study Date: 12/11/2024 9:05:44 AM Gender: F Tech: Ref Provider: MODESTA TEJADA Height(Cm): BSA: Weight(Kg): Order Provider: MODESTA TEJADA PROCEDURES: Pharmacologic SPECT Report.: Myocardial perfusion imaging with Sestamibi SPECT at rest and postregadenoson (Lexiscan) infusion. INDICATIONS: R07.9 Chest pain, unspecified, R06.02 Shortness of breath, and R94.31Abnormal electrocardiogram (ECG) (EKG). FINDINGS: Procedure Data: Sestamibi injected at rest was 10.9 millicuries Sestamibi injected at peak exercise was 32.3 millicuries Predicted Maximal HR 157 bpm Perfusion: Normal perfusion imaging. LV Function: Left ventricular ejection fraction is 78 %. CONCLUSIONS: 1. Myocardial Perfusion: Probably normal rest and stress images. 2. Anterior wall breast attenuation artifact. No ischemia noted. 3. Left ventricle: Normal size and systolic function (visually confirmedEF >50%). Electronically Signed By: Michelle Sanders MD 12/11/2024 3:05:42 PM CDT Modesta Tejada NP IMG [place] PROCEDURES Final Resu lt * Stress Test for Myocardial Perfusion (12/11/2024 10:23 AM CDT) Anatomical Region Laterality Modality Nuclear Medicine 12/11/2024 8:30 AM CDT Narrative 12/11/2024 10:13 AM CDT [address] [address] Lexiscan Report Patient Name: DAVID HAYWOOD J : 1960 Study Date: 12/11/2024 8:30:00 AM Gender: F Tech: matthieu Mckeon Provider: MODESTA TEJADA Height(Cm): 173 BSA: 3.42 Weight(Kg): 244 Heart Rate: 133 Order Provider: MODESTA TEJADA PROCEDURES: Pharmacologic SPECT Report.: Myocardial perfusion imaging with Sestamibi SPECT at rest and post regadenoson (Lexiscan) infusion. INDICATIONS: R07.9 Chest pain, unspecified, R06.02 Shortness of breath, and R94.31 Abnormal electrocardiogram (ECG) (EKG). FINDINGS: Procedure Data: Resting HR 64 bpm Peak HR: 92 bpm Predicted Maximal HR 157 bpm Target HR: 133 bpm Percent Max Predicted HR Achieved: 58.60 % Baseline BP: 178/86 mmHg Peak BP: 187/84 mmHg Exercise Time: 00:10 Medications: Free Text. Performed By: Supervising Physician: The Supervising Physician is karime mccurdy. Reason for Termination: Lexiscan protocol complete. Resting ECG: Normal sinus rhythm at 65 beats per minute, normal axis. Post Pharm ECG: No diagnostic ST changes. Arrhythmia: Rare PVCs. Cardiac Symptoms With Stress: Symptoms with stress were None. Exam Interpreted: Read by . CONCLUSIONS: 1. Negative Lexiscan pharmacologic stress test for chest pain or EKG changes. 2. Nuclear images are pending and they will be reported separately. Electronically Signed By: Dr Karime Mccurdy 12/11/2024 10:12:16 AM CDT Procedure Note Karime Mccurdy MD - 12/11/[address] [address] Movidiusiscan Report Patient Name: DAVID HAYWOOD J : 1960 Study Date: 12/11/2024 8:30:00 AM Gender: F Tech: matthieu ramirez Ref Provider: MODESTA TEJADA Height(Cm): 173 BSA: 3.42 Weight(Kg): 244 Heart Rate: 133 Order Provider: MODESTA TEJADA PROCEDURES: Pharmacologic SPECT Report.: Myocardial perfusion imaging with Sestamibi SPECT at rest and postregadenoson (Lexiscan) infusion. INDICATIONS: R07.9 Chest pain, unspecified, R06.02 Shortness of breath, and R94.31Abnormal electrocardiogram (ECG) (EKG). FINDINGS: Procedure Data: Resting HR 64 bpm Peak HR: 92 bpm Predicted Maximal HR 157 bpm Target HR: 133 bpm Percent Max Predicted HR Achieved: 58.60 % Baseline BP: 178/86 mmHg Peak BP: 187/84 mmHg Exercise Time: 00:10 Medications: Free Text. Performed By: Supervising Physician: The Supervising Physician is karime mccurdy. Reason for Termination: Lexiscan protocol complete. Resting ECG: Normal sinus rhythm at 65 beats per minute, normal axis. Post Pharm ECG: No diagnostic ST changes. Arrhythmia: Rare PVCs. Cardiac Symptoms With Stress: Symptoms with stress were None. Exam Interpreted: Read by . CONCLUSIONS: 1. Negative Lexiscan pharmacologic stress test for chest pain or EKGchanges. 2. Nuclear images are pending and they will be reported separately. Electronically Signed By: Dr Karime Mccurdy 12/11/2024 10:12:16 AM CDT us Modesta Tejada NP CV STRESS PROCEDURES Final R esult * MCT Mobile Cardiac Telemetry Event Monitor (11/30/2024 11:21 AM CDT) Anatomical Region Laterality Modality Electrocardiogra phy 12/13/2024 11:5 9 PM CDT Narrative 12/16/2024 2:40 PM CDT [address] [place] [address] EVENT MONITOR Patient Name: DAVID HAYWOOD J : 1960 Study Date: 12/13/2024 11:59:00 PM Gender: F Tech: Ref Provider: MODESTA TEJADA Height(Cm): BSA: Weight(Kg): Order Provider: MODESTA TEJADA PROCEDURES: Event Report: Event Monitor Report. INDICATIONS: R00.2 Palpitations. FINDINGS: CONCLUSIONS: 1. Predominant rhythm is normal sinus rhythm with a minimum heart rate of 41 beats per minute in sinus and a maximum heart rate of 150 beats per minute during a short run of nonsustained V-tach as will be described below. Average heart rate 64 beats per minute. Heart rate was controlled 55% of the time and was slow 45% of the time. Total monitoring time of 12 days 14 hours 38 minutes. 2. Heart rate and rate variability is appropriate. 3. No prolonged pauses. 4. Rare PACs with 599 PACs corresponding to less than 1% of total beats. 5. Rare PVCs with 2,175 PVCs corresponding to less than 1% of total beats. 6. There were 3 patient activated events with no symptoms and all noted to be in sinus rhythm ranging in heart rate from 65-82 beats per minute with no significant findings. 7. There was 1 auto triggered event and it was associated with an asymptomatic 13 beat run of nonsustained V-tach at 150 beats per minute. Electronically Signed By: Dr Karime Mccurdy 12/16/2024 1:40:06 PM CDT Procedure Note Karime Mccurdy MD - 12/16/[address] [place] [address] EVENT MONITOR Patient Name: DAVID HAYWOOD J : 1960 Study Date: 12/13/2024 11:59:00 PM Gender: F Tech: Ref Provider: MODESTA TEJADA Height(Cm): BSA: Weight(Kg): Order Provider: MODESTA TEJADA PROCEDURES: Event Report: Event Monitor Report. INDICATIONS: R00.2 Palpitations. FINDINGS: CONCLUSIONS: 1. Predominant rhythm is normal sinus rhythm with a minimum heart rate of41 beats per minute in sinus and a maximum heart rate of 150 beats per minute during ashort run of nonsustained V-tach as will be described below. Average heart rate 64 beats per minute. Heart rate was controlled 55% of the time and was slow 45% of the time. Total monitoring time of 12 days 14 hours 38 minutes. 2. Heart rate and rate variability is appropriate. 3. No prolonged pauses. 4. Rare PACs with 599 PACs corresponding to less than 1% of total beats. 5. Rare PVCs with 2,175 PVCs corresponding to less than 1% of totalbeats. 6. There were 3 patient activated events with no symptoms and all noted noemi in sinus rhythm ranging in heart rate from 65-82 beats per minute with nosignificant findings. 7. There was 1 auto triggered event and it was associated with anasymptomatic 13 beat run of nonsustained V-tach at 150 beats per minute. Electronically Signed By: Dr Karime Mccurdy 12/16/2024 1:40:06 PM CDT Result [facility] Modesta Tejada NP CV CARDIAC SERVICES PROCEDUR ES Final Result * PAP SMEAR (02/27/2024 10:56 AM CDT) SCRIBED Pap test n Historical Provider HEALTH MAINTENANCE Final Result * MAMMOGRAPHY (02/26/2024 10:11 AM CDT) Mammography Normal Result [facility] Historical Provider HEALTH MAINTENANCE Final Result * COLONOSCOPY (01/10/2024 4:12 PM CDT) Scribed Colonoscopy Normal Nolberto Slaughter MD HEALTH MAINTENANCE [...] last revised on 2019. Testing performed by: [facility], [address] [place] [address]., [id number] Blood specimen (specimen) 12/22/2019 2:20 PM CDT 12/23/2019 9:46 AM CDT Louise Recio NP LAB MICROBIOLOGY - GENERAL OR DERABLES Final Result JASMYN HATCH (PHANI) 1 [facility] Department [place] [address] from Last 3 Months or Most Recently Relevant to Health Maintenance Insurance [employer] MEDIC[employer] PPO [facility] [employer] MEDICARE PPO Advance Directives For more information, please contact: [phone] * Full Code (Latest Code Status on File) Date Activated Date Inactivated Comments 02/08/2022 11:09 AM 02/08/2022 5:49 PM * Full Code Date Activated Date Inactivated Comments 02/08/2022 11:09 AM 02/08/2022 11:09 AM 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 Relationship Specialty Start Date End Date Louise Recio NP [address] [place] [address] PCP - General Family Medicine 08/20/24 Bharath Witt MD [address] [facility] [address] [place] [address] Referring Physician Vascular Surgery 12/04/17 Atul Garrido MD [address] [facility] [address] [place] [address] Referring Physician Obstetrics and Gynecology 04/17/19 Yamilet Bernal DO [address] [place] [address] DR BRENNA Guerrier [facility] [address] [place] [address] Consulting Physician Otolaryngology 02/25/24 Brandon Gutierrez MD [address] [place] [address] DR BRENNA Guerrier [facility] [address] [place] [address] Consulting Physician Neurology 02/25/24 Brandon Roque MD [address] [facility] [address] [place] [address] Consulting Physician Cardiology 02/25/24 Tucker Evans Neuropsychology 02/25/24 Nolberto Uriostegui MD [address] [facility] [address] [place] [address] Referring Physician Gastroenterology 02/25/24
--- OUTSIDE RECORDS SUMMARY | 2025-01-12 10:57 | XMS_ITS | Clinical Summary ---
Author Organization [facility] Address [address] [facility] [place] [address] Care Team Providers Care Chief Diversity Officer Name Role Phone Unavailable Primary Care Provider Unavailabl e Source Comments [facility],non-owned Affiliates and Associated Physician Practices is amultiple site organization consisting of ambulatory clinics and hospital sitesin [place], [place], [place] and [place]. This disclosure is being madepursuant to the Care Everywhere program and may not contain all information available regarding this patient. Last updated 18.[facility] Allergies No known active allergies Medications * [...] 9:57 AM CDT Height 171.5 cm (5' 7.5) 04/18/2017 9:57 AM CDT Body Mass Index [...] - COLON CA SCREENING 1961 MAMMOGRAM 1961 HIV SCREENING 1976 DTAP/TDAP/TD VACCINES (1 - Tdap) 1980 PAP SMEAR 1982 PNEUMOCOCCAL VACCINE 50+ (1 of 1 - PCV) 2011 ZOSTER VACCINE (1 of 2) 2011 SCREENING FOR DIABETES 04/18/2020 04/18/2017, 2016 LIPID TESTING 04/18/2022 04/18/2017 COVID-19 VACCINE ( season) 2024 05/10/2021, 09/13/2020, 08/16/2020 DEPRESSION SCREENING 07/01/2024 INFLUENZA VACCINE (#1) 2025 , 07/10/2022, 07/14/2021, Additional history exists Respiratory Syncytial [...] CDT 04/18/2017 Narrative Resulting Agency Comment [facility] [address] [facility] [id number] Anoop Romero MD LAB - CHEMISTRY ORDERABLE S Final Result Performing Organization Address City/[facility]/ZIP Co de Phone Number [facility] ACCOUNT BILL [address] [place] [address] * (ABNORMAL) LIPID PROFILE (04/18/2017 12:24 PM [...] CDT 04/18/2017 Narrative Resulting Agency Comment [facility] [address] [facility] [id number] Anoop Romero MD LAB - CHEMISTRY ORDERABLE S Final Result Performing Organization Address City/[facility] de Phone Number [facility] ACCOUNT BILL [address] [place] [address] from Last 3 Months or Most Recently Relevant to Health Maintenance Insurance [facility] * Guarantor: KORTNEY HAYWOOD Account Type Relation to Patient Date of Phone Billing Address Personal/Family [address] [place] [address] [facility] SELF PAY NO INSURANCE Member Subscriber Plan / Payer (Ef fective for All Dates) Name:Kortney Haywood Member ID:Not on file Relation to Subscriber:Not on file Name:KORTNEY HAYWOOD Subscriber ID:Not on file Address: [address] [place] [address] Payer ID:Not on file Group ID:Not on file Type:Self Pay Address: [place], [place] * Guarantor: KORTNEY HAYWOOD Account Type Relation to Patient Date of Phone Billing Address Personal/Family [address] [place] [address] [facility] SELF PAY NO INSURANCE Member Subscriber Plan / Payer (Ef fective for All Dates) Name:Kortney Haywood Member ID:Not on file Relation to Subscriber:Not on file Name:KORTNEY HAYWOOD Subscriber ID:Not on file (Home) Address: [address] [place] [address] Payer ID:Not on file Group ID:Not on file Type:Self Pay Address: [place], [place] * Guarantor: KORTNEY HAYWOOD Account Type Relation to Patient Date of Phone Billing Address Personal/Family [address] [place] [address] [facility] SELF PAY NO INSURANCE Member Subscriber Plan / Payer (Ef fective for All Dates) Name:Kortney Haywood Member ID:Not on file Relation to Subscriber:Not on file Name:KORTNEY HAYWOOD Subscriber ID:Not on file (Home) Address: [address] [place] [address] Payer ID:Not on file Group ID:Not on file Type:Self Pay Address: [place], [place]
--- OUTSIDE RECORDS SUMMARY | 2025-01-12 10:57 | XMS_ITS | Encounter Summary ---
Author Organization [facility] Address [address] [place] [address] Phone Care Team Providers Care Recruitment Intern Name Role Phone Belen Kemp APRN, TOWER EXCAVATOR OPERATOR Unavailable [phone] Reza Ozuna DO Unavailable [phone] Danna Tran TOOL PUSHER Primary Care Provi doug Louise Recio APRN, TOWER EXCAVATOR OPERATOR Primary Care Provider Reason for Visit * Reason Comments Medication Refill Encounter Details Date Type Department Care Team (Late st Contact Info) Description 01/02/2021 Refill [facility] - Gastroenterology [facility] [address] [place] [id number] Reza Ozuna, [address] [place] [address] Medication Refill Social History Tobacco Use Types Packs/Day Years Used Date Smoking Tobacco: Former Cigarettes 0.5 2 0 08/30/1993 - 08/31/1995 Smokeless Tobacco: Never Alcohol Use Standard Drinks/Week Comments Yes 1 (1 standard drink = 0.6 oz pur e alcohol) occasionally Comments No Sex and Gender Information Value Date Recorded Sex Assigned at Female 06/27/2023 7:46 PM WIPING CLOTH CUTTER Legal Sex Female 7:32 PM CDT Gender Identity Female 06/27/2023 7:46 PM WIPING CLOTH CUTTER Sexual Orientation Choose not to disclose 2022 7:46 PM WIPING CLOTH CUTTER Occupation Industry Job Start Date Job End [...] on filedocumented in this encounter Care Teams Recruitment Intern Relationship Specialty Start Date End Date Danna Tran NP [address] [place] [address] [address] [place] [address] PCP - General Advanced Practice Nurse 08/20/19 Louise Recio, REPAIR TECHNICIAN, TOWER EXCAVATOR OPERATOR [address] [place] [address] [address] [place] [address] PCP - General Advanced Practice Nurse 03/21/21 Belen Kemp, REPAIR TECHNICIAN, TOWER EXCAVATOR OPERATOR Nurse Practitioner Advanced Practice Nurse 12/29/15 Reza Ozuna DO Consulting Physician Gastroenterology 10/31/17 documented as of this encounter
--- OUTSIDE RECORDS SUMMARY | 2025-01-12 10:57 | XMS_ITS | Encounter Summary ---
Author Organization [facility] Address [address] [place] [address] Care Team Providers Care Senior Engineering Technician Name Role Phone Reza Ozuna DO Unavailable [phone] Bharath Witt MD Unavailable [phone] Atul Garrido MD Unavailable [phone] Jane Felix MD Primary Care Provider Yamilet Bernal DO Unavailable [phone] Brandon Gutierrez MD Unavailable [phone] Brandon Roque MD Unavailable [phone] Tucker Evans Unavailable Unavailable Nolberto Uriostegui MD Unavailable + David Guy MD Primary Care Provider Jane Felix MD Primary Care Provider Jane Felix MD Primary Care Provider Louise Recio NP Primary Care Provider [phone] Encounter Details Date Type Department Care Team (Late st Contact Info) Description 01/28/[address] [address] Elida Arriaza, [place] Social History Tobacco Use [...] on file Legal Sex Female 3:05 PM FAMILY LAW LEGAL ASSISTANT Gender Identity Female 09/08/2020 1:16 PM FAMILY LAW LEGAL ASSISTANT Sexual Orientation Not on file documented as of this encounter Plan of Treatment Not on file documented as of this encounter Visit Diagnoses Not on filedocumented in this encounter Care Teams Senior Engineering Technician Relationship Specialty Start Date End Date Jane Felix MD [address] [place] [address] PCP - General Family Practice 07/09/22 04/09/24 David Guy MD [address] [place] [address] PCP - General Family Medicine 04/10/24 08/02/24 Jane Felix MD [address] [place] [address] PCP - General Family Medicine 08/03/24 08/03/24 Jane Felix MD [address] [facility] [address] [facility] 204 [place] [address] PCP - General Family Medicine 08/19/24 08/19/24 Louise Recio ORDER SCHEDULE CLERK [address] [facility] [address] [place] [address] PCP - General Family Medicine 08/20/24 Reza Ozuna DO Consulting Physician Gastroenterology 12/04/17 02/24/24 Bharath Witt MD [address] [place] [address] [address] [facility] [address] [place] [address] Referring Physician Vascular Surgery 12/04/17 tAul Garrido MD [address] [place] [address] [address] [facility] 105 [place] [address] Referring Physician Obstetrics and Gynecology 04/17/19 Yamilet Bernal DO [address] [facility] [address] BRENNA Guerrier [facility] [address] [place] [address] Consulting Physician Otolaryngology 02/25/24 Brandon Gutierrez MD [address] [facility] [address] BRENNA Guerrier [facility] [address] [place] [address] Consulting Physician Neurology 02/25/24 Brandon Roque MD [address] [facility] [address] [facility] [address] [place] [address] Consulting Physician Cardiology 02/25/24 Tucker Evans Neuropsychology 02/25/24 Nolberto Uriostegui MD [address] [place] [address] Referring Physician Gastroenterology 02/25/24 documented as of this encounter
--- OUTSIDE RECORDS SUMMARY | 2025-01-12 10:57 | XMS_ITS | Encounter Summary ---
Author Organization [facility] Address [address] [place] [address] Care Team Providers Care Hemotherapist Name Role Phone Bharath Witt MD Unavailable [phone] Atul Garrido MD Unavailable [phone] Yamilet Bernal DO Unavailable [phone] Brandon Gutierrez MD Unavailable [phone] Brandon Roque MD Unavailable Tucker Evans Unavailable Unavailable Nolberto Uriostegui MD Unavailable + Louise Recio NP Primary Care Provider [phone] Encounter Details Date Type Department Care Team (Late st Contact Info) Description 12/14/2024 Results Follow-Up [place] Family Law Attorney [address] [place] [phone] Almas Tejada NP [address] [facility] [address] [place] [address] [place] MPI SPECT (Rest and/or Stress) Multiple Studies, MCT Mobile Cardiac Telemetry Event Monitor Social History Tobacco Use Types Packs/Day Years [...] on file Legal Sex Female 3:05 PM ASSEMBLER CHASSIS Gender Identity Female 09/08/2020 1:16 PM ASSEMBLER CHASSIS Sexual Orientation Not on file documented as of this encounter Plan of Treatment Not on file documented as of this encounter Visit Diagnoses Not on filedocumented in this encounter Care Teams Hemotherapist Relationship Specialty Start Date End Date Louise Recio NP [address] [facility] [address] [place] [address] PCP - General Family Medicine 08/20/24 Bharath Witt MD [address] [facility] [address] [facility] [address] [place] [address] Referring Physician Vascular Surgery 12/04/17 Atul Garrido MD [address] [facility] [address] [facility] [address] [place] [address] Referring Physician Obstetrics and Gynecology 04/17/19 Yamilet Bernal DO [address] [place] [address] DR CEJA [address] [facility] [address] [place] [address] Consulting Physician Otolaryngology 02/25/24 Brandon Gutierrez MD [address] [place] [address] DR CEJA [address] [facility] [address] [place] [address] Consulting Physician Neurology 02/25/24 Brandon Roque MD [address] [facility] [address] [place], [place] [address] Consulting Physician Cardiology 02/25/24 Tucker Evans Neuropsychology 02/25/24 Nolberto Uriostegui MD [address] [facility] 204 [place] [address] Referring Physician Gastroenterology 02/25/24 documented as of this encounter
--- OUTSIDE RECORDS SUMMARY | 2025-01-12 10:57 | XMS_ITS | Referral Summary ---
Author Organization [facility] Medical Office Building B Address [address] [place] [address] Care Team Providers Care Filling And Stapling Machine Operator Name Role Phone Bharath Witt MD Unavailable [phone] Atul Garrido MD Unavailable [phone] Yamilet Bernal DO Unavailable [phone] Brandon Gutierrez MD Unavailable [phone] Brandon Roque MD Unavailable [phone] Tucker Evans Unavailable Unavailable Nolberto Uriostegui MD Unavailable + Louise Recio NP Primary Care Provider [phone] Encounters Date Type Department Care Team Description 01/07/2025 Orders Only [place] Attendant at [facility] [address] [facility] [address] [place] [id number] Modesta Tejada NP SOB (shortness of breath) (Primary Dx) 12/14/2024 Results Follow-Up [place] Attendant [address] [facility] [address] [place] [address] Modesta Tejada NP [place] MPI SPECT (Rest and/or Stress) Multiple Studies, [facility] Mobile Cardiac Telemetry Event Monitor 12/11/2024 10:22 AM CDT - 12/11/2024 11:59 PM CDT Hospital Encounter [facility] [address] [place] [id number] Discharge Disposition: Discharge to home or self care 12/11/2024 8:10 AM CDT - 12/11/2024 11:59 PM CDT Hospital Encounter [facility] [address] [place] [address] Chest pain, unspecified type; SOB (shortness of breath); Abnormal EKG Discharge Disposition: Discharge to home or self care 12/11/2024 9:00 AM CDT - 12/11/2024 11:59 PM CDT Hospital Encounter [address] [address] Discharge Disposition: Discharge to home or self care 12/11/2024 8:05 AM CDT - 12/11/2024 11:59 PM CDT Hospital Encounter [address] [address] Chest pain, unspecified type; SOB (shortness of breath); Abnormal EKG Discharge Disposition: Discharge to home or self care 11/30/2024 11:17 AM CDT - 11/30/2024 11:59 PM CDT Hospital Encounter [facility] [address] [place] [address] Palpitations Discharge Disposition: Discharge to home or self care 11/24/2024 Telephone [place] Attendant at [address] [place] [address] Modesta Tejada NP 11/20/2024 11:45 AM CDT Office Visit [facility] [address] [facility] [address] [place] [address] Brandon Gutierrez MD Chronic migraine without aura without status migrainosus, not intractable (Primary Dx); Memory loss 11/19/2024 10:00 AM CDT Office Visit [place] Attendant at [address] [place] [address] Modesta Tejada NP PVC's (premature ventricular contractions) (Primary Dx); Primary hypertension; CAMILLE on CPAP; Mixed hyperlipidemia; Chest pain, unspecified type; PVC (premature ventricular contraction); SOB (shortness of breath); Abnormal EKG; Dyslipidemia; Palpitations 11/18/2024 Telephone [place] Attendant at [address] [place] [phone] Franyn Martinez MA from Last 3 Months Allergies No known [...] 08/20/2024 Assessment & Plan (08/20/2024 2:48 PM TRANSCRIPTION): Urine dip shows trace of blood. Otherwise negative. Will send urine for culture but I do not think this is a UTI. She has had no improvement with Bactrim. Could be muscular but we are going to rule out a kidney stone. Order CT renal stone protocol stat at [facility]. Trigger middle finger of left hand 07/23/2024 Chronic pain of both knees 02/25/2024 Overview (02/25/2024): Suspect knee OA. Trial of PT. Fall precautions recommended Memory loss 04/24/2023 Assessment & Plan (08/20/2024 1:55 PM TRANSCRIPTION): Has follow up with neurology in August. [...] 2:35 PM CDT): Hearing and Balance testing [facility] Imaging based on Hearing test results OAB (overactive bladder) 05/04/2021 Assessment & Plan (02/25/2024 5:37 PM CDT): Chronic. Struggles some despite oxybutynin. Continue prescription medication Assessment & Plan (07/12/2021 2:14 PM TRANSCRIPTION): Has he use pads daily so they [...] medicine Assessment & Plan (07/12/2021 2:14 PM TRANSCRIPTION): History of sleep apnea but no longer uses CPAP. Will refer back to Sleep Medicine IBS (irritable bowel syndrome) 04/18/2017 Assessment & Plan (12/25/2021 2:28 PM CDT): Hi fiuber diet Mixed hyperlipidemia 11/14/2013 Overview (10/04/2016): Combined hyperlipidemia Assessment & Plan (08/20/2024 2:46 PM TRANSCRIPTION): The 10-year ASCVD risk score (Agustin BLISS, [...] are stable, reviewed previous lipid levels in [facility]. Pharmacotherapy as ordered. Order for lipid panel was given today to be obtained. Pt voiced understanding of lab drawn and continuation of current medication regimen. Assessment & Plan (09/19/2020 9:46 AM CDT): Lipid abnormalities are stable, reviewed previous lipid levels in [facility]. Pharmacotherapy as ordered. Order for lipid panel was given today to be obtained. Pt voiced understanding of lab drawn and continuation of current medication regimen. Assessment & Plan (12/24/2019 8:59 PM CDT): Lipid abnormalities are stable. Pharmacotherapy not needed. Lipid level stable - Lipids will be reassessed in 1 year Assessment & Plan (06/22/2019 1:32 PM TRANSCRIPTION): Diet controlled. Last LDL 133. Will have her f/u in 6 months with repeat lipid panel and cmp Adjustment disorder with mixed anxiety and depre ssed mood 11/14/2013 Overview (10/04/2016): Adjustment reaction with anxiety and depression Assessment & Plan (08/20/2024 1:54 PM TRANSCRIPTION): Managed by psychiatry. Has been on abilify [...] HTN Assessment & Plan (08/20/2024 2:47 PM TRANSCRIPTION): Improved but not quite at goal. Will increase amlodipine to 10 mg once daily. She will send his home blood pressures. Follow up in 6 months Assessment & Plan (08/03/2024 1:08 PM TRANSCRIPTION): Initial BP elevated, repeat improved (still increased but better). EKG fine in office, labs ordered. Add in Amlodipine to 2.5 mg daily and continue Valsartan and Metoprolol. Home BP log x 1 week, follow up in 2 weeks to establish with Ramona Recio DNP (used to see her in [place]). ER precautions provided. Assessment & Plan (02/25/2024 [...] management Assessment & Plan (06/16/2021 9:24 AM TRANSCRIPTION): Discontinue hydrochlorothiazide. Discontinue lisinopril 20 mg. Will [...] months. Assessment & Plan (06/22/2019 1:31 PM TRANSCRIPTION): Hypertension is improving with treatment. Regular aerobic exercise. Continue current medications. Blood pressure will be reassessed 6 months. Urinary incontinence 11/14/2013 Overview (10/04/2016): Incontinence of urine Assessment & Plan (08/20/2024 2:49 PM TRANSCRIPTION): Stable. Continue oxybutynin Assessment & Plan (02/25/2024 [...] (08/10/2022): Added automatically from request for surgery [id number] Dizziness and giddiness 02/28/202208/02 Assessment & Plan (02/28/2022 2:33 PM CDT): Hearing and Balance testing [facility] Hypoglycemia 01/08/2022 02/25/2024 Assessment & Plan (01/08/2022 1:41 PM CDT): Having symptomatic episodes. We discussed lower carb meals. Will check hemoglobin A1c with labs today. Does have family history of diabetes Dysphagia 12/25/2021 01/08/2022 Assessment & Plan (12/25/2021 2:28 PM CDT): Post Gorge egd and dil Dysphagia 12/25/2021 08/20/2024 Overview (02/02/2022): Added automatically from request for surgery [id number] Assessment & Plan (02/25/2024 5:38 PM CDT): Intermittent episodes of dysphagia. Saw GI. Had EGD which may have had very subtle eosinophilic esophagitis. She will continue working with the specialists. She also has a history of gastroparesis Trigger middle finger of right hand 10/23/2021 01/08/2022 Overview (10/23/2021): Added automatically from request for surgery [id number] Chronic cough 07/12/2021 01/08/2022 Assessment & Plan (07/12/2021 2:15 PM TRANSCRIPTION): Encouraged her to follow back up with GI which she has scheduled in August at [facility] Morbid (severe) obesity due to excess calories 07/11/2021 01/08/2022 Assessment & Plan (07/12/2021 2:13 PM TRANSCRIPTION): BMI Follow-up includes: exercise counseling. ZHANG-inhibitor cough 06/16/2021 07/11/19 Assessment & Plan (06/16/2021 9:23 AM TRANSCRIPTION): will change to Arb Acute bronchitis 05/05/2021 [...] 06/22/2019 Assessment & Plan (05/04/2019 2:33 PM TRANSCRIPTION): Have eye exam Increase to 64 ounces [...] 06/22/2019 Assessment & Plan (07/07/2018 12:27 PM TRANSCRIPTION): Patient presents symptoms of feeling imbalance with [...] examination revealed normal Romberg, tandem Romberg and Gowrie-Hallpike maneuver. There was no signs of any cranial neuropathies or unilateral neurological deficits. Patient would benefit from an ENG, calorics, posturography and additional vestibular testing. We will get her scheduled. Possible need for MRI of the head with and without gadolinium. Diverticulitis 12/13/2017 01/27/2019 Nausea 12/04/2017 01/07/2023 Assessment & Plan (06/05/2022 2:39 PM TRANSCRIPTION): Continue the reglan and jianan. History of diverticulitis 12/04/2017 Overview (12/04/2017): Chronic [...] on file Legal Sex Female 3:05 PM TRANSCRIPTION Gender Identity Female 09/08/2020 1:16 PM TRANSCRIPTION Sexual Orientation Not on file Last Filed Vital Signs Vital Sign Reading Time Taken Comments Blood Pressure 152/98 11/20/2024 12:02 PM CDT Pulse 59 11/20/2024 12:02 PM CDT Temperature 36.6 C (97.9 F) 08/20/2024 1:30 PM TRANSCRIPTION Respiratory Rate 18 11/19/2024 9:47 AM CDT Oxygen Saturation 99% 11/20/2024 12:02 PM CDT Inhaled Oxygen Concentration - - Weight 110.7 kg (244 lb) 11/20/2024 12:02 PM CDT Height 172.7 cm (5' 8) 11/20/2024 12:02 PM CDT Body Mass Index 37.1 11/20/2024 12:02 PM CDT Plan of Treatment Not on file Medical Devices Explanted Type Area Tea Blender Device Identifier Shelf Expiration Date Model / Serial / Lot Other-Bladder Stimulator-08/30 Implanted:08/30 (Quantity not on file) Explanted:Qty: 1 on 09/05/2021 by Roger Gillespie MD at [facility] Other - see comments Pelvis [employer] 3058 / [id number] / Description:DEVICE: BLADDER STIMULATOR [employer] MODEL # 3058 SERIAL # [id number] CONTACT # 09-25-2013 NEEDS: TRANSMIT RECEIVE HEAD [...] AM CDT Narrative 12/11/2024 3:06 [place] [address] [employer] [employer] Report Patient Name: DAVID HAYWOOD J : [...] Procedure Note Michelle Sanders MD - 12/11/[address] [address] [employer] Report Patient Name: DAVID HAYWOOD J [...] function (visually confirmedEF >50%). Electronically Signed By: Mcihelle Sanders MD 12/11/2024 3:05:42 PM CDT us Modesta Tejada RESOURCE DIRECTOR IMG NM PROCEDURES Final Resu lt * Stress Test for Myocardial Perfusion (12/11/2024 10:23 AM CDT) Anatomical Region Laterality Modality Nuclear Medicine 12/11/2024 8:30 AM CDT Narrative 12/11/2024 10:13 AM CDT [address] [address] [employer] Report Patient Name: DAVID HAYWOOD J : [...] Procedure Note Karime Mccurdy MD - 12/11/[address] [place] [address] [employer] Report Patient Name: DAVID HAYWOOD J : [...] PM CDT Narrative 12/16/2024 2:40 PM CDT [address] [address] EVENT MONITOR Patient Name: DAVID HAYWOOD J [...] Procedure Note Karime Mccurdy MD - 12/16/[address] [address] EVENT MONITOR Patient Name: DAVID HAYWOOD J [...] Dr Karime Mccurdy 12/16/2024 1:40:06 PM CDT Modesta Tejada NP CV CARDIAC SERVICES PROCEDUR ES Final Result * PAP SMEAR (02/27/2024 10:56 AM CDT) SCRIBED Pap test n [facility] Provider [facility] Final Result * MAMMOGRAPHY (02/26/2024 10:11 AM CDT) Pathologist [facility] Mammography Normal [facility] Provider [facility] Final Result * COLONOSCOPY (01/10/2024 4:12 PM CDT) Scribed Colonoscopy Normal Nolberto Slaughter MD [facility] Final Result * Hepatitis C antibody (12/22/2019 [...] last revised on 2019. Testing performed by: [facility], [address] [place] [address], [place]., [address] Blood specimen (specimen) 12/22/2019 2:20 PM CDT 12/23/2019 9:46 AM CDT Louise Recio NP LAB MICROBIOLOGY - GENERAL OR DERABLES Final Result [facility] [address] [facility] [place] [address] from Last 3 Months or Most Recently Relevant to Health Maintenance Insurance [employer] MEDICARE O [facility] [employer] CHOICE MEDICARE PPO Advance Directives For more information, please contact: [phone] * Full Code (Latest Code Status on File) Date Activated Date Inactivated Comments 02/08/2022 11:09 AM 02/08/2022 5:49 PM * Full Code Date Activated Date Inactivated Comments 02/08/2022 11:09 AM 02/08/2022 11:09 AM Care Teams Filling And Stapling Machine Operator Relationship Specialty Start Date End Date Louise Recio NP [address] [facility] [address] [place] [address] PCP - General Family Medicine 08/20/24 Bharath Witt MD [address] [facility] [address] [facility] [address] [place] [address] Referring Physician Vascular Surgery 12/04/17 Atul Garrido MD [address] [facility] [address] [facility] [address] [place] [address] Referring Physician Obstetrics and Gynecology 04/17/19 Yamilet Bernal DO [address] [place] [address] DR BRENNA Guerrier [facility] [address] [place] [address] Consulting Physician Otolaryngology 02/25/24 Brandon Gutierrez MD [address] [place] [address] DR BRENNA Guerrier [facility] [address] [place] [id number] Consulting Physician Neurology 02/25/24 Brandon Roque MD [address] [facility] [address] [place] [address] Consulting Physician Cardiology 02/25/24 Tucker Evans Neuropsychology 02/25/24 Nolberto Uriostegui MD [address] [place] [address] [place] [address] Referring Physician Gastroenterology 02/25/24
--- NOTE | 2025-02-07 21:59 | WPDSLEEPSTUD ---
Sleep Study Date of Study: 01/12/25 Ordering Provider: Rebeca Pierre MD Interpreting Physician: Rebeca Pierre MD Sleep Study Type: Polysomnogram Height: 1.73 m Weight: 106.594 kg Body Mass Index: 35.7 Neck Circumference (inches): 14.75 [place]: 3 Reason for Sleep Study Difficulty staying asleep, frequent nighttime awakenings Has been diagnosed with obstructive sleep apnea, has not been able to wear CPAP; insomnia started several months ago * 01/03/2023; home sleep test through [facility] with RDI 20.4 and lowest desaturation 81% Sleep History Kortney Haywood is a 64-year-old woman with excessive daytime sleepiness, difficulty getting to sleep and staying asleep. Using sleep medications has not been helpful. She occasionally awakens from sleep short of breath. She rarely wakes at night with heartburn, belching or coughing.??She frequently snores, and frequently snores loudly enough that others complain. She frequently has trouble sleeping when she has a cold. She occasionally wakes up gasping for breath during the night. She rarely has breathing problems at night observed by others. She occasionally sweats excessively at night. She occasionally notices her heart pounding or beating irregularly during the night. She rarely falls asleep during the day. She rarely falls asleep involuntarily, never falls asleep while driving. She never experiences loss of muscle tone with strong emotion. She never feels paralyzed on waking or falling asleep. She rarely experiences vivid dreams upon waking or falling asleep. She never feels afraid of going to sleep. She rarely has nightmares. She occasionally recalls her dreams. She frequently has thoughts racing through her mind. She frequently feels sad or depressed. She constantly feels anxiety. She occasionally notices parts of her body jerk. She rarely kicks during the night. She occasionally feels crawling or aching feelings in her legs. She occasionally feels leg pain at night. She rarely has morning jaw pain, and rarely grinds her teeth at night. She frequently feels bothered by pain during the day, is occasionally awakened by pain during the night. She frequently wakes up feeling stiff in the morning, frequently wakes feeling sore or achy in the morning. She frequently awakens with pain in her neck, spine, or joints. She has concentration difficulties and memory problems. Normal bedtime is 10:30 p.m, falling asleep within 30 minutes, waking numerous times at night. She often wakes to go to the bathroom, and she tosses and turns frequently at night. She wakes aT 10:00 a.m.,reports getting between 3 and 4 hours of sleep per night. Her sleep may be disturbed by her cat. She does not take naps in the day. After waking, she is drowsy for 2 hours. SHe feels better in the afternoon compared to other times of day. She has gained 20 lb in the last year. Habits:??Tobacco: former smoker Caffeine: 3 cans per day Alcohol: none Recreational substances: none PMFSH Past Medical History Medical History Dysphagia Anxiety Overactive bladder Colon polyps Diverticulitis Depression GERD (gastroesophageal reflux disease) Hyperlipidemia HTN (hypertension) CAMILLE (obstructive sleep apnea) has CPAP but is noncompliant Surgical History Surgical History S/P insertion of spinal cord stimulator bladder stimulator. Removed in 08/2021 History of [place] fundoplication Dr Oren Pineda H/O shoulder surgery right History of cholecystectomy Status post laparoscopic-assisted sigmoidectomy ruptured diverticulitis Family History Family History Father Malignant neoplasm of prostate Hypertension Family history of arthritis Grandparent Diabetes mellitus Family history of glaucoma Sibling Hypertension Other Family history of throat cancer Social History Social History Years smoked: 2 Smoking status: Former smoker Tobacco type: cigarettes Smoking end date: 07/01/00 Alcohol intake: never Alcohol use details: social Substance use: never Substance use type: does not use Do You Feel Safe in your Home?: Yes Lack of Transportation: No Lack of Food: Never True Current Housing: I Have Housing Concerned About Future Housing: No Difficulty Paying Gas/Electric Bills: No Difficulty Paying for Meds: No Currently Unemployed: No Education: High School Diploma/GED Living arrangements: with roommate(s) Occupation/Education: unemployed Gender identity (if verbalized by the patient): Female Spiritual care concerns: No Medications Home Medications ?Medication ?Instructions ?Recorded ?Confirmed ?Type paroxetine HCl 40 mg tablet 40 mg PO QAM 08/05/19 11/18/24 History aripiprazole 15 mg tablet (Abilify) 15 mg PO HS 11/13/19 11/18/24 History oxybutynin chloride 10 mg 10 mg PO DAILY 11/09/21 11/18/24 History tablet,extended release 24 hr amlodipine 10 mg tablet 10 mg PO DAILY 12/19/23 11/18/24 History trazodone 100 mg tablet 100 mg PO HS 12/19/23 11/18/24 History fluticasone propionate 50 1 spray intranasal BID #16 grams 01/15/24 11/18/24 Rx mcg/actuation nasal spray,suspension (Flonase Allergy Relief) valsartan 320 mg tablet 320 mg PO DAILY 03/04/24 11/18/24 History albuterol sulfate 90 mcg/actuation 1 - 2 puff inhalation Q4-6H PRN 09/18/24 11/18/24 Rx aerosol inhaler shortness of breath or wheezing #8.5 grams Sleep Procedure A full night polysomnogram using the [employer] multi-channel system recorded the standard physiologic parameters including EEG, EOG, submentalis EMG, anterior tibialis EMG, EKG, body position, nasal and oral airflow using nasal pressure sensor and thermistor. Respiratory parameters of chest and abdominal movements were recorded with Respiratory Inductance Plethysmography belts. Oxygen saturation was recorded by pulse oximetry. Video monitoring was also performed. Sleep stages, periodic limb movements, and EEG arousals were scored in 30 second epochs according to the criteria of the AASM Scoring Manual. The Apnea-Hypopnea Index was calculated using CMS guidelines for definition of hypopnea while scoring respiratory events. She self administered eszopiclone 1 mg at the start of the test. She did not meet criteria for a split night study early enough in the night, so this was conducted as a full night basic polysomnogram. Sleep Architecture The total recording time was 436.6 minutes. The total sleep time was 286.5 minutes. Sleep latency was 52.2 minutes. REM latency was - minutes. Sleep efficiency was 65.6%. The patient had 59 awakenings for an awakening index of 12.4. Wake after sleep onset time was 98.0 minutes. The patient spent 56.0 minutes, 19.5% of total sleep time in Stage N1. The patient spent 191.0 minutes, 66.7% in Stage N2. The patient spent 39.5 minutes, 13.8% in Stage N3. The patient spent no time in Stage REM sleep. Respiratory Analysis The patient had 45 hypopneas, 31 obstructive apneas, 3 mixed apneas, and 1 central apnea for an overall Apnea Hypopnea Index of 16.5. The REM Apnea Hypopnea Index was 0, as there was no REM on this test. The NREM Apnea Hypopnea Index was 16.5. The patient had a Central Apnea Hypopnea Index of 0.2. There were no Respiratory Effort Related Arousals. The Respiratory Disturbance Index is 21.8 events per hour. There was no evidence of Bautista-Oscar Respirations. Arousals There were 269 total arousals for an arousal index of 56.3. There were 182 spontaneous arousals for an index of 38.1. There were 44 arousals due to respiratory events for an index of 9.2. There were 39 arousals due to periodic limb movements for an index of 8.2. There were 7 arousals due to isolated limb movements for an index of 1.5. Periodic Limb Movements The patient had 19 isolated limb movements with an index of 4.0. The patient had 139 periodic limb movements with an index of 29.1. Patient had a total of 158 limb movements with a total limb movement index of 33.1. Oximetry Data The patient had an average oxygen saturation of 92.3% in sleep with a minimum oxygen saturation of 84% and a maximum oxygen saturation of 98%. The patient had 83 oxygen desaturations that were 4% or greater resulting in an Oxygen Desaturation Index of 17.4. The patient spent 11.4 minutes, 2.7% of total sleep time with an oxygen saturation below 88%. Snoring Profile Snoring was mild and intermittent. Cardiac Profile The EKG showed normal sinus rhythm, average pulse rate of 52.3 bpm with a minimum pulse of rate of 40 bpm and a maximum pulse rate of 86 bpm. Cardiac rhythm analysis in sleep does not show atrial fibrillation. Occasional PVC noted. EEG Profile Unremarkable, no evidence of seizures. Assessment and Plan Assessment and Plan (1) CAMILLE (obstructive sleep apnea): Code(s): G47.33 - Obstructive sleep apnea (adult) (pediatric) Status: Acute Assessment and Plan: This basic nocturnal polysomnogram on January 12, 2025 shows moderate obstructive sleep apnea, the apnea hypopnea index was 22.2 (3% criteria) with desaturation to 84% and snoring. She spent 11.4 minutes, 2.7% of sleep time, with a saturation below 88%. She had no REM on this study, sleep was fragmented with constant shifts between wake, Stage 1 and Stage 2. She has had difficulty tolerating PAP, and she qualifies for PAP therapy with co-morbidities including hypertension, anxiety and insomnia on several sedative hypnotics which are not helping her get to sleep. Her CAMILLE is likely more severe than seen on this study as she had no REM on this study. She would benefit from having a PAP titration in the sleep lab, no naps on day of testing, and a sedative hypnotic to improve sleep onset for the next test. Her 2 mg eszopiclone was not helpful to initiate and maintain sleep. Her sleep onset was 52.2 minutes, suggesting that she took a nap, even unintentionally, on the day of testing. She has restless leg symptoms, and she kicked often during this study. She had a ferritin ordered, however there are no results in the system. She would benefit from having evaluation of her iron stores using a ferritin level as a surrogate marker. Ferritin level is indicated to exclude iron deficiency anemia as a contributing factor. Ferritin should be 75 ng/mL or greater. If ferritin is below this, iron supplementation should be given to achieve ferritin of 75 ng/mL. There are nonpharmacologic methods to treat limb movements including daily exercise, stretching calf muscles before bed, avoiding excessive amounts of caffeine and alcohol, vitamin B supplementation, magnesium lotion massaged into legs before bed, and use of a weighted blanket. Pharmacologic therapy is very effective for restless legs syndrome and limb movements during sleep and may include [id number] voltage-gated calcium channel ligands such as gabapentin which is preferable to dopaminergic agents which can have augmentation. BMI is 35.7. Weight management is advised. Clinical data suggests that weight loss of 10% can reduce the severity of respiratory events and snoring and improve AHI by as much as 25%. Data The data obtained during this sleep study is adequate for interpretation. Certification This sleep study has been reviewed by a board certified sleep medicine physician.
[2025-02-07 23:17] VITALS: BMI 35.7
== END 2025-01-13 06:19 | disposition home or self-care (01) ==
LOC: ANHCSM 10:43
PROVIDERS: PCP Nurse Practitioner Family; Visit Provider Internal Medicine Critical Care Medicine
DX: G47.33 Obstructive sleep apnea (adult) (pediatric) (principal)
CPT/HCPCS: 95810

== ENCOUNTER 2025-03-23 05:37 | Inpatient (IN) | payer MEDICARE, SELFPAY ==
--- OUTSIDE RECORDS SUMMARY | 2002-06-23 06:00 | XMS_ITS | Continuity of Care Document ---
Author Organization [facility] Address [address] [place] [address] [address] [place] [address] Phone Care Team Providers Care Planishing Hammer Operator Name Role Phone Vero, Edprudencio Unavailable Unavailable Advance Directives Directive Yes / No Effective Date File Name No Information Encounters Encounter Description Practice Location Reason(s) For Visit Diagnoses Date Provider Providers Copied on Encounter [facility], [address], [place], [place], [address], [place] tel:[phone] [facility] No Information Dec-2 4-200 2 Doisy Edward. [address] , [address], [place], [address], [place]. tel:[phone] Family History Family Member Type Diagnosis Age At Onset No Information Payers Payer name Insurance type Covered alliance party ID Authoriza tion(s) No Information Social [...]
--- OUTSIDE RECORDS SUMMARY | 2002-06-23 06:00 | XMS_ITS | Continuity of Care Document ---
Author Organization [facility] Address [address] [place] [address] [address] [place] [address] Phone Care Team Providers Care Instructional Materials Director Name Role Phone Vero, Edprudencio Unavailable Unavailable Advance Directives Directive Yes / No Effective Date File Name No Information Encounters Encounter Description Practice Location Reason(s) For Visit Diagnoses Date Provider Providers Copied on Encounter Located within [facility], [address], [place], [place], [id number], [place] tel:[phone] [facility] No Information Dec-2 4-200 2 Doisy Edward. [address] , [address], [place], [address], [place]. tel:[phone] Family History Family Member Type Diagnosis Age At Onset No Information Payers Payer name Insurance type Covered constitution party ID Authoriza tion(s) No Information Social [...]
--- OUTSIDE RECORDS SUMMARY | 2024-03-04 04:36 | XMS_ITS | Continuity of Care Document ---
Author Organization [facility] Address [address] [place] [address] [address] [place] [address] Phone Care Team Providers Care Film Splicer Name Role Phone Kal PT,MPT,ATC, Herrera Unavailable [...] Diagnoses Date Provider Providers Copied on Encounter [facility], [id number], tel:[phone] [place] No Information 0 - 4 [facility]. [facility], [address], [place], [place], [id number], tel:[phone] [place] No Information 0 8 [facility] [place]. Referring Provider: Nguyễn Abel1 [facility] 6th Floor [address], [place], [address]. tel:[phone] [facility] [address] [place], [place] [address], [place], [place], [id number], tel:[phone] [place] No Information 0 3-201 8 Bernard Potter. [address] [facility], [address], [place], [address], [place]. tel:[phone] Referring Provider: Ed Abel [facility] 6th Floor [address], [place], [address]. tel:[phone] [place] [address], [address] [place], [place] [address], [place], [place], [address], [place] tel:[phone] [place] No Information Dec-2 9-201 7 [facility] Abbey. [address] [place] [address], [address], [place], [place], [facility], . tel:[phone] Referring Provider: Ed Abel [facility] [address]th Floor [address], [place], [address]. tel:[phone] [place] [address], [address] [place], [place] [address], [place], [place], [address], tel:[phone] [place] No Information Dec-2 7-201 7 [facility]. [address] [place] [address], [address], [facility], [place]. tel:[phone] Referring Provider: Ed Abel [facility] 6th Floor [address], [place], [address]. tel:[phone] [place] [address], [address], [place], [place], [address], [place] tel:[phone] [place] No Information Dec-2 2-201 7 Hauschild Abbey. [address] [place] [address], [address], [place], [address], [place]. tel:[phone] Referring Provider: Ed Abel [facility] 6th Floor [address], [place], [address]. tel:[phone] [place] [address], [address], [place], [place], [address], [place] tel:[phone] [place] No Information Dec-2 0-201 7 Hamateo Escobarfer. [address] [place] [address], [address], [place], [address], [place]. tel:[phone] Referring Provider: Ed Abel [facility] [address]th Floor [address], [place], [address]. tel:[phone] [place] [address], [facility] [address], [place], [place], [address], [place] tel:[phone] [place] No Information Bernard Potter. [address] [facility], [address], [facility], [place]. tel:[phone] Referring Provider: Nguyễn Abel1 [facility] [address]th [address], [place], [address]. tel:[phone] [place] [address], [id number], tel:[phone] [place] No Information Bernard Potter. [address] [place] [address], [address], [facility], [place]. tel:[phone] Referring Provider: Rex Che [address] [place] [address] [address]th [address], [place], [address]. tel:[phone] [place] [address], [id number], tel:[phone] [place] No Information Bernard Potter. [address] [place] [address], [address], [facility], [place]. tel:[phone] Referring Provider: Rex Che [facility] 6th Floor [address], [place], [address]. tel:[phone] [place] [address], [id number], [place] tel:[phone] [place] Stiffness of right hand, not elsewhere classifiedPain in right handEffusion, right handOth symptoms and signs involving the musculoskeletal systemOther specified health statusDisp fx of dist phalanx of r idx fngr, 7thD Bernard Potter. [address] [place] [address], [address], [facility], [place]. tel:[phone] Referring Provider: Ed Abel [facility] 6th [address], [place], [address]. tel:[phone] [facility], [address] [place] [address] [address], [place], [place], [address], tel:[phone] [place] No Information 1 0-201 4 Therese Chandler. [address] [place] [address], [address], [facility], . tel:[phone] Referring Provider: Jayson Gutiérrez, [address], [place], [address]. tel:[phone] [facility] [address] [place], [place] [address], [place], [place], [address], tel:[phone] [place] No Information Aug-0 7-201 4 Therese Chandler. [address] [place] [address], [address], [facility], . tel:[phone] Referring Provider: Jayson Gutiérrez, [address], [place], [address]. tel:[phone] [facility] [address] [place], [place] [address], [place], [place], [address], tel:[phone] [place] No Information 0 6-201 4 Therese Chandler. [address] [place] [address], [address], [facility], . tel:[phone] Referring Provider: Jayson Gutiérrez, [address], [place], [address]. tel:[phone] [facility] [address] [place], [place] [address], [place], [place], [address], tel:[phone] [place] No Information b0 3-201 4 Therese Chandler. [address] [place] [address], [address], [facility], . tel:[phone] Referring Provider: Jayson Gutiérrez, [address], [place], [address]. tel:[phone] [facility] [address], [place], [place], [id number], tel:[phone] [place] No Information Fabrizio-3 1-201 4 Therese Chandler. [address] [place] [address], [address], [place], [facility], . tel:[phone] Referring Provider: Jayson Gutiérrez, [address], [place], [address]. tel:[phone] [address], [place], [place], [address], tel:[phone] [place] No Information 4 Therese Chandler. [address] [place] [address], [address], [place], [facility], [place]. tel:[phone] Referring Provider: Jayson Gutiérrez, [address], [place], [address]. tel:[phone] [address], [place], [place], [address], tel:[phone] [place] No Information 4 Therese Chandler. [address] [place] [address], [address], [place], [facility], [place]. tel:[phone] Referring Provider: Jayson Gutiérrez, [address], [place], [address]. tel:[phone] [address], [place], [place], [address], [place] tel:[phone] [place] No Information 4 Therese Chandler. [address] [place] [address], [address], [place], [facility], [place]. tel:[phone] Referring Provider: Jayson Gutiérrez, [address], [place], [address]. tel:[phone] [address], [place], [place], [address], tel:[phone] [place] No Information 0 4 Therese Chandler. [address] [place] [address], [address], [place], [facility], . tel:[phone] Referring Provider: Jayson Gutiérrez, [address], [place], [address]. tel:[phone] [facility], [address], [place], [place], [address], [place] tel:[phone] [place] No Information 4 Therese Chandler. [address] [place] [address], [address], [facility], . tel:[phone] Referring Provider: Jayson Gutiérrez, [address], [place], [address]. tel:[phone] [facility] [address], [place], [place], [address], [place] tel:[phone] [place] No Information 4 Therese Chandler. [address] [place] [address], [address], [place], [facility], . tel:[phone] Referring Provider: Jayson Gutiérrez, [address], [place], [address]. tel:[phone] [facility], [facility] [address], [place], [place], [address], [place] tel:[phone] [place] No Information 4 Therese Chandler. [address] [place] [address], [address], [place], [facility], . tel:[phone] Referring Provider: Jayson Gutiérrez, [address], [place], [address]. tel:[phone] [facility], [address], [place], [place], [id number], [place] tel:[phone] [place] No Information 4 Therese Chandler. [address] [place] [address], [address], [place], [facility], . tel:[phone] Referring Provider: Jayson Gutiérrez, [address], [place], [address]. tel:[phone] [facility], [facility] [address], [place], [place], [address], tel:[phone] [place] No Information 0 8-201 4 Therese Chandler. [address] [place] [address], [address], [place], [facility], . tel:[phone] Referring Provider: Jayson Gutiérrez, [address], [place], [address]. tel:[phone] [address], [place], [place], [address], tel:[phone] [place] No Information Jul-0 3-201 4 Therese Chandler. [address] [place] [address], [address], [place], [facility], . tel:[phone] Referring Provider: Jayson Gutiérrez, [address], [place], [address]. tel:[phone] [address], [place], [place], [address], tel:[phone] [place] No Information 0 2-201 4 Therese Chandler. [address] [place] [address], [address], [place], [facility], . tel:[phone] Referring Provider: Jayson Gutiérrez, [address], [place], [address]. tel:[phone] [address], [place], [place], [address], tel:[phone] [place] No Information May-3 0-201 3 Therese Chandler. [address] [place] [address], [address], [place], [facility], [place]. tel:[phone] Referring Provider: Jayson Gutiérrez, [address], [place], [address]. tel:[phone] [facility], [address] [place], [place] [address], [place], [place], [address], tel:[phone] [place] No Information Dec-2 6-201 3 Mcmahan Alda. [address] [place] [address], [address], [facility], . tel:[phone] Referring Provider: Jayson Gutiérrez, [address], [place], [address]. tel:[phone] [address], [place], [place], [address], tel:[phone] [place] No Information Dec-2 0-201 3 Trinity Villarreal. [address] [place] [address], [address], [place], [facility], . tel:[phone] Referring Provider: Jayson Gutiérrez, [address], [place], [address]. tel:[phone] [address], [place], [place], [address], tel:[phone] [place] No Information Dec-1 8-201 3 Therese Chandler. [address] [place] [address], [address], [facility], . tel:[phone] Referring Provider: Jayson Gutiérrez, [address], [place], [address]. tel:[phone] [address], [place], [place], [address], tel:[phone] [place] No Information Dec-1 6-201 3 Therese Chandler. [address] [place] [address], [address], [place], [facility], . tel:[phone] Referring Provider: Jayson Gutiérrez, [address], [place], [address]. tel:[phone] [address], [place], [place], [address], tel:[phone] [place] No Information Dec-1 3-201 3 Therese Chandler. [address] [place] [address], [address], [place], [facility], . tel:[phone] Referring Provider: Jayson Gutiérrez, [address], [place], [address]. tel:[phone] [facility], [facility] [address], [place], [place], [address], tel:[phone] [place] No Information Dec-1 1-201 3 Therese Chandler. [address] [place] [address], [address], [facility], . tel:[phone] Referring Provider: Jayson Gutiérrez, [address], [place], [address]. tel:[phone] [facility] [address], [place], [place], [address], tel:[phone] [place] No Information Dec-0 9-201 3 Therese Chandler. [address] [place] [address], [address], [facility], . tel:[phone] Referring Provider: Jayson Gutiérrez, [address], [place], [address]. tel:[phone] [facility], [facility] [address], [place], [place], [address], tel:[phone] [place] No Information Dec-0 6-201 3 Therese Chandler. [address] [place] [address], [address], [facility], . tel:[phone] Referring Provider: Jayson Gutiérrez, [address], [place], [address]. tel:[phone] [facility] [address], [place], [place], [address], tel:[phone] [place] No Information Dec-0 4-201 3 Therese Chandler. [address] [place] [address], [address], [facility], . tel:[phone] Referring Provider: Jayson Gutiérrez, [address], [place], [address]. tel:[phone] [facility], [facility] [address], [place], [place], [address], tel:[phone] [place] No Information Oct-1 5-201 3 Therese Chandler. [address] [place] [address], [address], [place], [facility], . tel:[phone] Referring Provider: Jayson Gutiérrez, [address], [place], [address]. tel:[phone] [address], [place], [place], [address], tel:[phone] [place] No Information Oct-1 1-201 3 Therese Chandler. [address] [place] [address], [address], [place], [facility], . tel:[phone] Referring Provider: Jasyon Gutiérrez, [address], [place], [address]. tel:[phone] [address], [place], [place], [address], tel:[phone] [place] No Information Oct-1 0-201 3 Haq Maribell. [address] [place] [address], [address], [facility], . tel:[phone] Referring Provider: Jayson Gutiérrez, [address], [place], [address]. tel:[phone] [address], [place], [place], [address], tel:[phone] [place] No Information Mar-0 9-201 3 Therese Chandler. [address] [place] [address], [address], [place], [facility], . tel:[phone] Referring Provider: Jayson Gutiérrez, [address], [place], [address]. tel:[phone] [address], [place], [place], [address], tel:[phone] [place] No Information Oct-0 4-201 3 Therese Chandler. [address] [place] [address], [address], [place], [facility], . tel:[phone] Referring Provider: Jayson Gutiérrez, [address], [place], [address]. tel:[phone] [facility], [address] [place] [address] [address], [place], [place], [address], tel:[phone] [place] No Information Oct-0 2-201 3 Therese Chandler. [address] [place] [address], [address], [place], [facility], . tel:[phone] Referring Provider: Jayson Gutiérrez, [address], [place], [address]. tel:[phone], [place], [place], [address], tel:[phone] [place] No Information Sep-3 0-201 3 Therese Chandler. [address] [place] [address], [address], [facility], . tel:[phone] Referring Provider: Jayson Gutiérrez, [address], [place], [address]. tel:[phone], [place], [place], [address], tel:[phone] [place] No Information Sep-2 7-201 3 Therese Chandler. [address] [place] [address], [address], [facility], . tel:[phone] Referring Provider: Jayson Gutiérrez, [address], [place], [address]. tel:[phone] [facility], [facility] [address], [place], [place], [address], tel:[phone] [place] No Information Sep-2 5-201 3 Therese Chandler. [address] [place] [address], [address], [place], [facility], . tel:[phone] Referring Provider: Jayson Gutiérrez, [address], [place], [address]. tel:[phone] [facility], [facility] [address], [place], [place], [address], [place] tel:[phone] [place] No Information Sep-2 3 Therese Chandler. [address] [place] [address], [address], [place], [facility], . tel:[phone] Referring Provider: Jayson Gutiérrez, [address], [place], [address]. tel:[phone], [place], [place], [address], [place] tel:[phone] [place] No Information Sep-1 9 3 Therese Chandler. [address] [place] [address], [address], [place], [facility], . tel:[phone] Referring Provider: Jayson Gutiérrez, [address], [place], [address]. tel:[phone] [facility] [address] [place], [place] [address], [place], [place], [address], [place] tel:[phone] [place] No Information Sep-1 8 3 Haqrebecca Gardineri. [address] [place] [address], [address], [place], [facility], [place]. tel:[phone] Referring Provider: Jayson Gutiérrez, [address], [place], [address]. tel:[phone] [facility] [address], [place], [place], [address], [place] tel:[phone] [place] No Information Sep-1 3201 3 Therese Chandler. [address] [place] [address], [address], [place], [facility], [place]. tel:[phone] Referring Provider: Jayson Gutiérrez, [address], [place], [address]. tel:[phone] [facility] [address], [place], [place], [address], [place] tel:[phone] [place] No Information Sep-1 3 Therese Chandler. [address] [place] [address], [address], [facility], . tel:[phone] Referring Provider: Jayson Gutiérrez, [address], [place], [address]. tel:[phone] [address], [place], [place], [address], tel:[phone] [place] No Information Sep-1 0-201 3 Therese Chandler. [address] [place] [address], [address], [place] [address], . tel:[phone] Referring Provider: Jayson Gutiérrez, [address], [place], [address]. tel:[phone], [place], [place], [address], tel:[phone] [place] No Information Sep-0 4-201 3 Therese Chandler. [address] [place] [address], [address], [facility], . tel:[phone] Referring Provider: Jayson Gutiérrez, [address], [place], [address]. tel:[phone], [place], [place], [address], tel:[phone] [place] No Information Sep-0 3-201 3 Therese Chandler. [address] [place] [address], [address], [facility], . tel:[phone] Referring Provider: Jayson Gutiérrez, [address], [place], [address]. tel:[phone] [address] [place] [address], [id number], tel:[phone] [place] No Information Aug-3 0-201 3 Therese Chandler. [address] [place] [address], [address], [place], [facility], . tel:[phone] Referring Provider: Jayson Gutiérrez, [address], [place], [address]. tel:[phone] [facility], [address], [place], [place], [address], [place] tel:[phone] [place] No Information 3 Therese Chandler. [address] [place] [address], [address], [place], [address], [place]. tel:[phone] Referring Provider: Jayson Gutiérrez, [address] [facility] [address], [place], [address]. tel:[phone] [facility], [address], [place], [place], [address], [place] tel:[phone] [place] No Information 3 Therese Chandler. [address] [place] [address], [address], [place], [address], [place]. tel:[phone] [facility] [address], [place], [place], [address], [place] tel:[phone] [place] No Information 3 Therese Chandler. [address] [place] [address], [address], [place], [address], [place]. tel:[phone] [facility] [address], [place], [place], [address], [place] tel:[phone] [place] No Information 3 Trinity Villarreal. [address] [place] [address], [address], [place], [address], [place]. tel:[phone] [facility] [address], [place], [place], [address], [place] tel:[phone] [place] No Information 3 Therese Chandler. [address] [place] [address], [address], [place], [address], [place]. tel:[phone] [facility], [address], [place], [place], [address], [place] tel:[phone] [place] No Information 3 Theerse Chandler. [facility], [address], [place], [facility], [place]. tel:[phone], [id number], tel:[phone] [place] No Information 3 Therese Arteaga. [address] [facility], [address], [place], [facility], [place]. tel:[phone], [place], [place], [address], tel:[phone] [place] Pain in joint involving shoulder region 3 Therese Arteaga. [address] [facility], [address], [place], [address], [place]. tel:[phone] Family History Family Member Type Diagnosis Age At Onset No Information Payers Payer name Insurance type Covered alliance party ID Anshu nguyễn(s) Medicare [place] [id number] Medicaid OON Write Off CI 00 Social [...]
--- OUTSIDE RECORDS SUMMARY | 2024-03-04 04:36 | XMS_ITS | Continuity of Care Document ---
Author Organization [employer] [place] Address [address] [place] [address] [address] [place] [address] Phone Care Team Providers Care Sales Research Analyst Name Role Phone Kal PT,MPT,ATC, Herrera Unavailable [...] Diagnoses Date Provider Providers Copied on Encounter [facility], [id number], tel:[phone] [place] No Information 0 - 4 [facility]. [facility], [address] [facility], [place], [place], [address], tel:[phone] [place] No Information 0 8 [facility] [place]. Referring Provider: Nguyễn Abel1 [facility] 6th Floor [address], [place], [address]. tel:[phone] [facility] [address] [place] [address], [place], [place], [address], tel:[phone] [place] No Information 0 3-201 8 Bernard Potter. [address] [facility], [address], [place], [address], [place]. tel:[phone] Referring Provider: Ed Abel [facility] 6th Floor [address], [place], [address]. tel:[phone] [place] [address], [address] [place], [place] [address], [place], [place], [address], [place] tel:[phone] [place] No Information Dec-2 9-201 7 [facility]. [address] [place] [address], [address], [place], [place], [facility], . tel:[phone] Referring Provider: Ed Abel [facility] 6th Floor [address], [place], [address]. tel:[phone] [place] [address], [address] [place], [place] [address], [place], [place], [address], tel:[phone] [place] No Information Dec-2 7-201 7 [facility]. [address] [place] [address], [address], [place], [facility], [place]. tel:[phone] Referring Provider: Ed Abel [facility] 6th Floor [address], [place], [address]. tel:[phone] [place] [address], [address] [facility], [place], [place], [address], [place] tel:[phone] [place] No Information Dec-2 2-201 7 [facility]. [address] [place] [address], [address], [place], [address], [place]. tel:[phone] Referring Provider: Ed Abel [facility] 6th Floor [address], [place], [address]. tel:[phone] [place] [address], [address] [facility], [place], [place], [address], [place] tel:[phone] [place] No Information Dec-2 0-201 7 Hamateo Escobarfer. [address] [place] [address], [address], [place], [address], [place]. tel:[phone] Referring Provider: Ed Abel [facility] 6th Floor [address], [place], [address]. tel:[phone] [place] [address], [facility] [address], [place], [place], [address], [place] tel:[phone] [place] No Information Bernard Potter. [address] [facility], [address], [place], [facility], [place]. tel:[phone] Referring Provider: Nguyễn Abel1 [facility] 6th [address], [place], [address]. tel:[phone] [place] [address], [id number], tel:[phone] [place] No Information Bernard Potter. [address] [place] [address], [address], [place], [facility], [place]. tel:[phone] Referring Provider: Rex Che [address] [place] [address] 6th [address], [place], [address]. tel:[phone] [place] [address], [id number], tel:[phone] [place] No Information Bernard Potter. [address] [place] [address], [address], [place], [facility], [place]. tel:[phone] Referring Provider: [facility] 6th Floor [address], [place], [address]. tel:[phone] [place] [address], [id number], [place] tel:[phone] [place] Stiffness of right hand, not elsewhere classifiedPain in right handEffusion, right handOth symptoms and signs involving the musculoskeletal systemOther specified health statusDisp fx of dist phalanx of r idx fngr, 7thD Bernard Potter. [address] [place] [address], [address], [place], [facility], [place]. tel:[phone] Referring Provider: Ed Abel [facility] 6th Floor [address], [place], [address]. tel:[phone] [facility], [address] [place] [address] [address], [place], [place], [address], tel:[phone] [place] No Information 1 0-201 4 Therese Chandler. [address] [place] [address], [address], [place], [facility], . tel:[phone] Referring Provider: Jayson Gutiérrez, [address], [place], [address]. tel:[phone] [facility] [address] [place], [place] [address], [place], [place], [address], tel:[phone] [place] No Information Aug-0 7-201 4 Therese Chandler. [address] [place] [address], [address], [place], [facility], . tel:[phone] Referring Provider: Jayson Gutiérrez, [address], [place], [address]. tel:[phone] [facility] [address] [place], [place] [address], [place], [place], [address], tel:[phone] [place] No Information 0 6-201 4 Therese Chandler. [address] [place] [address], [address], [place], [facility], . tel:[phone] Referring Provider: Jayson Gutiérrez, [address], [place], [address]. tel:[phone] [facility] [address] [place], [place] [address], [place], [place], [address], tel:[phone] [place] No Information b0 3-201 4 Therese Chandler. [address] [place] [address], [address], [place], [facility], . tel:[phone] Referring Provider: Jayson Gutiérrez, [address], [place], [address]. tel:[phone] [facility], [facility] [address], [place], [place], [address], tel:[phone] [place] No Information Fabrizio-3 1-201 4 Therese Chandler. [address] [place] [address], [address], [place], [facility], . tel:[phone] Referring Provider: Jayson Gutiérrez, [address], [place], [address]. tel:[phone] [address], [place], [place], [address], tel:[phone] [place] No Information 4 Therese Chandler. [address] [place] [address], [address], [place], [facility], [place]. tel:[phone] Referring Provider: Jayson Gutiérrez, [address], [place], [address]. tel:[phone] [address], [place], [place], [address], tel:[phone] [place] No Information 4 Therese Chandler. [address] [place] [address], [address], [place], [facility], [place]. tel:[phone] Referring Provider: Jayson Gutiérrez, [address], [place], [address]. tel:[phone] [address], [place], [place], [address], [place] tel:[phone] [place] No Information 4 Therese Chandler. [address] [place] [address], [address], [place], [facility], [place]. tel:[phone] Referring Provider: Jayson Gutiérrez, [address], [place], [address]. tel:[phone] [address], [place], [place], [address], tel:[phone] [place] No Information 0 4 Therese Chandler. [address] [place] [address], [address], [place], [facility], . tel:[phone] Referring Provider: Jayson Gutiérrez, [address], [place], [address]. tel:[phone] [facility], [address], [place], [place], [address], [place] tel:[phone] [place] No Information 4 Therese Chandler. [address] [place] [address], [address], [place], [facility], . tel:[phone] Referring Provider: Jayson Gutiérrez, [address], [place], [address]. tel:[phone] [facility] [address], [place], [place], [address], [place] tel:[phone] [place] No Information 4 Therese Chandler. [address] [place] [address], [address], [place], [facility], . tel:[phone] Referring Provider: Jayson Gutiérrez, [address], [place], [address]. tel:[phone] [facility], [facility] [address], [place], [place], [address], [place] tel:[phone] [place] No Information 4 Therese Chandler. [address] [place] [address], [address], [place], [facility], . tel:[phone] Referring Provider: Jayson Gutiérrez, [address], [place], [address]. tel:[phone] [facility], [address], [place], [place], [address], [place] tel:[phone] [place] No Information 4 Therese Chandler. [address] [place] [address], [address], [place], [facility], . tel:[phone] Referring Provider: Jayson Gutiérrez, [address], [place], [address]. tel:[phone] [facility], [facility] [address], [place], [place], [address], tel:[phone] [place] No Information 0 8-201 4 Therese Chandler. [address] [place] [address], [address], [place], [facility], . tel:[phone] Referring Provider: Jayson Gutiérrez, [address], [place], [address]. tel:[phone] [address], [place], [place], [address], tel:[phone] [place] No Information Jul-0 3-201 4 Therese Chandler. [address] [place] [address], [address], [place], [facility], . tel:[phone] Referring Provider: Jayson Gutiérrez, [address], [place], [address]. tel:[phone] [address], [place], [place], [address], tel:[phone] [place] No Information 0 2-201 4 Therese Chandler. [address] [place] [address], [address], [place], [facility], . tel:[phone] Referring Provider: Jayson Gutiérrez, [address], [place], [address]. tel:[phone] [address], [place], [place], [address], tel:[phone] [place] No Information May-3 0-201 3 Therese Chandler. [address] [place] [address], [address], [place], [facility], [place]. tel:[phone] Referring Provider: Jayson Gutiérrez, [address], [place], [address]. tel:[phone] [facility], [address] [place], [place] [address], [place], [place], [address], tel:[phone] [place] No Information Dec-2 6-201 3 Mcmahan Alda. [address] [place] [address], [address], [place], [facility], . tel:[phone] Referring Provider: Jayson Gutiérrez, [address], [place], [address]. tel:[phone] [address], [place], [place], [address], tel:[phone] [place] No Information Dec-2 0-201 3 Trinity Villarreal. [address] [place] [address], [address], [place], [facility], . tel:[phone] Referring Provider: Jayson Gutiérrez, [address], [place], [address]. tel:[phone] [address], [place], [place], [address], tel:[phone] [place] No Information Dec-1 8-201 3 Therese Chandler. [address] [place] [address], [address], [facility], . tel:[phone] Referring Provider: Jayson Gutiérrez, [address], [place], [address]. tel:[phone] [address], [place], [place], [address], tel:[phone] [place] No Information Dec-1 6-201 3 Therese Chandler. [address] [place] [address], [address], [place], [facility], . tel:[phone] Referring Provider: Jayson Gutiérrez, [address], [place], [address]. tel:[phone] [address], [place], [place], [address], tel:[phone] [place] No Information Dec-1 3-201 3 Therese Chandler. [address] [place] [address], [address], [place], [facility], . tel:[phone] Referring Provider: Jayson Gutiérrez, [address], [place], [address]. tel:[phone] [facility], [facility] [address], [place], [place], [address], tel:[phone] [place] No Information Dec-1 1-201 3 Therese Chandler. [address] [place] [address], [address], [place], [facility], . tel:[phone] Referring Provider: Jayson Gutiérrez, [address], [place], [address]. tel:[phone] [facility] [address], [place], [place], [address], tel:[phone] [place] No Information Dec-0 9-201 3 Therese Chandler. [address] [place] [address], [address], [place], [facility], . tel:[phone] Referring Provider: Jayson Gutiérrez, [address], [place], [address]. tel:[phone] [facility], [facility] [address], [place], [place], [address], tel:[phone] [place] No Information Dec-0 6-201 3 Therese Chandler. [address] [place] [address], [address], [place], [facility], . tel:[phone] Referring Provider: Jayson Gutiérrez, [address], [place], [address]. tel:[phone] [facility] [address], [place], [place], [address], tel:[phone] [place] No Information Dec-0 4-201 3 Therese Chandler. [address] [place] [address], [address], [place], [facility], . tel:[phone] Referring Provider: Jayson Gutiérrez, [address], [place], [address]. tel:[phone] [facility], [facility] [address], [place], [place], [address], tel:[phone] [place] No Information Oct-1 5-201 3 Therese Chandler. [address] [place] [address], [address], [place], [facility], . tel:[phone] Referring Provider: Jayson Gutiérrez, [address], [place], [address]. tel:[phone] [address], [place], [place], [address], tel:[phone] [place] No Information Oct-1 1-201 3 Therese Chandler. [address] [place] [address], [address], [place], [facility], . tel:[phone] Referring Provider: Jayson Gutiérrez, [address], [place], [address]. tel:[phone] [address], [place], [place], [address], tel:[phone] [place] No Information Oct-1 0-201 3 Haq Maribell. [address] [place] [address], [address], [place], [facility], . tel:[phone] Referring Provider: Jayson Gutiérrez, [address], [place], [address]. tel:[phone] [address], [place], [place], [address], tel:[phone] [place] No Information Mar-0 9-201 3 Therese Chandler. [address] [place] [address], [address], [place], [facility], . tel:[phone] Referring Provider: Jayson Gutiérrez, [address], [place], [address]. tel:[phone] [address], [place], [place], [address], tel:[phone] [place] No Information Oct-0 4-201 3 Therese Chandler. [address] [place] [address], [address], [place], [facility], . tel:[phone] Referring Provider: Jayson Gutiérrez, [address], [place], [address]. tel:[phone] [facility], [address] [place] [address] [address], [place], [place], [address], tel:[phone] [place] No Information Oct-0 2-201 3 Therese Chandler. [address] [place] [address], [address], [place], [facility], . tel:[phone] Referring Provider: Jayson Gutiérrez, [address], [place], [address]. tel:[phone], [place], [place], [address], tel:[phone] [place] No Information Sep-3 0-201 3 Therese Chandler. [address] [place] [address], [address], [facility], . tel:[phone] Referring Provider: Jayson Gutiérrez, [address], [place], [address]. tel:[phone], [place], [place], [address], tel:[phone] [place] No Information Sep-2 7-201 3 Therese Chandler. [address] [place] [address], [address], [facility], . tel:[phone] Referring Provider: Jayson Gutiérrez, [address], [place], [address]. tel:[phone] [facility], [facility] [address], [place], [place], [address], tel:[phone] [place] No Information Sep-2 5-201 3 Therese Chandler. [address] [place] [address], [address], [place], [facility], . tel:[phone] Referring Provider: Jayson Gutiérrez, [address], [place], [address]. tel:[phone] [facility], [facility] [address], [place], [place], [address], [place] tel:[phone] [place] No Information Sep-2 3 Therese Chandler. [address] [place] [address], [address], [place], [facility], . tel:[phone] Referring Provider: Jayson Gutiérrez, [address], [place], [address]. tel:[phone], [place], [place], [address], [place] tel:[phone] [place] No Information Sep-1 9 3 Therese Hcandler. [address] [place] [address], [address], [place], [facility], . tel:[phone] Referring Provider: Jayson Gutiérrez, [address], [place], [address]. tel:[phone] [facility] [address] [place], [place] [address], [place], [place], [address], [place] tel:[phone] [place] No Information Sep-1 8 3 Haqrebecca Gardineri. [address] [place] [address], [address], [place], [facility], [place]. tel:[phone] Referring Provider: Jayson Gutiérrez, [address], [place], [address]. tel:[phone] [facility] [address], [place], [place], [address], [place] tel:[phone] [place] No Information Sep-1 3201 3 Therese Chandler. [address] [place] [address], [address], [place], [facility], [place]. tel:[phone] Referring Provider: Jayson Gutiérrez, [address], [place], [address]. tel:[phone] [facility] [address], [place], [place], [address], [place] tel:[phone] [place] No Information Sep-1 3 Therese Chandler. [address] [place] [address], [address], [facility], . tel:[phone] Referring Provider: Jayson Gutiérrez, [address], [place], [address]. tel:[phone] [address], [place], [place], [address], tel:[phone] [place] No Information Sep-1 0-201 3 Therese Chandler. [address] [place] [address], [address], [place] [address], . tel:[phone] Referring Provider: Jayson Gutiérrez, [address], [place], [address]. tel:[phone] [address], [place], [place], [address], tel:[phone] [place] No Information Sep-0 4-201 3 Therese Chandler. [address] [place] [address], [address], [place], [facility], . tel:[phone] Referring Provider: Jayson Gutiérrez, [address], [place], [address]. tel:[phone] [address], [place], [place], [address], tel:[phone] [place] No Information Sep-0 3-201 3 Therese Chandler. [address] [place] [address], [address], [place], [facility], . tel:[phone] Referring Provider: Jayson Gutiérrez, [address], [place], [address]. tel:[phone] [place] [address], [id number], tel:[phone] [place] No Information Aug-3 0-201 3 Therese Chandler. [address] [place] [address], [address], [place], [facility], . tel:[phone] Referring Provider: Jayson Gutiérrez, [address], [place], [address]. tel:[phone] [facility], [address], [place], [place], [address], [place] tel:[phone] [place] No Information 3 Therese Chandler. [address] [place] [address], [address], [place], [address], [place]. tel:[phone] Referring Provider: Jayson Gutiérrez, [address] [facility] [address], [place], [address]. tel:[phone] [facility], [address], [place], [place], [address], [place] tel:[phone] [place] No Information 3 Therese Chandler. [address] [place] [address], [address], [place], [address], [place]. tel:[phone] [facility] [address], [place], [place], [address], [place] tel:[phone] [place] No Information 3 Therese Chandler. [address] [place] [address], [address], [place], [address], [place]. tel:[phone] [facility] [address], [place], [place], [address], [place] tel:[phone] [place] No Information 3 Trinity Villarreal. [address] [place] [address], [address], [place], [address], [place]. tel:[phone] [facility] [address], [place], [place], [address], [place] tel:[phone] [place] No Information 3 Therese Chandler. [address] [place] [address], [address], [place], [address], [place]. tel:[phone] [facility], [address], [place], [place], [address], [place] tel:[phone] [place] No Information 3 Therese Chandler. [facility], [address], [place], [facility], [place]. tel:[phone], [address], tel:[phone] [place] No Information 3 Therese Arteaga. [address] [facility], [address], [place], [facility], [place]. tel:[phone], [place], [place], [address], tel:[phone] [place] Pain in joint involving shoulder region 3 Therese Arteaga. [address] [facility], [address], [place], [address], [place]. tel:[phone] Family History Family Member Type Diagnosis Age At Onset No Information Payers Payer name Insurance type Covered alliance party ID Anshu nguyễn(s) Medicare [place] [id number] Medicaid OON Write Off CI 00 Social [...]
[2025-03-23] VITALS (12 sets, daily range): BP systolic 148–193; BP diastolic 89–126; PULSE 76–119; RESP 18–31; TEMP 37.2–37.7; O2SAT 94–100; BMI 34.6
--- NOTE | ~2025-03-23 | CT_ITS ---
CT abdomen pelvis w con Clinical History: abd pain, n/v . Comparison: CT abdomen and pelvis 03/02/2024 Pelvic ultrasound 10/14/2024 Technique: Axial images lung bases to symphysis pubis 100 mL Omnipaque 350 Coronal, sagittal reformats CT images acquired with automatic exposure control for dose reduction DLP: 1394 mGy-cm Findings: Lung bases: Clear. Visualized heart and pericardium: Unremarkable. Liver: Unremarkable. Gallbladder: Removed. Spleen: Unremarkable. Pancreas: Unremarkable. Adrenal glands: Unremarkable. Kidneys: Right kidney- No hydronephrosis. No renal stones. Left kidney- No hydronephrosis. No renal stones. Distal esophagus/stomach: Unremarkable. Small bowel loops: Normal caliber and wall thickness. Colon: Focal wall thickening hepatic flexure with surrounding inflammation. Normal RLQ appendix. Rectal suture line. Diverticula. Nodes: No enlarged nodes. Peritoneum: No ascites. No free air. Urinary bladder: Unremarkable. Uterus: Unremarkable. Adnexa: No masses. Bones: No acute bony abnormality. Soft tissues: Unremarkable. Aorta: No aneurysm or dissection. IVC: Unremarkable. Main portal vein/SMV/splenic vein: Patent. IMPRESSION: 1. Acute diverticulitis colonic hepatic flexure. No complicating features. Reviewed, dictated and finalized at location R.
--- OUTSIDE RECORDS SUMMARY | 2025-03-23 05:40 | XMS_ITS | Clinical Summary ---
Author Organization [facility] Medical Office Building [address] Address [address] [place] [address] Care Team Providers Care Data Communications Engineer Name Role Phone Bharath Witt MD Unavailable [phone] Atul Garrido MD Unavailable [phone] Yamilet Bernal DO Unavailable [phone] Brandon Gutierrez MD Unavailable [phone] Brandon Roque MD Unavailable [phone] Tucker Evans Unavailable Unavailable Nolberto Uriostegui MD Unavailable + Louise Recio NP Primary Care Provider [phone] Allergies No known active allergies Medications SUMAtriptan (IMITREX) 100 mg tabletIndications :Migraine Take [...] mg total) by mouth nightly 4 Active triamcinolone (KENALOG) 0.1 % creamIndications: Skin Inflammation Apply 1 g topically as needed for irritation 5 Active acetaminophen (TYLENOL) 500 mg tablet Take 2 tablets (1,000 mg total) by mouth every 6 (six) hours as needed for pain Active metoprolol XL (TOPROL-XL) 25 mg extended release tablet Take 1 tablet (25 mg total) by mouth daily 90 tablet 3 5 11/20/19 26 Active valsartan (DIOVAN) 160 mg tabletIndications :Primary hypertension Take 1 tablet (160 mg total) by mouth 2 (two) times a day 180 tablet 3 5 11/20/19 26 Active albuterol HFA (PROVENTIL HFA,VENTOLIN HFA,PROAIR HFA) 90 mcg/actuation inhaler INHALE 1 TO 2 PUFFS BY MOUTH EVERY 4 TO 6 HOURS NEEDED FOR SHORTNESS OF BREATH FOR WHEEZING 5 Active Rexulti 2 mg tablet Take 1 tablet (2 mg total) by mouth daily 5 Active oxyBUTYnin XL (DITROPAN-XL) 5 mg 24 hr tablet Take 1 tablet (5 mg total) by mouth daily 90 tablet 3 5 Active amLODIPine (NORVASC) 10 mg tablet Take 1 tablet (10 mg total) by mouth daily 90 tablet 1 5 Active terbinafine (LamiSIL) 250 mg tablet Take 1 tablet (250 mg total) by mouth daily 90 tablet 5 Active triamcinolone (NASACORT) 55 mcg nasal inhaler Administer 2 sprays into each nostril daily 10.8 g 3 5 Active Active Problems Problem Noted Date Diagnosed Date Major depressive disorder, single episode, moder ate 02/20/2025 Vaginal dryness, menopausal 02/18/2025 Status post laparoscopic-assisted sigmoidectomy 02/18/2025 Obesity (BMI 35.0-39.9 without comorbidity) 01/30 Assessment & Plan (02/20/2025 8:19 AM CDT): Dyspareunia, female 02/18/2025 Trigger middle finger of left hand 07/23/2024 Chronic pain of both knees 02/25/2024 Overview (02/25/2024): Suspect knee OA. Trial of PT. Fall precautions recommended Memory loss 04/24/2023 Assessment & Plan (08/20/2024 1:55 PM COOKER LOADER): Has follow up with neurology in August. Was started on donepezil last year for mild cognitive decline. Assessment & Plan (02/25/2024 5:39 PM CDT): Chronic. Saw neuropsychology. Working with neuropsych as well as Neurology. Was felt to have a degree of neurocognitive decline and not just pure pseudodementia. Continue working closely with specialists. Had recent lumbar puncture and brain MRI Pulmonary hypertension 10/24/2022 Assessment & Plan (02/20/2025 8:19 AM CDT): Chronic. Following with cardiology. Smoking hx. Assessment & Plan (02/25/2024 5:37 PM CDT): [...] 2:35 PM CDT): Hearing and Balance testing [facility] Audiology Imaging based on Hearing test results OAB (overactive bladder) 05/04/2021 Assessment & Plan (02/25/2024 5:37 PM CDT): Chronic. Struggles some despite oxybutynin. Continue prescription medication Assessment & Plan (07/12/2021 2:14 PM COOKER LOADER): Has he use pads daily so they are getting expensive. Asking for help pain for them to her insurance. Will order prescription. Pulmonary valve insufficiency 10/14/2020 History of tobacco abuse 10/14/2020 Chronic migraine without aur a without status migrainosus, not intractable 08/06/2018 Assessment & Plan (02/20/2025 8:19 AM CDT): CAMILLE on CPAP 12/04/2017 Overview (01/27/2019): CAP Assessment & Plan (02/25/2024 5:37 PM CDT): Chronic. On CPAP. Encouraged compliance Assessment & Plan (01/08/2022 1:40 PM CDT): Pt has a cpap. Uses a nasal pillow. Uses every night. Follow sleep medicine Assessment & Plan (07/12/2021 2:14 PM COOKER LOADER): History of sleep apnea but no longer uses CPAP. Will refer back to Sleep Medicine IBS (irritable bowel syndrome) 04/18/2017 Assessment & Plan (12/25/2021 2:28 PM CDT): Hi fiuber diet Mixed hyperlipidemia 11/14/2013 Overview (10/04/2016): Combined hyperlipidemia Assessment & Plan (02/20/2025 8:19 AM CDT): Assessment & Plan (08/20/2024 2:46 PM COOKER LOADER): The 10-year ASCVD risk score (Agustin BLISS, [...] are stable, reviewed previous lipid levels in [facility]. Pharmacotherapy as ordered. Order for lipid panel was given today to be obtained. Pt voiced understanding of lab drawn and continuation of current medication regimen. Assessment & Plan (09/19/2020 9:46 AM CDT): Lipid abnormalities are stable, reviewed previous lipid levels in [facility]. Pharmacotherapy as ordered. Order for lipid panel was given today to be obtained. Pt voiced understanding of lab drawn and continuation of current medication regimen. Assessment & Plan (12/24/2019 8:59 PM CDT): Lipid abnormalities are stable. Pharmacotherapy not needed. Lipid level stable - Lipids will be reassessed in 1 year Assessment & Plan (06/22/2019 1:32 PM COOKER LOADER): Diet controlled. Last LDL 133. Will have her f/u in 6 months with repeat lipid panel and cmp Adjustment disorder with mixed anxiety and depre ssed mood 11/14/2013 Overview (10/04/2016): Adjustment reaction with anxiety and depression Assessment & Plan (02/20/2025 8:19 AM CDT): Assessment & Plan (08/20/2024 1:54 PM COOKER LOADER): Managed by psychiatry. Has been on abilify [...] (10/04/2016): Benign essential HTN Assessment & Plan (02/20/2025 8:19 AM CDT): Assessment & Plan (08/20/2024 2:47 PM COOKER LOADER): Improved but not quite at goal. Will increase amlodipine to 10 mg once daily. She will send his home blood pressures. Follow up in 6 months Assessment & Plan (08/03/2024 1:08 PM COOKER LOADER): Initial BP elevated, repeat improved (still increased but better). EKG fine in office, labs ordered. Add in Amlodipine to 2.5 mg daily and continue Valsartan and Metoprolol. Home BP log x 1 week, follow up in 2 weeks to establish with Ramona Recio DNP (used to see her in [place]). ER precautions provided. Assessment & Plan (02/25/2024 [...] management Assessment & Plan (06/16/2021 9:24 AM COOKER LOADER): Discontinue hydrochlorothiazide. Discontinue lisinopril 20 mg. Will [...] months. Assessment & Plan (06/22/2019 1:31 PM COOKER LOADER): Hypertension is improving with treatment. Regular aerobic exercise. Continue current medications. Blood pressure will be reassessed 6 months. Urinary incontinence 11/14/2013 Overview (10/04/2016): Incontinence of urine Assessment & Plan (08/20/2024 2:49 PM COOKER LOADER): Stable. Continue oxybutynin Assessment & Plan (02/25/2024 [...] Problem Noted Date Diagnosed Date Resolved Date Left lower quadrant abdominal pain 02/18/2025 02/18/2025 Diarrhea 02/18/2025 02/18/2025 Right flank pain 08/20/2024 02/20/2025 Assessment & Plan (08/20/2024 2:48 PM COOKER LOADER): Urine dip shows trace of blood. Otherwise negative. Will send urine for culture but I do not think this is a UTI. She has had no improvement with Bactrim. Could be muscular but we are going to rule out a kidney stone. Order CT renal stone protocol stat at [facility]. Trigger finger, right ring finger 02/12/2023 08/20/2024 Gastroparesis 01/07/2023 02/18/2025 Assessment & Plan (02/25/2024 5:38 PM CDT): Chronic. Sees GI. Avoid dietary triggers. Patient believes she is on Compazine currently. DENNIS (dyspnea on exertion) 08/31/2022 Exercise intolerance 08/31/2022 023 Trigger ring finger of right hand 08/10/2022 01/07/2023 Overview (08/10/2022): Added automatically from request for surgery [id number] Dizziness and giddiness 02/28/202208/02 Assessment & Plan (02/28/2022 2:33 PM CDT): Hearing and Balance testing [facility] Audiology Hypoglycemia 01/08/2022 02/25/2024 Assessment & Plan (01/08/2022 1:41 PM CDT): Having symptomatic episodes. We discussed lower carb meals. Will check hemoglobin A1c with labs today. Does have family history of diabetes Dysphagia 12/25/2021 01/08/2022 Assessment & Plan (12/25/2021 2:28 PM CDT): Post Gorge egd and dil Dysphagia 12/25/2021 08/20/2024 Overview (02/02/2022): Added automatically from request for surgery [id number] Assessment & Plan (02/25/2024 5:38 PM CDT): Intermittent episodes of dysphagia. Saw GI. Had EGD which may have had very subtle eosinophilic esophagitis. She will continue working with the specialists. She also has a history of gastroparesis Trigger middle finger of right hand 10/23/2021 01/08/2022 Overview (10/23/2021): Added automatically from request for surgery [id number] Chronic cough 07/12/2021 01/08/2022 Assessment & Plan (07/12/2021 2:15 PM COOKER LOADER): Encouraged her to follow back up with GI which she has scheduled in August at [facility] Morbid (severe) obesity due to excess calories 07/11/2021 01/08/2022 Assessment & Plan (07/12/2021 2:13 PM COOKER LOADER): BMI Follow-up includes: exercise counseling. ZHANG-inhibitor cough 06/16/2021 07/11/19 Assessment & Plan (06/16/2021 9:23 AM COOKER LOADER): will change to Arb Acute bronchitis 05/05/2021 [...] 06/22/2019 Assessment & Plan (05/04/2019 2:33 PM COOKER LOADER): Have eye exam Increase to 64 ounces [...] 06/22/2019 Assessment & Plan (07/07/2018 12:27 PM COOKER LOADER): Patient presents symptoms of feeling imbalance with [...] 01/07/2023 Assessment & Plan (06/05/2022 2:39 PM COOKER LOADER): Continue the reglan and zofran. History of [...] Encounters Date Type Department Care Team Description 03/19/2025 Orders Only [facility] Medical Group Primary Care at [address] [address] ProviderJonathan MD 02/25/2025 Telephone [employer] Administrative Assistant at [address] [place] [address] Modesta Tejada NP 02/18/2025 3:00 PM CDT Office Visit [facility] Medical Group Primary Care at [address] [address] Louise Recio NP Annual physical exam (Primary Dx); Adjustment disorder with mixed anxiety and depressed mood; Chronic migraine without aura without status migrainosus, not intractable; Mixed hyperlipidemia; Obesity (BMI 35.0-39.9 without comorbidity); Primary hypertension; Pulmonary hypertension (HCC); Onychomycosis; Seasonal allergic rhinitis due to pollen; Major depressive disorder, single episode, moderate (HCC) 02/17/2025 12:50 PM CDT - 02/17/2025 11:59 PM CDT Hospital Encounter [facility] Cardiology [address] [place] [id number] SOB (shortness of breath) Discharge Disposition: Discharge to home or self care 01/07/2025 Orders Only [employer] Administrative Assistant at [address] [place] [address] Modesta Tejada NP SOB (shortness of breath) (Primary Dx) from Last 3 Months Immunizations [...] RELEASE 03/19/2023 Right 4th finger COLON SURGERY November 2017 Medical History Medical History Date Comments Gastroesophageal [...] 10/23/2021 Added automatically from request for surgery [id number] Dysphagia Anemia Arthritis History of diverticulitis 12/04/2017 Chroni c - Bowel resection scheduled Carpal tunnel syndrome 04/18/2017 Overview: Overview: Bilateral release Overview: Bilateral release Persistent insomnia 11/14/2013 Insomnia, pe rsistent Chickenpox Basal cell carcinoma (BCC) 10/2023 4 excision planned Family History Medical History Relation Name Comments Cancer Brother 1 Rex Prostate cancer Brother 1 Rex Arthritis Brother 2 Casper Arthritis Father Alex Family history of arthritis - (Added by TW Conv) Bleeding Disorder Father Alex Family his tory of bleeding disorder - (Added by TW Conv) Cancer Father Alex Family history of malignant neoplasm - (Added by TW Conv) Hypertension Father Alex Hypertension; / Family history of hypertension - (Added by TW Conv) Cancer Father's Brother Brian Diabetes Maternal Grandmother Linwood Arthritis Mother Faith Family history of arthritis - (Added by TW Conv) Bleeding Disorder Mother Faith Family his tory of bleeding disorder - (Added by TW Conv) Cancer Mother Dallas Family history of malignant neoplasm - (Added by TW Conv) Hypertension Mother Faith Family history of hypertension - (Added by TW Conv) Prostate cancer Other Family histo ry of Cancer, prostate; Anesthesia problems Neg Hx Malig Hypertension Neg Hx Malig Hyperthermia Neg Hx Pseudochol deficiency Neg Hx Relation Name Status Comments Brother 1 Rex Alive Brother 2 Casper Alive Father Alex Father's Brother Brian Alive Maternal Grandmother Linwood Alive Mother Faith Other Social History Tobacco Use [...] more points, staff should administer the PHQ-9) 3 02/18/2025 PHQ-9 Answer Date Recorded PHQ-9 Total Score 12 02/18/2025 Personal Safety Answer Date Recorded Have you ever been in or are you currently in a harmful physical or emotional relationship or is someone making you feel afraid or unsafe? Denies 08/04/2024 Comments No Sex and Gender Information Value Date Recorded Sex Assigned at Not on file Legal Sex Female 3:05 PM COOKER LOADER Gender Identity Female 09/08/2020 1:16 PM COOKER LOADER Sexual Orientation Not on file Obstetrics History Last Filed Vital Signs Vital Sign Reading Time Taken Comments Blood Pressure 136/92 02/18/2025 3:12 PM CDT Pulse 64 02/18/2025 3:12 PM CDT Temperature 36.8 C (98.2 F) 02/18/2025 3:12 PM CDT Respiratory Rate 18 02/18/2025 3:12 PM CDT Oxygen Saturation 98% 02/18/2025 3:12 PM CDT Inhaled Oxygen Concentration - - Weight 111.2 kg (245 lb 3.2 oz) 02/18/2025 3:12 PM CDT Height 172.7 cm (5' 8) 02/18/2025 3:12 PM CDT Body Mass Index 37.28 02/18/2025 3:12 PM CDT Plan of Treatment Health Maintenance Due Date Last Done Comments Pneumococcal vaccine <65 (1 of 2 - PCV) 1980 Regular Well Visit/Exam 18-64 02/24/2025, 01/07/2023, 12/24/2019 Breast Cancer Screening-Mammogram 02/25/2025 02/26/2024, 01/30/2024, 09/18/2022, Additional history exists Cervical Cancer Screening 02/26/20252023, 08/12/2023, 03/18/2019 Influenza Vaccine (#1) 2025 , 06/12/2023, 06/12/2023, Additional history exists Depression Screening 02/18/2026 02/18/2025, 02/18/2025, 02/25/2024, Additional history exists DTaP/Tdap/Td Vaccine (2 - [...] Completed 05/08/2024, , 03/15/2022, Additional history exists Medical Devices Explanted Type Area [employer] Device Identifier Shelf Expiration Date Model / Serial / Lot Other-Bladder Stimulator-08/30 Implanted:08/30 (Quantity not on file) Explanted:Qty: 1 on 09/05/2021 by Roger iGllespie MD at [facility] Other - see comments Pelvis [employer] 3058 / [id number] / Description:DEVICE: BLADDER STIMULATOR [employer] MODEL # 3058 SERIAL # [id number] CONTACT # 09-25-2013 NEEDS: TRANSMIT RECEIVE HEAD COIL Procedures Procedure Name Priority Date/Time Associated Diagnosis Comments TRANSTHORACIC ECHO (TTE) COMPLETE W DOPPLER/CF WO CONTRAST Routine 02/17/2025 1:22 PM CDT SOB (shortness of breath) SLEEP STUDY Routine 01/12/2025 5:51 PM CDT HM PAP SMEAR Routine 02/27/2024 10:56 AM CDT MAMMOGRAPHY Routine 02/26/2024 10:11 AM CDT COLONOSCOPY Routine 01/10/2024 4:12 PM CDT HEPATITIS C ANTIBODY Routine 12/22/2019 2:20 PM CDT Encounter for hepatitis C screening test for low risk patient from Last 3 Months or Most Recently Relevant to Health Maintenance Results * TRANSTHORACIC ECHO (TTE) COMPLETE W DOPPLER/CF WO CONTRAST (02/17/2025 1:22 PM CDT) Estimated EF 60-65 % CONS SCIMAGE Anatomical Region Laterality Modality Ultrasound 02/17/2025 12:5 2 PM CDT Narrative 02/17/2025 5:04 PM CDT [address] [address] Echocardiogram Report Patient Name: DAVID HAYWOOD : 1960 Study Date: 02/17/2025 12:52:53 PM Gender: F Tech: NL Ref Provider: MODESTA TEJADA Height(Cm): 173 BSA: 2.26 Weight(Kg): 106.6 Quality: Adequate Order Provider: MODESTA TEJADA PROCEDURES: Echocardiographic Report: Transthoracic echocardiogram with complete 2D, M-Mode, and color Doppler examination. INDICATIONS: R06.02 Shortness of breath. MEASUREMENTS: 2D/MM Value Range Doppler Value Range EF Teich MM 63.8 % [ 54.0 - 74.0 ] JIMENA Vmax 2.19 cm2 Estimated EF 60-65 % AV Mean PG 5 mmHg LVIDd MM 5.90 cm [ 3.80 - 5.20 ] AV Peak Juwan 1.50 m/s [ 1.00 - 1.70 ] LVIDs MM 3.82 cm [ 2.20 - 3.50 ] AV VTI 36.08 cm LVPWd MM 0.94 cm [ 0.60 - 0.90 ] LVOT Diam 2.07 cm IVSd MM 1.11 cm [ 0.60 - 0.90 ] LVOT Peak Juwan 0.98 m/s [ 0.70 - 1.10 ] LA Dimension MM 4.93 cm [ 2.70 - 3.80 ] LVOT VTI 24.42 cm AoR Diam MM 3.40 cm [ 2.70 - 3.70 ] MV E Peak Juwan 0.99 m/s [ 0.60 - 1.30 ] ACS MM 1.91 cm MV A Peak Juwan 0.84 m/s [ 1.00 - 1.20 ] MV Mean PG 2 mmHg MV PHT 56 msec [ 20 - 100 ] MVA 3.90 MV Decel Time 194 msec [ 104 - 258 ] PV Peak Juwan 0.92 m/s [ 0.40 - 0.80 ] TR Peak Juwan 3.13 m/s [ 1.00 - 2.80 ] TR Peak PG 39 mmHg RVSP 42.00 mmHg [ 10.00 - 36.00 ] E` 0.07 m/s E/E` 14.30 [ <= 10.00 ] PA Pressure 42.00 mmHg [ 10.00 - 36.00 ] 2D/MM Value Range Doppler Value Range - FINDINGS: Atrial Septum: Normal atrial septum. Left Ventricle: Normal left ventricular systolic function with no focal wall motion abnormalities. Normal left ventricular size. Normal left ventricular wall thickness. Normal left ventricular diastolic function. Ejection Fraction is estimated to be 60-65 %. Left Atrium: The left atrium is normal in size. Right Ventricle: Normal right ventricular size. Normal right ventricular systolic function. Right Atrium: The right atrium is normal in size. Aortic Valve: Normal structure of the aortic valve. Mitral Valve: Normal structure of the mitral valve. Pulmonic Valve: Normal structure of the pulmonic valve. Tricuspid Valve: Moderate pulmonary hypertension based on right ventricular systolic pressure. Estimated peak RVSP is 50 mmHg. Mild tricuspid regurgitation. Pericardium: Normal pericardium with no significant pericardial effusion. Aorta: Normal aortic root. Sinus of Valsalva is normal. Aortic arch is normal. Descending aorta is normal. IVC: Normal size and normal respiratory collapse consistent with normal right atrial pressure (<5 mmHg). Pulmonary Artery: Normal pulmonary artery size. CONCLUSIONS: Normal left ventricular systolic function with no focal wall motion abnormalities. Normal left ventricular size. Normal left ventricular wall thickness. Normal left ventricular diastolic function. Ejection Fraction is estimated to be 60-65 %. Moderate pulmonary hypertension based on right ventricular systolic pressure. Estimated peak RVSP is 50 mmHg. Mild tricuspid regurgitation. Electronically Signed By: Harpreet Jennings MD 02/17/2025 5:03:58 PM CDT Procedure Note Harpreet Jennings MD - 02/17/[address] [place] [address] Echocardiogram Report Patient Name: DAVID HAYWOOD : 1960 Study Date: 02/17/2025 12:52:53 PM Gender: F Tech: NL Ref Provider: MODESTA TEJADA Height(Cm): 173 BSA: 2.26 Weight(Kg): 106.6 Quality: Adequate Order Provider: MODESTA TEJADA PROCEDURES: Echocardiographic Report: Transthoracic echocardiogram with complete 2D, M-Mode, and color Dopplerexamination. INDICATIONS: R06.02 Shortness of breath. MEASUREMENTS: 2D/MM Value Range Doppler ValueRange EF Teich MM 63.8 % [ 54.0 - 74.0 ] JIMENA Vmax 2.19cm2 Estimated EF 60-65 % AV Mean PG 5 mmHg LVIDd MM 5.90 cm [ 3.80 - 5.20 ] AV Peak Juwan 1.50 m/s[ 1.00 - 1.70 ] LVIDs MM 3.82 cm [ 2.20 - 3.50 ] AV VTI 36.08cm LVPWd MM 0.94 cm [ 0.60 - 0.90 ] LVOT Diam 2.07cm IVSd MM 1.11 cm [ 0.60 - 0.90 ] LVOT Peak Juwan 0.98 m/s[ 0.70 - 1.10 ] LA Dimension MM 4.93 cm [ 2.70 - 3.80 ] LVOT VTI 24.42cm AoR Diam MM 3.40 cm [ 2.70 - 3.70 ] MV E Peak Juwan 0.99 m/s[ 0.60 - 1.30 ] ACS MM 1.91 cm MV A Peak Juwan 0.84 m/s[ 1.00 - 1.20 ] MV Mean PG 2 mmHg MV PHT 56 msec [ 20 - 100 ] MVA 3.90 MV Decel Time 194 msec [ 104 - 258 ] PV Peak Juwan 0.92 m/s [ 0.40 - 0.80 ] TR Peak Juwan 3.13 m/s [ 1.00 - 2.80 ] TR Peak PG 39 mmHg RVSP 42.00 mmHg [ 10.00 - 36.00 ] E` 0.07 m/s E/E` 14.30 [ <= 10.00 ] PA Pressure 42.00 mmHg [ 10.00 - 36.00 ] 2D/MM Value Range Doppler ValueRange - FINDINGS: Atrial Septum: Normal atrial septum. Left Ventricle: Normal left ventricular systolic function with no focal wall motionabnormalities. Normal left ventricular size. Normal left ventricular wall thickness. Normal leftventricular diastolic function. Ejection Fraction is estimated to be 60-65 %. Left Atrium: The left atrium is normal in size. Right Ventricle: Normal right ventricular size. Normal right ventricular systolicfunction. Right Atrium: The right atrium is normal in size. Aortic Valve: Normal structure of the aortic valve. Mitral Valve: Normal structure of the mitral valve. Pulmonic Valve: Normal structure of the pulmonic valve. Tricuspid Valve: Moderate pulmonary hypertension based on right ventricular systolicpressure. Estimated peak RVSP is 50 mmHg. Mild tricuspid regurgitation. Pericardium: Normal pericardium with no significant pericardial effusion. Aorta: Normal aortic root. Sinus of Valsalva is normal. Aortic arch is normal.Descending aorta is normal. IVC: Normal size and normal respiratory collapse consistent with normal rightatrial pressure (<5 mmHg). Pulmonary Artery: Normal pulmonary artery size. CONCLUSIONS: Normal left ventricular systolic function with no focal wall motionabnormalities. Normal left ventricular size. Normal left ventricular wall thickness. Normal leftventricular diastolic function. Ejection Fraction is estimated to be 60-65 %. Moderate pulmonary hypertension based on right ventricular systolicpressure. Estimated peak RVSP is 50 mmHg. Mild tricuspid regurgitation. Electronically Signed By: Harpreet Jennings MD 02/17/2025 5:03:58 PM CDT Modesta Tejada NP CV ECHO PROCEDURES Final Res ult * Sleep Study (01/12/2025 5:51 PM CDT) Result [facility] Historical Provider SLEEP CENTER ORDERABLES E dited Result - Final EXTERNAL LAB * PAP SMEAR (02/27/2024 10:56 AM CDT) [...] last revised on 2019. Testing performed by: [facility], [address] [place] [address], [place]., [address] Blood specimen (specimen) 12/22/2019 2:20 PM CDT 12/23/2019 9:46 AM CDT Louise Recio NP LAB MICROBIOLOGY - GENERAL OR DERABLES Final Result [facility] Department [place] [address] from Last 3 Months or Most Recently Relevant to Health Maintenance Insurance [employer] MEDICARE PPO [facility] [employer] CHOICE MEDICARE PPO Advance Directives For more information, please contact: [phone] * Full Code (Latest Code Status on File) Date Activated Date Inactivated Comments 02/08/2022 11:09 AM 02/08/2022 5:49 PM * Full Code Date Activated Date Inactivated Comments 02/08/2022 11:09 AM 02/08/2022 11:09 AM Care Teams Data Communications Engineer Relationship Specialty Start Date End Date Louise Recio NP [address] [facility] [address] [place] [address] PCP - General Family Medicine 08/20/24 Bharath Witt MD [address] [place] [address] Referring Physician Vascular Surgery 12/04/17 Atul Garrido MD [address] [place] [address] Referring Physician Obstetrics and Gynecology 04/17/19 Yamilet Bernal DO [address] [place] [address] DR BRENNA Guerrier [facility] [address] [place] [address] Consulting Physician Otolaryngology 02/25/24 Brandon Gutierrez MD [address] [place] [address] DR BRENNA Guerrier [facility] [address] [place] [address] Consulting Physician Neurology 02/25/24 Brandon Roque MD [address] [place] [address] Consulting Physician Cardiology 02/25/24 Tucker Evans Neuropsychology 02/25/24 Nolberto Uriostegui MD [address] [place] [address] Referring Physician Gastroenterology 02/25/24
--- OUTSIDE RECORDS SUMMARY | 2025-03-23 05:40 | XMS_ITS | Encounter Summary ---
Author Organization [facility] Healthcare Address [address] [place] [address] Care Team Providers Care Television Cameraman Name Role Phone Bharath Witt MD Unavailable [phone] Atul Garrido MD Unavailable [phone] Yamilet Bernal DO Unavailable [phone] Brandon Gutierrez MD Unavailable [phone] Brandon Roque MD Unavailable [phone] Tucker Evans Unavailable Unavailable Nolberto Uriostegui MD Unavailable + Louise Recio NP Primary Care Provider [phone] Encounter Details Date Type Department Care Team (Late st Contact Info) Description 03/19/2025 Orders Only [facility] Primary Care at [address] [address] Provider, MD Jonathan [address] [place], [place] [id number] Social History Tobacco Use Types Packs/Day Years [...] on file Legal Sex Female 3:05 PM SOLE SKIVER Gender Identity Female 09/08/2020 1:16 PM SOLE SKIVER Sexual Orientation Not on file documented as of this encounter Plan of Treatment Not on file documented as of this encounter Procedures Procedure Name Priority Date/Time Associated Diagnosis Comments SLEEP STUDY Routine 01/12/2025 5:51 PM CDT documented in this encounter Results * Sleep Study (01/12/2025 5:51 PM CDT) us Historical Provider SLEEP CENTER ORDERABLES E dited Result - Final Performing Organization Address City/State/[facility] Co de Phone Number EXTERNAL LAB documented in this encounter Visit Diagnoses Not on filedocumented in this encounter Care Teams Television Cameraman Relationship Specialty Start Date End Date Louise Recio NP [address] [facility] [address] [place] [address] PCP - General Family Medicine 08/20/24 Bharath Witt MD [address] [facility] [address] [facility] [address] [place] [address] Referring Physician Vascular Surgery 12/04/17 Atul Garrido MD [address] [facility] [address] [place] [address] Referring Physician Obstetrics and Gynecology 04/17/19 Yamilet Bernal DO [address] [facility] [address] BRENNA Guerrier [facility] [address] [place] [address] Consulting Physician Otolaryngology 02/25/24 Brandon Gutierrez MD [address] [place] [address] DR BRENNA Guerrier [facility] [address] [place] [address] Consulting Physician Neurology 02/25/24 Brandon Roque MD [address] [facility] [address] [place] [address] Consulting Physician Cardiology 02/25/24 Tucker Evans Neuropsychology 02/25/24 Nolberto Uriostegui MD [address] [facility] [address] [place] [address] Referring Physician Gastroenterology 02/25/24 documented as of this encounter
--- OUTSIDE RECORDS SUMMARY | 2025-03-23 05:40 | XMS_ITS | Clinical Summary ---
Author Organization [facility] Address [address] [place] [address] Care Team Providers Care Administrative Technician Name Role Phone Unavailable Primary Care Provider Unavailabl e Source Comments [facility], formerly [facility],non-owned Affiliates and Associated Physician Practices is amultiple site organization consisting of ambulatory clinics and hospital sitesin [place], [place], [place] and [place]. This disclosure is being madepursuant to the Care Everywhere program and may not contain all information available regarding this patient. Last updated 18.[facility] Allergies No known active allergies Medications * [...] 04/18/2020 04/18/2017, 2016 LIPID TESTING 04/18/2022 04/18/2017 DEPRESSION SCREENING 07/01/2024 COVID-19 VACCINE ( season) 2025 05/10/2021, 09/13/2020, 08/16/2020 INFLUENZA VACCINE (#1) 2025 , 07/10/2022, 07/14/2021, [...] CDT 04/18/2017 Narrative Resulting Agency Comment [facility] [address] [facility] [id number] Anoop Romero MD LAB - CHEMISTRY ORDERABLE S Final Result Performing Organization Address City/[facility]/ZIP Co de Phone Number [facility] ACCOUNT BILL [address] [place] [address] * (ABNORMAL) LIPID PROFILE (04/18/2017 12:24 PM [...] CDT 04/18/2017 Narrative Resulting Agency Comment [facility] [address] [facility] [id number] Anoop Romero MD LAB - CHEMISTRY ORDERABLE S Final Result Performing Organization Address City/[facility] de Phone Number [facility] ACCOUNT BILL [address] [place] [address] from Last 3 Months or Most Recently Relevant to Health Maintenance Insurance [facility] * Guarantor: KORTNEY HAYWOOD Account Type Relation to Patient Date of Phone Billing Address Personal/Family [address] [place] [address] [facility] SELF PAY NO INSURANCE Member Subscriber Plan / Payer (Ef fective for All Dates) Name:Kortney Haywood Member ID:Not on file Relation to Subscriber:Not on file Name:KORTNEY HAYWOOD Subscriber ID:Not on file Address: [address] [place] [address] Payer ID:Not on file Group ID:Not on file Type:Self Pay Address: [place], [place] * Guarantor: KORTNEY HAYWOOD Account Type Relation to Patient Date of Phone Billing Address Personal/Family [address] [place] [address] [facility] SELF PAY NO INSURANCE Member Subscriber Plan / Payer (Ef fective for All Dates) Name:Kortney Haywood Member ID:Not on file Relation to Subscriber:Not on file Name:KORTNEY HAYWOOD Subscriber ID:Not on file (Home) Address: [address] [place] [address] Payer ID:Not on file Group ID:Not on file Type:Self Pay Address: [place], [place] * Guarantor: KORTNEY HAYWOOD Account Type Relation to Patient Date of Phone Billing Address Personal/Family [address] [place] [address] [facility] SELF PAY NO INSURANCE Member Subscriber Plan / Payer (Ef fective for All Dates) Name:Kortney Haywood Member ID:Not on file Relation to Subscriber:Not on file Name:KORTNEY HAYWOOD Subscriber ID:Not on file (Home) Address: [address] [place] [address] Payer ID:Not on file Group ID:Not on file Type:Self Pay Address: [place], [place]
--- OUTSIDE RECORDS SUMMARY | 2025-03-23 05:40 | XMS_ITS | Encounter Summary ---
Author Organization [facility] Healthcare Address [address] [place] [address] Care Team Providers Care Medical Care Evaluation Specialist Name Role Phone Reza Ozuna DO Unavailable [phone] Bharath Witt MD Unavailable [phone] Atul Garrido MD Unavailable [phone] Jane Felix MD Primary Care Provider Yamilet Bernal DO Unavailable [phone] Brandon Gutierrez MD Unavailable [phone] Brandon Roque MD Unavailable [phone] Tucker Evans Unavailable Unavailable Nolberto Uriostegui MD Unavailable + David Guy MD Primary Care Provider Jane Felix MD Primary Care Provider Jane Felix MD Primary Care Provider Louise Recio NP Primary Care Provider [phone] Encounter Details Date Type Department Care Team (Late st Contact Info) Description 01/28/[address] [address] [address] [place], [place] Social History Tobacco Use [...] on file Legal Sex Female 3:05 PM VALIDATION LEADER Gender Identity Female 09/08/2020 1:16 PM VALIDATION LEADER Sexual Orientation Not on file documented as of this encounter Plan of Treatment Not on file documented as of this encounter Visit Diagnoses Not on filedocumented in this encounter Care Teams Medical Care Evaluation Specialist Relationship Specialty Start Date End Date Jane Felix MD [address] [place] [address] PCP - General Family Practice 07/09/22 04/09/24 David Guy MD [address] [place] [address] PCP - General Family Medicine 04/10/24 08/02/24 Jane Felix MD [address] [place] [address] PCP - General Family Medicine 08/03/24 08/03/24 Jane Felix MD [address] [facility] [address] [facility] [address] [place] [address] PCP - General Family Medicine 08/19/24 08/19/24 Louise Recio BIOFUELS PLANT OPERATIONS ENGINEER 2 [facility] [address] [place] [address] PCP - General Family Medicine 08/20/24 Reza Ozuna DO Consulting Physician Gastroenterology 12/04/17 02/24/24 Bharath Witt MD [address] [place] [address] [address] [facility] [address] [place] [address] Referring Physician Vascular Surgery 12/04/17 Atul Garrido MD [address] [place] [address] [address] [facility] [address] [place] [address] Referring Physician Obstetrics and Gynecology 04/17/19 Yamilet Bernal DO [address] [facility] [address] BRENNA Guerrier [facility] [address] [place] [address] Consulting Physician Otolaryngology 02/25/24 Brandon Gutierrez MD [address] [facility] [address] BRENNA Guerrier [facility] [address] [place] [address] Consulting Physician Neurology 02/25/24 Brandon Roque MD [address] [facility] [address] [facility] [address] [place] [address] Consulting Physician Cardiology 02/25/24 Tucker Evans Neuropsychology 02/25/24 Nolberto Uriostegui MD [address] [place] [address] Referring Physician Gastroenterology 02/25/24 documented as of this encounter
--- OUTSIDE RECORDS SUMMARY | 2025-03-23 05:40 | XMS_ITS | Encounter Summary ---
Author Organization [facility] Address [address] [place] [address] Phone Care Team Providers Care Family Consultant Name Role Phone Belen Kemp APRN, RX SPECIALIST Unavailable [phone] Reza Ozuna DO Unavailable [phone] Danna Tran DROP WIRE ALINER Primary Care Provi doug Louise Recio APRN, RX SPECIALIST Primary Care Provider Reason for Visit * Reason Comments Medication Refill Encounter Details Date Type Department Care Team (Late st Contact Info) Description 01/02/[address] [facility] - Gastroenterology [facility] [address] [place] [id number] Reza Ozuna, [address] [facility] [place] [address] Medication Refill Social History Tobacco Use Types Packs/Day Years Used Date Smoking Tobacco: Former Cigarettes 0.5 2 0 08/30/1993 - 08/31/1995 Smokeless Tobacco: Never Alcohol Use Standard Drinks/Week Comments Yes 1 (1 standard drink = 0.6 oz pur e alcohol) occasionally Comments No Sex and Gender Information Value Date Recorded Sex Assigned at Female 06/27/2023 7:46 PM NETWORK FIREWALL ENGINEER Legal Sex Female 7:32 PM CDT Gender Identity Female 06/27/2023 7:46 PM NETWORK FIREWALL ENGINEER Sexual Orientation Choose not to disclose 2022 7:46 PM NETWORK FIREWALL ENGINEER Occupation Industry Job Start Date Job End [...] on filedocumented in this encounter Care Teams Family Consultant Relationship Specialty Start Date End Date Danna Tran NP [address] [place] [address] [address] [place] [address] PCP - General Advanced Practice Nurse 08/20/19 Louise Recio, PRINCIPAL PRODUCT MANAGER, RX SPECIALIST [address] [place] [address] [address] [place] [address] PCP - General Advanced Practice Nurse 03/21/21 Belen Kemp, PRINCIPAL PRODUCT MANAGER, RX SPECIALIST Nurse Practitioner Advanced Practice Nurse 12/29/15 Reza Ozuna DO Consulting Physician Gastroenterology 10/31/17 documented as of this encounter
[2025-03-23 06:01] LABS: Hematocrit 41.6 % (37.0-47.0); Hemoglobin 13.9 g/dL (12.0-15.0); Immature Granulocyte Percent A 0.4 % (0-0.5); Lymphocytes Absolute Auto 1.92 K/mm3 (0.9-3.2); Mean Corpuscular HGB Conc 33.4 g/dl (32-36); Mean Corpuscular Hemoglobin 28.0 pg (26-34); Mean Corpuscular Volume 83.7 fl (80-100); Nucleated Red Blood Cells Absolute Auto 0.000 K/mm3 (0.0-0.012); Nucleated Red Blood Cells Perc 0.0 % (0.0-0.2); Platelet Count Result 484 k/mm3 (150-375); Red Blood Count 4.97 M/mm3 (4.2-5.4); White Blood Count 10.4 K/mm3 (4.5-10.0)
[2025-03-23] MEDS: LACTATED RINGERS 1,000 ML 999 ML IV CONT (06:07)
[2025-03-23] MEDS: METOCLOPRAMIDE HCL INJ 10 MG/2 ML VIAL IV PUSH (06:07)
--- OUTSIDE RECORDS SUMMARY | 2025-03-23 06:09 | XMS_ITS | Encounter Summary ---
Author Organization [facility] Healthcare Address [address] [place] [address] Care Team Providers Care Public Affairs Specialist Name Role Phone Reza Ozuna DO Unavailable [phone] Bharath Witt MD Unavailable [phone] Atul Garrido MD Unavailable [phone] Jane Felix MD Primary Care Provider Yamilet Bernal DO Unavailable [phone] Brandon Gutierrez MD Unavailable [phone] Brandon Roque MD Unavailable [phone] Tucker Evans Unavailable Unavailable Nolberto Uriostegui MD Unavailable + David Guy MD Primary Care Provider Jane Felix MD Primary Care Provider Jane Felix MD Primary Care Provider Louise Recio NP Primary Care Provider [phone] Encounter Details Date Type Department Care Team (Late st Contact Info) Description 01/28/[address] [address] El[place], [place] Social History Tobacco Use [...] on file Legal Sex Female 3:05 PM WIDE AREA NETWORK ENGINEER Gender Identity Female 09/08/2020 1:16 PM WIDE AREA NETWORK ENGINEER Sexual Orientation Not on file documented as of this encounter Plan of Treatment Not on file documented as of this encounter Visit Diagnoses Not on filedocumented in this encounter Care Teams Public Affairs Specialist Relationship Specialty Start Date End Date Jane Felix MD [address] [place] [address] PCP - General Family Practice 07/09/22 04/09/24 David Guy MD [address] [place] [address] PCP - General Family Medicine 04/10/24 08/02/24 Jane Felix MD [address] [place] [address] PCP - General Family Medicine 08/03/24 08/03/24 Jane Felix MD [address] [facility] [address] [facility] [address] [place] [address] PCP - General Family Medicine 08/19/24 08/19/24 Louise Recio CLEAR COAT SPRAYER 2 [facility] [address] [place] [address] PCP - General Family Medicine 08/20/24 Reza Ozuna DO Consulting Physician Gastroenterology 12/04/17 02/24/24 Bharath Witt MD [address] [place] [address] [address] [facility] [address] [place] [address] Referring Physician Vascular Surgery 12/04/17 Atul Garrido MD [address] [place] [address] [address] [facility] [address] [place] [address] Referring Physician Obstetrics and Gynecology 04/17/19 Yamilet Bernal DO [address] [facility] [address] BRENNA Guerrier [facility] [address] [place] [address] Consulting Physician Otolaryngology 02/25/24 Brandon Gutierrez MD [address] [facility] [address] BRENNA Guerrier [facility] [address] [place] [address] Consulting Physician Neurology 02/25/24 Brandon Roque MD [address] [facility] [address] [facility] [address] [place] [address] Consulting Physician Cardiology 02/25/24 Tucker Evans Neuropsychology 02/25/24 Nolberto Uriostegui MD [address] [place] [address] Referring Physician Gastroenterology 02/25/24 documented as of this encounter
--- OUTSIDE RECORDS SUMMARY | 2025-03-23 06:09 | XMS_ITS | Clinical Summary ---
Author Organization [facility] Medical Office Building B Address [address] [place] [address] Care Team Providers Care Linux Network Administrator Name Role Phone Bharath Witt MD Unavailable [phone] Atul Garrido MD Unavailable [phone] Yamilet Bernal DO Unavailable [phone] Brandon Gutierrez MD Unavailable [phone] Brandon Roque MD Unavailable [phone] Tucker Evans Unavailable Unavailable Nolberto Uriostegui MD Unavailable + Louise Recio NP Primary Care Provider [phone] Allergies No known active allergies Medications SUMAtriptan [...] 04/24/2023 Assessment & Plan (08/20/2024 1:55 PM TAX SERVICES MANAGER): Has follow up with neurology in August. [...] 2:35 PM CDT): Hearing and Balance testing [facility] Audiology Imaging based on Hearing test results OAB (overactive bladder) 05/04/2021 Assessment & Plan (02/25/2024 5:37 PM CDT): Chronic. Struggles some despite oxybutynin. Continue prescription medication Assessment & Plan (07/12/2021 2:14 PM TAX SERVICES MANAGER): Has he use pads daily so they [...] medicine Assessment & Plan (07/12/2021 2:14 PM TAX SERVICES MANAGER): History of sleep apnea but no longer uses CPAP. Will refer back to Sleep Medicine IBS (irritable bowel syndrome) 04/18/2017 Assessment & Plan (12/25/2021 2:28 PM CDT): Hi fiuber diet Mixed hyperlipidemia 11/14/2013 Overview (10/04/2016): Combined hyperlipidemia Assessment & Plan (02/20/2025 8:19 AM CDT): Assessment & Plan (08/20/2024 2:46 PM TAX SERVICES MANAGER): The 10-year ASCVD risk score (Agustin BLISS, [...] are stable, reviewed previous lipid levels in [facility]. Pharmacotherapy as ordered. Order for lipid panel was given today to be obtained. Pt voiced understanding of lab drawn and continuation of current medication regimen. Assessment & Plan (09/19/2020 9:46 AM CDT): Lipid abnormalities are stable, reviewed previous lipid levels in [facility]. Pharmacotherapy as ordered. Order for lipid panel was given today to be obtained. Pt voiced understanding of lab drawn and continuation of current medication regimen. Assessment & Plan (12/24/2019 8:59 PM CDT): Lipid abnormalities are stable. Pharmacotherapy not needed. Lipid level stable - Lipids will be reassessed in 1 year Assessment & Plan (06/22/2019 1:32 PM TAX SERVICES MANAGER): Diet controlled. Last LDL 133. Will have her f/u in 6 months with repeat lipid panel and cmp Adjustment disorder with mixed anxiety and depre ssed mood 11/14/2013 Overview (10/04/2016): Adjustment reaction with anxiety and depression Assessment & Plan (02/20/2025 8:19 AM CDT): Assessment & Plan (08/20/2024 1:54 PM TAX SERVICES MANAGER): Managed by psychiatry. Has been on abilify [...] CDT): Assessment & Plan (08/20/2024 2:47 PM TAX SERVICES MANAGER): Improved but not quite at goal. Will increase amlodipine to 10 mg once daily. She will send his home blood pressures. Follow up in 6 months Assessment & Plan (08/03/2024 1:08 PM TAX SERVICES MANAGER): Initial BP elevated, repeat improved (still increased but better). EKG fine in office, labs ordered. Add in Amlodipine to 2.5 mg daily and continue Valsartan and Metoprolol. Home BP log x 1 week, follow up in 2 weeks to establish with Ramona Recio DNP (used to see her in [place]). ER precautions provided. Assessment & Plan (02/25/2024 [...] management Assessment & Plan (06/16/2021 9:24 AM TAX SERVICES MANAGER): Discontinue hydrochlorothiazide. Discontinue lisinopril 20 mg. Will [...] months. Assessment & Plan (06/22/2019 1:31 PM TAX SERVICES MANAGER): Hypertension is improving with treatment. Regular aerobic exercise. Continue current medications. Blood pressure will be reassessed 6 months. Urinary incontinence 11/14/2013 Overview (10/04/2016): Incontinence of urine Assessment & Plan (08/20/2024 2:49 PM TAX SERVICES MANAGER): Stable. Continue oxybutynin Assessment & Plan (02/25/2024 [...] 02/20/2025 Assessment & Plan (08/20/2024 2:48 PM TAX SERVICES MANAGER): Urine dip shows trace of blood. Otherwise negative. Will send urine for culture but I do not think this is a UTI. She has had no improvement with Bactrim. Could be muscular but we are going to rule out a kidney stone. Order CT renal stone protocol stat at [facility]. Trigger finger, right ring finger 02/12/2023 08/20/2024 Gastroparesis 01/07/2023 02/18/2025 Assessment & Plan (02/25/2024 5:38 PM CDT): Chronic. Sees GI. Avoid dietary triggers. Patient believes she is on Compazine currently. DENNIS (dyspnea on exertion) 08/31/2022 Exercise intolerance 08/31/2022 023 Trigger ring finger of right hand 08/10/2022 01/07/2023 Overview (08/10/2022): Added automatically from request for surgery [id number] Dizziness and giddiness 02/28/202208/02 Assessment & Plan (02/28/2022 2:33 PM CDT): Hearing and Balance testing [facility] Audiology Hypoglycemia 01/08/2022 02/25/2024 Assessment & Plan (01/08/2022 1:41 PM CDT): Having symptomatic episodes. We discussed lower carb meals. Will check hemoglobin A1c with labs today. Does have family history of diabetes Dysphagia 12/25/2021 01/08/2022 Assessment & Plan (12/25/2021 2:28 PM CDT): Post Gorge egd and dil Dysphagia 12/25/2021 08/20/2024 Overview (02/02/2022): Added automatically from request for surgery [id number] Assessment & Plan (02/25/2024 5:38 PM CDT): Intermittent episodes of dysphagia. Saw GI. Had EGD which may have had very subtle eosinophilic esophagitis. She will continue working with the specialists. She also has a history of gastroparesis Trigger middle finger of right hand 10/23/2021 01/08/2022 Overview (10/23/2021): Added automatically from request for surgery [id number] Chronic cough 07/12/2021 01/08/2022 Assessment & Plan (07/12/2021 2:15 PM TAX SERVICES MANAGER): Encouraged her to follow back up with GI which she has scheduled in August at [facility] Morbid (severe) obesity due to excess calories 07/11/2021 01/08/2022 Assessment & Plan (07/12/2021 2:13 PM TAX SERVICES MANAGER): BMI Follow-up includes: exercise counseling. ZHANG-inhibitor cough 06/16/2021 07/11/19 Assessment & Plan (06/16/2021 9:23 AM TAX SERVICES MANAGER): will change to Arb Acute bronchitis 05/05/2021 [...] 06/22/2019 Assessment & Plan (05/04/2019 2:33 PM TAX SERVICES MANAGER): Have eye exam Increase to 64 ounces [...] 06/22/2019 Assessment & Plan (07/07/2018 12:27 PM TAX SERVICES MANAGER): Patient presents symptoms of feeling imbalance with [...] 01/07/2023 Assessment & Plan (06/05/2022 2:39 PM TAX SERVICES MANAGER): Continue the reglan and zofran. History of [...] Department Care Team Description 03/19/2025 Orders Only [facility] Medical Group Primary Care at [address] [address] ProviderJonathan MD 02/25/2025 Telephone Marina Process Inspector at [address] [place] [address] Modesta Tejada NP 02/18/2025 3:00 PM CDT Office Visit [facility] Medical Group Primary Care at [address] [address] Louise Recio NP Annual physical [...] - 02/17/2025 11:59 PM CDT Hospital Encounter [facility] Cardiology [address] [place] [id number] SOB (shortness of breath) Discharge Disposition: Discharge to home or self care 01/07/2025 Orders Only Marina Process Inspector at [address] [place] [address] Modesta Tejada NP SOB (shortness [...] 07/01/1996 - 06/30/1997 Bilateral Carpal tunnel release KALNIA FUNDOPLICATION 07/01/2015 - 06/30/2016 BLADDER SURGERY 07/01/2012 [...] 10/23/2021 Added automatically from request for surgery [id number] Dysphagia Anemia Arthritis History of diverticulitis 12/04/2017 [...] Cancer Father's Brother Brian Diabetes Maternal Grandmother [place] Arthritis Mother Faith Family history of arthritis - (Added by TW Conv) Bleeding Disorder Mother Faith Family his tory of bleeding disorder - (Added by TW Conv) Cancer Mother Ravena Family history of malignant neoplasm - (Added [...] Alex Father's Brother Brian Alive Maternal Grandmother [place] Alive Mother Faith Other Social History Tobacco [...] on file Legal Sex Female 3:05 PM TAX SERVICES MANAGER Gender Identity Female 09/08/2020 1:16 PM TAX SERVICES MANAGER Sexual Orientation Not on file Obstetrics History [...] history exists Medical Devices Explanted Type Area Full Stack Web Developer Device Identifier Shelf Expiration Date Model / Serial / Lot Other-Bladder Stimulator-08/30 Implanted:08/30 (Quantity not on file) Explanted:Qty: 1 on 09/05/2021 by Roger Gillespie MD at [facility] Other - see comments Pelvis [employer] 3058 / [id number] / Description:DEVICE: BLADDER STIMULATOR [employer] MODEL # 3058 SERIAL # [id number] CONTACT # 09-25-2013 NEEDS: TRANSMIT RECEIVE HEAD [...] PM CDT Narrative 02/17/2025 5:04 PM CDT [address] [address] Echocardiogram Report Patient Name: DAVID HAYWOOD : [...] Procedure Note Harpreet Jennings MD - 02/17/[address] [place] [address] Echocardiogram Report Patient Name: DAVID HAYWOOD : [...] Sleep Study (01/12/2025 5:51 PM CDT) Result [facility] Historical Provider SLEEP CENTER ORDERABLES [...] last revised on 2019. Testing performed by: [facility], [address] [place] [address], [place]., [address] Blood specimen (specimen) 12/22/2019 2:20 PM CDT 12/23/2019 9:46 AM CDT Louise Recio NP LAB MICROBIOLOGY - GENERAL OR DERABLES Final Result [facility] ([facility]) 1 [facility] Department [place] [address] from Last 3 Months or Most Recently Relevant to Health Maintenance Insurance [employer] CHOICE MEDICARE PPO [facility] HU[employer]NA CHOICE MEDICARE PPO Advance Directives For more information, please contact: [phone] * Full Code (Latest Code Status on File) Date Activated Date Inactivated Comments 02/08/2022 11:09 AM 02/08/2022 5:49 PM * Full Code Date Activated Date Inactivated Comments 02/08/2022 11:09 AM 02/08/2022 11:09 AM Care Teams Linux Network Administrator Relationship Specialty Start Date End Date Louise Recio NP [address] [facility] [address] [place] [address] PCP - General Family Medicine 08/20/24 Bharath Witt MD [address] [place] [address] Referring Physician Vascular Surgery 12/04/17 Atul Garrido MD [address] [place] [address] Referring Physician Obstetrics and Gynecology 04/17/19 Yamilet Bernal DO [address] [place] [address] DR BRENNA Guerrier [facility] [address] [place] [address] Consulting Physician Otolaryngology 02/25/24 Brandon Gutierrez MD [address] [place] [address] DR BRENNA Guerrier [facility] [address] [place] [address] Consulting Physician Neurology 02/25/24 Brandon Roque MD [address] [place] [address] Consulting Physician Cardiology 02/25/24 Tucker Evans Neuropsychology 02/25/24 Nolberto Uriostegui MD [address] [place] [address] Referring Physician Gastroenterology 02/25/24
--- OUTSIDE RECORDS SUMMARY | 2025-03-23 06:09 | XMS_ITS | Clinical Summary ---
Author Organization [facility] Address [address] [facility] [place] [address] Care Team Providers Care Sign Erector Name Role Phone Unavailable Primary Care Provider Unavailabl e Source Comments [facility],non-owned Affiliates and Associated Physician Practices is amultiple site organization consisting of ambulatory clinics and hospital sitesin [place], [place], [place] and [place]. This disclosure is being madepursuant to the Care Everywhere program and may not contain all information available regarding this patient. Last updated 18.[facility] Allergies No known active allergies Medications * [...] CDT 04/18/2017 Narrative Resulting Agency Comment [facility] [address] [facility] [id number] Anoop Romero MD LAB - CHEMISTRY ORDERABLE S Final Result Performing Organization Address City/[facility]/ZIP Co de Phone Number [facility] ACCOUNT BILL [address] [place] [address] * (ABNORMAL) LIPID PROFILE (04/18/2017 12:24 PM [...] CDT 04/18/2017 Narrative Resulting Agency Comment [facility] [address] [facility] [id number] Anoop Romero MD LAB - CHEMISTRY ORDERABLE S Final Result Performing Organization Address City/[facility] de Phone Number [facility] ACCOUNT BILL [address] [place] [address] from Last 3 Months or Most Recently Relevant to Health Maintenance Insurance [facility] * Guarantor: KORTNEY HAYWOOD Account Type Relation to Patient Date of Phone Billing Address Personal/Family [address] [place] [address] [facility] SELF PAY NO INSURANCE Member Subscriber Plan / Payer (Ef fective for All Dates) Name:Kortney Haywood Member ID:Not on file Relation to Subscriber:Not on file Name:KORTNEY HAYWOOD Subscriber ID:Not on file Address: [address] [place] [address] Payer ID:Not on file Group ID:Not on file Type:Self Pay Address: [place], [place] * Guarantor: KORTNEY HAYWOOD Account Type Relation to Patient Date of Phone Billing Address Personal/Family [address] [place] [address] [facility] SELF PAY NO INSURANCE Member Subscriber Plan / Payer (Ef fective for All Dates) Name:Kortney Haywood Member ID:Not on file Relation to Subscriber:Not on file Name:KORTNEY HAYWOOD Subscriber ID:Not on file (Home) Address: [address] [place] [address] Payer ID:Not on file Group ID:Not on file Type:Self Pay Address: [place], [place] * Guarantor: KORTNEY HAYWOOD Account Type Relation to Patient Date of Phone Billing Address Personal/Family [address] [place] [address] [facility] SELF PAY NO INSURANCE Member Subscriber Plan / Payer (Ef fective for All Dates) Name:Kortney Haywood Member ID:Not on file Relation to Subscriber:Not on file Name:KORTNEY HAYWOOD Subscriber ID:Not on file (Home) Address: [address] [place] [address] Payer ID:Not on file Group ID:Not on file Type:Self Pay Address: [place], [place]
--- OUTSIDE RECORDS SUMMARY | 2025-03-23 06:09 | XMS_ITS | Encounter Summary ---
Author Organization [facility] Healthcare Address [address] [place] [address] Care Team Providers Care Licensed Professional Counselor Name Role Phone Bharath Witt MD Unavailable [phone] Atul Garrido MD Unavailable [phone] Yamilet Bernal DO Unavailable [phone] Brandon Gutierrez MD Unavailable [phone] Brandon Roque MD Unavailable [phone] Tucker Evans Unavailable Unavailable Nolberto Uriostegui MD Unavailable + Louise Recio NP Primary Care Provider [phone] Encounter Details Date Type Department Care Team (Late st Contact Info) Description 03/19/2025 Orders Only [facility] Medical Group Primary Care at [address] [address] Provider, MD Jonathan [address] [place], [place] [id number] Social History Tobacco Use Types Packs/Day Years [...] on file Legal Sex Female 3:05 PM POST ACUTE CARE NURSE PRACTITIONER Gender Identity Female 09/08/2020 1:16 PM POST ACUTE CARE NURSE PRACTITIONER Sexual Orientation Not on file documented as of this encounter Plan of Treatment Not on file documented as of this encounter Procedures Procedure Name Priority Date/Time Associated Diagnosis Comments SLEEP STUDY Routine 01/12/2025 5:51 PM CDT documented in this encounter Results * Sleep Study (01/12/2025 5:51 PM CDT) us Historical Provider SLEEP CENTER ORDERABLES E dited Result - Final Performing Organization Address City/State/[facility] Co de Phone Number EXTERNAL LAB documented in this encounter Visit Diagnoses Not on filedocumented in this encounter Care Teams Licensed Professional Counselor Relationship Specialty Start Date End Date Louise Recio NP [address] [facility] [address] [place] [address] PCP - General Family Medicine 08/20/24 Bharath Witt MD [address] [facility] [address] [facility] [address] [place] [address] Referring Physician Vascular Surgery 12/04/17 Atul Garrido MD [address] [facility] [address] [place] [address] Referring Physician Obstetrics and Gynecology 04/17/19 Yamilet Bernal DO [address] [facility] [address] BRENNA Guerrier [facility] [address] [place] [address] Consulting Physician Otolaryngology 02/25/24 Brandon Gutierrez MD [address] [place] [address] DR BRENNA Guerrier [facility] [address] [place] [address] Consulting Physician Neurology 02/25/24 Brandon Roque MD [address] [facility] [address] [place] [address] Consulting Physician Cardiology 02/25/24 Tucker Evans Neuropsychology 02/25/24 Nolberto Uriostegui MD [address] [facility] 204 [place] [address] Referring Physician Gastroenterology 02/25/24 documented as of this encounter
--- OUTSIDE RECORDS SUMMARY | 2025-03-23 06:09 | XMS_ITS | Clinical Summary ---
Author Organization [facility] Address [address], [facility] [address] [place] [address] Phone Care Team Providers Care Stock Or Delivery Clerk Name Role Phone Belen Kemp APRN, LAMBSKIN TRIMMER Unavailable [phone] Reza Ozuna DO Unavailable [phone] Louise Recio ARMORED CAR GUARD AND DRIVER, LAMBSKIN TRIMMER Primary Care Provider Allergies No known active [...] Sex Assigned at Female 06/27/2023 7:46 PM BROKERAGE COORDINATOR Legal Sex Female 7:32 PM CDT Gender Identity Female 06/27/2023 7:46 PM BROKERAGE COORDINATOR Sexual Orientation Choose not to disclose 2022 7:46 PM BROKERAGE COORDINATOR Occupation Industry Job Start Date Job End Date [employer] Not on file Not on file Not [...] 2011 Immunochemical Fecal Occult Blood 12/17/2015 12/16/2014 Colonoscopy 08/10/2024 08/10/2019, 01/30, 09/10/2011 Colorectal Cancer Screening 08/10/2024 Influenza Immunization (#1) 03/01/202505/31, 07/10/2022, 07/14/2021, Additional history exists SARS-COV-2 Immunization (2024- season) 2025 06/12/2023, 03/15/2022, 05/30/2021, Additional history exists Td Immunization Every 10 [...] Insurance MEDICAID [employer] Care Teams Stock Or Delivery Clerk Relationship Specialty Start Date End Date Louise Recio APRN, LAMBSKIN TRIMMER [address] [place] [address] [place] [address] PCP - General Advanced Practice Nurse 03/21/21 Belen Kemp APRN, LAMBSKIN TRIMMER Nurse Practitioner Advanced Practice Nurse 12/29/15 Reza Ozuna DO Consulting Physician Gastroenterology 10/31/17
--- OUTSIDE RECORDS SUMMARY | 2025-03-23 06:09 | XMS_ITS | Encounter Summary ---
Author Organization [facility] Address [address] [place] [address] Phone Care Team Providers Care Sap Business Analyst Name Role Phone Belen Kemp APRN, LOCAL SALES MANAGER Unavailable [phone] Reza Ozuna DO Unavailable [phone] Danna Tran BENCH MOLDER APPRENTICE Primary Care Provi doug Louise Recio APRN, LOCAL SALES MANAGER Primary Care Provider Reason for Visit * Reason Comments Medication Refill Encounter Details Date Type Department Care Team (Late st Contact Info) Description 01/02/2021 Refill [facility] - Gastroenterology [facility] [address] [place] [id number] Reza Ozuna, [address] [facility] [place] [address] Medication Refill Social History Tobacco Use Types Packs/Day Years Used Date Smoking Tobacco: Former Cigarettes 0.5 2 0 08/30/1993 - 08/31/1995 Smokeless Tobacco: Never Alcohol Use Standard Drinks/Week Comments Yes 1 (1 standard drink = 0.6 oz pur e alcohol) occasionally Comments No Sex and Gender Information Value Date Recorded Sex Assigned at Female 06/27/2023 7:46 PM COPRA SAMPLER Legal Sex Female 7:32 PM CDT Gender Identity Female 06/27/2023 7:46 PM COPRA SAMPLER Sexual Orientation Choose not to disclose 2022 7:46 PM COPRA SAMPLER Occupation Industry Job Start Date Job End [...] on filedocumented in this encounter Care Teams Sap Business Analyst Relationship Specialty Start Date End Date Danna Tran NP [address] [place] [address] [address] [place] [address] PCP - General Advanced Practice Nurse 08/20/19 Louise Recio, OB/GYN DOCTOR, LOCAL SALES MANAGER [address] [place] [address] [address] [place] [address] PCP - General Advanced Practice Nurse 03/21/21 Belen Kemp, OB/GYN DOCTOR, LOCAL SALES MANAGER Nurse Practitioner Advanced Practice Nurse 12/29/15 Reza Ozuna DO Consulting Physician Gastroenterology 10/31/17 documented as of this encounter
[2025-03-23 06:11] LABS: Alanine Aminotransferase 23 U/L (6-35); Albumin Level 4.8 g/dL (3.5-5.1); Alkaline Phosphatase 145 U/L (38-126); Anion Gap 15 mmol/L (4-12); Aspartate Amino Transferase 32 U/L (14-36); Bilirubin,Total 0.6 mg/dL (0.2-1.3); Blood Urea Nitrogen 12 mg/dL (7-17); Calcium 10.6 mg/dL (8.4-10.2); Carbon Dioxide 19 mmol/L (22-30); Chloride 97 mmol/L (98-107); Estimated CRCL calculation 65 ml/min; Estimated Glomerular Filt Rate 57; Glucose 141 mg/dL (65-110); Lipase 73 U/L (23-300); Potassium 3.3 mmol/L (3.4-5.0); Sodium 131 mmol/L (137-145); Total Protein 9.0 g/dL (6.3-8.2)
--- NOTE | 2025-03-23 06:31 | ED.NAVMDI ---
HPI - Nausea/Vomiting/Diarrhea General Chief complaint: Nausea/Vomiting/Diarrhea Stated complaint: vomiting Time Seen by Provider: 03/23/25 06:05 History of Present Illness HPI Narrative: Patient presents with nausea vomiting, cannot keep anything down, constantly sick to her stomach. Related Data Home Medications ?Medication ?Instructions ?Recorded ?Confirmed ?Last Taken ?Type paroxetine HCl 40 mg tablet 40 mg PO QAM 08/05/19 11/18/24 11/19/19 History aripiprazole 15 mg tablet (Abilify) 15 mg PO HS 11/13/19 11/18/24 11/19/19 History oxybutynin chloride 10 mg 10 mg PO DAILY 11/09/21 11/18/24 Unknown History tablet,extended release 24 hr amlodipine 10 mg tablet 10 mg PO DAILY 12/19/23 11/18/24 01/06/24 History trazodone 100 mg tablet 100 mg PO HS 12/19/23 11/18/24 Unknown History valsartan 320 mg tablet 320 mg PO DAILY 03/04/24 11/18/24 Unknown History Allergies Allergy/AdvReac Type Severity Reaction Status Date / Time No Known Allergies Allergy Unknown Verified 11/11/24 09:04 Review of Systems Review of Systems: All systems reviewed & are unremarkable except as noted in HPI and below PMFSH Past Medical History Medical History Dysphagia Anxiety Overactive bladder Colon polyps Diverticulitis Depression GERD (gastroesophageal reflux disease) Hyperlipidemia HTN (hypertension) CAMILLE (obstructive sleep apnea) has CPAP but is noncompliant Surgical History Surgical History S/P insertion of spinal cord stimulator bladder stimulator. Removed in 08/2021 History of Luis Felipe fundoplication Dr Oren Pineda H/O shoulder surgery right History of cholecystectomy Status post laparoscopic-assisted sigmoidectomy ruptured diverticulitis Family History Family History Father Malignant neoplasm of prostate Hypertension Family history of arthritis Grandparent Diabetes mellitus Family history of glaucoma Sibling Hypertension Other Family history of throat cancer Social History Social History Years smoked: 2 Smoking status: Former smoker Tobacco type: cigarettes Smoking end date: 07/01/00 Alcohol intake: never Alcohol use details: social Substance use: never Substance use type: does not use Do You Feel Safe in your Home?: Yes Lack of Transportation: No Lack of Food: Never True Current Housing: I Have Housing Concerned About Future Housing: No Difficulty Paying Gas/Electric Bills: No Difficulty Paying for Meds: No Currently Unemployed: No Education: High School Diploma/GED Living arrangements: with roommate(s) Occupation/Education: unemployed Gender identity (if verbalized by the patient): Female Spiritual care concerns: No Exam Narrative: EXAMINATION OF ORGAN SYSTEMS/BODY AREAS: Constitutional: Vital signs per nursing GENERAL: Appears extremely uncomfortable HEAD: Normal with no signs of head trauma. EYES: EOMI, conjunctiva normal ENT: Hearing grossly intact LUNGS: Nonlabored breathing. HEART: [Regular rate and rhythm] ABD: [Soft], [nontender to palpation] EXT: Normal range of motion SKIN: [No rashes or lesions.] NEURO: [Alert and oriented x 3. No gross focal sensory or strength deficits.] PSYCH: Normal affect Course Vital Signs Vital signs: Vital Signs Pulse Rate 104 H 03/23/25 05:51 Respiratory Rate 25 H 03/23/25 05:51 Blood Pressure 171/126 H 03/23/25 05:51 Pulse Oximetry 100 03/23/25 05:51 Oxygen Delivery Room Air 03/23/25 05:51 Pulse Rate 91 03/23/25 06:46 Respiratory Rate 25 H 03/23/25 05:51 Blood Pressure 182/99 H 03/23/25 06:46 Pulse Oximetry 100 03/23/25 06:46 Oxygen Delivery Room Air 03/23/25 05:51 MDM - Nausea/Vomiting/Diarrhea MDM Narrative Medical decision making narrative: Patient presenting here with nausea vomiting, ongoing for last 1-2 days. No abdominal pain except for the 1st day. Abdomen soft nontender but she looks extremely uncomfortable with dry heaves. Labs with a minimally elevated white count 10.4, potassium 3.3 which will be repeated, given fluids and nausea medications. CT showing diverticulitis. Despite several rounds she is still quite nauseous, discussed with hospitalist for admission at this time. Antibiotics ordered. Lab Data 03/23/25 05:55 03/23/25 05:55 Labs: Lab Results 03/23/25 03/23/25 Range/Units 05:55 07:19 WBC 10.4 H (4.5-10.0) K/mm3 RBC 4.97 (4.2-5.4) M/mm3 Hgb 13.9 (12.0-15.0) g/dL Hct 41.6 (37.0-47.0) % MCV 83.7 (80-100) fl MCH 28.0 (26-34) pg MCHC 33.4 (32-36) g/dl RDW 12.8 (11.5-14.5) % Plt Count 484 H (150-375) k/mm3 MPV 9.0 (7.4-10.4) fl Immature Gran % (Auto) 0.4 (0-0.5) % Neut % (Auto) 74.5 H (45.5-73.1) % Lymph % (Auto) 18.5 (18.3-44.2) % [place] % (Auto) 6.2 (2.6-8.5) % Eos % (Auto) 0.1 (0-4.4) % Baso % (Auto) 0.3 (0.2-1.2) % Lymph # (Auto) 1.92 (0.9-3.2) K/mm3 [place] # (Auto) 0.6 (0.1-0.6) K/mm3 Eos # (Auto) 0.0 (0-0.3) K/mm3 Baso # (Auto) 0.0 (0.0-0.1) K/mm3 Abs Immat Gran (auto) 0.04 H (0.00-0.031) K/mm3 Absolute Neuts (auto) 7.7 H (1.3-6.7) K/mm3 Absolute Nucleated RBC 0.000 (0.0-0.012) K/mm3 Nucleated RBC % 0.0 (0.0-0.2) % Sodium 131 L (137-145) mmol/L Potassium 3.3 L (3.4-5.0) mmol/L Chloride 97 L (98-107) mmol/L Carbon Dioxide 19 L (22-30) mmol/L Anion Gap 15 H (4-12) mmol/L BUN 12 (7-17) mg/dL Creatinine 0.99 (0.7-1.0) mg/dL Estim Creat Clear Calc 65 ml/min Estimated GFR 57 L (59 - ) Glucose 141 H (65-110) mg/dL Calcium 10.6 H (8.4-10.2) mg/dL Total Bilirubin 0.6 (0.2-1.3) mg/dL AST 32 (14-36) U/L ALT 23 (6-35) U/L Alkaline Phosphatase 145 H (38-126) U/L Total Protein 9.0 H (6.3-8.2) g/dL Albumin 4.8 (3.5-5.1) g/dL Lipase 73 (23-300) U/L Urine Color Pending Urine Appearance Pending Urine pH Pending Ur Specific [place] Pending Urine Protein Pending Urine Glucose (UA) Pending Urine Ketones Pending Ur Blood (Man) Pending Urine Nitrate Pending Urine Bilirubin Pending Urine Urobilinogen Pending Leukocyte Esterase Rfl Pending Discharge Plan Discharge Clinical Impression: Diverticulitis, Nausea and vomiting Patient Disposition: Still a Patient Condition: Stable Patient Language: Spanish Prescriptions: No Action oxybutynin chloride 10 mg tablet extended release 24 hr 10 mg PO DAILY fluticasone propionate [Flonase Allergy Relief] 50 mcg/actuation spray,suspension 1 spray intranasal BID Qty: 16 3RF Rx Instructions: administer into each nostril valsartan 320 mg tablet 320 mg PO DAILY albuterol sulfate 90 mcg/actuation HFA aerosol inhaler 1 - 2 puff inhalation Q4-6H PRN (Reason: shortness of breath or wheezing) Qty: 8.5 2RF paroxetine HCl 40 mg Tablet 40 mg PO QAM aripiprazole [Abilify] 15 mg Tablet 15 mg PO HS amlodipine 10 mg tablet 10 mg PO DAILY trazodone 100 mg tablet 100 mg PO HS Follow-up/Referrals: Hemal,MARY MotaP [Primary Care Provider, Unknown]
[2025-03-23] MEDS: PANTOPRAZOLE SODIUM IV 40 MG VIAL IV PUSH ×2 (06:55→20:56)
[2025-03-23] MEDS: KCL 20 MEQ/SW 100 ML 100 ML 50 MEQ IVPB (07:02)
[2025-03-23 07:30] LABS: Add Urine Microscopic? YES; Appearance Urine Clear (Clear); Glucose Urine UA Negative (Negative); Leukocyte Esterase Ur Trace LEU/UL (Negative); Nitrate Urine Negative (Negative); Non Pathogenic Casts 0-2; Specific Grav Ur > 1.045 (1.001-1.035)
[2025-03-23] MEDS: PIPERACILLIN/TAZOBACTAM SOD 3.375 GM in SODIUM CHLORIDE 0.9% IV 50 ML 100 ML IVPB ×3 (07:55→17:22)
--- NOTE | 2025-03-23 10:08 | ADMGEN ---
This patient, Kortney Haywood, was admitted to 3 Med Surg Room 323-02. Patient/family oriented to hospital policies and general routines including ID bracelet, bed and alarms, visiting hours, pain management, procedures, bathroom and other care routines, personal items, smoking policy, room service/diet, and visiting hours. Information on how to activate the Rapid Response Team has been discussed. Patient/Family are encouraged to report perceived risks to care and to ask questions if they do not understand what they are told or what they should do. received report from kandi
[2025-03-23] MEDS: ONDANSETRON INJ 4 MG/2 ML VIAL IV PUSH ×2 (12:09→20:57)
--- NOTE | 2025-03-23 12:37 | PM.IMHP ---
H&P: HPI History of Present Illness Date/Time: 03/23/25 12:37 Chief Complaint: Abdominal pain Narrative: Patient is a 64-year-old female with a past medical history of diverticulitis s/p sigmoid resection 2017 and at baseline with loose stools, last colonoscopy [address] Ozuna with small TA polyp and normal colon but bx showed mild colitis, dysphagia, GERD, obstructive sleep apnea, Luis Felipe fundoplication visited the ED due to abdominal pain. Patient reports few years ago she had Luis Felipe fundoplication and colectomy due to diverticulitis few years ago with and respectively. Lately patient had abdominal pain from Saturday and nausea sensation but unable to vomit due to Luis Felipe fundoplication. Patient is currently admitted in the setting of diverticulitis. Patient started on Zosyn and clear liquid. Review of Systems Review of Systems: All systems reviewed & are unremarkable except as noted in HPI and below PMFSH Past Medical History Medical History (Updated 03/23/25 @ 16:24 by Zaki Rivers MD) Diverticulitis Dysphagia Anxiety Overactive bladder Colon polyps Diverticulitis Depression GERD (gastroesophageal reflux disease) Hyperlipidemia HTN (hypertension) CAMILLE (obstructive sleep apnea) has CPAP but is noncompliant Surgical History Surgical History S/P insertion of spinal cord stimulator bladder stimulator. Removed in 08/2021 History of Luis Felipe fundoplication Dr Oren Pineda H/O shoulder surgery right History of cholecystectomy Status post laparoscopic-assisted sigmoidectomy ruptured diverticulitis Family History Family History Father Malignant neoplasm of prostate Hypertension Family history of arthritis Grandparent Diabetes mellitus Family history of glaucoma Sibling Hypertension Other Family history of throat cancer Social History Social History Years smoked: 2 Smoking status: Former smoker Alcohol intake: never Alcohol use details: social Substance use: never Substance use type: does not use Do You Feel Safe in your Home?: Yes Lack of Transportation: No Lack of Food: Never True Current Housing: I Have Housing Concerned About Future Housing: No Difficulty Paying Gas/Electric Bills: No Difficulty Paying for Meds: No Currently Unemployed: No Education: High School Diploma/GED Difficulty w/ Childcare or Family Care: No Living arrangements: with roommate(s) Occupation/Education: unemployed Gender identity (if verbalized by the patient): Female Spiritual care concerns: No Meds Home Medications and Allergies Home Medications ?Medication ?Instructions ?Recorded ?Confirmed ?Type paroxetine HCl 40 mg tablet 40 mg PO QAM 08/05/19 03/23/25 History aripiprazole 15 mg tablet (Abilify) 15 mg PO HS 11/13/19 03/23/25 History oxybutynin chloride 10 mg 10 mg PO DAILY 11/09/21 03/23/25 History tablet,extended release 24 hr amlodipine 10 mg tablet 10 mg PO DAILY 12/19/23 03/23/25 History trazodone 100 mg tablet 100 mg PO HS 12/19/23 03/23/25 History valsartan 320 mg tablet 320 mg PO DAILY 03/04/24 03/23/25 History albuterol sulfate 90 mcg/actuation 1 - 2 puff inhalation Q4-6H PRN 09/18/24 03/23/25 Rx aerosol inhaler shortness of breath or wheezing #8.5 grams buspirone 10 mg tablet mg 03/23/25 History Allergies Allergy/AdvReac Type Severity Reaction Status Date / Time No Known Allergies Allergy Unknown Verified 03/23/25 09:11 Vital Signs Vital Signs - 24 hr 03/23/25 05:51 03/23/25 06:46 03/23/25 07:05 Pulse Rate 104 H 91 Respiratory Rate 25 H Blood Pressure 171/126 H 182/99 H Pulse Oximetry 100 100 100 Oxygen Delivery Room Air 03/23/25 07:16 03/23/25 07:30 03/23/25 07:45 Pulse Rate 82 82 Respiratory Rate 20 26 H Blood Pressure Pulse Oximetry 100 100 100 Oxygen Delivery 03/23/25 07:57 03/23/25 08:00 03/23/25 08:10 Pulse Rate 76 79 82 Respiratory Rate 30 H 31 H 31 H Blood Pressure 172/98 H 170/89 H Pulse Oximetry 100 94 100 Oxygen Delivery 03/23/25 08:29 03/23/25 10:09 Pulse Rate 81 Respiratory Rate 18 Blood Pressure 162/94 H Pulse Oximetry 100 Oxygen Delivery Room Air H&P: Results Labs Labs: Short CBC 03/23/25 Range/Units 05:55 WBC 10.4 H (4.5-10.0) K/mm3 Hgb 13.9 (12.0-15.0) g/dL Hct 41.6 (37.0-47.0) % Plt Count 484 H (150-375) k/mm3 BMP 03/23/25 05:55 Sodium 131 L Potassium 3.3 L Chloride 97 L Carbon Dioxide 19 L BUN 12 Creatinine 0.99 Glucose 141 H Calcium 10.6 H Liver Function 03/23/25 Range/Units 05:55 Total Bilirubin 0.6 (0.2-1.3) mg/dL AST 32 (14-36) U/L ALT 23 (6-35) U/L Alkaline Phosphatase 145 H (38-126) U/L Albumin 4.8 (3.5-5.1) g/dL Urine 03/23/25 Range/Units 07:19 Urine Color Yellow (Yellow) Urine Appearance Clear (Clear) Urine pH 6.5 (5.0-9.0) Ur Specific [place] > 1.045 H (1.001-1.035) Urine Protein 1+ H (Negative) mg/dL Urine Glucose (UA) Negative (Negative) mg/dL Assessment and Plan Assessment and plan (1) Diverticulitis: Code(s): K57.92 - Diverticulitis of intestine, part unspecified, without perforation or abscess without bleeding Status: Acute Assessment and Plan: Started on Zosyn Previous history of diverticulitis s/p sigmoid resection 2018 Last colonoscopy [address] Ozuna with small TA polyp and normal colon but bx showed mild colitis Fundoplication in 2016 Started on clear liquid diet Zofran as needed Protonix IV (2) HTN (hypertension): Code(s): I10 - Essential (primary) hypertension Status: Acute Assessment and Plan: Continue home medication amlodipine and valsartan P.r.n. hydralazine (3) GERD (gastroesophageal reflux disease): Code(s): K21.9 - Gastro-esophageal reflux disease without esophagitis Status: Acute Assessment and Plan: Protonix 40 IV BID Plan Code full code DVT prophylaxis Lovenox 40 mg subQ daily Hospitalist MIPS Advance Care Plan I have confirmed that the patient's Advanced Care Plan is present, code status is documented, or surrogate decision maker is listed in patient medical record.: Yes Medication Reconciliation I have utilized all available resources to obtain, update and review the patients current medications (includes all prescriptions, OTC, herbals, cannabis, and nutritional supplements).: Yes
[2025-03-23] MEDS: ACETAMINOPHEN 325 MG TABLET PO ×2 (15:08→21:12)
[2025-03-23] MEDS: VALSARTAN 160 MG TABLET 320 MG PO (18:21)
[2025-03-24] MEDS: PIPERACILLIN/TAZOBACTAM SOD 3.375 GM in SODIUM CHLORIDE 0.9% IV 50 ML 100 ML IVPB ×5 (00:01→23:32)
[2025-03-24] MEDS: ONDANSETRON INJ 4 MG/2 ML VIAL IV PUSH ×3 (01:01→09:37)
[2025-03-24] MEDS: SCOPOLAMINE 1 MG PATCH 1 PATCH TRANSDERM (03:59)
[2025-03-24 06:00] VITALS: BP 192/119; PULSE 91; RESP 18; TEMP 37.2; O2SAT 98
[2025-03-24] MEDS: VALSARTAN 160 MG TABLET 320 MG PO (06:21)
[2025-03-24 06:49] LABS: Hematocrit 40.3 % (37.0-47.0); Hemoglobin 13.3 g/dL (12.0-15.0); Mean Corpuscular HGB Conc 33.0 g/dl (32-36); Mean Corpuscular Hemoglobin 28.4 pg (26-34); Mean Corpuscular Volume 85.9 fl (80-100); Platelet Count Result 440 k/mm3 (150-375); Red Blood Count 4.69 M/mm3 (4.2-5.4); White Blood Count 8.0 K/mm3 (4.5-10.0)
[2025-03-24 07:00] VITALS: BP 172/94
[2025-03-24 07:13] LABS: Alanine Aminotransferase 16 U/L (6-35); Albumin Level 4.4 g/dL (3.5-5.1); Alkaline Phosphatase 112 U/L (38-126); Anion Gap 10 mmol/L (4-12); Aspartate Amino Transferase 31 U/L (14-36); Bilirubin,Total 0.8 mg/dL (0.2-1.3); Blood Urea Nitrogen 14 mg/dL (7-17); Calcium 10.0 mg/dL (8.4-10.2); Carbon Dioxide 25 mmol/L (22-30); Chloride 96 mmol/L (98-107); Estimated CRCL calculation 64 ml/min; Estimated Glomerular Filt Rate 56; Glucose 108 mg/dL (65-110); Potassium 3.1 mmol/L (3.4-5.0); Sodium 131 mmol/L (137-145); Total Protein 8.0 g/dL (6.3-8.2)
[2025-03-24] MEDS: oxyBUTYnin CHLORIDE XL 5 MG TAB.ER.24 10 MG PO (08:06)
[2025-03-24] MEDS: PANTOPRAZOLE SODIUM IV 40 MG VIAL IV PUSH ×2 (08:09→20:38)
[2025-03-24] MEDS: ENOXAPARIN 40 MG/0.4 ML SYRINGE SUB-Q (08:09)
[2025-03-24 10:07] VITALS: BP 170/100
[2025-03-24 12:27] VITALS: BP 130/90
[2025-03-24] MEDS: METOCLOPRAMIDE HCL INJ 10 MG/2 ML VIAL IV PUSH ×3 (13:05→23:27)
--- NOTE | 2025-03-24 14:52 | P.PNIM_ITS ---
Progress Note: A&P Assessment and Plan (1) Diverticulitis: Code(s): K57.92 - Diverticulitis of intestine, part unspecified, without perforation or abscess without bleeding Status: Acute Assessment and Plan: Started on Zosyn and metoclopramide Previous history of diverticulitis s/p sigmoid resection 2018 Last colonoscopy [address] Ozuna with small TA polyp and normal colon but bx showed mild colitis Fundoplication in 2016 Started on clear liquid diet Zofran as needed Protonix IV (2) HTN (hypertension): Code(s): I10 - Essential (primary) hypertension Status: Acute Assessment and Plan: Continue home medication amlodipine and valsartan Started hydralazine 25 mg p.o. q.i.d. (3) GERD (gastroesophageal reflux disease): Code(s): K21.9 - Gastro-esophageal reflux disease without esophagitis Status: Acute Assessment and Plan: Protonix 40 IV BID Plan Code full code DVT prophylaxis Lovenox 40 mg subQ daily Subjective Date/time seen: 03/24/25 14:52 Interval history: Patient still experiencing nausea and added metoclopramide. Patient is currently on clear liquid diet but patient is unable to eat due to nausea. Reece valdez continues to experience nausea will consult GI. Review of Systems Review of Systems: All systems reviewed & are unremarkable except as noted in HPI and below Exam Narrative: EXAMINATION OF ORGAN SYSTEMS/BODY AREAS: Constitutional: Vital signs per nursing GENERAL: Appears extremely uncomfortable HEAD: Normal with no signs of head trauma. EYES: EOMI, conjunctiva normal ENT: Hearing grossly intact LUNGS: Nonlabored breathing. HEART: [Regular rate and rhythm] ABD: [Soft], [nontender to palpation] EXT: Normal range of motion SKIN: [No rashes or lesions.] NEURO: [Alert and oriented x 3. No gross focal sensory or strength deficits.] PSYCH: Normal affect Objective Data Vital Signs Vital Signs: Vital Signs - 24 hr 03/23/25 20:00 03/23/25 20:43 03/24/25 06:00 Temperature 99.0 F 98.9 F Pulse Rate 119 H 91 Respiratory Rate 20 18 Blood Pressure 148/93 H 192/119 H Pulse Oximetry 97 98 Oxygen Delivery Room Air 03/24/25 07:00 03/24/25 10:07 03/24/25 12:27 Temperature Pulse Rate Respiratory Rate Blood Pressure 172/94 H 170/100 H 130/90 Pulse Oximetry Oxygen Delivery Intake/Output Intake/Output: Intake & Output 03/21/25 03/22/25 03/23/25 03/24/25 23:59 23:59 23:59 23:59 Intake Total 1700 300 Balance 1700 300 Meds/Results Medications: Active Medications Generic Name Dose Route Start Last Admin Trade Name Freq PRN Reason Stop Dose Admin Acetaminophen 325 mg 03/23/25 15:02 03/23/25 21:12 Acetaminophen 325 Mg Tablet PO 325 mg Q4H PRN Administration Mild Pain (1-3) or Fever Amlodipine Besylate 10 mg 03/23/25 12:40 03/24/25 06:20 Amlodipine Besylate 10 Mg Tablet PO 10 mg DAILY PALLAVI Administration Aripiprazole 15 mg 03/23/25 21:00 03/23/25 20:56 Aripiprazole 5 Mg Tablet PO 15 mg HS PALLAVI Administration Enoxaparin Sodium 40 mg 03/24/25 09:00 03/24/25 08:09 Enoxaparin 40 Mg/0.4 Ml Syringe SUB-Q 40 mg DAILY PALLAVI Administration Hydralazine HCl 25 mg 03/24/25 10:25 03/24/25 12:28 Hydralazine Hcl 25 Mg Tablet PO Not Given QID PALLAVI Piperacillin Sod/Tazobactam 50 mls @ 100 mls/hr 03/23/25 12:35 03/24/25 11:57 Sod 3.375 gm/ Sodium Chloride IVPB Infused Q6HR PALLAVI Infusion Metoclopramide HCl 10 mg 03/24/25 18:00 Metoclopramide Hcl Inj 10 Mg/2 Ml Vial IV PUSH Q6HR PALLAVI Ondansetron HCl 4 mg 03/23/25 12:37 03/24/25 09:37 Ondansetron Inj 4 Mg/2 Ml Vial IV PUSH 4 mg Q4H PRN Administration Nausea And Vomiting Oxybutynin Chloride 10 mg 03/24/25 09:00 03/24/25 08:06 Oxybutynin Chloride Xl 5 Mg Tab.Er.24 PO 10 mg DAILY PALLAVI Administration Pantoprazole Sodium 40 mg 03/23/25 21:00 03/24/25 08:09 Pantoprazole Sodium Iv 40 Mg Vial IV PUSH 40 mg Q12HR PALLAVI Administration Paroxetine HCl 40 mg 03/24/25 09:00 03/24/25 08:06 Paroxetine 20 Mg Tablet PO 40 mg QAM PALLAVI Administration Trazodone HCl 100 mg 03/23/25 21:00 03/23/25 20:56 Trazodone Hcl 50 Mg Tablet PO 100 mg HS PALLAVI Administration Valsartan 320 mg 03/24/25 09:00 03/24/25 06:21 Valsartan 160 Mg Tablet PO 320 mg DAILY PALLAVI Administration Radiology Results: ITS Impressions Abdomen/Pelvis CT 03/23/25 06:41 IMPRESSION: 1. Acute diverticulitis colonic hepatic flexure. No complicating features. Labs Labs: Laboratory Results - last 24 hr 03/24/25 06:21 WBC 8.0 RBC 4.69 Hgb 13.3 Hct 40.3 MCV 85.9 MCH 28.4 MCHC 33.0 RDW 13.1 Plt Count 440 H MPV 9.0 Sodium 131 L Potassium 3.1 L Chloride 96 L Carbon Dioxide 25 Anion Gap 10 BUN 14 Creatinine 1.00 Estim Creat Clear Calc 64 Estimated GFR 56 L Glucose 108 Calcium 10.0 Total Bilirubin 0.8 AST 31 ALT 16 Alkaline Phosphatase 112 Total Protein 8.0 Albumin 4.4 Hospitalist [facility] Advance Care Plan I have confirmed that the patient's Advanced Care Plan is present, code status is documented, or surrogate decision maker is listed in patient medical record.: Yes Medication Reconciliation I have utilized all available resources to obtain, update and review the patients current medications (includes all prescriptions, OTC, herbals, cannabis, and nutritional supplements).: Yes
--- NOTE | 2025-03-24 15:07 | PCRCNOTE ---
Pt states she does not want a CPAP machine in room , states she will not wear it. No order placed for CPAP .
[2025-03-24 15:44] VITALS: BP 150/107; PULSE 104; RESP 18; TEMP 37.3; O2SAT 99
[2025-03-24] MEDS: POTASSIUM CHLORIDE INJ 40 MEQ in SODIUM CHLORIDE 0.9% IV 500 ML 130 MEQ IVPB (17:36)
[2025-03-24 20:32] VITALS: BP 147/93; PULSE 87; RESP 16; TEMP 37.3; O2SAT 97
[2025-03-25 04:57] VITALS: BP 139/59; PULSE 78; RESP 18; TEMP 36.7; O2SAT 100
[2025-03-25] MEDS: PIPERACILLIN/TAZOBACTAM SOD 3.375 GM in SODIUM CHLORIDE 0.9% IV 50 ML 100 ML IVPB ×3 (05:07→17:23)
[2025-03-25] MEDS: METOCLOPRAMIDE HCL INJ 10 MG/2 ML VIAL IV PUSH ×3 (05:07→17:21)
--- NOTE | 2025-03-25 07:50 | P.PNIM_ITS ---
Progress Note: A&P Assessment and Plan (1) Diverticulitis: Code(s): K57.92 - Diverticulitis of intestine, part unspecified, without perforation or abscess without bleeding Status: Acute Assessment and Plan: EGD tomorrow Started on Zosyn and metoclopramide Previous history of diverticulitis s/p sigmoid resection 2018 Last colonoscopy [address] Ozuna with small TA polyp and normal colon but bx showed mild colitis Fundoplication in 2016 Started on clear liquid diet Zofran as needed Protonix IV (2) HTN (hypertension): Code(s): I10 - Essential (primary) hypertension Status: Acute Assessment and Plan: Continue home medication amlodipine and valsartan Started hydralazine 25 mg p.o. q.i.d. (3) GERD (gastroesophageal reflux disease): Code(s): K21.9 - Gastro-esophageal reflux disease without esophagitis Status: Acute Assessment and Plan: Protonix 40 IV BID Plan Code full code DVT prophylaxis Lovenox 40 mg subQ daily Subjective Date/time seen: 03/25/25 07:50 Interval history: Patient reports yesterday night she was feeling well but morning again she was nauseated. GI evaluated the patient and possibly EGD tomorrow. Review of Systems Review of Systems: All systems reviewed & are unremarkable except as noted in HPI and below Exam Narrative: EXAMINATION OF ORGAN SYSTEMS/BODY AREAS: Constitutional: Vital signs per nursing GENERAL: Appears extremely uncomfortable HEAD: Normal with no signs of head trauma. EYES: EOMI, conjunctiva normal ENT: Hearing grossly intact LUNGS: Nonlabored breathing. HEART: [Regular rate and rhythm] ABD: [Soft], [nontender to palpation] EXT: Normal range of motion SKIN: [No rashes or lesions.] NEURO: [Alert and oriented x 3. No gross focal sensory or strength deficits.] PSYCH: Normal affect Objective Data Vital Signs Vital Signs: Vital Signs - 24 hr 03/24/25 10:07 03/24/25 12:27 03/24/25 15:44 Temperature 99.1 F Pulse Rate 104 H Respiratory Rate 18 Blood Pressure 170/100 H 130/90 150/107 H Pulse Oximetry 99 03/24/25 20:32 03/25/25 04:57 Temperature 99.2 F 98.1 F Pulse Rate 87 78 Respiratory Rate 16 18 Blood Pressure 147/93 H 139/59 L Pulse Oximetry 97 100 Intake/Output Intake/Output: Intake & Output 03/22/25 03/23/25 03/24/25 03/25/25 23:59 23:59 23:59 23:59 Intake Total 1700 990 650 Balance 1700 990 650 Meds/Results Medications: Active Medications Generic Name Dose Route Start Last Admin Trade Name Freq PRN Reason Stop Dose Admin Acetaminophen 325 mg 03/23/25 15:02 03/23/25 21:12 Acetaminophen 325 Mg Tablet PO 325 mg Q4H PRN Administration Mild Pain (1-3) or Fever Amlodipine Besylate 10 mg 03/23/25 12:40 03/24/25 06:20 Amlodipine Besylate 10 Mg Tablet PO 10 mg DAILY PALLAVI Administration Aripiprazole 15 mg 03/23/25 21:00 03/24/25 20:38 Aripiprazole 5 Mg Tablet PO 15 mg HS PALLAVI Administration Enoxaparin Sodium 40 mg 03/24/25 09:00 03/24/25 08:09 Enoxaparin 40 Mg/0.4 Ml Syringe SUB-Q 40 mg DAILY PALLAVI Administration Hydralazine HCl 25 mg 03/24/25 10:25 03/24/25 20:38 Hydralazine Hcl 25 Mg Tablet PO 25 mg QID PALLAVI Administration Piperacillin Sod/Tazobactam 50 mls @ 100 mls/hr 03/23/25 12:35 03/25/25 05:37 Sod 3.375 gm/ Sodium Chloride IVPB Infused Q6HR PALLAVI Infusion Metoclopramide HCl 10 mg 03/24/25 18:00 03/25/25 05:07 Metoclopramide Hcl Inj 10 Mg/2 Ml Vial IV PUSH 10 mg Q6HR PALLAVI Administration Ondansetron HCl 4 mg 03/23/25 12:37 03/24/25 09:37 Ondansetron Inj 4 Mg/2 Ml Vial IV PUSH 4 mg Q4H PRN Administration Nausea And Vomiting Oxybutynin Chloride 10 mg 03/24/25 09:00 03/24/25 08:06 Oxybutynin Chloride Xl 5 Mg Tab.Er.24 PO 10 mg DAILY PALLAVI Administration Pantoprazole Sodium 40 mg 03/23/25 21:00 03/24/25 20:38 Pantoprazole Sodium Iv 40 Mg Vial IV PUSH 40 mg Q12HR PALLAVI Administration Paroxetine HCl 40 mg 03/24/25 09:00 03/24/25 08:06 Paroxetine 20 Mg Tablet PO 40 mg QAM PALLAVI Administration Trazodone HCl 100 mg 03/23/25 21:00 03/24/25 21:26 Trazodone Hcl 50 Mg Tablet PO 100 mg HS PALLAVI Administration Valsartan 320 mg 03/24/25 09:00 03/24/25 06:21 Valsartan 160 Mg Tablet PO 320 mg DAILY PALLAVI Administration Radiology Results: ITS Impressions Abdomen/Pelvis CT 03/23/25 06:41 IMPRESSION: 1. Acute diverticulitis colonic hepatic flexure. No complicating features. Hospitalist MIPS Advance Care Plan I have confirmed that the patient's Advanced Care Plan is present, code status is documented, or surrogate decision maker is listed in patient medical record.: Yes Medication Reconciliation I have utilized all available resources to obtain, update and review the patients current medications (includes all prescriptions, OTC, herbals, cannabis, and nutritional supplements).: Yes
[2025-03-25] MEDS: ENOXAPARIN 40 MG/0.4 ML SYRINGE SUB-Q (08:16)
[2025-03-25] MEDS: ONDANSETRON INJ 4 MG/2 ML VIAL IV PUSH ×2 (08:16→20:10)
[2025-03-25] MEDS: VALSARTAN 160 MG TABLET 320 MG PO (08:17)
[2025-03-25] MEDS: PANTOPRAZOLE SODIUM IV 40 MG VIAL IV PUSH ×2 (08:17→20:39)
[2025-03-25] MEDS: oxyBUTYnin CHLORIDE XL 5 MG TAB.ER.24 10 MG PO (08:17)
[2025-03-25 08:57] LABS: Hematocrit 39.4 % (37.0-47.0); Hemoglobin 13.0 g/dL (12.0-15.0); Mean Corpuscular HGB Conc 33.0 g/dl (32-36); Mean Corpuscular Hemoglobin 28.6 pg (26-34); Mean Corpuscular Volume 86.6 fl (80-100); Platelet Count Result 390 k/mm3 (150-375); Red Blood Count 4.55 M/mm3 (4.2-5.4); White Blood Count 7.4 K/mm3 (4.5-10.0)
[2025-03-25 09:18] LABS: Alanine Aminotransferase 17 U/L (6-35); Albumin Level 4.1 g/dL (3.5-5.1); Alkaline Phosphatase 99 U/L (38-126); Anion Gap 8 mmol/L (4-12); Aspartate Amino Transferase 28 U/L (14-36); Bilirubin,Total 0.8 mg/dL (0.2-1.3); Blood Urea Nitrogen 17 mg/dL (7-17); Calcium 9.8 mg/dL (8.4-10.2); Carbon Dioxide 27 mmol/L (22-30); Chloride 97 mmol/L (98-107); Estimated CRCL calculation 55 ml/min; Estimated Glomerular Filt Rate 47; Glucose 87 mg/dL (65-110); Potassium 3.1 mmol/L (3.4-5.0); Sodium 132 mmol/L (137-145); Total Protein 7.4 g/dL (6.3-8.2)
--- NOTE | 2025-03-25 09:49 | WPDGICN ---
Assessment and Plan Assessment and plan (1) Chronic nausea: Code(s): R11.0 - Nausea Status: Acute (2) Delayed gastric emptying: Code(s): K30 - Functional dyspepsia Status: Acute (3) Dysphagia: Qualifiers: Dysphagia type: esophageal phase Qualified Code(s): R13.19 - Other dysphagia Code(s): R13.10 - Dysphagia, unspecified Status: Acute (4) Decreased appetite: Code(s): R63.0 - Anorexia Status: Acute (5) Diverticulitis: Code(s): K57.92 - Diverticulitis of intestine, part unspecified, without perforation or abscess without bleeding Status: Acute (6) Diarrhea: Qualifiers: Diarrhea type: functional diarrhea Qualified Code(s): K59.1 - Functional diarrhea Code(s): R19.7 - Diarrhea, unspecified Status: Acute Plan 1. Nausea/dysphagia/decreased appetite/gastroparesis: Last known EGD performed 01/27/2018 showed In the upper 3rd esophagus, a benign-appearing intrinsic stenosis was noted and 54 Chinese Headley dilation with 2 passes was performed, intact fundoplication, in the pre-pyloric area, mild patchy gastritis seen. Following her last EGD her dysphagia symptoms improved for a while. She is now having frequent dysphagia with solids and pills but denies any difficulty with liquids. She had a gastric emptying study and esophagram performed in 2015, esophagram was normal and gastric emptying study showed delayed gastric emptying. She was having no improvement of nausea with Zofran but since starting Reglan she has had mild improvement of nausea. Continue Reglan Q 6 hrs Continue PPI Plan for EGD tomorrow with dilation if stenosis noted again NPO after midnight 2. Diverticulitis/diarrhea: Last colonoscopy that I am aware of was 02/20/2017 at which time hyperplastic colon polyps removed but colonoscopy was otherwise normal. Patient thinks that she may have had another colonoscopy performed in [place] after 2006 but these reports were not available. CT 03/23/2025 showed acute diverticulitis at the colonic hepatic flexure with no complicating features. Patient S/P sigmoidectomy secondary to complications of diverticular disease, which may be a partially contributing cause of her intermittent diarrhea.Patient denies any abdominal pain or diarrhea at this time. Her intermittent episodes of diarrhea were occurring prior to admission that were typically self-limited and did not require medication. Patient currently on Zosyn, continue If patient starts having regular diarrhea will obtain stool studies Thank you very much for allowing me to share in the care of this very nice patient. This report may have been done utilizing a voice recognition system. Attempts have been made to correct errors. However, there may be uncorrected grammatical, spelling, and recognition errors present. GI Consult Note Consult date/time: 03/25/25 09:49 Reason for consult: Nausea and vomiting HPI: Kortney Haywood is a 64 year old female with history of dysphagia, anxiety, overactive bladder, colon polyps, diverticulitis, depression, GERD, HLD, HTN, CAMILLE, Luis Felipe fundoplication, cholecystectomy and s/p laparoscopic assisted sigmoidectomy secondary to ruptured diverticulitis. She presented to the ER 03/23/2025 with complaints of persistent nausea and vomiting. GI has been consulted for the symptoms. Patient states that since Saturday she has been having frequent nausea but is unable to vomit secondary to her prior Luis Felipe fundoplication. She states that yesterday her nausea improved and she tried eating broth this morning and nausea quickly returned. Since starting Reglan IV she has had mild improvement of symptoms. She complains of dysphagia with solid foods and pills but denies any difficulty swallowing liquids. She admits to decreased appetite that was occurring even prior to her other symptoms on Saturday. Patient is having daily bowel movements that are typically soft and non Urgent but occasionally she will have diarrhea a few times a week that is typically self-limited and does not require intervention. She denies abdominal pain, bloating, odynophagia, reflux, regurgitation, early satiety, unexplained weight loss, constipation, hematochezia, or melena. Denies alcohol, tobacco or marijuana use. Family history negative for CRC or IBD. ENDOSCOPY HISTORY: EGD: 01/27/[address] Ozuna for GERD and dysphagia status post Luis Felipe fundoplication Findings: In the upper 3rd esophagus, a benign-appearing intrinsic stenosis was noted and 54 Chinese Headley dilation with 2 passes was performed The gastroesophageal junction was located 38 cm from the incisors The gastric fundus revealed an intact fundoplication In the pre-pyloric area, mild patchy gastritis seen The duodenum was normal COLONOSCOPY: 02/20/[address] Ozuna Colon polyps but report not available Bx Results: A. TRANSVERSE COLON POLYP, ENDOSCOPIC BIOPSY: - BENIGN POLYP. B. DESCENDING COLON POLYP, ENDOSCOPIC BIOPSY: - HYPERPLASTIC POLYP. COLONOSCOPY: 09/10/[address] Ozuna for history of colon polyps Findings: Polyp in the cecum Left-sided diverticulosis coli Internal hemorrhoidal tissue 5-10 year repeat recommended Bx Results: A. CECAL POLYP, ENDOSCOPIC BIOPSY: BENIGN POLYP WITH MILD NONSPECIFIC CHANGES (SEE COMMENT). COMMENT: The histologic differential diagnosis includes prominent mucosal fold, lymphoid aggregate, and submucosal lipoma. There is no evidence of hyperplastic or adenomatous change. COLONOSCOPY: 06/22/[address] Ozuna for history of colon polyps Findings: Left-sided diverticulosis coli Internal hemorrhoidal tissue Recheck colonoscopy 3-5 years LABS AND STOOL STUDIES: Labs 03/25/2025: WBC 7, Hgb 13, Hct 39, MCV 87, platelets 390 Sodium 132, potassium 3.1, BUN 17, creatinine 1.17, GFR 47, calcium 9.8 Total bilirubin 0.8, AST 28, ALT 17, Alkaline Phos 99, albumin 4.1, lipase 73 IMAGING: CT ABD/PELVIS W/CONTRAST 03/23/2025: IMPRESSION: 1. Acute diverticulitis colonic hepatic flexure. No complicating features. Pelvic/transvag ultrasound 10/14/2024: IMPRESSION: Small cystic portion of the right ovary, difficult to evaluate secondary to poor acoustic penetration. In addition, findings which suggest a post void residual following bladder emptying for further evaluation may be performed. Upper GI series 03/27/2024: FINDINGS: The pharynx is symmetric and without evidence of mass lesion or mucosal irregularity. The esophagus is normal without mass or stricture. Esophageal motility is normal. There is no hiatal hernia. There is an abnormal contour to the stomach at the gastric fundus with masslike projection of the gastroesophageal junction into the gastric cardia which corresponds to a patient reported prior Luis Felipe complication which is also evident on the prior CT. The stomach and proximal small bowel are otherwise normal. There was no gastroesophageal reflux with provocative maneuvers. IMPRESSION: 1. Changes at the gastroesophageal junction consistent with prior Luis Felipe fundoplication. Otherwise normal esophagram and upper GI study. Gastric emptying study 03/17/2024: FINDINGS: Gastric retention of the radiotracer-labeled meal was 57%, 46%, and 20% at the 1-hour, 2-hour, and 4-hour time points, respectively. With this technique, apparent rapid gastric emptying is suggested by <30% gastric retention at 1 hour. Delayed gastric emptying is defined by gastric retention of >90% at 1 hour, >60% retention at 2 hours, or >10% retention at 4 hours. IMPRESSION: 1. Delayed gastric emptying. CT abd/pelvis w/contrast 03/02/2024: Impression: No acute abnormality. 1.8 cm right ovarian cyst. Review of Systems Constitutional: Constitutional: Reports as per HPI ENT: Reports as per HPI Cardiovascular: Cardiovascular: Reports as per HPI, Denies chest pain and Denies dyspnea Respiratory: Respiratory: Denies cough and Denies dyspnea Gastrointestinal: Gastrointestinal: Reports as per HPI Musculoskeletal: Musculoskeletal: Reports as per HPI Integumentary/Breasts: Skin/Breast: Reports as per HPI Psychiatric: Psychiatric: Reports as per HPI Endocrine: Endocrine: Reports no additional endocrine complaints Hematologic/Lymphatic: Hematologic/Lymphatic: Reports no additional hematologic/lymphatic complaints [facility] Past Medical History Medical History (Updated 03/25/25 @ 13:36 by Charlotte Gallegos APRN) Diverticulitis Dysphagia Anxiety Overactive bladder Colon polyps Diverticulitis Depression GERD (gastroesophageal reflux disease) Hyperlipidemia HTN (hypertension) CAMILLE (obstructive sleep apnea) has CPAP but is noncompliant Surgical History Surgical History S/P insertion of spinal cord stimulator bladder stimulator. Removed in 08/2021 History of Luis Felipe fundoplication Dr Oren Pineda H/O shoulder surgery right History of cholecystectomy Status post laparoscopic-assisted sigmoidectomy ruptured diverticulitis Family History Family History Father Malignant neoplasm of prostate Hypertension Family history of arthritis Grandparent Diabetes mellitus Family history of glaucoma Sibling Hypertension Other Family history of throat cancer Social History Social History Years smoked: 2 Smoking status: Former smoker Alcohol intake: never Alcohol use details: social Substance use: never Substance use type: does not use Do You Feel Safe in your Home?: Yes Lack of Transportation: No Lack of Food: Never True Current Housing: I Have Housing Concerned About Future Housing: No Difficulty Paying Gas/Electric Bills: No Difficulty Paying for Meds: No Currently Unemployed: No Education: High School Diploma/GED Difficulty w/ Childcare or Family Care: No Living arrangements: with roommate(s) Occupation/Education: unemployed Gender identity (if verbalized by the patient): Female Spiritual care concerns: No Meds Home Medications and Allergies Home Medications ?Medication ?Instructions ?Recorded ?Confirmed ?Type paroxetine HCl 40 mg tablet 40 mg PO QAM 08/05/19 03/23/25 History aripiprazole 15 mg tablet (Abilify) 15 mg PO HS 11/13/19 03/23/25 History oxybutynin chloride 10 mg 10 mg PO DAILY 11/09/21 03/23/25 History tablet,extended release 24 hr amlodipine 10 mg tablet 10 mg PO DAILY 12/19/23 03/23/25 History trazodone 100 mg tablet 100 mg PO HS 12/19/23 03/23/25 History valsartan 320 mg tablet 320 mg PO DAILY 03/04/24 03/23/25 History albuterol sulfate 90 mcg/actuation 1 - 2 puff inhalation Q4-6H PRN 09/18/24 03/23/25 Rx aerosol inhaler shortness of breath or wheezing #8.5 grams buspirone 10 mg tablet mg 03/23/25 History Allergies Allergy/AdvReac Type Severity Reaction Status Date / Time No Known Allergies Allergy Unknown Verified 03/23/25 09:11 Vital Signs Vital Signs - 24 hr 03/24/25 10:07 03/24/25 12:27 03/24/25 15:44 Temperature 99.1 F Pulse Rate 104 H Respiratory Rate 18 Blood Pressure 170/100 H 130/90 150/107 H Pulse Oximetry 99 03/24/25 20:32 03/25/25 04:57 Temperature 99.2 F 98.1 F Pulse Rate 87 78 Respiratory Rate 16 18 Blood Pressure 147/93 H 139/59 L Pulse Oximetry 97 100 Exam Const: General: cooperative, healthy appearing, comfortable, no acute distress and well developed Orientation/consciousness: oriented to person, oriented to place, oriented to time and patient oriented x3 HENMT: Head: normal to inspection, normocephalic and atraumatic Mouth: Yes Normal oral and palatal mucosa present and Yes moist mucous membranes Eyes: General: appearance normal, both eyes and all related structures Conjunctivae: conjunctivae normal Sclera: sclerae normal Pupils: Equal, round and reactive pupils present Neck: Neck: normal visual inspection Chest: Chest palpation & inspection: normal inspection of the chest Resp: Effort & Inspection: normal respiratory effort and able to speak in complete sentences Auscultation: clear to auscultation bilaterally Cardio: Jugular venous distension: no JVD Rate: regular rate Rhythm: regular rhythm Heart sounds: S1 normal heart sound present and S2 normal heart sound present GI: Inspection: normal to inspection GI Palp: Yes Soft to palpation and Yes No hepatosplenomegaly present Auscultation: normal bowel sounds Rectal Exam: deferred Skin: General skin exam: normal color and no rashes or lesions noted Neuro: General: oriented to person, oriented to place, oriented to time and patient oriented x3 Cranial nerves: Yes Equal, round and reactive pupils present Speech: normal speech Extrem: General: normal to inspection and no clubbing, cyanosis or edema Psych: Appearance: grossly normal and well kempt Affect: normal affect Results Labs 03/25/25 08:32 03/25/25 08:32 Labs: Short CBC 03/25/25 Range/Units 08:32 WBC 7.4 (4.5-10.0) K/mm3 Hgb 13.0 (12.0-15.0) g/dL Hct 39.4 (37.0-47.0) % Plt Count 390 H (150-375) k/mm3 BMP 03/25/25 08:32 Sodium 132 L Potassium 3.1 L Chloride 97 L Carbon Dioxide 27 BUN 17 Creatinine 1.17 H Glucose 87 Calcium 9.8 Liver Function 03/25/25 Range/Units 08:32 Total Bilirubin 0.8 (0.2-1.3) mg/dL AST 28 (14-36) U/L ALT 17 (6-35) U/L Alkaline Phosphatase 99 (38-126) U/L Albumin 4.1 (3.5-5.1) g/dL
[2025-03-25] MEDS: POTASSIUM CHLORIDE INJ 40 MEQ in SODIUM CHLORIDE 0.9% IV 500 ML 130 MEQ IVPB (14:19)
[2025-03-25 15:18] VITALS: BP 161/92; PULSE 112; RESP 18; TEMP 36.9; O2SAT 98
[2025-03-25 19:55] VITALS: BP 142/81; PULSE 99; RESP 20; TEMP 36.6; O2SAT 98
[2025-03-25 21:46] VITALS: O2SAT 98
[2025-03-26] VITALS (9 sets, daily range): BP systolic 126–185; BP diastolic 64–99; PULSE 75–113; RESP 18–20; TEMP 36.7–37.1; O2SAT 97–100
[2025-03-26] MEDS: PIPERACILLIN/TAZOBACTAM SOD 3.375 GM in SODIUM CHLORIDE 0.9% IV 50 ML 100 ML IVPB ×4 (00:26→17:12)
[2025-03-26] MEDS: METOCLOPRAMIDE HCL INJ 10 MG/2 ML VIAL IV PUSH ×4 (00:26→17:16)
[2025-03-26 05:30] LABS: Hematocrit 37.1 % (37.0-47.0); Hemoglobin 12.3 g/dL (12.0-15.0); Mean Corpuscular HGB Conc 33.2 g/dl (32-36); Mean Corpuscular Hemoglobin 28.6 pg (26-34); Mean Corpuscular Volume 86.3 fl (80-100); Platelet Count Result 361 k/mm3 (150-375); Red Blood Count 4.30 M/mm3 (4.2-5.4); White Blood Count 5.7 K/mm3 (4.5-10.0)
[2025-03-26 05:52] LABS: Alanine Aminotransferase 16 U/L (6-35); Albumin Level 3.8 g/dL (3.5-5.1); Alkaline Phosphatase 76 U/L (38-126); Anion Gap 8 mmol/L (4-12); Aspartate Amino Transferase 24 U/L (14-36); Bilirubin,Total 0.5 mg/dL (0.2-1.3); Blood Urea Nitrogen 16 mg/dL (7-17); Calcium 9.5 mg/dL (8.4-10.2); Carbon Dioxide 23 mmol/L (22-30); Chloride 100 mmol/L (98-107); Estimated CRCL calculation 74 ml/min; Estimated Glomerular Filt Rate > 60; Glucose 97 mg/dL (65-110); Potassium 3.3 mmol/L (3.4-5.0); Sodium 131 mmol/L (137-145); Total Protein 6.7 g/dL (6.3-8.2)
[2025-03-26] MEDS: ONDANSETRON INJ 4 MG/2 ML VIAL IV PUSH (08:28)
[2025-03-26] MEDS: PANTOPRAZOLE SODIUM IV 40 MG VIAL IV PUSH (08:29)
[2025-03-26] MEDS: oxyBUTYnin CHLORIDE XL 5 MG TAB.ER.24 10 MG PO (08:29)
[2025-03-26] MEDS: VALSARTAN 160 MG TABLET 320 MG PO (08:29)
[2025-03-26] MEDS: POTASSIUM CHLORIDE INJ 40 MEQ in SODIUM CHLORIDE 0.9% IV 500 ML 130 MEQ IVPB (09:34)
--- NOTE | 2025-03-26 10:53 | WPDANESEPPF ---
Anes - Initial Pre Proc Eval Procedure: Operation Date: 03/26/25 14:15 Proposed Procedures p Esophagogastroduodenoscopy - Nolberto Grace MD Date/Time: 03/26/25 10:53 Surgeon: Zaki Rivers MD Pre Op Diagnosis: intractable n/v diverticulitis Patient Data Age: 64 Gender: F Height: 1.73 m Weight: 103.4 kg Last Vital Signs Temp 36.7 C 03/26/25 10:50 Pulse 106 H 03/26/25 10:50 Resp 18 03/26/25 10:50 BP 179/99 H 03/26/25 10:50 Pulse Ox 100 03/26/25 10:50 O2 Del Method Room Air 03/26/25 10:50 Allergies Allergy/AdvReac Type Severity Reaction Status Date / Time No Known Allergies Allergy Unknown Verified 03/23/25 09:11 Home Medications ?Medication ?Instructions ?Recorded ?Confirmed ?Type paroxetine HCl 40 mg tablet 40 mg PO QAM 08/05/19 03/23/25 History aripiprazole 15 mg tablet (Abilify) 15 mg PO HS 11/13/19 03/23/25 History oxybutynin chloride 10 mg 10 mg PO DAILY 11/09/21 03/23/25 History tablet,extended release 24 hr amlodipine 10 mg tablet 10 mg PO DAILY 12/19/23 03/23/25 History trazodone 100 mg tablet 100 mg PO HS 12/19/23 03/23/25 History valsartan 320 mg tablet 160 mg PO BID 03/04/24 03/26/25 History albuterol sulfate 90 mcg/actuation 1 - 2 puff inhalation Q4-6H PRN 09/18/24 03/23/25 Rx aerosol inhaler shortness of breath or wheezing #8.5 grams buspirone 10 mg tablet mg 03/23/25 History Laboratory Tests 03/26/25 04:52 WBC 5.7 K/mm3 (4.5-10.0) RBC 4.30 M/mm3 (4.2-5.4) Hgb 12.3 g/dL (12.0-15.0) Hct 37.1 % (37.0-47.0) MCV 86.3 fl (80-100) MCH 28.6 pg (26-34) MCHC 33.2 g/dl (32-36) RDW 13.1 % (11.5-14.5) Plt Count 361 k/mm3 (150-375) MPV 9.0 fl (7.4-10.4) Sodium 131 L mmol/L (137-145) Potassium 3.3 L mmol/L (3.4-5.0) Chloride 100 mmol/L (98-107) Carbon Dioxide 23 mmol/L (22-30) Anion Gap 8 mmol/L (4-12) BUN 16 mg/dL (7-17) Creatinine 0.86 mg/dL (0.7-1.0) Estim Creat Clear Calc 74 ml/min Estimated GFR > 60 (59 - ) Glucose 97 mg/dL (65-110) Calcium 9.5 mg/dL (8.4-10.2) Total Bilirubin 0.5 mg/dL (0.2-1.3) AST 24 U/L (14-36) ALT 16 U/L (6-35) Alkaline Phosphatase 76 U/L (38-126) Total Protein 6.7 g/dL (6.3-8.2) Albumin 3.8 g/dL (3.5-5.1) Patient hx anesthesia problems: none Family hx anesthesia problems: none Results Review: All pre-operative results and documents have been reviewed as part of the pre-operative evaluation. [facility] Past Medical History Medical History Diverticulitis Dysphagia Anxiety Overactive bladder Colon polyps Diverticulitis Depression GERD (gastroesophageal reflux disease) Hyperlipidemia HTN (hypertension) CAMILLE (obstructive sleep apnea) has CPAP but is noncompliant Surgical History Surgical History S/P insertion of spinal cord stimulator bladder stimulator. Removed in 08/2021 History of Luis Felipe fundoplication Dr Oren Pineda H/O shoulder surgery right History of cholecystectomy Status post laparoscopic-assisted sigmoidectomy ruptured diverticulitis Family History Family History Father Malignant neoplasm of prostate Hypertension Family history of arthritis Grandparent Diabetes mellitus Family history of glaucoma Sibling Hypertension Other Family history of throat cancer Social History Social History Years smoked: 2 Smoking status: Former smoker Alcohol intake: never Alcohol use details: social Substance use: never Substance use type: does not use Do You Feel Safe in your Home?: Yes Lack of Transportation: No Lack of Food: Never True Current Housing: I Have Housing Concerned About Future Housing: No Difficulty Paying Gas/Electric Bills: No Difficulty Paying for Meds: No Currently Unemployed: No Education: High School Diploma/GED Difficulty w/ Childcare or Family Care: No Living arrangements: with roommate(s) Occupation/Education: unemployed Gender identity (if verbalized by the patient): Female Spiritual care concerns: No Anes - Eval Final PreProcedure Day of Procedure 03/26/25 10:53 Patient weight: obese Heart: regular rate and rhythm Lungs: clear to auscultation Airway: Mallampati scale class II Neurological: alert and oriented Last oral intake: >/= 8 hours ASA classification: III Emergent: no Anesthetic plan: proceed Anesthesia type and monitoring: general GIVS and standard monitoring Results Review: All pre-operative results and documents have been reviewed as part of the pre-operative evaluation. Informed Consent: The patient's anesthetic plan and its attendant risks and benefits were discussed with the patient/family/POA. Questions were solicited and answers provided to the satisfaction of the patient/family/POA.
--- NOTE | 2025-03-26 11:29 | SUR.PREOP ---
Pt complaining of increased nausea. Call shelbie Lynn given to give her the scheduled reglan medication.
--- NOTE | 2025-03-26 11:35 | PM.IMPN ---
Progress Note: A&P Assessment and Plan (1) HTN (hypertension): Code(s): I10 - Essential (primary) hypertension Status: Acute (2) Obesity (BMI 35.0-39.9 without comorbidity): Code(s): E66.9 - Obesity, unspecified Status: Acute (3) GERD (gastroesophageal reflux disease): Code(s): K21.9 - Gastro-esophageal reflux disease without esophagitis Status: Acute (4) Chronic nausea: Code(s): R11.0 - Nausea Status: Acute (5) Dysphagia: Qualifiers: Dysphagia type: esophageal phase Qualified Code(s): R13.19 - Other dysphagia Code(s): R13.10 - Dysphagia, unspecified Status: Acute (6) Nausea and vomiting: Code(s): R11.2 - Nausea with vomiting, unspecified Status: Acute (7) Diverticulitis: Code(s): K57.92 - Diverticulitis of intestine, part unspecified, without perforation or abscess without bleeding Status: Acute Plan 64-year-old female with a past medical history of diverticulitis s/p sigmoid resection 2018 and at baseline with loose stools, last colonoscopy [address] Ozuna with small TA polyp and normal colon but bx showed mild colitis, dysphagia, GERD, obstructive sleep apnea, Luis Felipe fundoplication visited the ED due to abdominal pain. Patient reports few years ago she had Luis Felipe fundoplication and colectomy due to diverticulitis few years ago with and respectively. Lately patient had abdominal pain from Saturday and nausea sensation but unable to vomit due to Luis Felipe fundoplication. Patient is currently admitted in the setting of diverticulitis. GI was consulted. (1) Diverticulitis: Appreciate GI help NPO EGD today Continue with Zosyn and metoclopramide Continue with PPI Continue with Zofran p.r.n. Previous history of diverticulitis s/p sigmoid resection 2017 Last colonoscopy [address] Ozuna with small TA polyp and normal colon but bx showed mild colitis Supplement potassium for hypokalemia (2) HTN (hypertension): Continue home medication amlodipine and valsartan Will increase hydralazine to 50 mg p.o. t.i.d. from 25 mg p.o. 4 times a day 3. DVT prophylaxis: Lovenox 4. Code status: Full 5. Disposition: Pending improvement Time Spent With Patient Time: 37 minutes Subjective Date/time seen: 03/26/25 11:35 Interval history: Feeling nauseous Elevated blood pressure this morning Plan for EGD today Review of Systems Review of Systems: All systems reviewed & are unremarkable except as noted in HPI and below Exam Narrative: Constitutional: No acute distress HEAD: Normocephalic EYES: conjunctiva normal ENT: Hearing grossly intact LUNGS: Bilateral clear to auscultation HEART: Normal sinus rhythm ABD: Soft, nontender EXT: No edema NEURO: [Alert and oriented x 3. PSYCH: Normal affect Objective Data Vital Signs Vital Signs: Vital Signs - 24 hr 03/25/25 15:18 03/25/25 19:55 03/25/25 21:46 Temperature 98.5 F 97.9 F Pulse Rate 112 H 99 Respiratory Rate 18 20 Blood Pressure 161/92 H 142/81 H Pulse Oximetry 98 98 98 Oxygen Delivery Room Air 03/26/25 04:35 03/26/25 04:48 03/26/25 05:01 Temperature 98.1 F Pulse Rate 113 H 89 Respiratory Rate 20 Blood Pressure 185/97 H 185/97 H 179/93 H Pulse Oximetry 97 Oxygen Delivery 03/26/25 08:00 03/26/25 10:50 Temperature 98.1 F Pulse Rate 106 H Respiratory Rate 18 Blood Pressure 179/99 H Pulse Oximetry 100 Oxygen Delivery Room Air Room Air Intake/Output Intake/Output: Intake & Output 03/23/25 03/24/25 03/25/25 03/26/25 23:59 23:59 23:59 23:59 Intake Total 2633 609 2649 494 Balance 2639 171 5963 494 Meds/Results Medications: Active Medications Generic Name Dose Route Start Last Admin Trade Name Freq PRN Reason Stop Dose Admin Acetaminophen 325 mg 03/23/25 15:02 03/23/25 21:12 Acetaminophen 325 Mg Tablet PO 325 mg Q4H PRN Administration Mild Pain (1-3) or Fever Amlodipine Besylate 10 mg 03/23/25 12:40 03/26/25 08:29 Amlodipine Besylate 10 Mg Tablet PO 10 mg DAILY PALLAVI Administration Aripiprazole 15 mg 03/23/25 21:00 03/25/25 20:39 Aripiprazole 5 Mg Tablet PO 15 mg HS PALLAVI Administration Enoxaparin Sodium 40 mg 03/24/25 09:00 03/25/25 08:16 Enoxaparin 40 Mg/0.4 Ml Syringe SUB-Q 40 mg On Hold: 03/25/25 14:09 DAILY PALLAVI Administration Hydralazine HCl 25 mg 03/24/25 10:25 03/26/25 08:29 Hydralazine Hcl 25 Mg Tablet PO 25 mg QID PALLAVI Administration Piperacillin Sod/Tazobactam 50 mls @ 100 mls/hr 03/23/25 12:35 03/26/25 05:23 Sod 3.375 gm/ Sodium Chloride IVPB 100 mls/hr Q6HR PALLAVI Administration Potassium Chloride 40 meq/ 520 mls @ 130 mls/hr 03/26/25 08:44 03/26/25 09:34 Sodium Chloride IVPB 03/26/25 12:43 130 mls/hr ONCE ONE Administration Lactated Ringer's 1,000 mls @ 150 mls/hr 03/26/25 10:50 Lr - Lactated Ringers Iv IV CONT .Q6H40M PALLAVI Metoclopramide HCl 10 mg 03/24/25 18:00 03/26/25 11:23 Metoclopramide Hcl Inj 10 Mg/2 Ml Vial IV PUSH 10 mg Q6HR PALLAVI Administration Ondansetron HCl 4 mg 03/23/25 12:37 03/26/25 08:28 Ondansetron Inj 4 Mg/2 Ml Vial IV PUSH 4 mg Q4H PRN Administration Nausea And Vomiting Oxybutynin Chloride 10 mg 03/24/25 09:00 03/26/25 08:29 Oxybutynin Chloride Xl 5 Mg Tab.Er.24 PO 10 mg DAILY PALLAVI Administration Pantoprazole Sodium 40 mg 03/23/25 21:00 03/26/25 08:29 Pantoprazole Sodium Iv 40 Mg Vial IV PUSH 40 mg Q12HR PALLAVI Administration Paroxetine HCl 40 mg 03/24/25 09:00 03/26/25 08:29 Paroxetine 20 Mg Tablet PO 40 mg QAM PALLAVI Administration Trazodone HCl 100 mg 03/23/25 21:00 03/25/25 22:09 Trazodone Hcl 50 Mg Tablet PO 100 mg HS PALLAVI Administration Valsartan 320 mg 03/24/25 09:00 03/26/25 08:29 Valsartan 160 Mg Tablet PO 320 mg DAILY PALLAVI Administration Radiology Results: ITS Impressions Abdomen/Pelvis CT 03/23/25 06:41 IMPRESSION: 1. Acute diverticulitis colonic hepatic flexure. No complicating features. Labs Labs: Laboratory Results - last 24 hr 03/26/25 04:52 WBC 5.7 RBC 4.30 Hgb 12.3 Hct 37.1 MCV 86.3 MCH 28.6 MCHC 33.2 RDW 13.1 Plt Count 361 MPV 9.0 Sodium 131 L Potassium 3.3 L Chloride 100 Carbon Dioxide 23 Anion Gap 8 BUN 16 Creatinine 0.86 Estim Creat Clear Calc 74 Estimated GFR > 60 Glucose 97 Calcium 9.5 Total Bilirubin 0.5 AST 24 ALT 16 Alkaline Phosphatase 76 Total Protein 6.7 Albumin 3.8 Quality VTE Prophylaxis VTE prophylaxis: pharmacologic ordered
[2025-03-26] MEDS: LACTATED RINGERS 1,000 ML 150 ML IV CONT (11:43)
[2025-03-27] MEDS: METOCLOPRAMIDE HCL INJ 10 MG/2 ML VIAL IV PUSH ×5 (00:21→23:03)
[2025-03-27] MEDS: PIPERACILLIN/TAZOBACTAM SOD 3.375 GM in SODIUM CHLORIDE 0.9% IV 50 ML 100 ML IVPB ×5 (00:21→23:03)
[2025-03-27 06:00] VITALS: BP 119/82; PULSE 85; RESP 18; TEMP 36.7; O2SAT 96
[2025-03-27 06:53] LABS: Hematocrit 35.5 % (37.0-47.0); Hemoglobin 11.4 g/dL (12.0-15.0); Immature Granulocyte Percent A 0.3 % (0-0.5); Lymphocytes Absolute Auto 2.44 K/mm3 (0.9-3.2); Mean Corpuscular HGB Conc 32.1 g/dl (32-36); Mean Corpuscular Hemoglobin 28.3 pg (26-34); Mean Corpuscular Volume 88.1 fl (80-100); Nucleated Red Blood Cells Absolute Auto 0.000 K/mm3 (0.0-0.012); Nucleated Red Blood Cells Perc 0.0 % (0.0-0.2); Platelet Count Result 355 k/mm3 (150-375); Red Blood Count 4.03 M/mm3 (4.2-5.4); White Blood Count 6.0 K/mm3 (4.5-10.0)
[2025-03-27 07:11] LABS: Anion Gap 7 mmol/L (4-12); Blood Urea Nitrogen 15 mg/dL (7-17); Calcium 9.4 mg/dL (8.4-10.2); Carbon Dioxide 25 mmol/L (22-30); Chloride 101 mmol/L (98-107); Estimated CRCL calculation 66 ml/min; Estimated Glomerular Filt Rate 58; Glucose 96 mg/dL (65-110); Magnesium 2.0 mg/dL (1.6-2.3); Potassium 3.3 mmol/L (3.4-5.0); Sodium 133 mmol/L (137-145)
[2025-03-27] MEDS: ONDANSETRON INJ 4 MG/2 ML VIAL IV PUSH ×3 (09:37→20:40)
[2025-03-27] MEDS: ENOXAPARIN 40 MG/0.4 ML SYRINGE SUB-Q (09:37)
[2025-03-27] MEDS: VALSARTAN 160 MG TABLET 320 MG PO (09:38)
[2025-03-27] MEDS: PANTOPRAZOLE 40 MG TABLET PO (09:38)
[2025-03-27] MEDS: oxyBUTYnin CHLORIDE XL 5 MG TAB.ER.24 10 MG PO (09:38)
[2025-03-27] MEDS: POTASSIUM CHLORIDE 20 MEQ PACKET (FOR LIQUID) PO (12:23)
[2025-03-27 13:51] VITALS: BP 155/87; PULSE 103; RESP 18; TEMP 36.8; O2SAT 100
--- NOTE | 2025-03-27 17:09 | PM.IMPN ---
Progress Note: A&P Assessment and Plan (1) HTN (hypertension): Code(s): I10 - Essential (primary) hypertension Status: Acute (2) Obesity (BMI 35.0-39.9 without comorbidity): Code(s): E66.9 - Obesity, unspecified Status: Acute (3) GERD (gastroesophageal reflux disease): Code(s): K21.9 - Gastro-esophageal reflux disease without esophagitis Status: Acute (4) Chronic nausea: Code(s): R11.0 - Nausea Status: Acute (5) Dysphagia: Qualifiers: Dysphagia type: esophageal phase Qualified Code(s): R13.19 - Other dysphagia Code(s): R13.10 - Dysphagia, unspecified Status: Acute (6) Nausea and vomiting: Code(s): R11.2 - Nausea with vomiting, unspecified Status: Acute (7) Diverticulitis: Code(s): K57.92 - Diverticulitis of intestine, part unspecified, without perforation or abscess without bleeding Status: Acute Plan 64-year-old female with a past medical history of diverticulitis s/p sigmoid resection 2017 and at baseline with loose stools, last colonoscopy [address] Ozuna with small TA polyp and normal colon but bx showed mild colitis, dysphagia, GERD, obstructive sleep apnea, Luis Felipe fundoplication visited the ED due to abdominal pain. Patient reports few years ago she had Luis Felipe fundoplication and colectomy due to diverticulitis few years ago with and respectively. Lately patient had abdominal pain from Saturday and nausea sensation but unable to vomit due to Luis Felipe fundoplication. Patient is currently admitted in the setting of diverticulitis. GI was consulted. (1) Diverticulitis: EGD performed on 03/26/2025 demonstrating small amount of gastric content, GI advised to advance diet as tolerated, continue Reglan. Continue to monitor, hope to change Reglan to p.r.n., we discussed the risks versus benefits of the medication she is receiving. So far she is tolerating a diet eaten at slower pace, he is taking sips of water while eating. Continue Zosyn, Zofran, Protonix Previous history of diverticulitis s/p sigmoid resection 2017 Last colonoscopy [address] Ozuna with small TA polyp and normal colon but bx showed mild colitis Supplement potassium for hypokalemia (2) HTN (hypertension): Continue [employer] amlodipine 10 mg p.o. q.day, valsartan 320 mg p.o. q.day. Hydralazine increased to 50 mg p.o. t.i.d. 3. DVT prophylaxis: Lovenox 4. Code status: Full 5. Disposition: Pending improvement Time Spent With Patient Time: 37 minutes Subjective Date/time seen: 03/27/25 17:09 Interval history: No major acute overnight events. Patient is sitting up in bed taking small bites of a jelly sandwich. She reports some nausea but no vomiting. Not had a bowel movement, although has not been eating and 5 days. We discussed the adverse effects of Reglan Review of Systems Review of Systems: All systems reviewed & are unremarkable except as noted in HPI and below (Subjective) Exam Const: General: comfortable and no acute distress Eyes: Pupils: Equal, round and reactive pupils present Neck: Neck: supple Resp: Effort & Inspection: normal respiratory effort Auscultation: clear to auscultation bilaterally Cardio: Rate: regular rate Rhythm: regular rhythm GI: GI Palp: Yes Soft to palpation Other: Mild distension, no tenderness Neuro: Motor exam (neuro): 5/5 motor strength present throughout Extrem: General: no edema Objective Data Vital Signs Vital Signs: Vital Signs - 24 hr 03/26/25 22:00 03/27/25 06:00 03/27/25 13:51 Temperature 98.7 F 98.0 F 98.2 F Pulse Rate 107 H 85 103 H Respiratory Rate 18 18 18 Blood Pressure 126/64 119/82 155/87 H Pulse Oximetry 97 96 100 Intake/Output Intake/Output: Intake & Output 03/24/25 03/25/25 03/26/25 03/27/25 23:59 23:59 23:59 23:59 Intake Total 990 1140 1204 630 Balance 990 1140 1204 630 Meds/Results Medications: Active Medications Generic Name Dose Route Start Last Admin Trade Name Freq PRN Reason Stop Dose Admin Acetaminophen 325 mg 03/23/25 15:02 03/23/25 21:12 Acetaminophen 325 Mg Tablet PO 325 mg Q4H PRN Administration Mild Pain (1-3) or Fever Amlodipine Besylate 10 mg 03/23/25 12:40 03/27/25 09:38 Amlodipine Besylate 10 Mg Tablet PO 10 mg DAILY PALLAVI Administration Aripiprazole 15 mg 03/23/25 21:00 03/26/25 20:27 Aripiprazole 5 Mg Tablet PO 15 mg HS PALLAVI Administration Enoxaparin Sodium 40 mg 03/24/25 09:00 03/27/25 09:37 Enoxaparin 40 Mg/0.4 Ml Syringe SUB-Q 40 mg DAILY PALLAVI Administration Hydralazine HCl 50 mg 03/26/25 13:00 03/27/25 13:45 Hydralazine Hcl 25 Mg Tablet PO 50 mg TID PALLAVI Administration Piperacillin Sod/Tazobactam 50 mls @ 100 mls/hr 03/23/25 12:35 03/27/25 12:53 Sod 3.375 gm/ Sodium Chloride IVPB Infused Q6HR PALLAVI Infusion Metoclopramide HCl 10 mg 03/24/25 18:00 03/27/25 12:23 Metoclopramide Hcl Inj 10 Mg/2 Ml Vial IV PUSH 10 mg Q6HR PALLAVI Administration Ondansetron HCl 4 mg 03/23/25 12:37 03/27/25 13:48 Ondansetron Inj 4 Mg/2 Ml Vial IV PUSH 4 mg Q4H PRN Administration Nausea And Vomiting Oxybutynin Chloride 10 mg 03/24/25 09:00 03/27/25 09:38 Oxybutynin Chloride Xl 5 Mg Tab.Er.24 PO 10 mg DAILY PALLAVI Administration Pantoprazole Sodium 40 mg 03/27/25 09:00 03/27/25 09:38 Pantoprazole 40 Mg Tablet PO 40 mg QAM PALLAVI Administration Paroxetine HCl 40 mg 03/24/25 09:00 03/27/25 09:38 Paroxetine 20 Mg Tablet PO 40 mg QAM PALLAVI Administration Trazodone HCl 100 mg 03/23/25 21:00 03/26/25 21:55 Trazodone Hcl 50 Mg Tablet PO 100 mg HS PALLAVI Administration Valsartan 320 mg 03/24/25 09:00 03/27/25 09:38 Valsartan 160 Mg Tablet PO 320 mg DAILY PALLAVI Administration Radiology Results: ITS Impressions Abdomen/Pelvis CT 03/23/25 06:41 IMPRESSION: 1. Acute diverticulitis colonic hepatic flexure. No complicating features. Labs Labs: Laboratory Results - last 24 hr 03/27/25 06:23 WBC 6.0 RBC 4.03 L Hgb 11.4 L Hct 35.5 L MCV 88.1 MCH 28.3 MCHC 32.1 RDW 13.3 Plt Count 355 MPV 8.8 Immature Gran % (Auto) 0.3 Neut % (Auto) 44.7 L Lymph % (Auto) 41.0 [place] % (Auto) 10.1 H Eos % (Auto) 2.9 Baso % (Auto) 1.0 Lymph # (Auto) 2.44 [place] # (Auto) 0.6 Eos # (Auto) 0.2 Baso # (Auto) 0.1 Abs Immat Gran (auto) 0.02 Absolute Neuts (auto) 2.7 Absolute Nucleated RBC 0.000 Nucleated RBC % 0.0 Sodium 133 L Potassium 3.3 L Chloride 101 Carbon Dioxide 25 Anion Gap 7 BUN 15 Creatinine 0.97 Estim Creat Clear Calc 66 Estimated GFR 58 L Glucose 96 Calcium 9.4 Magnesium 2.0
--- NOTE | 2025-03-27 17:14 | P.PNAN_ITS ---
Anes - Prog Note Post-Op Date/Time: 03/27/25 17:14 Cardiovascular status: normal Respiratory status: normal Airway patency: baseline Mental status: baseline Post-Op hydration status: normal Vital Signs: Last Vital Signs Temp 98.2 F 03/27/25 13:51 Pulse 103 H 03/27/25 13:51 Resp 18 03/27/25 13:51 BP 155/87 H 03/27/25 13:51 Pulse Ox 100 03/27/25 13:51 O2 Del Method Room Air 03/26/25 12:40 Pain Score (VAS): 0/10 I/O: Intake & Output 03/27/25 03/27/25 03/27/25 07:59 15:59 23:59 Intake Total 100 530 Balance 100 530 Laboratory Tests 03/27/25 06:23 03/27/25 06:23 03/27/25 06:23 WBC 6.0 RBC 4.03 L Hgb 11.4 L Hct 35.5 L MCV 88.1 MCH 28.3 MCHC 32.1 RDW 13.3 Plt Count 355 MPV 8.8 Immature Gran % (Auto) 0.3 Neut % (Auto) 44.7 L Lymph % (Auto) 41.0 [place] % (Auto) 10.1 H Eos % (Auto) 2.9 Baso % (Auto) 1.0 Lymph # (Auto) 2.44 [place] # (Auto) 0.6 Eos # (Auto) 0.2 Baso # (Auto) 0.1 Abs Immat Gran (auto) 0.02 Absolute Neuts (auto) 2.7 Absolute Nucleated RBC 0.000 Nucleated RBC % 0.0 Sodium 133 L Potassium 3.3 L Chloride 101 Carbon Dioxide 25 Anion Gap 7 BUN 15 Creatinine 0.97 Estim Creat Clear Calc 66 Estimated GFR 58 L Glucose 96 Calcium 9.4 Magnesium 2.0 Post-procedural complaints: none Patient Feedback: Patient satisfied with anesthetic care.
[2025-03-27 20:05] VITALS: BP 169/93; PULSE 127; RESP 20; TEMP 36; O2SAT 97
[2025-03-27 20:46] VITALS: PULSE 97
[2025-03-28] VITALS (7 sets, daily range): BP systolic 110–190; BP diastolic 61–94; PULSE 68–105; RESP 16–20; TEMP 36.6–37; O2SAT 95–99
[2025-03-28] MEDS: PIPERACILLIN/TAZOBACTAM SOD 3.375 GM in SODIUM CHLORIDE 0.9% IV 50 ML 100 ML IVPB ×2 (05:00→12:21)
[2025-03-28] MEDS: METOCLOPRAMIDE HCL INJ 10 MG/2 ML VIAL IV PUSH ×4 (05:00→23:22)
[2025-03-28] MEDS: METOPROLOL TARTRATE INJ 5 MG/5 ML VIAL IV PUSH (05:31)
[2025-03-28 06:37] LABS: Hematocrit 36.0 % (37.0-47.0); Hemoglobin 11.8 g/dL (12.0-15.0); Immature Granulocyte Percent A 0.6 % (0-0.5); Lymphocytes Absolute Auto 1.54 K/mm3 (0.9-3.2); Mean Corpuscular HGB Conc 32.8 g/dl (32-36); Mean Corpuscular Hemoglobin 28.6 pg (26-34); Mean Corpuscular Volume 87.2 fl (80-100); Nucleated Red Blood Cells Absolute Auto 0.000 K/mm3 (0.0-0.012); Nucleated Red Blood Cells Perc 0.0 % (0.0-0.2); Platelet Count Result 381 k/mm3 (150-375); Red Blood Count 4.13 M/mm3 (4.2-5.4); White Blood Count 5.2 K/mm3 (4.5-10.0)
[2025-03-28 06:58] LABS: Anion Gap 7 mmol/L (4-12); Blood Urea Nitrogen 11 mg/dL (7-17); Calcium 9.4 mg/dL (8.4-10.2); Carbon Dioxide 25 mmol/L (22-30); Chloride 100 mmol/L (98-107); Estimated CRCL calculation 71 ml/min; Estimated Glomerular Filt Rate > 60; Glucose 97 mg/dL (65-110); Magnesium 1.8 mg/dL (1.6-2.3); Potassium 3.3 mmol/L (3.4-5.0); Sodium 132 mmol/L (137-145)
[2025-03-28] MEDS: ONDANSETRON INJ 4 MG/2 ML VIAL IV PUSH (07:17)
[2025-03-28] MEDS: VALSARTAN 160 MG TABLET 320 MG PO (08:25)
[2025-03-28] MEDS: PANTOPRAZOLE 40 MG TABLET PO (08:25)
[2025-03-28] MEDS: ENOXAPARIN 40 MG/0.4 ML SYRINGE SUB-Q (08:25)
[2025-03-28] MEDS: oxyBUTYnin CHLORIDE XL 5 MG TAB.ER.24 10 MG PO (08:25)
--- NOTE | 2025-03-28 12:52 | ECG_ITS ---
Test Date: 2025-03-28 13:09:01 Measurements Intervals [place] Rate: 91 P: 21 AL: 155 QRS: 27 QRSD: 87 T: 27 QT: 372 QTc: 459 Interpretive Statements SINUS RHYTHM LEFT ATRIAL ENLARGEMENT Electronically Signed On 03-28-2025 20:50:33 CDT by Jak Ames D.O
--- NOTE | 2025-03-28 16:48 | P.PNIM_ITS ---
Progress Note: A&P Assessment and Plan (1) HTN (hypertension): Code(s): I10 - Essential (primary) hypertension Status: Acute (2) Obesity (BMI 35.0-39.9 without comorbidity): Code(s): E66.9 - Obesity, unspecified Status: Acute (3) GERD (gastroesophageal reflux disease): Code(s): K21.9 - Gastro-esophageal reflux disease without esophagitis Status: Acute (4) Chronic nausea: Code(s): R11.0 - Nausea Status: Acute (5) Dysphagia: Qualifiers: Dysphagia type: esophageal phase Qualified Code(s): R13.19 - Other dysphagia Code(s): R13.10 - Dysphagia, unspecified Status: Acute (6) Nausea and vomiting: Code(s): R11.2 - Nausea with vomiting, unspecified Status: Acute (7) Diverticulitis: Code(s): K57.92 - Diverticulitis of intestine, part unspecified, without perforation or abscess without bleeding Status: Acute Plan 64-year-old female with a past medical history of gastroparesis, GERD, obstructive sleep apnea, hypertension. History of diverticulitis status post sigmoid resection in 2018, has baseline loose stools. Last colonoscopy [address] Ozuna with small polyp in normal colon demonstrated mild colitis, status post Luis Felipe fundoplication. Presents to [facility] on 03/23/[facility]25 with abdominal pain and nausea. Diverticulitis: Patient received 6 days of Zosyn, she appears nontoxic. No diarrhea, afebrile, no leukocytosis. At this time continue Zosyn as it could be contributing to nausea. Gastroparesis: Not much improvement with scheduled Reglan, Zofran only helps minimally. Continue Protonix. Start Benadryl t.i.d. with meals. Monitor we discontinue Zosyn as well. If not any better tomorrow will re-consult Gastroenterology for further assistance. EGD performed on 03/26/2025 demonstrates gastric retention. Potassium replaced, this will help gastric motility as well. Hypertension: At goal. Continue [employer] amlodipine 10 mg p.o. q.day, valsartan 320 mg p.o. q.day, hydralazine has been increased to 50 mg p.o. t.i.d.. Lovenox 40 mg subQ q.day. Full code. Low-fiber diet Time Spent With Patient Time with patient: 25 - 35 minutes Subjective Date/time seen: 03/28/25 16:48 Interval history: Today she complains nausea bloating is preventing her from eating. Zofran only helps minimally, Reglan helps more. We discussed the side effects of medications once again, wants to try Benadryl as well with meals. Review of Systems Review of Systems: All systems reviewed & are unremarkable except as noted in HPI and below (Subjective) Exam Const: General: comfortable and no acute distress Eyes: Pupils: Equal, round and reactive pupils present Neck: Neck: supple Resp: Effort & Inspection: normal respiratory effort Auscultation: clear to auscultation bilaterally Cardio: Rate: regular rate Rhythm: regular rhythm GI: Inspection: distended GI Palp: Yes Soft to palpation Other: Mild distension, no tenderness Neuro: Motor exam (neuro): 5/5 motor strength present throughout Extrem: General: no edema Objective Data Vital Signs Vital Signs: Vital Signs - 24 hr 03/27/25 20:05 03/27/25 20:46 03/28/25 04:50 Temperature 96.8 F L 97.8 F Pulse Rate 127 H 97 105 H Respiratory Rate 20 20 Blood Pressure 169/93 H 184/94 H Pulse Oximetry 97 99 Oxygen Delivery 03/28/25 05:26 03/28/25 05:31 03/28/25 06:54 Temperature Pulse Rate 68 78 82 Respiratory Rate Blood Pressure 190/93 H 110/61 Pulse Oximetry 96 Oxygen Delivery 03/28/25 08:00 03/28/25 08:25 03/28/25 14:00 Temperature 98.6 F Pulse Rate 83 91 Respiratory Rate 18 Blood Pressure 147/80 H 123/74 Pulse Oximetry 98 Oxygen Delivery Room Air Intake/Output Intake/Output: Intake & Output 03/25/25 03/26/25 03/27/25 03/28/25 23:59 23:59 23:59 23:59 Intake Total 1140 9347 344 0573 Balance 1140 9220 460 9931 Meds/Results Medications: Active Medications Generic Name Dose Route Start Last Admin Trade Name Freq PRN Reason Stop Dose Admin Acetaminophen 325 mg 03/23/25 15:02 03/23/25 21:12 Acetaminophen 325 Mg Tablet PO 325 mg Q4H PRN Administration Mild Pain (1-3) or Fever Amlodipine Besylate 10 mg 03/23/25 12:40 03/28/25 08:26 Amlodipine Besylate 10 Mg Tablet PO 10 mg DAILY PALLAVI Administration Aripiprazole 15 mg 03/23/25 21:00 03/27/25 20:41 Aripiprazole 5 Mg Tablet PO 15 mg HS PALLAVI Administration Diphenhydramine HCl 25 mg 03/28/25 13:35 03/28/25 15:19 Diphenhydramine Hcl Inj 50 Mg/Ml Vial IV PUSH Not Given TIDWM PALLAVI Enoxaparin Sodium 40 mg 03/24/25 09:00 03/28/25 08:25 Enoxaparin 40 Mg/0.4 Ml Syringe SUB-Q 40 mg DAILY PALLAVI Administration Hydralazine HCl 50 mg 03/26/25 13:00 03/28/25 12:22 Hydralazine Hcl 25 Mg Tablet PO 50 mg TID PALLAVI Administration Potassium Chloride 100 mls @ 25 mls/hr 03/28/25 16:45 Kcl 40 Meq/Water 100 Ml IVPB 03/28/25 20:44 ONCE ONE Metoclopramide HCl 10 mg 03/24/25 18:00 03/28/25 12:22 Metoclopramide Hcl Inj 10 Mg/2 Ml Vial IV PUSH 10 mg Q6HR PALLAVI Administration Metoprolol Tartrate 5 mg 03/28/25 05:14 03/28/25 05:31 Metoprolol Tartrate Inj 5 Mg/5 Ml Vial IV PUSH 5 mg Q6H PRN Administration SBP greater than 160 Ondansetron HCl 4 mg 03/23/25 12:37 03/28/25 07:17 Ondansetron Inj 4 Mg/2 Ml Vial IV PUSH 4 mg Q4H PRN Administration Nausea And Vomiting Oxybutynin Chloride 10 mg 03/24/25 09:00 03/28/25 08:25 Oxybutynin Chloride Xl 5 Mg Tab.Er.24 PO 10 mg DAILY PALLAVI Administration Pantoprazole Sodium 40 mg 03/27/25 09:00 03/28/25 08:25 Pantoprazole 40 Mg Tablet PO 40 mg QAM PALLAVI Administration Paroxetine HCl 40 mg 03/24/25 09:00 03/28/25 08:25 Paroxetine 20 Mg Tablet PO 40 mg QAM PALLAVI Administration Trazodone HCl 100 mg 03/23/25 21:00 03/27/25 20:41 Trazodone Hcl 50 Mg Tablet PO 100 mg HS PALLAVI Administration Valsartan 320 mg 03/24/25 09:00 03/28/25 08:25 Valsartan 160 Mg Tablet PO 320 mg DAILY PALLAVI Administration Radiology Results: ITS Impressions Abdomen/Pelvis CT 03/23/25 06:41 IMPRESSION: 1. Acute diverticulitis colonic hepatic flexure. No complicating features. Labs Labs: Laboratory Results - last 24 hr 03/28/25 05:42 WBC 5.2 RBC 4.13 L Hgb 11.8 L Hct 36.0 L MCV 87.2 MCH 28.6 MCHC 32.8 RDW 13.2 Plt Count 381 H MPV 9.0 Immature Gran % (Auto) 0.6 H Neut % (Auto) 56.4 Lymph % (Auto) 29.8 [place] % (Auto) 10.3 H Eos % (Auto) 2.1 Baso % (Auto) 0.8 Lymph # (Auto) 1.54 [place] # (Auto) 0.5 Eos # (Auto) 0.1 Baso # (Auto) 0.0 Abs Immat Gran (auto) 0.03 Absolute Neuts (auto) 2.9 Absolute Nucleated RBC 0.000 Nucleated RBC % 0.0 Sodium 132 L Potassium 3.3 L Chloride 100 Carbon Dioxide 25 Anion Gap 7 BUN 11 Creatinine 0.89 Estim Creat Clear Calc 71 Estimated GFR > 60 Glucose 97 Calcium 9.4 Magnesium 1.8
[2025-03-28] MEDS: POTASSIUM CHLORIDE INJ 40 MEQ in SODIUM CHLORIDE 0.9% IV 500 ML 130 MEQ IVPB (17:23)
[2025-03-29] MEDS: METOCLOPRAMIDE HCL INJ 10 MG/2 ML VIAL IV PUSH ×2 (05:00→12:26)
[2025-03-29 06:00] VITALS: BP 153/84; PULSE 76; RESP 16; TEMP 36.7; O2SAT 94
[2025-03-29 06:36] LABS: Hematocrit 34.5 % (37.0-47.0); Hemoglobin 11.3 g/dL (12.0-15.0); Immature Granulocyte Percent A 0.4 % (0-0.5); Lymphocytes Absolute Auto 2.25 K/mm3 (0.9-3.2); Mean Corpuscular HGB Conc 32.8 g/dl (32-36); Mean Corpuscular Hemoglobin 28.6 pg (26-34); Mean Corpuscular Volume 87.3 fl (80-100); Nucleated Red Blood Cells Absolute Auto 0.000 K/mm3 (0.0-0.012); Nucleated Red Blood Cells Perc 0.0 % (0.0-0.2); Platelet Count Result 373 k/mm3 (150-375); Red Blood Count 3.95 M/mm3 (4.2-5.4); White Blood Count 5.5 K/mm3 (4.5-10.0)
[2025-03-29 07:10] LABS: Anion Gap 7 mmol/L (4-12); Blood Urea Nitrogen 11 mg/dL (7-17); Calcium 9.5 mg/dL (8.4-10.2); Carbon Dioxide 25 mmol/L (22-30); Chloride 99 mmol/L (98-107); Estimated CRCL calculation 71 ml/min; Estimated Glomerular Filt Rate > 60; Glucose 88 mg/dL (65-110); Magnesium 1.9 mg/dL (1.6-2.3); Potassium 3.5 mmol/L (3.4-5.0); Sodium 131 mmol/L (137-145)
[2025-03-29] MEDS: oxyBUTYnin CHLORIDE XL 5 MG TAB.ER.24 10 MG PO (08:07)
[2025-03-29] MEDS: ENOXAPARIN 40 MG/0.4 ML SYRINGE SUB-Q (08:10)
[2025-03-29] MEDS: VALSARTAN 160 MG TABLET 320 MG PO (08:11)
[2025-03-29] MEDS: PANTOPRAZOLE 40 MG TABLET PO (08:11)
--- NOTE | 2025-03-29 13:11 | PM.DS ---
DS: Admitting Diagnosis Discharge Date 03/29/2025 Admitting Diagnosis Abdominal pain DS: Discharge Diagnosis Discharge Diagnosis (1) HTN (hypertension): Code(s): I10 - Essential (primary) hypertension Status: Acute (2) Delayed gastric emptying: Code(s): K30 - Functional dyspepsia Status: Acute (3) Diverticulitis: Code(s): K57.92 - Diverticulitis of intestine, part unspecified, without perforation or abscess without bleeding Status: Acute DS: Summary Hospital Course Hospital Course: 64-year-old female with a past medical history of gastroparesis, GERD, obstructive sleep apnea, hypertension. History of diverticulitis status post sigmoid resection in 2018, has baseline loose stools. Last colonoscopy [address] Ozuna with small polyp in normal colon demonstrated mild colitis, status post Lusi Felipe fundoplication. Presents to [facility] on 03/23/2025 with abdominal pain and nausea. Patient received 6 days of Zosyn for diverticulitis. Uncomplicated. Improved. Gastroparesis: Prior history, she had an EGD on 03/26/2025 demonstrating retained gastric content. Could have been worsened by diverticulitis. She had some trouble with nausea, Zosyn discontinued. Reglan did help. Benadryl did help. Zofran did not help that much. She is now eating without issue. She is discharged in stable condition on 03/29/2025 to home with p.r.n. Benadryl on p.r.n. Reglan. We have discussed risks versus benefits of all the medications she has been taking and will be taking. All of her questions and concerns were answered to satisfaction. Patient information has been printed for gastroparesis. Follow-up with PCP and Gastroenterology. Hypokalemia, resolved status post replacement. Hypertension: Improved after starting hydralazine 50 mg p.o. t.i.d.. 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 q.day as well. She was full code during the admission. Status at Discharge Overall status at discharge: patient is back to baseline Time Spent with Patient Time attestation: Total time spent providing and/or coordinating discharge services: Time spent: Greater than 30 minutes Exam Const: General: comfortable and no acute distress Eyes: Pupils: Equal, round and reactive pupils present Neck: Neck: supple Resp: Effort & Inspection: normal respiratory effort Auscultation: clear to auscultation bilaterally Cardio: Rate: regular rate Rhythm: regular rhythm GI: Inspection: distended GI Palp: Yes Soft to palpation Other: Mild distension, no tenderness Neuro: Motor exam (neuro): 5/5 motor strength present throughout Extrem: General: no edema DS: Data Data Completed and Pending Labs on day of discharge: Labs from last 24 hours 03/29/25 05:19 WBC 5.5 RBC 3.95 L Hgb 11.3 L Hct 34.5 L MCV 87.3 MCH 28.6 MCHC 32.8 RDW 13.3 Plt Count 373 MPV 8.9 Immature Gran % (Auto) 0.4 Neut % (Auto) 42.5 L Lymph % (Auto) 41.1 Rutherford % (Auto) 11.1 H Eos % (Auto) 4.0 Baso % (Auto) 0.9 Lymph # (Auto) 2.25 Rutherford # (Auto) 0.6 Eos # (Auto) 0.2 Baso # (Auto) 0.1 Abs Immat Gran (auto) 0.02 Absolute Neuts (auto) 2.3 Absolute Nucleated RBC 0.000 Nucleated RBC % 0.0 Sodium 131 L Potassium 3.5 Chloride 99 Carbon Dioxide 25 Anion Gap 7 BUN 11 Creatinine 0.89 Estim Creat Clear Calc 71 Estimated GFR > 60 Glucose 88 Calcium 9.5 Magnesium 1.9 Discharge Plan Discharge Attending physician on discharge: Parisa Pedro Discharging Clinician: Parisa Pedro Patient Disposition: Home Activity: may shower Diet: other - see discharge instructions Discharge Instructions: refer to printout for gastroparesis Patient Instructions: Antibiotic Form Patient Language: Yoruba Stand Alone Forms: General Discharge Information Follow-up/Referrals: Nolberto Grace MD [Physician, Gastroenterology] - 04/08/25 Referral Note: f/u on gastroparesis Hemal,SANTO Mota [Primary Care Provider, Unknown] Discharge Medications: New hydralazine 25 mg Tablet 50 mg PO TID Qty: 180 0RF valsartan [Diovan] 160 mg Tablet 320 mg PO DAILY Qty: 30 0RF metoclopramide HCl [Reglan] 5 mg tablet 5 mg PO .tiwdwm PRN (Reason: nausea and vomiting) Qty: 30 0RF diphenhydramine HCl [Benadryl] 25 mg capsule 25 mg PO TIDWM PRN (Reason: nausea and vomiting) Qty: 30 0RF Continued oxybutynin chloride 10 mg tablet extended release 24 hr 10 mg PO DAILY albuterol sulfate 90 mcg/actuation HFA aerosol inhaler 1 - 2 puff inhalation Q4-6H PRN (Reason: shortness of breath or wheezing) Qty: 8.5 2RF paroxetine HCl 40 mg Tablet 40 mg PO QAM aripiprazole [Abilify] 15 mg Tablet 15 mg PO HS amlodipine 10 mg tablet 10 mg PO DAILY trazodone 100 mg tablet 100 mg PO HS Held buspirone 10 mg tablet Hold Instructions: discuss utilization with PCP Discontinued valsartan 320 mg tablet 160 mg PO BID Patient Comments: Pt states she takes Valsartan 160mg twice a day Date of admission: 03/24/25 16:48 Primary Care Provider: HemalLouise Admitting Provider: Zaki Rivers Attending physician on admission: Zaki Rivers Condition: Stable Hospitalist MIPS Heart Failure (Exclusion) Patient has history of Heart Transplant or Left Ventricular Assistive Device?: No IF YES, STOP HERE Heart Failure (Qualifier) Patient has current or prior documentation of LVEF less than or equal to 40%, or mod/servere depressed LVSF?: No IF NO, STOP HERE
[2025-03-29 14:00] VITALS: BP 143/73; PULSE 102; RESP 18; TEMP 36.2; O2SAT 96
== END 2025-03-29 14:05 | disposition home or self-care (01) | DRG 392 ==
LOC: ANHED 06:57 → ANH3MEDSUR 08:08
PROVIDERS: Internal Medicine; Internal Medicine Gastroenterology; Admitting Provider General Practice; Emergency Provider Emergency Medicine; PCP Nurse Practitioner Family; Visit Provider General Practice
PROC: 0DJ08ZZ Inspection of Upper Intestinal Tract, Via Natural or Artificial Opening Endoscopic (ICD-10-PCS; principal; 2025-03-26 14:15)
DX: K57.32 Diverticulitis of large intestine without perforation or abscess without bleeding (principal); I10 Essential (primary) hypertension; R13.10 Dysphagia, unspecified; K31.84 Gastroparesis; K30 Functional dyspepsia; K21.9 Gastro-esophageal reflux disease without esophagitis; E87.6 Hypokalemia; E78.5 Hyperlipidemia, unspecified; N32.81 Overactive bladder; G47.33 Obstructive sleep apnea (adult) (pediatric); F32.A Depression, unspecified; F41.9 Anxiety disorder, unspecified; Z87.891 Personal history of nicotine dependence
CPT/HCPCS: 36415; 74177; 80048; 80053; 81001; 83690; 83735; 85025; 85027; 87086; 93005; 96361; 96365; 96367; 96375; 96376; 99285; A9270; G0378; J0360; J0616; J1200; J1650; J1790; J2003; J2405; J2470; J2543; J2704; J2765; J3480; J7040; J7120; Q9967

== ENCOUNTER 2025-04-13 10:46 | Outpatient (CLI) | payer MEDICARE, SELFPAY ==
--- NOTE | ~2025-04-13 | US_ITS ---
EXAMINATION: US pelvic complete w TV, 04/13/2025 10:48 CDT HISTORY: N83.209 - Unspecified ovarian cyst, unspecified side Comparison: None Technique: Joseph-scale and color Doppler images were obtained. Findings: Uterus: Uterus anteverted 8 5.5 x 2.1 x 3.4 cm. There are uterine fibroids noted the largest in the posterior uterine body 1.1 x 1.3 cm. . Endometrium 2 mm. Right Ovary:Right ovary 2.4 x 2 x 2.6 cm, slightly complex cystic focus 1.7 x 1.9 cm. Left Ovary: Left ovary 1.5 x 1 x 1.3 cm, no adnexal mass, normal flow. Free Fluid: None Impression: Slightly complex cystic right ovarian lesion in this postmenopausal patient. This may represent a postmenopausal atropic cyst however cystic ovarian neoplasm is not excluded. Follow-up is recommended to assess stability. Clinically if there are risk factors for cystic ovarian neoplasm contrast-enhanced MRI could be obtained at this time Reviewed, dictated and finalized at location P. Impression: Slightly complex cystic right ovarian lesion in this postmenopausal patient. Th is may represent a postmenopausal atropic cyst however cystic ovarian neoplasm is not excluded. Follow-up is recommended to assess stability. Clinically if th ere are risk factors for cystic ovarian neoplasm contrast-enhanced MRI could be obtained at this time
== END 2025-04-13 10:47 | disposition home or self-care (01) ==
LOC: MICIMG 10:47
PROVIDERS: PCP Nurse Practitioner Family; Visit Provider Obstetrics & Gynecology
DX: N83.291 Other ovarian cyst, right side (principal); N95.9 Unspecified menopausal and perimenopausal disorder
CPT/HCPCS: 76830; 76856

== ENCOUNTER 2025-04-26 11:25 | Outpatient (CLI) | payer MEDICARE, SELFPAY ==
[2025-04-26 12:13] LABS: CRP 0.6 mg/dL (<1.0)
--- OUTSIDE RECORDS SUMMARY | 2025-04-26 13:03 | XMS_ITS | Clinical Summary ---
Author Organization [facility] Medical Office Building [address] Address [address] [place] [address] Care Team Providers Care Wine Steward Name Role Phone Bharath Witt MD Unavailable [phone] Atul Garrido MD Unavailable [phone] Yamilet Bernal DO Unavailable [phone] Brandon Gutierrez MD Unavailable [phone] Brandon Roque MD Unavailable [phone] Tucker Evans Unavailable Unavailable Nolberto Uriostegui MD Unavailable + Louise Recio NP Primary Care Provider Allergies No known active allergies Medications SUMAtriptan [...] 04/24/2023 Assessment & Plan (08/20/2024 1:55 PM PRISON TEACHER): Has follow up with neurology in August. [...] medication Assessment & Plan (07/12/2021 2:14 PM PRISON TEACHER): Has he use pads daily so they [...] medicine Assessment & Plan (07/12/2021 2:14 PM PRISON TEACHER): History of sleep apnea but no longer uses CPAP. Will refer back to Sleep Medicine IBS (irritable bowel syndrome) 04/18/2017 Assessment & Plan (12/25/2021 2:28 PM CDT): Hi fiuber diet Mixed hyperlipidemia 11/14/2013 Overview (10/04/2016): Combined hyperlipidemia Assessment & Plan (02/20/2025 8:19 AM CDT): Assessment & Plan (08/20/2024 2:46 PM PRISON TEACHER): The 10-year ASCVD risk score (Agustin BILSS, et al., 2019) is: 7% Values used [...] year Assessment & Plan (06/22/2019 1:32 PM PRISON TEACHER): Diet controlled. Last LDL 133. Will have her f/u in 6 months with repeat lipid panel and cmp Adjustment disorder with mixed anxiety and depre ssed mood 11/14/2013 Overview (10/04/2016): Adjustment reaction with anxiety and depression Assessment & Plan (02/20/2025 8:19 AM CDT): Assessment & Plan (08/20/2024 1:54 PM PRISON TEACHER): Managed by psychiatry. Has been on abilify [...] CDT): Assessment & Plan (08/20/2024 2:47 PM PRISON TEACHER): Improved but not quite at goal. Will increase amlodipine to 10 mg once daily. She will send his home blood pressures. Follow up in 6 months Assessment & Plan (08/03/2024 1:08 PM PRISON TEACHER): Initial BP elevated, repeat improved (still increased but better). EKG fine in office, labs ordered. Add in Amlodipine to 2.5 mg daily and continue Valsartan and Metoprolol. Home BP log x 1 week, follow up in 2 weeks to establish with Ramona Recio DNP (used to see her in [place]). ER precautions provided. Assessment & Plan (02/25/2024 [...] management Assessment & Plan (06/16/2021 9:24 AM PRISON TEACHER): Discontinue hydrochlorothiazide. Discontinue lisinopril 20 mg. Will [...] months. Assessment & Plan (06/22/2019 1:31 PM PRISON TEACHER): Hypertension is improving with treatment. Regular aerobic exercise. Continue current medications. Blood pressure will be reassessed 6 months. Urinary incontinence 11/14/2013 Overview (10/04/2016): Incontinence of urine Assessment & Plan (08/20/2024 2:49 PM PRISON TEACHER): Stable. Continue oxybutynin Assessment & Plan (02/25/2024 [...] 02/20/2025 Assessment & Plan (08/20/2024 2:48 PM PRISON TEACHER): Urine dip shows trace of blood. Otherwise negative. Will send urine for culture but I do not think this is a UTI. She has had no improvement with Bactrim. Could be muscular but we are going to rule out a kidney stone. Order CT renal stone protocol stat at [facility]. Trigger finger, right ring finger 02/12/2023 08/20/2024 Gastroparesis 01/07/2023 02/18/2025 Assessment & Plan (02/25/2024 5:38 PM CDT): Chronic. Sees GI. Avoid dietary triggers. Patient believes she is on Compazine currently. DENNIS (dyspnea on exertion) 08/31/2022 Exercise intolerance 08/31/2022 023 Trigger ring finger of right hand 08/10/2022 01/07/2023 Overview (08/10/2022): Added automatically from request for surgery [id number] Dizziness and giddiness 02/28/202208/02 Assessment & Plan [...] (02/02/2022): Added automatically from request for surgery [id number] Assessment & Plan (02/25/2024 5:38 PM CDT): Intermittent episodes of dysphagia. Saw GI. Had EGD which may have had very subtle eosinophilic esophagitis. She will continue working with the specialists. She also has a history of gastroparesis Trigger middle finger of right hand 10/23/2021 01/08/2022 Overview (10/23/2021): Added automatically from request for surgery [id number] Chronic cough 07/12/2021 01/08/2022 Assessment & Plan (07/12/2021 2:15 PM PRISON TEACHER): Encouraged her to follow back up with GI which she has scheduled in August at [facility] Morbid (severe) obesity due to excess calories 07/11/2021 01/08/2022 Assessment & Plan (07/12/2021 2:13 PM PRISON TEACHER): BMI Follow-up includes: exercise counseling. ZHANG-inhibitor cough 06/16/2021 07/11/19 Assessment & Plan (06/16/2021 9:23 AM PRISON TEACHER): will change to Arb Acute bronchitis 05/05/2021 [...] 06/22/2019 Assessment & Plan (05/04/2019 2:33 PM PRISON TEACHER): Have eye exam Increase to 64 ounces [...] 06/22/2019 Assessment & Plan (07/07/2018 12:27 PM PRISON TEACHER): Patient presents symptoms of feeling imbalance with [...] examination revealed normal Romberg, tandem Romberg and Bremen-Hallpike maneuver. There was no signs of any cranial neuropathies or unilateral neurological deficits. Patient would benefit from an ENG, calorics, posturography and additional vestibular testing. We will get her scheduled. Possible need for MRI of the head with and without gadolinium. Diverticulitis 12/13/2017 01/27/2019 Nausea 12/04/2017 01/07/2023 Assessment & Plan (06/05/2022 2:39 PM PRISON TEACHER): Continue the reglan and zofran. History of [...] Encounters Date Type Department Care Team Description 04/15/2025 Telephone [place] [facility] at [address] [place] [phone] Radha Horn 04/15/2025 Orders Only [place] [facility] at [address] [place] [phone] Radha Horn 03/19/2025 Orders Only [facility] at [address] [address] ProviderJonathan MD 02/25/2025 Telephone [place] [facility] at [address] [place] [address] Modesta Tejada NP 02/18/2025 3:00 PM CDT Office Visit [facility] Primary Care at [address] [address] Louise Recio NP Annual physical [...] - 02/17/2025 11:59 PM CDT Hospital Encounter [facility] Cardiology [address] [place] [address] SOB (shortness of breath) Discharge Disposition: Discharge to home or self care from Last 3 Months Immunizations Immunization Administration [...] 10/23/2021 Added automatically from request for surgery [id number] Dysphagia Anemia Arthritis History of diverticulitis 12/04/2017 [...] Cancer Father's Brother Brian Diabetes Maternal Grandmother [place] Arthritis Mother Faith Family history of arthritis - (Added by TW Conv) Bleeding Disorder Mother [place] Family his tory of bleeding disorder - (Added by TW Conv) Cancer Mother Faith Family history of malignant neoplasm - (Added by TW Conv) Hypertension Mother [place] Family history of hypertension - (Added by TW Conv) Prostate cancer Other Family histo ry of Cancer, prostate; Anesthesia problems Neg Hx Malig Hypertension Neg Hx Malig Hyperthermia Neg Hx Pseudochol deficiency Neg Hx Relation Name Status Comments Brother 1 Rex Alive Brother 2 Casper Alive Father Alex Father's Brother Brian Alive Maternal Grandmother [place] Alive Mother Faith Other Social History [...] on file Legal Sex Female 3:05 PM PRISON TEACHER Gender Identity Female 09/08/2020 1:16 PM PRISON TEACHER Sexual Orientation Not on file Obstetrics History [...] history exists Medical Devices Explanted Type Area Basket Bottom Machine Operator Device Identifier Shelf Expiration Date Model / Serial / Lot Other-Bladder Stimulator-08/30 Implanted:08/30 (Quantity not on file) Explanted:Qty: 1 on 09/05/2021 by Roger Gillespie MD at [facility] Other - see comments Pelvis [employer] 3058 / [id number] / Description:DEVICE: BLADDER STIMULATOR [employer] MODEL # 3058 SERIAL # [id number] CONTACT # 09-25-2013 NEEDS: TRANSMIT RECEIVE HEAD COIL Procedures Procedure Name Priority Date/Time Associated Diagnosis Comments US PELVIS LIMITED Schedule Routine, Read Routine (OP Routine) 04/13/2025 TRANSTHORACIC ECHO (TTE) COMPLETE W DOPPLER/CF WO CONTRAST Routine 02/17/2025 1:22 PM CDT SOB (shortness of breath) HM PAP SMEAR Routine 02/27/2024 10:56 AM CDT MAMMOGRAPHY Routine 02/26/2024 10:11 AM CDT COLONOSCOPY Routine 01/10/2024 4:12 PM CDT HEPATITIS C ANTIBODY Routine 12/22/2019 2:20 PM CDT Encounter for hepatitis C screening test for low risk patient from Last 3 Months or Most Recently Relevant to Health Maintenance Results * US Pelvis Limited (04/13/2025) Anatomical Region Laterality Modality Pelvis N/A Ultrasound us Historical Provider MD TSE US PROCEDURES Final R esult * TRANSTHORACIC ECHO (TTE) COMPLETE W DOPPLER/CF WO CONTRAST (02/17/2025 1:22 PM CDT) Estimated EF 60-65 % CONS SCIMAGE Anatomical Region Laterality Modality Ultrasound 02/17/2025 12:5 2 PM CDT Narrative 02/17/2025 5:04 PM CDT [address] [address] Echocardiogram Report Patient Name: DAVID HAYWOOD : [...] Procedure Note Harpreet Jennings MD - 02/17/2025 [place] [address] Echocardiogram Report Patient Name: DAVID HAYWOOD : [...] CV ECHO PROCEDURES Final Res ult * PAP SMEAR (02/27/2024 10:56 AM CDT) Pathologist [facility] SCRIBED Pap test n [facility] Provider HEALTH MAINTENANCE Final Result * MAMMOGRAPHY (02/26/2024 10:11 AM CDT) [facility] Mammography Normal [facility] Provider [facility] Final Result * COLONOSCOPY (01/10/2024 4:12 PM CDT) Pathologist [facility] Scribed Colonoscopy Normal Nolberto Slaughter MD [facility] MAINTENANCE Final Result * Hepatitis C antibody (12/22/2019 2:20 PM CDT) Pathologist [facility] Hep C Ab Nonreactive Nonreactive JASMYN HATCH [...] last revised on 2019. Testing performed by: [facility], [address] [place] [address], [place]., [address] Blood specimen (specimen) 12/22/2019 2:20 PM CDT 12/23/2019 9:46 AM CDT Louise Recio NP LAB MICROBIOLOGY - GENERAL OR DERABLES Final Result [facility] Department [place] [address] from Last 3 Months or Most Recently Relevant to Health Maintenance Insurance [employer] CHOICE MEDICARE PPO [facility] [employer] CHOICE MEDICARE PPO Advance Directives For more information, please contact: [phone] * Full Code (Latest Code Status on File) Date Activated Date Inactivated Comments 02/08/2022 11:09 AM 02/08/2022 5:49 PM * Full Code Date Activated Date Inactivated Comments 02/08/2022 11:09 AM 02/08/2022 11:09 AM Care Teams Wine Steward Relationship Specialty Start Date End Date Louise Recio NP [address] [facility] [address] [place] [address] PCP - General Family Medicine 08/20/24 Bharath Witt MD [address] [facility] [address] [place] [address] Referring Physician Vascular Surgery 12/04/17 Atul Garrido MD [address] [facility] [address] [place] [address] Referring Physician Obstetrics and Gynecology 04/17/19 Yamilet Bernal DO [address] [place] [address] DR BRENNA Guerrier [facility] [address] [place] [address] Consulting Physician Otolaryngology 02/25/24 Brandon Gutierrez MD [address] [place] [address] DR CEJA B [facility] [address] [place] [address] Consulting Physician Neurology 02/25/24 Brandon Roque MD [address] [facility] [address] [place] [address] Consulting Physician Cardiology 02/25/24 Tucker Evans Neuropsychology 02/25/24 Nolberto Uriostegui MD [address] [facility] [address] [place] [address] Referring Physician Gastroenterology 02/25/24
--- OUTSIDE RECORDS SUMMARY | 2025-04-26 13:03 | XMS_ITS | Clinical Summary ---
Author Organization [facility] Address [address], [facility] [address] [place] [address] Phone Care Team Providers Care Embedded Case Manager Name Role Phone Belen Kemp APRN, BOX NAILER Unavailable [phone] Reza Ozuna DO Unavailable [phone] Louise Recio BEE KEEPER, BOX NAILER Primary Care Provider Allergies No known active [...] Sex Assigned at Female 06/27/2023 7:46 PM PRINTING SUPERVISOR Legal Sex Female 7:32 PM CDT Gender Identity Female 06/27/2023 7:46 PM PRINTING SUPERVISOR Sexual Orientation Choose not to disclose 2022 7:46 PM PRINTING SUPERVISOR Occupation Industry Job Start Date Job End Date [employer] Not on file Not on file Not [...] Insurance MEDICAID [employer] Care Teams Embedded Case Manager Relationship Specialty Start Date End Date Louise Recio APRN, BOX NAILER [address] [place] [address] [place] [address] PCP - General Advanced Practice Nurse 03/21/21 Belen Kemp APRN, BOX NAILER Nurse Practitioner Advanced Practice Nurse 12/29/15 Reza Ozuna DO Consulting Physician Gastroenterology 10/31/17
--- OUTSIDE RECORDS SUMMARY | 2025-04-26 13:03 | XMS_ITS | Encounter Summary ---
Author Organization [facility] Address [address] [place] [address] Phone Care Team Providers Care Data Migration Consultant Name Role Phone Belen Kemp APRN, B2B SALES EXECUTIVE Unavailable [phone] Reza Ozuna DO Unavailable [phone] Danna Tran REPORT ANALYST Primary Care Provi doug Louise Recio APRN, B2B SALES EXECUTIVE Primary Care Provider Reason for Visit * Reason Comments Medication Refill Encounter Details Date Type Department Care Team (Late st Contact Info) Description 01/02/2021 Refill [facility] - Gastroenterology [facility] [address] [place] [phone] Reza Ozuna, [address] [place] [address] Medication Refill Social History Tobacco Use Types Packs/Day Years Used Date Smoking Tobacco: Former Cigarettes 0.5 2 0 08/30/1993 - 08/31/1995 Smokeless Tobacco: Never Alcohol Use Standard Drinks/Week Comments Yes 1 (1 standard drink = 0.6 oz pur e alcohol) occasionally Comments No Sex and Gender Information Value Date Recorded Sex Assigned at Female 06/27/2023 7:46 PM CEMENT BOAT AND BARGE LOADER Legal Sex Female 7:32 PM CDT Gender Identity Female 06/27/2023 7:46 PM CEMENT BOAT AND BARGE LOADER Sexual Orientation Choose not to disclose 2022 7:46 PM CEMENT BOAT AND BARGE LOADER Occupation Industry Job Start Date Job End [...] on filedocumented in this encounter Care Teams Data Migration Consultant Relationship Specialty Start Date End Date Danna Tran NP [address] [place] [address] [address] [place] [address] PCP - General Advanced Practice Nurse 08/20/19 Louise Recio, EDGE GLUE MACHINE TENDER, B2B SALES EXECUTIVE [address] [place] [address] [address] [place] [address] PCP - General Advanced Practice Nurse 03/21/21 Belen Kemp, EDGE GLUE MACHINE TENDER, B2B SALES EXECUTIVE Nurse Practitioner Advanced Practice Nurse 12/29/15 Reza Ozuna DO Consulting Physician Gastroenterology 10/31/17 documented as of this encounter
--- OUTSIDE RECORDS SUMMARY | 2025-04-26 13:03 | XMS_ITS | Encounter Summary ---
Author Organization [facility] Healthcare Address [address] [place] [address] Care Team Providers Care Fork Truck Driver Name Role Phone Reza Ozuna DO Unavailable [phone] Bharath Witt MD Unavailable [phone] Atul Garrido MD Unavailable [phone] Jane Felix MD Primary Care Provider Yamilet Bernal DO Unavailable [phone] Brandon Gutierrez MD Unavailable [phone] Brandon Roque MD Unavailable [phone] Tucker Evans Unavailable Unavailable Nolberto Uriostegui MD Unavailable + David Guy MD Primary Care Provider Jane Felix MD Primary Care Provider Jane Felix MD Primary Care Provider Louise Recio NP Primary Care Provider [phone] Encounter Details Date Type Department Care Team (Late st Contact Info) Description 01/28/[address] [address] [place], [place] Social History Tobacco Use [...] on file Legal Sex Female 3:05 PM [employer] HAZMAT TANKER DRIVER Gender Identity Female 09/08/2020 1:16 PM [employer] HAZMAT TANKER DRIVER Sexual Orientation Not on file documented as of this encounter Plan of Treatment Not on file documented as of this encounter Visit Diagnoses Not on filedocumented in this encounter Care Teams Fork Truck Driver Relationship Specialty Start Date End Date Jane Felix MD [address] [place] [address] PCP - General Family Practice 07/09/22 04/09/24 David Guy MD [address] [place] [address] PCP - General Family Medicine 04/10/24 08/02/24 Jane Felix MD [address] [place] [address] PCP - General Family Medicine 08/03/24 08/03/24 Jane Felix MD [address] [facility] [address] [facility] [address] [place] [address] PCP - General Family Medicine 08/19/24 08/19/24 Louise Recio ENGINEERING INSTRUCTOR 2 [facility] [address] [place] [address] PCP - General Family Medicine 08/20/24 Reza Ozuna DO Consulting Physician Gastroenterology 12/04/17 02/24/24 Bharath Witt MD [address] [place] [address] [address] [facility] [address] [place] [address] Referring Physician Vascular Surgery 12/04/17 Atul Garrido MD [address] [place] [address] [address] [facility] [address] [place] [address] Referring Physician Obstetrics and Gynecology 04/17/19 Ymailet Bernal DO [address] [facility] [address] BRENNA Guerrier [facility] [address] [place] [address] Consulting Physician Otolaryngology 02/25/24 Brandon Gutierrez MD [address] [facility] [address] BRENNA Guerrier [facility] [address] [place] [address] Consulting Physician Neurology 02/25/24 Brandon Roque MD [address] [facility] [address] [facility] [address] [place] [address] Consulting Physician Cardiology 02/25/24 Tucker Evans Neuropsychology 02/25/24 Nolberto Uriostegui MD [address] [place] [address] Referring Physician Gastroenterology 02/25/24 documented as of this encounter
--- OUTSIDE RECORDS SUMMARY | 2025-04-26 13:03 | XMS_ITS | Clinical Summary ---
Author Organization [facility] [employer] Address [address] [place] [address] Care Team Providers Care Industrial Automation Specialist Name Role Phone Unavailable Primary Care Provider Unavailabl e Source Comments [facility],non-owned Affiliates and Associated Physician Practices is amultiple site organization consisting of ambulatory clinics and hospital sitesin [place], [place], [place] and [place]. This disclosure is being madepursuant to the Care Everywhere program and may not contain all information available regarding this patient. Last updated 18.[facility] [employer] Allergies No known active allergies Medications * [...] CDT 04/18/2017 Narrative Resulting Agency Comment [facility] [address] [facility] [id number] Anoop Romero MD LAB - CHEMISTRY ORDERABLE S Final Result Performing Organization Address City/[facility]/ZIP Co de Phone Number [facility] ACCOUNT BILL [address] [place] [address] * (ABNORMAL) LIPID PROFILE (04/18/2017 12:24 PM [...] CDT 04/18/2017 Narrative Resulting Agency Comment [facility] [address] [facility] [id number] Anoop Romero MD LAB - CHEMISTRY ORDERABLE S Final Result Performing Organization Address City/[facility] de Phone Number [facility] ACCOUNT BILL [address] [place] [address] from Last 3 Months or Most Recently Relevant to Health Maintenance Insurance [facility] * Guarantor: KORTNEY HAYWOOD Account Type Relation to Patient Date of Phone Billing Address Personal/Family [address] [place] [address] [facility] SELF PAY NO INSURANCE Member Subscriber Plan / Payer (Ef fective for All Dates) Name:Kortney Haywood Member ID:Not on file Relation to Subscriber:Not on file Name:KORTNEY HAYWOOD Subscriber ID:Not on file Address: [address] [place] [address] Payer ID:Not on file Group ID:Not on file Type:Self Pay Address: [place], [place] * Guarantor: KORTNEY HAYWOOD Account Type Relation to Patient Date of Phone Billing Address Personal/Family [address] [place] [address] [facility] SELF PAY NO INSURANCE Member Subscriber Plan / Payer (Ef fective for All Dates) Name:Kortney Haywood Member ID:Not on file Relation to Subscriber:Not on file Name:KORTNEY HAYWOOD Subscriber ID:Not on file (Home) Address: [address] [place] [address] Payer ID:Not on file Group ID:Not on file Type:Self Pay Address: [place], [place] * Guarantor: KORTNEY HAYWOOD Account Type Relation to Patient Date of Phone Billing Address Personal/Family [address] [place] [address] [facility] SELF PAY NO INSURANCE Member Subscriber Plan / Payer (Ef fective for All Dates) Name:Kortney Haywood Member ID:Not on file Relation to Subscriber:Not on file Name:KORTNEY HAYWOOD Subscriber ID:Not on file (Home) Address: [address] [place] [address] Payer ID:Not on file Group ID:Not on file Type:Self Pay Address: [place], [place]
[2025-04-27 16:08] LABS: Deamidated Gliadin Abs, IgA 6 units (0-19); Deamidated Gliadin Abs, IgG 4 units (0-19); Immunoglobulin A, Qn 191 mg/dL (87-352)
== END 2025-04-26 11:26 | disposition home or self-care (01) ==
PROVIDERS: PCP Nurse Practitioner Family; Visit Provider Nurse Practitioner Family
DX: R15.9 Full incontinence of feces (principal); K59.1 Functional diarrhea
CPT/HCPCS: 36415; 82784; 86140; 86231; 86258

== ENCOUNTER 2025-05-04 14:58 | Outpatient (CLI) | payer MEDICARE, SELFPAY ==
--- OUTSIDE RECORDS SUMMARY | 2025-05-04 16:24 | XMS_ITS | Clinical Summary ---
Author Organization [facility] Address [address], [facility] [address] [place] [address] Phone Care Team Providers Care Infrastructure Director Name Role Phone Belen Kemp APRN, PASTEURIZING MACHINE OPERATOR Unavailable [phone] Reza Ozuna DO Unavailable Louise Recio MUSIC INTERN, PASTEURIZING MACHINE OPERATOR Primary Care Provider Allergies No known active [...] Sex Assigned at Female 06/27/2023 7:46 PM CAR SHAGGER Legal Sex Female 7:32 PM CDT Gender Identity Female 06/27/2023 7:46 PM CAR SHAGGER Sexual Orientation Choose not to disclose 2022 7:46 PM CAR SHAGGER Occupation Industry Job Start Date Job End Date reji [employer] Not on file Not on file Not [...] Insurance MEDICAID [employer] Care Teams Infrastructure Director Relationship Specialty Start Date End Date Louise Recio APRN, PASTEURIZING MACHINE OPERATOR [address] [place] [address] [place] [address] PCP - General Advanced Practice Nurse 03/21/21 Belen Kemp APRN, PASTEURIZING MACHINE OPERATOR Nurse Practitioner Advanced Practice Nurse 12/29/15 Reza Ozuna DO Consulting Physician Gastroenterology 10/31/17
--- OUTSIDE RECORDS SUMMARY | 2025-05-04 16:24 | XMS_ITS | Encounter Summary ---
Author Organization [facility] Address [address] [place] [address] Phone Care Team Providers Care Bark Grinder Name Role Phone Belen Kemp APRN, OIL PIT ATTENDANT Unavailable [phone] Reza Ozuna DO Unavailable [phone] Danna Tran NAIL TECHNICIAN TEACHER Primary Care Provi doug Louise Recio APRN, OIL PIT ATTENDANT Primary Care Provider Reason for Visit * Reason Comments Medication Refill Encounter Details Date Type Department Care Team (Late st Contact Info) Description 01/02/2021 Refill [facility] - Gastroenterology [facility] [address] [place] [address] Reza Ozuna, [address] [facility] [place] [address] Medication Refill Social History Tobacco Use Types Packs/Day Years Used Date Smoking Tobacco: Former Cigarettes 0.5 2 0 08/30/1993 - 08/31/1995 Smokeless Tobacco: Never Alcohol Use Standard Drinks/Week Comments Yes 1 (1 standard drink = 0.6 oz pur e alcohol) occasionally Comments No Sex and Gender Information Value Date Recorded Sex Assigned at Female 06/27/2023 7:46 PM DEFENSE ATTORNEY Legal Sex Female 7:32 PM CDT Gender Identity Female 06/27/2023 7:46 PM DEFENSE ATTORNEY Sexual Orientation Choose not to disclose 2022 7:46 PM DEFENSE ATTORNEY Occupation Industry Job Start Date Job End [...] on filedocumented in this encounter Care Teams Bark Grinder Relationship Specialty Start Date End Date Danna Tran NP [address] [place] [address] [address] [place] [address] PCP - General Advanced Practice Nurse 08/20/19 Louise Recio APRN, OIL PIT ATTENDANT [address] [place] [address] [address] [place] [address] PCP - General Advanced Practice Nurse 03/21/21 Belen Kemp APRN, OIL PIT ATTENDANT Nurse Practitioner Advanced Practice Nurse 12/29/15 Reza Ozuna DO Consulting Physician Gastroenterology 10/31/17 documented as of this encounter
--- OUTSIDE RECORDS SUMMARY | 2025-05-04 16:24 | XMS_ITS | Encounter Summary ---
Author Organization [facility] Healthcare Address [address] [place] [address] Care Team Providers Care Optometrist/Practice Owner Name Role Phone Reza Ozuna DO Unavailable [phone] Bharath Witt MD Unavailable [phone] Atul Garrido MD Unavailable [phone] Jane Felix MD Primary Care Provider Yamilet Bernal DO Unavailable [phone] Brandon Gutierrez MD Unavailable [phone] Brandon Roque MD Unavailable [phone] Tucker Evans Unavailable Unavailable Nolberto Uriostegui MD Unavailable + David Guy MD Primary Care Provider Jane Felix MD Primary Care Provider Jane Felix MD Primary Care Provider Luoise Recio NP Primary Care Provider [phone] Encounter Details Date Type Department Care Team (Late st Contact Info) Description 01/28/[address] [address] [place], [place] Social History Tobacco Use [...] on file Legal Sex Female 3:05 PM CASE REVIEWER Gender Identity Female 09/08/2020 1:16 PM CASE REVIEWER Sexual Orientation Not on file documented as of this encounter Plan of Treatment Not on file documented as of this encounter Visit Diagnoses Not on filedocumented in this encounter Care Teams Optometrist/Practice Owner Relationship Specialty Start Date End Date Jane Felix MD [address] [place] [address] PCP - General Family Practice 07/09/22 04/09/24 David Guy MD [address] [place] [address] PCP - General Family Medicine 04/10/24 08/02/24 Jane Felix MD [address] [place] [address] PCP - General Family Medicine 08/03/24 08/03/24 Jane Felix MD [address] [facility] [address] [facility] [address] [place] [address] PCP - General Family Medicine 08/19/24 08/19/24 Louise Recio ACCOUNTING AUDITOR 2 [facility] [address] [place] [address] PCP - General Family Medicine 08/20/24 Reza Ozuna DO Consulting Physician Gastroenterology 12/04/17 02/24/24 Bharath Witt MD [address] [place] [address] [address] [facility] [address] [place] [address] Referring Physician Vascular Surgery 12/04/17 Atul Garrido MD [address] [place] [address] [address] [facility] [address] [place] [address] Referring Physician Obstetrics and Gynecology 04/17/19 Yamilet Bernal DO [address] [facility] [address] BRENNA Guerrier [facility] [address] [place] [address] Consulting Physician Otolaryngology 02/25/24 Brandon Gutierrez MD [address] [facility] [address] BRENNA Guerrier [facility] [address] [place] [address] Consulting Physician Neurology 02/25/24 Brandon Roque MD [address] [facility] [address] [facility] [address] [place] [address] Consulting Physician Cardiology 02/25/24 Tucker Evans Neuropsychology 02/25/24 Nolberto Uriostegui MD [address] [place] [address] Referring Physician Gastroenterology 02/25/24 documented as of this encounter
--- OUTSIDE RECORDS SUMMARY | 2025-05-04 16:24 | XMS_ITS | Clinical Summary ---
Author Organization [facility] Address [address] [place] [address] Care Team Providers Care Strategic Manager Name Role Phone Unavailable Primary Care Provider Unavailabl e Social History Tobacco Use Types Packs/Day Years Used Date Smoking Tobacco: Never Assessed Comments Unknown Sex and Gender Information Value Date Recorded Sex Assigned at Not on file Legal Sex Female 2:39 AM SOLO MUSICIAN Gender Identity Not on file Sexual Orientation Not on file Plan of Treatment Upcoming Encounters Date Type Department Care Team (Late st Contact Info) Description 05/18/2025 1:40 PM SOLO MUSICIAN Office Visit [facility] Medical [facility] Family & Internal Medicine [address] [phone] Judith Contreras, DO [address] [address] Health Maintenance Due Date Last Done Comments Cervical Cancer Screening Pa p Smear (Age 30 to 64) Every 3 Years 1961 Colorectal Cancer Screening Colonoscopy (10 Years) 1961 Annual Physical 1964 Hepatitis C 1979 DTaP, Tdap and Td Vaccines ( 1 - Tdap) 1980 Cervical Cancer Screening Pa p with HPV Testing (Age 30 to 64) Every 5 Years 1991 Cervical Cancer Screening with HPV 1991 Mammogram Screening 2001 Pneumococcal Vaccine: 50+ Ye ars (1 of 1 - PCV) 2011 Zoster Vaccines (1 of 2) 2011 COVID-19 Vaccine ( - 2024-2 6 season) 2025 Influenza Adult (#1) 2025 RSV Immunization or 60+ Years (1 - 1-dose 75+ series) 2036 Hepatitis A Vaccines Aged Out No long er eligible based on patient's age to complete this topic Meningococcal B Vaccine Aged Out No l onger eligible based on patient's age to complete this topic Meningococcal Vaccine Aged Out No harjinder mariah eligible based on patient's age to complete this topic RSV Immunizations Under 20 Months Aged Out No longer eligible based on patient's age to complete this topic Insurance [employer]
--- OUTSIDE RECORDS SUMMARY | 2025-05-04 16:24 | XMS_ITS | Clinical Summary ---
Author Organization [facility] [address] Address [address] [place] [address] Care Team Providers Care Medical Records Auditor Name Role Phone Bharath Witt MD Unavailable [phone] Atul Garrido MD Unavailable [phone] Yamilet Bernal DO Unavailable [phone] Brandon Gutierrez MD Unavailable [phone] Brandon Roque MD Unavailable [phone] Tucker Evans Unavailable Unavailable Nolberto Uriostegui MD Unavailable + Louise Recio NP Primary Care Provider [phone] Allergies No known active allergies Medications SUMAtriptan (IMITREX) 100 mg tabletIndication s:Migraine Take [...] nightly 4 Active triamcinolone (KENALOG) 0.1 % creamIndications :Skin [...] 11/20/19 26 Active valsartan (DIOVAN) 160 mg tabletIndication s:Primary hypertension [...] by mouth daily 90 tablet 5 Active Additional Information Patient not taking.Reported on 04/29/2025 triamcinolone (NASACORT) 55 mcg nasal inhaler Administer 2 sprays into each nostril daily 10.8 g 3 5 Active hydrALAZINE (APRESOLINE) 25 mg tablet Take 2 tablets (50 mg total) by mouth 5 Active Active Problems Problem Noted Date [...] 04/24/2023 Assessment & Plan (08/20/2024 1:55 PM SYNCHRO ASSEMBLER): Has follow up with neurology in August. [...] 2:35 PM CDT): Hearing and Balance testing [facility] Audiology Imaging based on Hearing test results OAB (overactive bladder) 05/04/2021 Assessment & Plan (02/25/2024 5:37 PM CDT): Chronic. Struggles some despite oxybutynin. Continue prescription medication Assessment & Plan (07/12/2021 2:14 PM SYNCHRO ASSEMBLER): Has he use pads daily so they [...] medicine Assessment & Plan (07/12/2021 2:14 PM SYNCHRO ASSEMBLER): History of sleep apnea but no longer uses CPAP. Will refer back to Sleep Medicine IBS (irritable bowel syndrome) 04/18/2017 Assessment & Plan (12/25/2021 2:28 PM CDT): Hi fiuber diet Mixed hyperlipidemia 11/14/2013 Overview (10/04/2016): Combined hyperlipidemia Assessment & Plan (02/20/2025 8:19 AM CDT): Assessment & Plan (08/20/2024 2:46 PM SYNCHRO ASSEMBLER): The 10-year ASCVD risk score (Agustin BLISS, [...] are stable, reviewed previous lipid levels in [facility]. Pharmacotherapy as ordered. Order for lipid panel was given today to be obtained. Pt voiced understanding of lab drawn and continuation of current medication regimen. Assessment & Plan (09/19/2020 9:46 AM CDT): Lipid abnormalities are stable, reviewed previous lipid levels in [facility]. Pharmacotherapy as ordered. Order for lipid panel was given today to be obtained. Pt voiced understanding of lab drawn and continuation of current medication regimen. Assessment & Plan (12/24/2019 8:59 PM CDT): Lipid abnormalities are stable. Pharmacotherapy not needed. Lipid level stable - Lipids will be reassessed in 1 year Assessment & Plan (06/22/2019 1:32 PM SYNCHRO ASSEMBLER): Diet controlled. Last LDL 133. Will have her f/u in 6 months with repeat lipid panel and cmp Adjustment disorder with mixed anxiety and depre ssed mood 11/14/2013 Overview (10/04/2016): Adjustment reaction with anxiety and depression Assessment & Plan (02/20/2025 8:19 AM CDT): Assessment & Plan (08/20/2024 1:54 PM SYNCHRO ASSEMBLER): Managed by psychiatry. Has been on abilify [...] CDT): Assessment & Plan (08/20/2024 2:47 PM SYNCHRO ASSEMBLER): Improved but not quite at goal. Will increase amlodipine to 10 mg once daily. She will send his home blood pressures. Follow up in 6 months Assessment & Plan (08/03/2024 1:08 PM SYNCHRO ASSEMBLER): Initial BP elevated, repeat improved (still increased but better). EKG fine in office, labs ordered. Add in Amlodipine to 2.5 mg daily and continue Valsartan and Metoprolol. Home BP log x 1 week, follow up in 2 weeks to establish with Ramona Recio DNP (used to see her in [place]). ER precautions provided. Assessment & Plan (02/25/2024 [...] management Assessment & Plan (06/16/2021 9:24 AM SYNCHRO ASSEMBLER): Discontinue hydrochlorothiazide. Discontinue lisinopril 20 mg. Will [...] months. Assessment & Plan (06/22/2019 1:31 PM SYNCHRO ASSEMBLER): Hypertension is improving with treatment. Regular aerobic exercise. Continue current medications. Blood pressure will be reassessed 6 months. Urinary incontinence 11/14/2013 Overview (10/04/2016): Incontinence of urine Assessment & Plan (08/20/2024 2:49 PM SYNCHRO ASSEMBLER): Stable. Continue oxybutynin Assessment & Plan (02/25/2024 [...] 02/20/2025 Assessment & Plan (08/20/2024 2:48 PM SYNCHRO ASSEMBLER): Urine dip shows trace of blood. Otherwise negative. Will send urine for culture but I do not think this is a UTI. She has had no improvement with Bactrim. Could be muscular but we are going to rule out a kidney stone. Order CT renal stone protocol stat at [facility]. Trigger finger, right ring finger 02/12/2023 08/20/2024 Gastroparesis 01/07/2023 02/18/2025 Assessment & Plan (02/25/2024 5:38 PM CDT): Chronic. Sees GI. Avoid dietary triggers. Patient believes she is on Compazine currently. DENNIS (dyspnea on exertion) 08/31/2022 Exercise intolerance 08/31/2022 023 Trigger ring finger of right hand 08/10/2022 01/07/2023 Overview (08/10/2022): Added automatically from request for surgery [id number] Dizziness and giddiness 02/28/202208/02 Assessment & Plan (02/28/2022 2:33 PM CDT): Hearing and Balance testing [facility] Audiology Hypoglycemia 01/08/2022 02/25/2024 Assessment & Plan (01/08/2022 1:41 PM CDT): Having symptomatic episodes. We discussed lower carb meals. Will check hemoglobin A1c with labs today. Does have family history of diabetes Dysphagia 12/25/2021 01/08/2022 Assessment & Plan (12/25/2021 2:28 PM CDT): Post Gorge egd and dil Dysphagia 12/25/2021 08/20/2024 Overview (02/02/2022): Added automatically from request for surgery [id number] Assessment & Plan (02/25/2024 5:38 PM CDT): Intermittent episodes of dysphagia. Saw GI. Had EGD which may have had very subtle eosinophilic esophagitis. She will continue working with the specialists. She also has a history of gastroparesis Trigger middle finger of right hand 10/23/2021 01/08/2022 Overview (10/23/2021): Added automatically from request for surgery [id number] Chronic cough 07/12/2021 01/08/2022 Assessment & Plan (07/12/2021 2:15 PM SYNCHRO ASSEMBLER): Encouraged her to follow back up with GI which she has scheduled in August at [facility] Morbid (severe) obesity due to excess calories 07/11/2021 01/08/2022 Assessment & Plan (07/12/2021 2:13 PM SYNCHRO ASSEMBLER): BMI Follow-up includes: exercise counseling. ZHANG-inhibitor cough 06/16/2021 07/11/19 Assessment & Plan (06/16/2021 9:23 AM SYNCHRO ASSEMBLER): will change to Arb Acute bronchitis 05/05/2021 [...] 06/22/2019 Assessment & Plan (05/04/2019 2:33 PM SYNCHRO ASSEMBLER): Have eye exam Increase to 64 ounces [...] 06/22/2019 Assessment & Plan (07/07/2018 12:27 PM SYNCHRO ASSEMBLER): Patient presents symptoms of feeling imbalance with [...] 01/07/2023 Assessment & Plan (06/05/2022 2:39 PM SYNCHRO ASSEMBLER): Continue the reglan and zofran. History of [...] Encounters Date Type Department Care Team Description 04/29/2025 1:15 PM CDT Office Visit [employer] [facility] at [address] [address] Modseta Tejada NP Mixed hyperlipidemia (Primary Dx); CAMILLE on CPAP; History of tobacco abuse; PVC's (premature ventricular contractions); Major depressive disorder, single episode, moderate (HCC) 04/15/2025 Telephone [facility] at [address] [phone] Radha Horn 04/15/2025 Orders Only [facility] at [address] [phone] Radha Horn 03/19/2025 Orders Only [facility] Primary Care at [address] [phone] Jonathan Abraham MD 02/25/2025 Telephone [facility] [employer] [facility] at [address] [phone] Modesta Tejada NP 02/18/2025 3:00 PM CDT Office Visit [facility] Primary Care at [address] [phone] Louise Recio NP Annual physical [...] - 02/17/2025 11:59 PM CDT Hospital Encounter [facility] [address] [place] [address] SOB (shortness of breath) Discharge Disposition: Discharge [...] 10/23/2021 Added automatically from request for surgery [id number] Dysphagia Anemia Arthritis History of diverticulitis 12/04/2017 [...] Cancer Father's Brother Brian Diabetes Maternal Grandmother [place] Arthritis Mother Faith Family history of arthritis [...] Alex Father's Brother Brian Alive Maternal Grandmother [place] Alive Mother Faith Other Social History Tobacco [...] on file Legal Sex Female 3:05 PM SYNCHRO ASSEMBLER Gender Identity Female 09/08/2020 1:16 PM SYNCHRO ASSEMBLER Sexual Orientation Not on file Last Filed Vital Signs Vital Sign Reading Time Taken Comments Blood Pressure 136/80 04/29/2025 1:06 PM CDT Pulse 69 04/29/2025 1:06 PM CDT Temperature 36.8 C (98.2 F) 02/18/2025 3:12 PM CDT Respiratory Rate 18 04/29/2025 1:06 PM CDT Oxygen Saturation 98% 02/18/2025 3:12 PM CDT Inhaled Oxygen Concentration - - Weight 109.8 kg (242 lb) 04/29/2025 1:06 PM CDT Height 172.7 cm (5' 8) 04/29/2025 1:06 PM CDT Body Mass Index 36.8 04/29/2025 1:06 PM CDT Plan of Treatment Health Maintenance Due Date Last Done Comments Hepatitis B Screening 1979 Pneumococcal vaccine <65 (1 of 2 - PCV) 1980 Regular Well Visit/Exam 18-64 02/24/2025, 01/07/2023, 12/24/2019 Breast Cancer Screening-Mammogram 02/25/2025 02/26/2024, 01/30/2024, 09/18/2022, Additional history exists Cervical Cancer Screening 02/26/20252023, 08/12/2023, 03/18/2019 Covid-19 Vaccine (2024-08 6 season) 2025 05/08/2024, 06/12/2023, 03/15/2022, Additional history exists Influenza Vaccine (#1) 2025 , 06/12/2023, 06/12/2023, [...] Discontinued 01/10/2024, 01/06/2024, 08/10/2019, Additional history exists Medical Devices Explanted Type Area Spring Forger Device Identifier Shelf Expiration Date Model / Serial / Lot Other-Bladder Stimulator-08/30 Implanted:08/30 (Quantity not on file) Explanted:Qty: 1 on 09/05/2021 by Roger Gillespie MD at [facility] Other - see comments Pelvis [employer] 3058 / [id number] / Description:DEVICE: BLADDER STIMULATOR [employer] MODEL # 3058 SERIAL # [id number] CONTACT # 09-25-2013 NEEDS: TRANSMIT RECEIVE HEAD COIL Procedures Procedure Name Priority Date/Time Associated Diagnosis Comments US PELVIS LIMITED Schedule Routine, Read Routine (OP Routine) 04/13/2025 TRANSTHORACIC ECHO (TTE) COMPLETE W DOPPLER/CF WO CONTRAST Routine 02/17/2025 1:22 PM CDT SOB (shortness of breath) PAP SMEAR Routine 02/27/2024 10:56 AM CDT [...] PM CDT Narrative 02/17/2025 5:04 PM CDT [address] [place] [address] Echocardiogram Report Patient Name: DAVID HAYWOOD : 1960 Study Date: 02/17/2025 12:52:53 PM Gender: F Tech: NL Ref Provider: MODESTA TEJADA Height(Cm): 173 BSA: 2.26 Weight(Kg): 106.6 Quality: Adequate Order Provider: TERESA MODESTA PROCEDURES: Echocardiographic Report: Transthoracic echocardiogram with complete [...] Procedure Note Harpreet Jennings MD - 02/17/[address] [address] Echocardiogram Report Patient Name: DAVID HAYWOOD : [...] PAP SMEAR (02/27/2024 10:56 AM CDT) Pathologist [facility] SCRIBED Pap test n Historical Provider HEALTH MAINTENANCE Final Result * MAMMOGRAPHY (02/26/2024 10:11 AM CDT) [facility] Mammography Normal Historical Provider HEALTH MAINTENANCE Final Result * COLONOSCOPY (01/10/2024 4:12 PM CDT) Pathologist [facility] Scribed Colonoscopy Normal Nolberto Slaughter MD HEALTH MAINTENANCE Final Result * Hepatitis C antibody (12/22/2019 2:20 PM CDT) Hep C Ab Nonreactive Nonreactive JASMYN MAMIE (PHANI) Comment: Interpretive Data Nonreactive: Antibodies to [...] 2019. Testing performed by: [facility], [address] [place] [address]., [id number] Blood specimen (specimen) 12/22/2019 2:20 PM CDT 12/23/2019 9:46 AM CDT Louise Recio NP LAB MICROBIOLOGY - GENERAL OR DERABLES Final Result JASMYN HATCH (RAMSEY) [address] [facility] Department [place] [address] from Last 3 Months or Most Recently Relevant to Health Maintenance Insurance [employer] CHOICE MEDICARE PPO [facility] [employer] CHOICE MEDICARE PPO Advance Directives For more information, please contact: [phone] * Full Code (Latest Code Status on File) Date Activated Date Inactivated Comments 02/08/2022 11:09 AM 02/08/2022 5:49 PM * Full Code Date Activated Date Inactivated Comments 02/08/2022 11:09 AM 02/08/2022 11:09 AM Care Teams Medical Records Auditor Relationship Specialty Start Date End Date Louise Recio NP [address] [facility] [address] [place] [address] PCP - General Family Medicine 08/20/24 Bharath Witt MD [address] [place] [address] Referring Physician Vascular Surgery 12/04/17 Atul Garrido MD [address] [place] [address] Referring Physician Obstetrics and Gynecology 04/17/19 Yamilet Bernal DO [address] [facility] [address] BRENNA Guerrier [facility] [address] [place] [address] Consulting Physician Otolaryngology 02/25/24 Brandon Gutierrez MD [address] [facility] [address] BRENNA Guerrier [facility] [address] [place] [address] Consulting Physician Neurology 02/25/24 Brandon Roque MD [address] [facility] [address] [facility] [address] [place] [address] Consulting Physician Cardiology 02/25/24 Tucker Evans Neuropsychology 02/25/24 Nolberto Uriostegui MD [address] [facility] [facility] [address] [facility] [address] [place] [address] Referring Physician Gastroenterology 02/25/24
--- OUTSIDE RECORDS SUMMARY | 2025-05-04 16:25 | XMS_ITS | Clinical Summary ---
Author Organization [facility] Address [address] [facility] [place] [address] Care Team Providers Care It Infrastructure Architect Name Role Phone Unavailable Primary Care Provider Unavailabl e Source Comments [facility],non-owned Affiliates and Associated Physician Practices is amultiple site organization consisting of ambulatory clinics and hospital sitesin [place], [place] and [place]. This disclosure is being madepursuant to the Care Everywhere program and may not contain all information available regarding this patient. Last updated 18.[facility] Allergies No known active allergies Medications * [...] SCREENING 1960 MAMMOGRAM 1960 HIV SCREENING 1976 HEPATITIS C SCREENING 06/10/1979 DTAP/TDAP/TD VACCINES (1 - Tdap) 1980 PAP [...] (1 - 1-dose 75+ series) 2036 HEPATITIS B VACCINE Aged Out No longe [...] CDT 04/18/2017 Narrative Resulting Agency Comment [facility] [address] [facility] [id number] us Anoop Romero MD LAB - CHEMISTRY ORDERABLE S Final Result Performing Organization Address City/[facility]/ZIP Co de Phone Number [facility] ACCOUNT BILL [address] [place] [address] * (ABNORMAL) LIPID PROFILE (04/18/2017 12:24 PM [...] CDT 04/18/2017 Narrative Resulting Agency Comment [facility] [address] [facility] [phone] Anoop Romero MD LAB - CHEMISTRY ORDERABLE S Final Result Performing Organization Address [facility] de Phone Number [facility] ACCOUNT BILL [address] [place] [address] from Last 3 Months or Most Recently Relevant to Health Maintenance Insurance [facility] * Guarantor: KORTNEY HAYWOOD Account Type Relation to Patient Date of Phone Billing Address Personal/Family [address] [place] [address] [facility] SELF PAY NO INSURANCE Member Subscriber Plan / Payer (Ef fective for All Dates) Name:Kortney Haywood Member ID:Not on file Relation to Subscriber:Not on file Name:KORTNEY HAYWOOD Subscriber ID:Not on file Address: [address] [place] [address] Payer ID:Not on file Group ID:Not on file Type:Self Pay Address: [place], [place] * Guarantor: KORTNEY HAYWOOD Account Type Relation to Patient Date of Phone Billing Address Personal/Family [address] [place] [address] [facility] SELF PAY NO INSURANCE Member Subscriber Plan / Payer (Ef fective for All Dates) Name:Kortney Haywood Member ID:Not on file Relation to Subscriber:Not on file Name:KORTNEY HAYWOOD Subscriber ID:Not on file (Home) Address: [address] [place] [address] Payer ID:Not on file Group ID:Not on file Type:Self Pay Address: [place], [place] * Guarantor: KORTNEY HAYWOOD Account Type Relation to Patient Date of Phone Billing Address Personal/Family [address] [place] [address] [facility] SELF PAY NO INSURANCE Member Subscriber Plan / Payer (Ef fective for All Dates) Name:Kortney Haywood Member ID:Not on file Relation to Subscriber:Not on file Name:KORTNEY HAYWOOD Subscriber ID:Not on file (Home) Address: [address] [place] [address] Payer ID:Not on file Group ID:Not on file Type:Self Pay Address: [place], [place]
[2025-05-04 17:01] LABS: Iron 82 ug/dL (37-170)
[2025-05-04 17:11] LABS: Percent Iron Saturation 20 % (20-50)
[2025-05-04 17:38] LABS: Ferritin 34.50 ng/mL (11.1-264)
== END 2025-05-04 14:59 | disposition home or self-care (01) ==
PROVIDERS: PCP Nurse Practitioner Family; Visit Provider Physician Assistant
DX: D64.9 Anemia, unspecified (principal)
CPT/HCPCS: 36415; 82728; 83540; 83550

== ENCOUNTER 2025-05-14 12:56 | Outpatient (CLI) | payer MEDICARE, SELFPAY ==
--- OUTSIDE RECORDS SUMMARY | 2002-06-23 05:00 | XMS_ITS | Continuity of Care Document ---
Author Organization [facility] Address [id number] [place] [address] [address] [place] [address] Phone Care Team Providers Care Cupola Tender Helper Name Role Phone Vero, Edprudencio Unavailable Unavailable Advance Directives Directive Yes / No Effective Date File Name No Information Encounters Encounter Description Practice Location Reason(s) For Visit Diagnoses Date Provider Providers Copied on Encounter [facility], [address], [place], [place], [id number], [place] tel:[phone] [facility] No Information Dec-2 4-200 2 Doisy Edward. [address] , [address], [place], [address], [place]. tel:[phone] Family History Family Member Type Diagnosis Age At Onset No Information Payers Payer name Insurance type Covered libertarian ID Authoriza tion(s) No Information Social History Type Description Quantity Date Captured Comments Sex Female Smoking Status No Information Chief Complaint And Reason For Visit No Information Reason For Referral Reason For Referral No Information History Of Present Illness Encounter Date Complaint History Of Prese nt Illness No Information Functional Status Date Functional Assessmen t No Information Instructions Date Instruction Additional Infor mation No Information Assessments Type Assessment Date No Information Patient Care Teams Name Effective Dates (start - stop) Status Members No Information
--- OUTSIDE RECORDS SUMMARY | 2002-06-23 05:00 | XMS_ITS | Continuity of Care Document ---
Author Organization [facility] Address [id number] [place] [address] [address] [place] [address] Phone Care Team Providers Care Patch Setter Name Role Phone Vero, Edpurdencio Unavailable Unavailable Advance Directives Directive Yes / No Effective Date File Name No Information Encounters Encounter Description Practice Location Reason(s) For Visit Diagnoses Date Provider Providers Copied on Encounter [facility], [address], [place], [place], [address], [place] tel:[phone] [facility] No Information Dec-2 4-200 2 Doisy Edward. [address] , [address], [place], [address], [place]. tel:[phone] Family History Family Member Type Diagnosis Age At Onset No Information Payers Payer name Insurance type Covered green party ID Authoriza tion(s) No Information Social History [...]
--- OUTSIDE RECORDS SUMMARY | 2002-06-23 05:00 | XMS_ITS | Continuity of Care Document ---
Author Organization [facility] Address [id number] [place] [address] [address] [place] [address] Phone Care Team Providers Care Head Doffer Name Role Phone Vero, Edprudencio Unavailable Unavailable Advance Directives Directive Yes / No Effective Date File Name No Information Encounters Encounter Description Practice Location Reason(s) For Visit Diagnoses Date Provider Providers Copied on Encounter [facility], [address], [place], [place], [id number], [place] tel:[phone] [facility] No Information Dec-2 4-200 2 Doisy Edward. [address] , [address], [place], [address], [place]. tel:[phone] Family History Family Member Type Diagnosis Age At Onset No Information Payers Payer name Insurance type Covered democrat ID Authoriza tion(s) No Information Social History [...]
--- OUTSIDE RECORDS SUMMARY | 2024-03-04 03:36 | XMS_ITS | Continuity of Care Document ---
Author Organization [facility] [place] Address [address] [place] [address] [address] [place] [address] Phone Care Team Providers Care Acid Purifier Name Role Phone Kal PT,MPT,ATC, Herrera Unavailable Unavai lable Procedures Procedure Date Therapeutic Exercise Therapeutic Activities Neuromuscular Re-Ed Manual Therapy Hot or Cold Pack Therapeutic Exercise Therapeutic Activities Neuromuscular Re-Ed Manual Therapy Hot or Cold Pack Therapeutic Exercise Therapeutic Activities Neuromuscular Re-Ed Manual Therapy Hot or Cold Pack Therapeutic Exercise Therapeutic Activities Neuromuscular Re-Ed Manual Therapy Hot or Cold Pack Progress Note Therapeutic Exercise Therapeutic Activities Neuromuscular Re-Ed Manual Therapy Hot or Cold Pack Therapeutic Exercise Therapeutic Activities Neuromuscular Re-Ed Manual Therapy Hot or Cold Pack Therapeutic Exercise Therapeutic Activities Neuromuscular Re-Ed Manual Therapy Hot or Cold Pack Therapeutic Exercise Therapeutic Activities Neuromuscular Re-Ed Manual Therapy Gel Sleeves Therapeutic Exercise Therapeutic Activities Neuromuscular Re-Ed Manual Therapy Hot or Cold Pack OT Evaluation Low Complexity Therapeutic Exercise Therapeutic Activities Neuromuscular Re-Ed Manual Therapy Hot or Cold Pack THERAPEUTIC EXERCISES NEUROMUSCULAR RE-ED FUNC ACTIVITY 15 MIN HOT/COLD PACK ELECTRIC STIMULATION UNATT THERAPEUTIC EXERCISES NEUROMUSCULAR RE-ED FUNC ACTIVITY 15 MIN HOT/COLD PACK ELECTRIC STIMULATION UNATT PT RE-EVALUATION THERAPEUTIC EXERCISES NEUROMUSCULAR RE-ED FUNC ACTIVITY 15 MIN HOT/COLD PACK ELECTRIC STIMULATION UNATT THERAPEUTIC EXERCISES NEUROMUSCULAR RE-ED FUNC ACTIVITY 15 MIN HOT/COLD PACK ELECTRIC STIMULATION UNATT THERAPEUTIC EXERCISES HOT/COLD PACK ELECTRIC STIMULATION UNATT THERAPEUTIC EXERCISES NEUROMUSCULAR RE-ED HOT/COLD PACK ELECTRIC STIMULATION UNATT THERAPEUTIC EXERCISES NEUROMUSCULAR RE-ED FUNC ACTIVITY 15 MIN HOT/COLD PACK ELECTRIC STIMULATION UNATT THERAPEUTIC EXERCISES NEUROMUSCULAR RE-ED MANUAL THERAPY HOT/COLD PACK ELECTRIC STIMULATION UNATT THERAPEUTIC EXERCISES NEUROMUSCULAR RE-ED MANUAL THERAPY HOT/COLD PACK ELECTRIC STIMULATION UNATT THERAPEUTIC EXERCISES NEUROMUSCULAR RE-ED MANUAL THERAPY HOT/COLD PACK ELECTRIC STIMULATION UNATT PT RE-EVALUATION THERAPEUTIC EXERCISES NEUROMUSCULAR RE-ED HOT/COLD PACK ELECTRIC STIMULATION UNATT THERAPEUTIC EXERCISES NEUROMUSCULAR RE-ED MANUAL THERAPY HOT/COLD PACK ELECTRIC STIMULATION UNATT THERAPEUTIC EXERCISES NEUROMUSCULAR RE-ED MANUAL THERAPY HOT/COLD PACK ELECTRIC STIMULATION UNATT THERAPEUTIC EXERCISES NEUROMUSCULAR RE-ED MANUAL THERAPY HOT/COLD PACK ELECTRIC STIMULATION UNATT THERAPEUTIC EXERCISES NEUROMUSCULAR RE-ED MANUAL THERAPY HOT/COLD PACK ELECTRIC STIMULATION UNATT THERAPEUTIC EXERCISES NEUROMUSCULAR RE-ED MANUAL THERAPY HOT/COLD PACK ELECTRIC STIMULATION UNATT THERAPEUTIC EXERCISES NEUROMUSCULAR RE-ED MANUAL THERAPY HOT/COLD PACK ELECTRIC STIMULATION UNATT THERAPEUTIC EXERCISES NEUROMUSCULAR RE-ED MANUAL THERAPY HOT/COLD PACK ELECTRIC STIMULATION UNATT THERAPEUTIC EXERCISES NEUROMUSCULAR RE-ED MANUAL THERAPY HOT/COLD PACK ELECTRIC STIMULATION UNATT PT RE-EVALUATION THERAPEUTIC EXERCISES NEUROMUSCULAR RE-ED MANUAL THERAPY HOT/COLD PACK ELECTRIC STIMULATION UNATT THERAPEUTIC EXERCISES NEUROMUSCULAR RE-ED MANUAL THERAPY HOT/COLD PACK ELECTRIC STIMULATION UNATT THERAPEUTIC EXERCISES NEUROMUSCULAR RE-ED MANUAL THERAPY HOT/COLD PACK ELECTRIC STIMULATION UNATT THERAPEUTIC EXERCISES NEUROMUSCULAR RE-ED MANUAL THERAPY HOT/COLD PACK ELECTRIC STIMULATION UNATT THERAPEUTIC EXERCISES NEUROMUSCULAR RE-ED MANUAL THERAPY HOT/COLD PACK ELECTRIC STIMULATION UNATT THERAPEUTIC EXERCISES NEUROMUSCULAR RE-ED MANUAL THERAPY HOT/COLD PACK ELECTRIC STIMULATION UNATT PT EVALUATION THERAPEUTIC EXERCISES MANUAL THERAPY HOT/COLD PACK ELECTRIC STIMULATION UNATT THERAPEUTIC EXERCISES NEUROMUSCULAR RE-ED MANUAL THERAPY HOT/COLD PACK ELECTRIC STIMULATION UNATT THERAPEUTIC EXERCISES NEUROMUSCULAR RE-ED MANUAL THERAPY HOT/COLD PACK ELECTRIC STIMULATION UNATT THERAPEUTIC EXERCISES NEUROMUSCULAR RE-ED HOT/COLD PACK ELECTRIC STIMULATION UNA PT RE-EVALUATION THERAPEUTIC EXERCISES NEUROMUSCULAR RE-ED HOT/COLD PACK ELECTRIC STIMULATION UNATT THERAPEUTIC EXERCISES NEUROMUSCULAR RE-ED MANUAL THERAPY HOT/COLD PACK ELECTRIC STIMULATION UNA THERAPEUTIC EXERCISES NEUROMUSCULAR RE-ED MANUAL THERAPY HOT/COLD PACK ELECTRIC STIMULATION UNATT THERAPEUTIC EXERCISES NEUROMUSCULAR RE-ED MANUAL THERAPY HOT/COLD PACK ELECTRIC STIMULATION UNATT THERAPEUTIC EXERCISES NEUROMUSCULAR RE-ED MANUAL THERAPY /COLD PACK ELECTRIC STIMULATION UNATT THERAPEUTIC EXERCISES NEUROMUSCULAR RE-ED MANUAL THERAPY THERAPEUTIC EXERCISES NEUROMUSCULAR RE-ED MANUAL THERAPY HOT/COLD PACK ELECTRIC STIMULATION UNATT THERAPEUTIC EXERCISES NEUROMUSCULAR RE-ED HOT/COLD PACK ELECTRIC STIMULATION UNATT THERAPEUTIC EXERCISES NEUROMUSCULAR RE-ED MANUAL THERAPY HOT/COLD PACK ELECTRIC STIMULATION UNATT THERAPEUTIC EXERCISES NEUROMUSCULAR RE-ED MANUAL THERAPY HOT/COLD PACK ELECTRIC STIMULATION UNATT PT RE-EVALUATION THERAPEUTIC EXERCISES NEUROMUSCULAR RE-ED MANUAL THERAPY HOT/COLD PACK ELECTRIC STIMULATION UNATT THERAPEUTIC EXERCISES NEUROMUSCULAR RE-ED MANUAL THERAPY HOT/COLD PACK ELECTRIC STIMULATION UNATT THERAPEUTIC EXERCISES NEUROMUSCULAR RE-ED MANUAL THERAPY HOT/COLD PACK ELECTRIC STIMULATION UNATT THERAPEUTIC EXERCISES NEUROMUSCULAR RE-ED MANUAL THERAPY HOT/COLD PACK ELECTRIC STIMULATION UNATT THERAPEUTIC EXERCISES NEUROMUSCULAR RE-ED HOT/COLD PACK ELECTRIC STIMULATION UNATT THERAPEUTIC EXERCISES NEUROMUSCULAR RE-ED HOT/COLD PACK ELECTRIC STIMULATION UNATT PT RE-EVALUATION THERAPEUTIC EXERCISES NEUROMUSCULAR RE-ED HOT/COLD PACK ELECTRIC STIMULATION UNATT THERAPEUTIC EXERCISES NEUROMUSCULAR RE-ED HOT/COLD PACK ELECTRIC STIMULATION UNATT PT RE-EVALUATION THERAPEUTIC EXERCISES NEUROMUSCULAR RE-ED MANUAL THERAPY HOT/COLD PACK ELECTRIC STIMULATION UNATT THERAPEUTIC EXERCISES NEUROMUSCULAR RE-ED HOT/COLD PACK ELECTRIC STIMULATION UNATT THERAPEUTIC EXERCISES NEUROMUSCULAR RE-ED HOT/COLD PACK ELECTRIC STIMULATION UNATT THERAPEUTIC EXERCISES NEUROMUSCULAR RE-ED HOT/COLD PACK ELECTRIC STIMULATION UNATT PT EVALUATION THERAPEUTIC EXERCISES HOT/COLD PACK ELECTRIC STIMULATION UNATT Electrodes Advance Directives Directive Yes / No Effective Date File Name No Information Encounters Encounter Description Practice Location Reason(s) For Visit Diagnoses Date Provider Providers Copied on Encounter [facility], [id number], tel:[phone] Novelty No Information 0 - 4 [facility]. [facility], [address] [facility], [place], [place], [id number], tel:[phone] Novelty No Information 0 8 [facility] [place] Referring Provider: Nguyễn Abel1 [facility] 6th Floor [address], [place], [address]. tel:[phone] [facility] [address] [place], [place] [address], [place], [place], [id number], tel:[phone] Novelty No Information 0 3-201 8 Bernard Potter. [address] [facility], [address], [place], [address], [place]. tel:[phone] Referring Provider: Ed Abel [facility] 6th Floor [address], [place], [address]. tel:[phone] [place] [address], [address] [place], [place] [address], [place], [place], [address], [place] tel:[phone] Novelty No Information Dec-2 9-201 7 [facility]. [address] [place] [address], [address], [place], [facility] [place], . tel:[phone] Referring Provider: Ed Abel [facility] 6th Floor [address], [place], [address]. tel:[phone] [place] [address], [address] [place], [place] [address], [place], [place], [address], tel:[phone] Novelty No Information Dec-2 7-201 7 [facility]. [address] [place] [address], [address], [facility] [place]. tel:[phone] Referring Provider: Ed Abel [facility] 6th Floor [address], [place], [address]. tel:[phone] [place] [address], [address] [facility], [place], [id number], [place] tel:[phone] Novelty No Information Dec-2 2-201 7 [facility]. [address] [place] [address], [address], [place], [address], [place]. tel:[phone] Referring Provider: Ed Abel [facility] [address]th Floor [address], [place], [address]. tel:[phone] [place] [address], [address] [facility], [place], [address], [place] tel:[phone] Novelty No Information Dec-2 0-201 7 Hamateo Escobarfer. [address] [place] [address], [address], [place], [address], [place]. tel:[phone] Referring Provider: Ed Abel [facility] [address]th Floor [address], [place], [address]. tel:[phone] [place] [address], [facility] [address], [place], [place], [address], [place] tel:[phone] Novelty No Information Bernard Potter. [address] [facility], [address], [facility] [place]. tel:[phone] Referring Provider: Nguyễn Abel1 [facility] [address]th Floor [address], [place], [address]. tel:[phone] [place] [address], [id number], tel:[phone] Novelty No Information Bernard Potter. [address] [place] [address], [address], [facility] [place], [place]. tel:[phone] Referring Provider: Rex Che [address] [place] [address] 6th [address], [place], [address]. tel:[phone] [place] [address], [id number], tel:[phone] Novelty No Information Bernard Potter. [address] [place] [address], [address], [facility] [place], [place]. tel:[phone] Referring Provider: Rex [facility] 6th Floor [address], [place], [address]. tel:[phone] [place] [address], [id number], [place] tel:[phone] Novelty Stiffness of right hand, not elsewhere classifiedPain in right handEffusion, right handOth symptoms and signs involving the musculoskeletal systemOther specified health statusDisp fx of dist phalanx of r idx fngr, 7thD Bernard Potter. [address] [place] [address], [address], [facility] [place]. tel:[phone] Referring Provider: Ed Abel [facility] 6th Floor [address], [place], [address]. tel:[phone] [facility], [address] [place] [address] [address], [place], [place], [address], tel:[phone] Novelty No Information 1 0-201 4 Therese Chandler. [address] [place] [address], [address], [facility] [place], . tel:[phone] Referring Provider: Jayson Gutiérrez, [address], [place], [address]. tel:[phone] [facility] [address] [place], [place] [address], [place], [place], [id number], tel:[phone] Novelty No Information Aug-0 7-201 4 Therese Chandler. [address] [place] [address], [address], [facility] [place], . tel:[phone] Referring Provider: Jayson Gutiérrez, [address], [place], [address]. tel:[phone] [facility] [address] [place], [place] [address], [place], [place], [address], tel:[phone] Novelty No Information 0 6-201 4 Therese Chandler. [address] [place] [address], [address], [facility] [place], . tel:[phone] Referring Provider: Jayson Gutiérrez, [address], [place], [address]. tel:[phone] [facility] [address] [place], [place] [address], [place], [place], [id number], tel:[phone] Novelty No Information b0 3-201 4 Therese Chandler. [address] [place] [address], [address], [facility] [place], . tel:[phone] Referring Provider: Jayson Gutiérrez, [address], [place], [address]. tel:[phone] [facility], [facility] [address], [place], [place], [id number], tel:[phone] Novelty No Information Fabrizio-3 1-201 4 Therese Chandler. [address] [place] [address], [address], [place], [facility] [place], . tel:[phone] Referring Provider: Jayson Gutiérrez, [address], [place], [address]. tel:[phone] [address], [place], [place], [address], tel:[phone] Novelty No Information 4 Therese Chandler. [address] [place] [address], [address], [place], [facility] [place]. tel:[phone] Referring Provider: Jayson Gutiérrez, [address], [place], [address]. tel:[phone] [address], [place], [place], [address], tel:[phone] Novelty No Information 4 Therese Chandler. [address] [place] [address], [address], [place], [facility] [place]. tel:[phone] Referring Provider: Jayson Gutiérrez, [address], [place], [address]. tel:[phone] [address], [place], [address], [place] tel:[phone] Novelty No Information 4 Therese Chandler. [address] [place] [address], [address], [place], [facility] [place]. tel:[phone] Referring Provider: Jayson Gutiérrez, [address], [place], [address]. tel:[phone] [address], [place], [address], tel:[phone] Novelty No Information 0 4 Therese Chadnler. [address] [place] [address], [address], [place], [facility] [place], . tel:[phone] Referring Provider: Jayson Gutiérrez, [address], [place], [address]. tel:[phone] [facility], [address], [place], [place], [address], [place] tel:[phone] Novelty No Information 4 Therese Chandler. [address] [place] [address], [address], [facility] [place], . tel:[phone] Referring Provider: Jayson Gutiérrez, [address], [place], [address]. tel:[phone] [facility] [address], [place], [id number], [place] tel:[phone] Novelty No Information 4 Therese Chandler. [address] [place] [address], [address], [place], [facility] [place], . tel:[phone] Referring Provider: Jayson Gutiérrez, [address], [place], [address]. tel:[phone] [facility], [facility] [address], [place], [address], [place] tel:[phone] Novelty No Information 4 Therese Chandler. [address] [place] [address], [address], [place], [facility] [place], . tel:[phone] Referring Provider: Jayson Gutiérrez, [address], [place], [address]. tel:[phone] [facility], [address], [place], [place], [address], [place] tel:[phone] Novelty No Information 4 Therese Chandler. [address] [place] [address], [address], [place], [facility] [place], . tel:[phone] Referring Provider: Jayson Gutiérrez, [address], [place], [address]. tel:[phone] [facility], [facility] [address], [place], [place], [address], tel:[phone] Novelty No Information 0 8-201 4 Therese Chandler. [address] [place] [address], [address], [place], [facility] [place], . tel:[phone] Referring Provider: Jayson Gutiérrez, [address], [place], [address]. tel:[phone] [address], [place], [place], [address], tel:[phone] Novelty No Information Jul-0 3-201 4 Therese Chandler. [address] [place] [address], [address], [place], [facility] [place], . tel:[phone] Referring Provider: Jayson Gutiérrez, [address], [place], [address]. tel:[phone] [address], [place], [place], [address], tel:[phone] Novelty No Information 0 2-201 4 Therese Chandler. [address] [place] [address], [address], [place], [facility] [place], . tel:[phone] Referring Provider: Jayson Gutiérrez, [address], [place], [address]. tel:[phone] [address], [place], [place], [address], tel:[phone] Novelty No Information May-3 0-201 3 Therese Chandler. [address] [place] [address], [address], [place], [facility] [place]. tel:[phone] Referring Provider: Jayson Gutiérrez, [address], [place], [address]. tel:[phone] [facility], [address] [place], [place] [address], [place], [place], [address], tel:[phone] Novelty No Information Dec-2 6-201 3 Mcmahan Alda. [address] [place] [address], [address], [facility] [place], . tel:[phone] Referring Provider: Jayson Gutiérrez, [address], [place], [address]. tel:[phone] [address], [place], [place], [address], tel:[phone] Novelty No Information Dec-2 0-201 3 Trinity Villarreal. [address] [place] [address], [address], [place], [facility] [place], . tel:[phone] Referring Provider: Jayson Gutiérrez, [address], [place], [address]. tel:[phone] [address], [place], [place], [address], tel:[phone] Novelty No Information Dec-1 8-201 3 Therese Chandler. [address] [place] [address], [address], [facility] [place], . tel:[phone] Referring Provider: Jayson Gutiérrez, [address], [place], [address]. tel:[phone] [address], [place], [place], [address], tel:[phone] Novelty No Information Dec-1 6-201 3 Therese Chandler. [address] [place] [address], [address], [place], [facility] [place], . tel:[phone] Referring Provider: Jayson Gutiérrez, [address], [place], [address]. tel:[phone] [address], [place], [place], [address], tel:[phone] Novelty No Information Dec-1 3-201 3 Therese Chandler. [address] [place] [address], [address], [place], [facility] [place], . tel:[phone] Referring Provider: Jayson Gutiérrez, [address], [place], [address]. tel:[phone] [facility], [facility] [address], [place], [place], [address], tel:[phone] Novelty No Information Dec-1 1-201 3 Therese Chandler. [address] [place] [address], [address], [facility] [place], . tel:[phone] Referring Provider: Jayson Gutiérrez, [address], [place], [address]. tel:[phone] [facility] [address], [place], [place], [address], tel:[phone] Novelty No Information Dec-0 9-201 3 Therese Chandler. [address] [place] [address], [address], [facility] [place], . tel:[phone] Referring Provider: Jayson Gutiérrez, [address], [place], [address]. tel:[phone] [facility], [facility] [address], [place], [place], [address], tel:[phone] Novelty No Information Dec-0 6-201 3 Therese Chandler. [address] [place] [address], [address], [facility] [place], . tel:[phone] Referring Provider: Jayson Gutiérrez, [address], [place], [address]. tel:[phone] [facility] [address], [place], [place], [address], tel:[phone] Novelty No Information Dec-0 4-201 3 Therese Chandler. [address] [place] [address], [address], [facility] [place], . tel:[phone] Referring Provider: Jayson Gutiérrez, [address], [place], [address]. tel:[phone] [facility], [facility] [address], [place], [place], [address], tel:[phone] Novelty No Information Oct-1 5-201 3 Therese Chandler. [address] [place] [address], [address], [place], [facility] [place], . tel:[phone] Referring Provider: Jayson Gutiérrez, [address], [place], [address]. tel:[phone] [address], [place], [place], [address], tel:[phone] Novelty No Information Oct-1 1-201 3 Therese Chandler. [address] [place] [address], [address], [place], [facility] [place], . tel:[phone] Referring Provider: Jayson Gutiérrez, [address], [place], [address]. tel:[phone] [address], [place], [place], [address], tel:[phone] Novelty No Information Oct-1 0-201 3 Haq Maribell. [address] [place] [address], [address], [facility] [place], . tel:[phone] Referring Provider: Jayson Gutiérrez, [address], [place], [address]. tel:[phone] [address], [place], [place], [address], tel:[phone] Novelty No Information Mar-0 9-201 3 Therese Chandler. [address] [place] [address], [address], [place], [facility] [place], . tel:[phone] Referring Provider: Jayson Gutiérrez, [address], [place], [address]. tel:[phone] [address], [place], [place], [address], tel:[phone] Novelty No Information Oct-0 4-201 3 Therese Chandler. [address] [place] [address], [address], [place], [facility] [place], . tel:[phone] Referring Provider: Jayson Gutiérrez, [address], [place], [address]. tel:[phone] [facility], [address] [place] [address] [address], [place], [place], [address], tel:[phone] Novelty No Information Oct-0 2-201 3 Therese Chnadler. [address] [place] [address], [address], [place], [facility] [place], . tel:[phone] Referring Provider: Jayson Gutiérrez, [address], [place], [address]. tel:[phone], [place], [place], [address], tel:[phone] Novelty No Information Sep-3 0-201 3 Therese Chandler. [address] [place] [address], [address], [place], [facility] [place], . tel:[phone] Referring Provider: Jayson Gutiérrez, [address], [place], [address]. tel:[phone], [place], [place], [id number], tel:[phone] Novelty No Information Sep-2 7-201 3 Therese Chandler. [address] [place] [address], [address], [facility] [place], . tel:[phone] Referring Provider: Jayson Gutiérrez, [address], [place], [address]. tel:[phone] [facility], [facility] [address], [place], [place], [id number], tel:[phone] Novelty No Information Sep-2 5-201 3 Therese Chandler. [address] [place] [address], [address], [place], [facility] [place], . tel:[phone] Referring Provider: Jayson Gutiérrez, [address], [place], [address]. tel:[phone] [facility], [facility] [address], [place], [place], [id number], [place] tel:[phone] Novelty No Information Sep-2 3 Therese Chandler. [address] [place] [address], [address], [place], [facility] [place], . tel:[phone] Referring Provider: Jayson Gutiérrez, [address], [place], [address]. tel:[phone], [place], [place], [id number], [place] tel:[phone] Novelty No Information Sep-1 9 3 Therese Chandler. [address] [place] [address], [address], [place], [facility] [place], . tel:[phone] Referring Provider: Jayson Gutiérrez, [address], [place], [address]. tel:[phone] [facility] [address] [place], [place] [address], [place], [place], [id number], [place] tel:[phone] Novelty No Information Sep-1 8 3 Haqrebecca Gardineri. [address] [place] [address], [address], [place], [facility] [place], [place]. tel:[phone] Referring Provider: Jayson Gutiérrez, [address], [place], [address]. tel:[phone] [facility] [address], [place], [place], [id number], [place] tel:[phone] Novelty No Information Sep-1 3201 3 Therese Chandler. [address] [place] [address], [address], [place], [facility] [place]. tel:[phone] Referring Provider: Jayson Gutiérrez, [address], [place], [address]. tel:[phone] [facility] [address], [place], [place], [id number], [place] tel:[phone] Novelty No Information Sep-1 3 Therese Chandler. [address] [place] [address], [address], [facility] [place], . tel:[phone] Referring Provider: Jayson Gutiérrez, [address], [place], [address]. tel:[phone] [address], [place], [place], [id number], tel:[phone] Novelty No Information Sep-1 0-201 3 Therese Chandler. [address] [place] [address], [address], [place] [address], . tel:[phone] Referring Provider: Jayson Gutiérrez, [address], [place], [address]. tel:[phone], [place], [place], [id number], tel:[phone] Novelty No Information Sep-0 4-201 3 Therese Chandler. [address] [place] [address], [address], [facility] [place], . tel:[phone] Referring Provider: Jayson Gutiérrez, [address], [place], [address]. tel:[phone] [address], [place], [id number], tel:[phone] Novelty No Information Sep-0 3-201 3 Therese Chandler. [address] [place] [address], [address], [facility] [place], . tel:[phone] Referring Provider: Jayson Gutiérrez, [address], [place], [address]. tel:[phone] [place] [address], [id number], tel:[phone] Novelty No Information Aug-3 0-201 3 Therese Chandler. [address] [place] [address], [address], [place], [facility] [place], . tel:[phone] Referring Provider: Jayson Gutiérrez, [address], [place], [address]. tel:[phone] [facility], [address], [place], [place], [id number], [place] tel:[phone] Novelty No Information 3 Therese Chandler. [address] [place] [address], [address], [place], [address], [place]. tel:[phone] Referring Provider: Jayson Gutiérrez, [address] [facility] [address], [place], [address]. tel:[phone] [facility], [address], [place], [place], [id number], [place] tel:[phone] Novelty No Information 3 Therese Chandler. [address] [place] [address], [address], [place], [address], [place]. tel:[phone] [facility] [address], [place], [place], [id number], [place] tel:[phone] Novelty No Information 3 Therese Chandler. [address] [place] [address], [address], [place], [address], [place]. tel:[phone] [facility] [address], [place], [place], [id number], [place] tel:[phone] Novelty No Information 3 Trinity Villarreal. [address] [place] [address], [address], [place], [address], [place]. tel:[phone] [facility] [address], [place], [place], [id number], [place] tel:[phone] Novelty No Information 3 Therese Chandler. [address] [place] [address], [address], [place], [address], [place]. tel:[phone] [facility], [address], [place], [place], [id number], [place] tel:[phone] Novelty No Information 3 Therese Chandler. [facility], [address], [place], [facility] [place]. tel:[phone], [id number], tel:[phone] Novelty No Information 3 Therese Arteaga. [address] [facility], [address], [place], [facility] [place], [place]. tel:[phone], [place], [place], [id number], tel:[phone] Novelty Pain in joint involving shoulder region 3 Therese Arteaga. [address] [facility], [address], [place], [address], [place]. tel:[phone] Family History Family Member Type Diagnosis Age At Onset No Information Payers Payer name Insurance type Covered green party ID Anshu nguyễn(s) Medicare [place] [id number] Medicaid OON Write Off CI 00 Social History Type Description Quantity Date Captured [...]
--- OUTSIDE RECORDS SUMMARY | 2024-03-04 03:36 | XMS_ITS | Continuity of Care Document ---
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, [address] [facility] [address], [place], [place], [address], tel:[phone] [place] No Information 0 8 [facility] [place]. Referring Provider: Nguyễn Abel1 [facility] 6th Floor [address], [place], [address]. tel:[phone] [facility] [address] [place], [place] [address], [place], [place], [address], tel:[phone] [place] No Information 0 3-201 8 Bernard Potter. [address] [facility], [address], [place], [address], [place]. tel:[phone] Referring Provider: Ed Abel [facility] 6th Floor [address], [place], [address]. tel:[phone] [place] [address], [address] [place], [place] [address], [place], [place], [id number], [place] tel:[phone] [place] No Information Dec-2 9-201 7 [facility]. [address] [place] [address], [address], [place], [place], [facility], . tel:[phone] Referring Provider: Ed Abel [facility] 6th Floor [address], [place], [address]. tel:[phone] [place] [address], [address] [place], [place] [address], [place], [address], tel:[phone] [place] No Information Dec-2 7-201 7 [facility]. [address] [place] [address], [address], [place], [facility], [place]. tel:[phone] Referring Provider: Ed Abel [facility] 6th Floor [address], [place], [address]. tel:[phone] [place] [address], [address] [facility], [place], [place], [address], [place] tel:[phone] [place] No Information Dec-2 2-201 7 [facility]. [address] [place] [address], [address], [place], [address], [place]. tel:[phone] Referring Provider: Ed Abel [facility] 6th Floor [address], [place], [address]. tel:[phone] [place] [address], [address] [facility], [place], [place], [id number], [place] tel:[phone] [place] No Information Dec-2 0-201 7 Hamateo Escobarfer. [address] [place] [address], [address], [place], [address], [place]. tel:[phone] Referring Provider: Ed Abel [facility] 6th Floor [address], [place], [address]. tel:[phone] [place] [address], [facility] [address], [place], [place], [id number], [place] tel:[phone] [place] No Information Bernard Potter. [address] [facility], [address], [place], [facility], [place]. tel:[phone] Referring Provider: Nguyễn Abel1 [facility] 6th Floor [address], [place], [address]. tel:[phone] [place] [address], [id number], tel:[phone] [place] No Information Bernard Potter. [address] [place] [address], [address], [place], [facility], [place]. tel:[phone] Referring Provider: Rex Che [address] [place] [address] [address]th [address], [place], [address]. tel:[phone] [place] [address], [id number], tel:[phone] [place] No Information Bernard Potter. [address] [place] [address], [address], [place], [facility], [place]. tel:[phone] Referring Provider: [facility] 6th Floor [address], [place], [address]. tel:[phone] [place] [address], [id number], [place] tel:[phone] [place] Stiffness of right hand, not elsewhere classifiedPain in right handEffusion, right handOth symptoms and signs involving the musculoskeletal systemOther specified health statusDisp fx of dist phalanx of r idx fngr, 7thD Bernard Potter. [address] [place] [address], [address], [place], [facility], [place]. tel:[phone] Referring Provider: Ed Abel [facility] 6th [address], [place], [address]. tel:[phone] [facility], [address] [place] [address] [address], [place], [place], [id number], tel:[phone] [place] No Information 1 0-201 4 Therese Chandler. [address] [place] [address], [address], [place], [facility], . tel:[phone] Referring Provider: Jayson Gutiérrez, [address], [place], [address]. tel:[phone] [facility] [address] [place], [place] [address], [place], [place], [address], tel:[phone] [place] No Information Aug-0 7-201 4 Therese Chandler. [address] [place] [address], [address], [place], [facility], . tel:[phone] Referring Provider: Jayson Gutiérrez, [address], [place], [address]. tel:[phone] [facility] [address] [place], [place] [address], [place], [place], [address], tel:[phone] [place] No Information 0 6-201 4 Therese Chandler. [address] [place] [address], [address], [place], [facility], . tel:[phone] Referring Provider: Jaysno Gutiérrez, [address], [place], [address]. tel:[phone] [facility] [address] [place], [place] [address], [place], [place], [address], tel:[phone] [place] No Information b0 3-201 4 Therese Hcandler. [address] [place] [address], [address], [place], [facility], . tel:[phone] Referring Provider: Jayson Gutiérrez, [address], [place], [address]. tel:[phone] [facility], [facility] [address], [place], [place], [id number], tel:[phone] [place] No Information [place]-3 1-201 4 Therese Chandler. [address] [place] [address], [address], [place], [facility], . tel:[phone] Referring Provider: Jayson Gutiérrez, [address], [place], [address]. tel:[phone] [address], [place], [place], [address], tel:[phone] [place] No Information 4 Therese Chandler. [address] [place] [address], [address], [place], [facility], [place]. tel:[phone] Referring Provider: Jayson Gutiérrez, [address], [place], [address]. tel:[phone] [address], [place], [place], [address], tel:[phone] [place] No Information 4 Therese Chandler. [address] [place] [address], [address], [place], [facility], [place]. tel:[phone] Referring Provider: Jayson Gutiérrez, [address], [place], [address]. tel:[phone] [address], [place], [place], [address], [place] tel:[phone] [place] No Information 4 Therese Chandler. [address] [place] [address], [address], [place], [facility], [place]. tel:[phone] Referring Provider: Jayson Gutiérrez, [address], [place], [address]. tel:[phone] [address], [place], [place], [address], tel:[phone] [place] No Information 0 4 Therese Chandler. [address] [place] [address], [address], [place], [facility], . tel:[phone] Referring Provider: Jayson Gutiérrez, [address], [place], [address]. tel:[phone] [facility], [address], [place], [place], [address], [place] tel:[phone] [place] No Information 4 Therese Chandler. [address] [place] [address], [address], [place], [facility], . tel:[phone] Referring Provider: Jayson Gutiérrez, [address], [place], [address]. tel:[phone] [facility] [address], [place], [place], [address], [place] tel:[phone] [place] No Information 4 Therese Chandler. [address] [place] [address], [address], [place], [facility], . tel:[phone] Referring Provider: Jayson Gutiérrez, [address], [place], [address]. tel:[phone] [facility], [facility] [address], [place], [place], [address], [place] tel:[phone] [place] No Information 4 Therese Chandler. [address] [place] [address], [address], [place], [facility], . tel:[phone] Referring Provider: Jayson Gutiérrez, [address], [place], [address]. tel:[phone] [facility], [address], [place], [place], [address], [place] tel:[phone] [place] No Information 4 Therese Chandler. [address] [place] [address], [address], [place], [facility], . tel:[phone] Referring Provider: Jayson Gutiérrez, [address], [place], [address]. tel:[phone] [facility], [facility] [address], [place], [place], [address], tel:[phone] [place] No Information 0 8-201 4 Therese Chandler. [address] [place] [address], [address], [place], [facility], . tel:[phone] Referring Provider: Jayson Gutiérrez, [address], [place], [address]. tel:[phone] [address], [place], [place], [address], tel:[phone] [place] No Information Jul-0 3-201 4 Therese Chandler. [address] [place] [address], [address], [place], [facility], . tel:[phone] Referring Provider: Jayson Gutiérrez, [address], [place], [address]. tel:[phone] [address], [place], [place], [address], tel:[phone] [place] No Information 0 2-201 4 Therese Chandler. [address] [place] [address], [address], [place], [facility], . tel:[phone] Referring Provider: Jayson Gutiérrez, [address], [place], [address]. tel:[phone] [address], [place], [place], [address], tel:[phone] [place] No Information May-3 0-201 3 Therese Chandler. [address] [place] [address], [address], [place], [facility], [place]. tel:[phone] Referring Provider: Jayson Gutiérrez, [address], [place], [address]. tel:[phone] [facility], [address] [place], [place] [address], [place], [place], [address], tel:[phone] [place] No Information Dec-2 6-201 3 Mcmahan Alda. [address] [place] [address], [address], [place], [facility], . tel:[phone] Referring Provider: Jayson Gutiérrez, [address], [place], [address]. tel:[phone] [address], [place], [place], [address], tel:[phone] [place] No Information Dec-2 0-201 3 Trinity Villarreal. [address] [place] [address], [address], [place], [facility], . tel:[phone] Referring Provider: Jayson Gutiérrez, [address], [place], [address]. tel:[phone] [address], [place], [place], [address], tel:[phone] [place] No Information Dec-1 8-201 3 Therese Chandler. [address] [place] [address], [address], [place], [facility], . tel:[phone] Referring Provider: Jayson Gutiérrez, [address], [place], [address]. tel:[phone] [address], [place], [place], [address], tel:[phone] [place] No Information Dec-1 6-201 3 Therese Chandlre. [address] [place] [address], [address], [place], [facility], . tel:[phone] Referring Provider: Jayson Gutiérrez, [address], [place], [address]. tel:[phone] [address], [place], [place], [address], tel:[phone] [place] No Information Dec-1 3-201 3 Therese Chandler. [address] [place] [address], [address], [place], [facility], . tel:[phone] Referring Provider: Jayson Gutiérrez, [address], [place], [address]. tel:[phone] [facility], [facility] [address], [place], [place], [address], tel:[phone] [place] No Information Dec-1 1-201 3 Therese Chandler. [address] [place] [address], [address], [place], [facility], . tel:[phone] Referring Provider: Jayson Gutiérrez, [address], [place], [address]. tel:[phone] [facility] [address], [place], [place], [address], tel:[phone] [place] No Information Dec-0 9-201 3 Therese Chandler. [address] [place] [address], [address], [place], [facility], . tel:[phone] Referring Provider: Jayson Gutiérrez, [address], [place], [address]. tel:[phone] [facility], [facility] [address], [place], [place], [address], tel:[phone] [place] No Information Dec-0 6-201 3 Therese Chandler. [address] [place] [address], [address], [place], [facility], . tel:[phone] Referring Provider: Jayson Gutiérrez, [address], [place], [address]. tel:[phone] [facility] [address], [place], [place], [address], tel:[phone] [place] No Information Dec-0 4-201 3 Therese Chandler. [address] [place] [address], [address], [place], [facility], . tel:[phone] Referring Provider: Jayson Gutiérrez, [address], [place], [address]. tel:[phone] [facility] [address], [place], [place], [address], tel:[phone] [place] No Information Oct-1 5-201 3 Therese Chandler. [address] [place] [address], [address], [place], [facility], . tel:[phone] Referring Provider: Jayson Gutiérrez, [address], [place], [address]. tel:[phone] [address], [place], [place], [address], tel:[phone] [place] No Information Oct-1 1-201 3 Therese Chandler. [address] [place] [address], [address], [place], [facility], . tel:[phone] Referring Provider: Jayson Gutiérrez, [address], [place], [address]. tel:[phone] [address], [place], [place], [address], tel:[phone] [place] No Information Oct-1 0-201 3 Haq Maribell. [address] [place] [address], [address], [place], [facility], . tel:[phone] Referring Provider: Jayson Gutiérrez, [address], [place], [address]. tel:[phone] [address], [place], [place], [address], tel:[phone] [place] No Information Mar-0 9-201 3 Therese Chandler. [address] [place] [address], [address], [place], [facility], . tel:[phone] Referring Provider: Jayson Gutiérrez, [address], [place], [address]. tel:[phone] [address], [place], [place], [address], tel:[phone] [place] No Information Oct-0 4-201 3 Therese Chandler. [address] [place] [address], [address], [place], [facility], . tel:[phone] Referring Provider: Jayson Gutiérrez, [address], [place], [address]. tel:[phone] [facility], [address] [place] [address] [address], [place], [place], [address], tel:[phone] [place] No Information Oct-0 2-201 3 Therese Chandler. [address] [place] [address], [address], [place], [facility], . tel:[phone] Referring Provider: Jayson Gutiérrez, [address], [place], [address]. tel:[phone], [place], [place], [address], tel:[phone] [place] No Information Sep-3 0-201 3 Therese Chandler. [address] [place] [address], [address], [place], [facility], . tel:[phone] Referring Provider: Jayson Gutiérrez, [address], [place], [address]. tel:[phone], [place], [place], [address], tel:[phone] [place] No Information Sep-2 7-201 3 Therese Chandler. [address] [place] [address], [address], [place], [facility], . tel:[phone] Referring Provider: Jayson Gutiérrez, [address], [place], [address]. tel:[phone] [facility] [address], [place], [place], [address], tel:[phone] [place] No Information Sep-2 5-201 3 Therese Chandler. [address] [place] [address], [address], [place], [facility], . tel:[phone] Referring Provider: Jayson Gutiérrez, [address], [place], [address]. tel:[phone] [facility] [address], [place], [address], [place] tel:[phone] [place] No Information Sep-2 3 Therese Chandler. [address] [place] [address], [address], [place], [facility], . tel:[phone] Referring Provider: Jayson Gutiérrez, [address], [place], [address]. tel:[phone], [place], [place], [address], [place] tel:[phone] [place] No Information Sep-1 9 3 Therese Chandler. [address] [place] [address], [address], [place], [facility], . tel:[phone] Referring Provider: Jayson Gutiérrez, [address], [place], [address]. tel:[phone] [facility] [address] [place], [place] [address], [place], [address], [place] tel:[phone] [place] No Information Sep-1 8 3 Haqrebecca Gardineri. [address] [place] [address], [address], [place], [facility], [place]. tel:[phone] Referring Provider: Jayson Gutiérrez, [address], [place], [address]. tel:[phone] [facility] [address], [place], [place], [address], [place] tel:[phone] [place] No Information Sep-1 3201 3 Therese Chandler. [address] [place] [address], [address], [place], [facility], [place]. tel:[phone] Referring Provider: Jayson Gutiérrez, [address], [place], [address]. tel:[phone] [facility] [address], [place], [address], [place] tel:[phone] [place] No Information Sep-1 3 Therese Chandler. [address] [place] [address], [address], [place], [facility], . tel:[phone] Referring Provider: Jayson Gutiérrez, [address], [place], [address]. tel:[phone] [address], [place], [place], [address], tel:[phone] [place] No Information Sep-1 0-201 3 Therese Chandler. [address] [place] [address], [address], [place] [address], . tel:[phone] Referring Provider: Jayson Gutiérrez, [address], [place], [address]. tel:[phone], [place], [place], [address], tel:[phone] [place] No Information Sep-0 4-201 3 Therese Chandler. [address] [place] [address], [address], [place], [facility], . tel:[phone] Referring Provider: Jayson Gutiérrez, [address], [place], [address]. tel:[phone] [address], [place], [place], [address], tel:[phone] [place] No Information Sep-0 3-201 3 Therese Chandler. [address] [place] [address], [address], [place], [facility], . tel:[phone] Referring Provider: Jayson Gutiérrez, [address], [place], [address]. tel:[phone] [place] [address], [id number], tel:[phone] [place] No Information Aug-3 0-201 3 Therese Chandler. [address] [place] [address], [address], [place], [facility], . tel:[phone] Referring Provider: Jayson Gutiérrez, [address], [place], [address]. tel:[phone] [facility], [address], [place], [address], [place] tel:[phone] [place] No Information 3 Therese Chandler. [address] [place] [address], [address], [place], [address], [place]. tel:[phone] Referring Provider: Jayson Gutiérrez, [address] [facility] [address], [place], [address]. tel:[phone] [facility], [address], [place], [place], [address], [place] tel:[phone] [place] No Information 3 Therese Chandler. [address] [place] [address], [address], [place], [address], [place]. tel:[phone] [facility] [address], [place], [place], [address], [place] tel:[phone] [place] No Information 3 Therese Chandler. [address] [place] [address], [address], [place], [address], [place]. tel:[phone] [facility] [address], [place], [address], [place] tel:[phone] [place] No Information 3 Trinity Villarreal. [address] [place] [address], [address], [place], [address], [place]. tel:[phone] [facility] [address], [place], [address], [place] tel:[phone] [place] No Information 3 Therese Chandler. [address] [place] [address], [address], [place], [address], [place]. tel:[phone] [facility], [address], [place], [place], [address], [place] tel:[phone] [place] No Information 3 Therese Chandler. [facility], [address], [place], [facility], [place]. tel:[phone], [id number], tel:[phone] [place] No Information 3 Therese Arteaga. [address] [facility], [address], [place], [facility], [place]. tel:[phone], [place], [place], [address], tel:[phone] [place] Pain in joint involving shoulder region 3 Therese Arteaga. [address] [facility], [address], [place], [address], [place]. tel:[phone] Family History Family Member Type Diagnosis Age At Onset No Information Payers Payer name Insurance type Covered alliance party ID Anshu nguyễn(s) Medicare [place] [id number] Medicaid OON Write Off CI 00 Social [...]
--- OUTSIDE RECORDS SUMMARY | 2024-03-04 03:36 | XMS_ITS | Continuity of Care Document ---
Author Organization [employer] [place] Address [address] [place] [address] [address] [place] [address] Phone Care Team Providers Care Community Health Nursing Director Name Role Phone Kal PT,MPT,ATC, Herrera Unavailable [...] Diagnoses Date Provider Providers Copied on Encounter [facility], [id number], tel:[phone] [place] No Information 0 - 4 [facility]. [facility], [address] [facility], [place], [place], [address], tel:[phone] [place] No Information 0 8 [facility] [place]. Referring Provider: Nguyễn Abel[address] [facility] 6th Floor [address], [place], [address]. tel:[phone] [facility] [address] [place] [address], [place], [place], [address], tel:[phone] [place] No Information 0 3-201 8 Bernard Potter. [address] [facility], [address], [place], [address], [place]. tel:[phone] Referring Provider: Ed Abel [facility] 6th Floor [address], [place], [address]. tel:[phone] [place] [address], [address] [place], [place] [address], [place], [place], [address], [place] tel:[phone] [place] No Information Dec-2 9-201 7 Haus[facility] Abbey. [address] [place] [address], [address], [place], [place], [facility], . tel:[phone] Referring Provider: Ed Abel [facility] 6th Floor [address], [place], [address]. tel:[phone] [place] [address], [address] [place], [place] [address], [place], [place], [address], tel:[phone] [place] No Information Dec-2 7-201 7 [facility]. [address] [place] [address], [address], [place], [facility], [place]. tel:[phone] Referring Provider: Ed Abel [facility] 6th Floor [address], [place], [address]. tel:[phone] [place] [address], [address] [facility], [place], [place], [address], [place] tel:[phone] [place] No Information Dec-2 2-201 7 [facility]. [address] [place] [address], [address], [place], [address], [place]. tel:[phone] Referring Provider: Ed Abel [facility] 6th Floor [address], [place], [address]. tel:[phone] [place] [address], [address] [facility], [place], [place], [address], [place] tel:[phone] [place] No Information Dec-2 0-201 7 Hamateo Escobarfer. [address] [place] [address], [address], [place], [address], [place]. tel:[phone] Referring Provider: Ed Abel [facility] 6th Floor [address], [place], [address]. tel:[phone] [place] [address], [facility] [address], [place], [place], [id number], [place] tel:[phone] [place] No Information Bernard Potter. [address] [facility], [address], [place], [facility], [place]. tel:[phone] Referring Provider: Nguyễn Abel[address] [facility] 6th Floor [address], [place], [address]. tel:[phone] [place] [address], [id number], tel:[phone] [place] No Information Bernard Potter. [address] [place] [address], [address], [place], [facility], [place]. tel:[phone] Referring Provider: Rex Che [address] [place] [address] 6th [address], [place], [address]. tel:[phone] [place] [address], [id number], tel:[phone] [place] No Information Bernard Potter. [address] [place] [address], [address], [place], [facility], [place]. tel:[phone] Referring Provider: [facility] 6th [address], [place], [address]. tel:[phone] [place] [address], [id number], [place] tel:[phone] [place] Stiffness of right hand, not elsewhere classifiedPain in right handEffusion, right handOth symptoms and signs involving the musculoskeletal systemOther specified health statusDisp fx of dist phalanx of r idx fngr, 7thD Bernard Potter. [address] [place] [address], [address], [place], [facility], [place]. tel:[phone] Referring Provider: Ed Abel [facility] 6th Floor [address], [place], [address]. tel:[phone] [facility], [address] [place] [address] [address], [place], [place], [address], tel:[phone] [place] No Information 1 0-201 4 Therese Chandler. [address] [place] [address], [address], [place], [facility], . tel:[phone] Referring Provider: Jayson Gutiérrez, [address], [place], [address]. tel:[phone] [facility] [address] [place], [place] [address], [place], [place], [address], tel:[phone] [place] No Information Aug-0 7-201 4 Therese Chandler. [address] [place] [address], [address], [place], [facility], . tel:[phone] Referring Provider: Jayson Gutiérrez, [address], [place], [address]. tel:[phone] [facility] [address] [place], [place] [address], [place], [place], [address], tel:[phone] [place] No Information 0 6-201 4 Therese Chandler. [address] [place] [address], [address], [place], [facility], . tel:[phone] Referring Provider: Jayson Gutiérrez, [address], [place], [address]. tel:[phone] [facility] [address] [place], [place] [address], [place], [place], [address], tel:[phone] [place] No Information b0 3-201 4 Therese Chandler. [address] [place] [address], [address], [place], [facility], . tel:[phone] Referring Provider: Jayson Gutiérrez, [address], [place], [address]. tel:[phone] [facility], [facility] [address], [place], [place], [id number], tel:[phone] [place] No Information Fabrizio-3 1-201 4 Therese Chandler. [address] [place] [address], [address], [place], [facility], . tel:[phone] Referring Provider: Jayson Gutiérrez, [address], [place], [address]. tel:[phone] [address], [place], [place], [address], tel:[phone] [place] No Information 4 Therese Chandler. [address] [place] [address], [address], [place], [facility], [place]. tel:[phone] Referring Provider: Jayson Gutiérrez, [address], [place], [address]. tel:[phone] [address], [place], [place], [address], tel:[phone] [place] No Information 4 Therese Chandler. [address] [place] [address], [address], [place], [facility], [place]. tel:[phone] Referring Provider: Jayson Gutiérrez, [address], [place], [address]. tel:[phone] [address], [place], [place], [address], [place] tel:[phone] [place] No Information 4 Therese Chandler. [address] [place] [address], [address], [place], [facility], [place]. tel:[phone] Referring Provider: Jayson Gutiérrez, [address], [place], [address]. tel:[phone] [address], [place], [place], [address], tel:[phone] [place] No Information 0 4 Therese Chandler. [address] [place] [address], [address], [place], [facility], . tel:[phone] Referring Provider: Jayson Gutiérrez, [address], [place], [address]. tel:[phone] [facility], [address], [place], [place], [address], [place] tel:[phone] [place] No Information 4 Therese Chandler. [address] [place] [address], [address], [place], [facility], . tel:[phone] Referring Provider: Jayson Gutiérrez, [address], [place], [address]. tel:[phone] [facility] [address], [place], [place], [id number], [place] tel:[phone] [place] No Information 4 Therese Chandler. [address] [place] [address], [address], [place], [facility], . tel:[phone] Referring Provider: Jayson Gutiérrez, [address], [place], [address]. tel:[phone] [facility], [facility] [address], [place], [place], [id number], [place] tel:[phone] [place] No Information 4 Therese Chandler. [address] [place] [address], [address], [place], [facility], . tel:[phone] Referring Provider: Jayson Gutiérrez, [address], [place], [address]. tel:[phone] [facility], [address], [place], [place], [id number], [place] tel:[phone] [place] No Information 4 Therese Chandler. [address] [place] [address], [address], [place], [facility], . tel:[phone] Referring Provider: Jayson Gutiérrez, [address], [place], [address]. tel:[phone] [facility], [facility] [address], [place], [place], [address], tel:[phone] [place] No Information 0 8-201 4 Therese Chandler. [address] [place] [address], [address], [place], [facility], . tel:[phone] Referring Provider: Jayson Gutiérrez, [address], [place], [address]. tel:[phone] [address], [place], [place], [address], tel:[phone] [place] No Information Jul-0 3-201 4 Therese Chandler. [address] [place] [address], [address], [place], [facility], . tel:[phone] Referring Provider: Jayson Gutiérrez, [address], [place], [address]. tel:[phone] [address], [place], [place], [address], tel:[phone] [place] No Information 0 2-201 4 Therese Chandler. [address] [place] [address], [address], [place], [facility], . tel:[phone] Referring Provider: Jayson Gutiérrez, [address], [place], [address]. tel:[phone] [address], [place], [place], [address], tel:[phone] [place] No Information May-3 0-201 3 Therese Chandler. [address] [place] [address], [address], [place], [facility], [place]. tel:[phone] Referring Provider: Jayson Gutiérrez, [address], [place], [address]. tel:[phone] [facility], [address] [place], [place] [address], [place], [place], [address], tel:[phone] [place] No Information Dec-2 6-201 3 Mcmahan Alda. [address] [place] [address], [address], [place], [facility], . tel:[phone] Referring Provider: Jayson Gutiérrez, [address], [place], [address]. tel:[phone] [address], [place], [place], [address], tel:[phone] [place] No Information Dec-2 0-201 3 Trinity Villarreal. [address] [place] [address], [address], [place], [facility], . tel:[phone] Referring Provider: Jayson Gutiérrez, [address], [place], [address]. tel:[phone] [address], [place], [place], [address], tel:[phone] [place] No Information Dec-1 8-201 3 Therese Chandler. [address] [place] [address], [address], [place], [facility], . tel:[phone] Referring Provider: Jayson Gutiérrez, [address], [place], [address]. tel:[phone] [address], [place], [place], [address], tel:[phone] [place] No Information Dec-1 6-201 3 Therese Chandler. [address] [place] [address], [address], [place], [facility], . tel:[phone] Referring Provider: Jayson Gutiérrez, [address], [place], [address]. tel:[phone] [address], [place], [place], [address], tel:[phone] [place] No Information Dec-1 3-201 3 Therese Chandler. [address] [place] [address], [address], [place], [facility], . tel:[phone] Referring Provider: Jayson Gutiérrez, [address], [place], [address]. tel:[phone] [facility], [facility] [address], [place], [place], [address], tel:[phone] [place] No Information Dec-1 1-201 3 Therese Chandler. [address] [place] [address], [address], [place], [facility], . tel:[phone] Referring Provider: Jayson Gutiérrez, [address], [place], [address]. tel:[phone] [facility] [address], [place], [place], [address], tel:[phone] [place] No Information Dec-0 9-201 3 Therese Chandler. [address] [place] [address], [address], [place], [facility], . tel:[phone] Referring Provider: Jayson Gutiérrez, [address], [place], [address]. tel:[phone] [facility], [facility] [address], [place], [place], [address], tel:[phone] [place] No Information Dec-0 6-201 3 Therese Chandler. [address] [place] [address], [address], [place], [facility], . tel:[phone] Referring Provider: Jayson Gutiérrez, [address], [place], [address]. tel:[phone] [facility] [address], [place], [place], [address], tel:[phone] [place] No Information Dec-0 4-201 3 Therese Chandler. [address] [place] [address], [address], [place], [facility], . tel:[phone] Referring Provider: Jayson Gutiérrez, [address], [place], [address]. tel:[phone] [facility], [facility] [address], [place], [place], [address], tel:[phone] [place] No Information Oct-1 5-201 3 Therese Chandler. [address] [place] [address], [address], [place], [facility], . tel:[phone] Referring Provider: Jayson Gutiérrez, [address], [place], [address]. tel:[phone] [address], [place], [place], [address], tel:[phone] [place] No Information Oct-1 1-201 3 Therese Chandler. [address] [place] [address], [address], [place], [facility], . tel:[phone] Referring Provider: Jayson Gutiérrez, [address], [place], [address]. tel:[phone] [address], [place], [place], [address], tel:[phone] [place] No Information Oct-1 0-201 3 Haq Maribell. [address] [place] [address], [address], [place], [facility], . tel:[phone] Referring Provider: Jayson Gutiérrez, [address], [place], [address]. tel:[phone] [address], [place], [place], [address], tel:[phone] [place] No Information Mar-0 9-201 3 Therese Chandler. [address] [place] [address], [address], [place], [facility], . tel:[phone] Referring Provider: Jayson Gutiérrez, [address], [place], [address]. tel:[phone] [address], [place], [place], [address], tel:[phone] [place] No Information Oct-0 4-201 3 Therese Chandler. [address] [place] [address], [address], [place], [facility], . tel:[phone] Referring Provider: Jayson Gutiérrez, [address], [place], [address]. tel:[phone] [facility], [address] [place] [address] [address], [place], [place], [address], tel:[phone] [place] No Information Oct-0 2-201 3 Therese Chandler. [address] [place] [address], [address], [place], [facility], . tel:[phone] Referring Provider: Jayson Gutiérrez, [address], [place], [address]. tel:[phone], [place], [place], [address], tel:[phone] [place] No Information Sep-3 0-201 3 Therese Chandler. [address] [place] [address], [address], [place], [facility], . tel:[phone] Referring Provider: Jayson Gutiérrez, [address], [place], [address]. tel:[phone], [place], [place], [address], tel:[phone] [place] No Information Sep-2 7-201 3 Therese Chandler. [address] [place] [address], [address], [place], [facility], . tel:[phone] Referring Provider: Jayson Gutiérrez, [address], [place], [address]. tel:[phone] [facility], [facility] [address], [place], [place], [address], tel:[phone] [place] No Information Sep-2 5-201 3 Therese Chandler. [address] [place] [address], [address], [place], [facility], . tel:[phone] Referring Provider: Jayson Gutiérrez, [address], [place], [address]. tel:[phone] [facility], [facility] [address], [place], [place], [address], [place] tel:[phone] [place] No Information Sep-2 3 Therese Chandler. [address] [place] [address], [address], [place], [facility], . tel:[phone] Referring Provider: Jayson Gutiérrez, [address], [place], [address]. tel:[phone], [place], [place], [address], [place] tel:[phone] [place] No Information Sep-1 9 3 Therese Chandler. [address] [place] [address], [address], [place], [facility], . tel:[phone] Referring Provider: Jayson Gutiérrez, [address], [place], [address]. tel:[phone] [facility] [address] [place], [place] [address], [place], [place], [address], [place] tel:[phone] [place] No Information Sep-1 8 3 Haqrebecca Gardineri. [address] [place] [address], [address], [place], [facility], [place]. tel:[phone] Referring Provider: Jayson Gutiérrez, [address], [place], [address]. tel:[phone] [facility] [address], [place], [place], [address], [place] tel:[phone] [place] No Information Sep-1 3201 3 Therese Chandler. [address] [place] [address], [address], [place], [facility], [place]. tel:[phone] Referring Provider: Jayson Gutiérrez, [address], [place], [address]. tel:[phone] [facility] [address], [place], [place], [address], [place] tel:[phone] [place] No Information Sep-1 3 Therese Chandler. [address] [place] [address], [address], [place], [facility], . tel:[phone] Referring Provider: Jayson Gutiérrez, [address], [place], [address]. tel:[phone] [address], [place], [place], [address], tel:[phone] [place] No Information Sep-1 0-201 3 Therese Chandler. [address] [place] [address], [address], [place] [address], . tel:[phone] Referring Provider: Jayson Gutiérrez, [address], [place], [address]. tel:[phone] [address], [place], [place], [address], tel:[phone] [place] No Information Sep-0 4-201 3 Therese Chandler. [address] [place] [address], [address], [place], [facility], . tel:[phone] Referring Provider: Jayson Gutiérrez, [address], [place], [address]. tel:[phone] [address], [place], [place], [address], tel:[phone] [place] No Information Sep-0 3-201 3 Therese Chandler. [address] [place] [address], [address], [place], [facility], . tel:[phone] Referring Provider: Jayson Gutiérrez, [address], [place], [address]. tel:[phone] [place] [address], [id number], tel:[phone] [place] No Information Aug-3 0-201 3 Therese Chandler. [address] [place] [address], [address], [place], [facility], . tel:[phone] Referring Provider: Jayson Gutiérrez, [address], [place], [address]. tel:[phone] [facility], [address], [place], [place], [address], [place] tel:[phone] [place] No Information 3 Therese Chandler. [address] [place] [address], [address], [place], [address], [place]. tel:[phone] Referring Provider: Jayson Gutiérrez, [address] [facility] [address], [place], [address]. tel:[phone] [facility], [address], [place], [place], [address], [place] tel:[phone] [place] No Information 3 Therese Chandler. [address] [place] [address], [address], [place], [address], [place]. tel:[phone] [facility] [address], [place], [place], [address], [place] tel:[phone] [place] No Information 3 Therese Chandler. [address] [place] [address], [address], [place], [address], [place]. tel:[phone] [facility] [address], [place], [place], [address], [place] tel:[phone] [place] No Information 3 Trinity Villarreal. [address] [place] [address], [address], [place], [address], [place]. tel:[phone] [facility] [address], [place], [place], [address], [place] tel:[phone] [place] No Information 3 Therese Chandler. [address] [place] [address], [address], [place], [address], [place]. tel:[phone] [facility], [address], [place], [place], [address], [place] tel:[phone] [place] No Information 3 Therese Chandler. [facility], [address], [place], [facility], [place]. tel:[phone], [id number], tel:[phone] [place] No Information 3 Therese Arteaga. [address] [facility], [address], [place], [facility], [place]. tel:[phone], [place], [place], [address], tel:[phone] [place] Pain in joint involving shoulder region 3 Therese Arteaga. [address] [facility], [address], [place], [address], [place]. tel:[phone] Family History Family Member Type Diagnosis Age At Onset No Information Payers Payer name Insurance type Covered republican ID Anshu nguyễn(s) Medicare [place] [id number] Medicaid OON Write Off CI 00 Social [...]
--- OUTSIDE RECORDS SUMMARY | 2025-05-14 17:15 | XMS_ITS | Clinical Summary ---
Author Organization [facility] Address [address], [facility] [address] [place] [address] Phone Care Team Providers Care City Carrier Assistant Name Role Phone Belen Kemp APRN, BLOOD BANK CREDIT CLERK Unavailable [phone] Reza Ozuna DO Unavailable [phone] Louise Recio AWAKE OVERNIGHT MONITOR, BLOOD BANK CREDIT CLERK Primary Care Provider Allergies No known active [...] Sex Assigned at Female 06/27/2023 7:46 PM BOOKMOBILE CLERK Legal Sex Female 7:32 PM CDT Gender Identity Female 06/27/2023 7:46 PM BOOKMOBILE CLERK Sexual Orientation Choose not to disclose 2022 7:46 PM BOOKMOBILE CLERK Occupation Industry Job Start Date Job End Date [employer] Not on file Not on file Not [...] Insurance MEDICAID [employer] Care Teams City Carrier Assistant Relationship Specialty Start Date End Date Louise Recio APRN, BLOOD BANK CREDIT CLERK [address] [place] [address] [place] [address] PCP - General Advanced Practice Nurse 03/21/21 Belen Kemp APRN, BLOOD BANK CREDIT CLERK Nurse Practitioner Advanced Practice Nurse 12/29/15 Reza Ozuna DO Consulting Physician Gastroenterology 10/31/17
--- OUTSIDE RECORDS SUMMARY | 2025-05-14 17:16 | XMS_ITS | Encounter Summary ---
Author Organization [facility] Healthcare Address [address] [place] [address] Care Team Providers Care Reference Assistant Name Role Phone Reza Ozuna DO Unavailable [phone] Bharath Witt MD Unavailable [phone] Atul Garrido MD Unavailable [phone] Jane Felix MD Primary Care Provider Yamilet Bernal DO Unavailable [phone] Brandon Gutierrez MD Unavailable [phone] Brandon Roque MD Unavailable [phone] Tucker Evans Unavailable Unavailable Nolberto Uriostegui MD Unavailable + David Guy MD Primary Care Provider Jane Felix MD Primary Care Provider Jane Felix MD Primary Care Provider Louise Recio NP Primary Care Provider [phone] Encounter Details Date Type Department Care Team (Late st Contact Info) Description 01/28/[address] [address] Elida Arriaza, [place] Social History Tobacco Use [...] on file Legal Sex Female 3:05 PM PHYSICIAN OFFICE ASSISTANT Gender Identity Female 09/08/2020 1:16 PM PHYSICIAN OFFICE ASSISTANT Sexual Orientation Not on file documented as of this encounter Plan of Treatment Not on file documented as of this encounter Visit Diagnoses Not on filedocumented in this encounter Care Teams Reference Assistant Relationship Specialty Start Date End Date Jane Felix MD [address] [place] [address] PCP - General Family Practice 07/09/22 04/09/24 David Guy MD [address] [place] [address] PCP - General Family Medicine 04/10/24 08/02/24 Jane Felix MD [address] [place] [address] PCP - General Family Medicine 08/03/24 08/03/24 Jane Felix MD [address] [facility] [address] [facility] [address] [place] [address] PCP - General Family Medicine 08/19/24 08/19/24 Louise Recio AUTOMOTIVE COLLISION ESTIMATOR [address] [facility] [address] [place] [address] PCP - General Family Medicine 08/20/24 Reza Ozuna DO Consulting Physician Gastroenterology 12/04/17 02/24/24 Bharath Witt MD [address] [place] [address] [address] [facility] [address] [place] [address] Referring Physician Vascular Surgery 12/04/17 Atul Garrido MD [address] [place] [address] [address] [facility] [address] [place] [address] Referring Physician Obstetrics and Gynecology 04/17/19 Yamilet Bernal DO [address] [facility] [address] BRENNA Guerrier [facility] [address] [place] [address] Consulting Physician Otolaryngology 02/25/24 Brandon Gutierrez MD [address] [facility] [address] BRENNA Guerrier [facility] [address] [place] [address] Consulting Physician Neurology 02/25/24 Brandon Roque MD [address] [facility] [address] [facility] [address] [place] [address] Consulting Physician Cardiology 02/25/24 Tucker Evans Neuropsychology 02/25/24 Nolberto Uriostegui MD [address] [place] [address] Referring Physician Gastroenterology 02/25/24 documented as of this encounter
--- OUTSIDE RECORDS SUMMARY | 2025-05-14 17:16 | XMS_ITS | Encounter Summary ---
Author Organization [facility] Address [address] [place] [address] Phone Care Team Providers Care Manager Intensive Care Name Role Phone Belen Kemp APRN, BREAST SURGEON Unavailable [phone] Reza Ozuna DO Unavailable [phone] D[address] Tran [address]FORMING [address] MANAGER Primary Care Provi doug Louise Recio APRN, BREAST SURGEON Primary Care Provider Reason for Visit * Reason Comments Medication Refill Encounter Details Date Type Department Care Team (Late st Contact Info) Description 01/02/2021 Refill [facility] - Gastroenterology [facility] [address] [place] [address] Reza Ozuna DO [address] [facility] [place] [address] Medication Refill Social History Tobacco Use Types Packs/Day Years Used Date Smoking Tobacco: Former Cigarettes 0.5 2 0 08/30/1993 - 08/31/1995 Smokeless Tobacco: Never Alcohol Use Standard Drinks/Week Comments Yes 1 (1 standard drink = 0.6 oz pur e alcohol) occasionally Comments No Sex and Gender Information Value Date Recorded Sex Assigned at Female 06/27/2023 7:46 PM STORM CHASER Legal Sex Female 7:32 PM CDT Gender Identity Female 06/27/2023 7:46 PM STORM CHASER Sexual Orientation Choose not to disclose 2022 7:46 PM STORM CHASER Occupation Industry Job Start Date Job End [...] on filedocumented in this encounter Care Teams Manager Intensive Care Relationship Specialty Start Date End Date Danna Tran NP [address] [place] [address] [address] [place] [address] PCP - General Advanced Practice Nurse 08/20/19 Louise Recio APRN, BREAST SURGEON [address] [place] [address] [address] [place] [address] PCP - General Advanced Practice Nurse 03/21/21 Belen Kemp APRN, BREAST SURGEON Nurse Practitioner Advanced Practice Nurse 12/29/15 Reza Ozuna DO Consulting Physician Gastroenterology 10/31/17 documented as of this encounter
--- OUTSIDE RECORDS SUMMARY | 2025-05-14 17:16 | XMS_ITS | Clinical Summary ---
Author Organization [facility] Address [address] [place] [address] Care Team Providers Care Transit Department Clerk Name Role Phone Bharath Witt MD Unavailable [phone] Atul Garrido MD Unavailable [phone] Yamilet Bernal DO Unavailable [phone] Brandon Gutierrez MD Unavailable [phone] Brandon Roque MD Unavailable [phone] Tucker Evans Unavailable Unavailable Nolberto Uriostegui MD Unavailable + Louise Recio NP Primary Care Provider [phone] Allergies No known active allergies Medications SUMAtriptan [...] 04/24/2023 Assessment & Plan (08/20/2024 1:55 PM FLOORWORKER DISTRIBUTOR): Has follow up with neurology in August. [...] 2:35 PM CDT): Hearing and Balance testing [facility] Audiology Imaging based on Hearing test results OAB (overactive bladder) 05/04/2021 Assessment & Plan (02/25/2024 5:37 PM CDT): Chronic. Struggles some despite oxybutynin. Continue prescription medication Assessment & Plan (07/12/2021 2:14 PM FLOORWORKER DISTRIBUTOR): Has he use pads daily so they [...] medicine Assessment & Plan (07/12/2021 2:14 PM FLOORWORKER DISTRIBUTOR): History of sleep apnea but no longer uses CPAP. Will refer back to Sleep Medicine IBS (irritable bowel syndrome) 04/18/2017 Assessment & Plan (12/25/2021 2:28 PM CDT): Hi fiuber diet Mixed hyperlipidemia 11/14/2013 Overview (10/04/2016): Combined hyperlipidemia Assessment & Plan (02/20/2025 8:19 AM CDT): Assessment & Plan (08/20/2024 2:46 PM FLOORWORKER DISTRIBUTOR): The 10-year ASCVD risk score (Agustin BLISS, [...] are stable, reviewed previous lipid levels in [facility]. Pharmacotherapy as ordered. Order for lipid panel was given today to be obtained. Pt voiced understanding of lab drawn and continuation of current medication regimen. Assessment & Plan (09/19/2020 9:46 AM CDT): Lipid abnormalities are stable, reviewed previous lipid levels in [facility]. Pharmacotherapy as ordered. Order for lipid panel was given today to be obtained. Pt voiced understanding of lab drawn and continuation of current medication regimen. Assessment & Plan (12/24/2019 8:59 PM CDT): Lipid abnormalities are stable. Pharmacotherapy not needed. Lipid level stable - Lipids will be reassessed in 1 year Assessment & Plan (06/22/2019 1:32 PM FLOORWORKER DISTRIBUTOR): Diet controlled. Last LDL 133. Will have her f/u in 6 months with repeat lipid panel and cmp Adjustment disorder with mixed anxiety and depre ssed mood 11/14/2013 Overview (10/04/2016): Adjustment reaction with anxiety and depression Assessment & Plan (02/20/2025 8:19 AM CDT): Assessment & Plan (08/20/2024 1:54 PM FLOORWORKER DISTRIBUTOR): Managed by psychiatry. Has been on abilify [...] CDT): Assessment & Plan (08/20/2024 2:47 PM FLOORWORKER DISTRIBUTOR): Improved but not quite at goal. Will increase amlodipine to 10 mg once daily. She will send his home blood pressures. Follow up in 6 months Assessment & Plan (08/03/2024 1:08 PM FLOORWORKER DISTRIBUTOR): Initial BP elevated, repeat improved (still increased but better). EKG fine in office, labs ordered. Add in Amlodipine to 2.5 mg daily and continue Valsartan and Metoprolol. Home BP log x 1 week, follow up in 2 weeks to establish with Ramona Recio DNP (used to see her in [place]). ER precautions provided. Assessment & Plan (02/25/2024 [...] management Assessment & Plan (06/16/2021 9:24 AM FLOORWORKER DISTRIBUTOR): Discontinue hydrochlorothiazide. Discontinue lisinopril 20 mg. Will [...] months. Assessment & Plan (06/22/2019 1:31 PM FLOORWORKER DISTRIBUTOR): Hypertension is improving with treatment. Regular aerobic exercise. Continue current medications. Blood pressure will be reassessed 6 months. Urinary incontinence 11/14/2013 Overview (10/04/2016): Incontinence of urine Assessment & Plan (08/20/2024 2:49 PM FLOORWORKER DISTRIBUTOR): Stable. Continue oxybutynin Assessment & Plan (02/25/2024 [...] 02/20/2025 Assessment & Plan (08/20/2024 2:48 PM FLOORWORKER DISTRIBUTOR): Urine dip shows trace of blood. Otherwise negative. Will send urine for culture but I do not think this is a UTI. She has had no improvement with Bactrim. Could be muscular but we are going to rule out a kidney stone. Order CT renal stone protocol stat at [facility]. Trigger finger, right ring finger 02/12/2023 08/20/2024 Gastroparesis 01/07/2023 02/18/2025 Assessment & Plan (02/25/2024 5:38 PM CDT): Chronic. Sees GI. Avoid dietary triggers. Patient believes she is on Compazine currently. DENNIS (dyspnea on exertion) 08/31/2022 Exercise intolerance 08/31/2022 023 Trigger ring finger of right hand 08/10/2022 01/07/2023 Overview (08/10/2022): Added automatically from request for surgery [id number] Dizziness and giddiness 02/28/202208/02 Assessment & Plan (02/28/2022 2:33 PM CDT): Hearing and Balance testing [facility] Audiology Hypoglycemia 01/08/2022 02/25/2024 Assessment & Plan (01/08/2022 1:41 PM CDT): Having symptomatic episodes. We discussed lower carb meals. Will check hemoglobin A1c with labs today. Does have family history of diabetes Dysphagia 12/25/2021 01/08/2022 Assessment & Plan (12/25/2021 2:28 PM CDT): Post Gorge egd and dil Dysphagia 12/25/2021 08/20/2024 Overview (02/02/2022): Added automatically from request for surgery [id number] Assessment & Plan (02/25/2024 5:38 PM CDT): Intermittent episodes of dysphagia. Saw GI. Had EGD which may have had very subtle eosinophilic esophagitis. She will continue working with the specialists. She also has a history of gastroparesis Trigger middle finger of right hand 10/23/2021 01/08/2022 Overview (10/23/2021): Added automatically from request for surgery [id number] Chronic cough 07/12/2021 01/08/2022 Assessment & Plan (07/12/2021 2:15 PM FLOORWORKER DISTRIBUTOR): Encouraged her to follow back up with GI which she has scheduled in August at [facility] Morbid (severe) obesity due to excess calories 07/11/2021 01/08/2022 Assessment & Plan (07/12/2021 2:13 PM FLOORWORKER DISTRIBUTOR): BMI Follow-up includes: exercise counseling. ZHANG-inhibitor cough 06/16/2021 07/11/19 Assessment & Plan (06/16/2021 9:23 AM FLOORWORKER DISTRIBUTOR): will change to Arb Acute bronchitis 05/05/2021 [...] 06/22/2019 Assessment & Plan (05/04/2019 2:33 PM FLOORWORKER DISTRIBUTOR): Have eye exam Increase to 64 ounces [...] 06/22/2019 Assessment & Plan (07/07/2018 12:27 PM FLOORWORKER DISTRIBUTOR): Patient presents symptoms of feeling imbalance with [...] 01/07/2023 Assessment & Plan (06/05/2022 2:39 PM FLOORWORKER DISTRIBUTOR): Continue the reglan and zofran. History of [...] Description 04/29/2025 1:15 PM CDT Office Visit [facility] Support Technician at [address] [phone] Modesta Tejada NP Mixed hyperlipidemia (Primary Dx); CAMILLE on CPAP; History of tobacco abuse; PVC's (premature ventricular contractions); Major depressive disorder, single episode, moderate (HCC) 04/15/2025 Telephone [facility] Techn[facility] at [address] [phone] Radha Honr 04/15/2025 Orders Only [facility] at [address] [phone] Radha Horn 03/19/2025 Orders Only [facility] Primary Care at [address] [phone] Jonathan Abraham MD 02/25/2025 Telephone [facility] Technician at [address] [phone] Modesta Tejada NP 02/18/2025 3:00 PM CDT Office Visit [facility] Primary Care at [address] [phone] Louise Recio NP Annual physical [...] - 02/17/2025 11:59 PM CDT Hospital Encounter [facility] Cardiology [address] [place] [address] SOB (shortness of breath) Discharge Disposition: Discharge [...] 10/23/2021 Added automatically from request for surgery [id number] Dysphagia Anemia Arthritis History of diverticulitis 12/04/2017 [...] Cancer Father's Brother Brian Diabetes Maternal Grandmother [place] Arthritis Mother Faith Family history of arthritis - (Added by TW Conv) Bleeding Disorder Mother [place] Family his tory of bleeding disorder - (Added by TW Conv) Cancer Mother Faith Family history of malignant neoplasm - (Added by TW Conv) Hypertension Mother [place] Family history of hypertension - (Added by TW Conv) Prostate cancer Other Family histo ry of Cancer, prostate; Anesthesia problems Neg Hx Malig Hypertension Neg Hx Malig Hyperthermia Neg Hx Pseudochol deficiency Neg Hx Relation Name Status Comments Brother 1 Rex Alive Brother 2 Casper Alive Father Alex Father's Brother Brian Alive Maternal Grandmother [place] Alive Mother [place] Other Social History Tobacco Use Types Packs/Day [...] on file Legal Sex Female 3:05 PM FLOORWORKER DISTRIBUTOR Gender Identity Female 09/08/2020 1:16 PM FLOORWORKER DISTRIBUTOR Sexual Orientation Not on file Last Filed [...] history exists Hepatitis B Screening Completed 02/25/2024 Medical Devices Explanted Type Area Roller Operator Device Identifier Shelf Expiration Date Model / Serial / Lot Other-Bladder Stimulator-08/30 Implanted:08/30 (Quantity not on file) Explanted:Qty: 1 on 09/05/2021 by Roger Gillespie MD at [facility] Other - see comments Pelvis [employer] 3058 / [id number] / Description:DEVICE: BLADDER STIMULATOR [employer] MODEL # 3058 SERIAL # [id number] CONTACT # 09-25-2013 NEEDS: TRANSMIT RECEIVE HEAD [...] PM CDT Narrative 02/17/2025 5:04 PM CDT [address] [place] [address] Echocardiogram Report Patient Name: DAVID HAYWOOD : 1960 Study Date: 02/17/2025 12:52:53 PM Gender: F Tech: NL Ref Provider: MODESTA TEJADA Height(Cm): 173 BSA: 2.26 Weight(Kg): 106.6 Quality: Adequate Order Provider: KATHY TEJADAED PROCEDURES: Echocardiographic Report: Transthoracic echocardiogram with complete [...] Procedure Note Harpreet Jennings MD - 02/17/[address] [address] Echocardiogram Report Patient Name: DAVID HAYWOOD : [...] PAP SMEAR (02/27/2024 10:56 AM CDT) Pathologist [facility] SCRIBED Pap test n Historical Provider HEALTH MAINTENANCE Final Result * MAMMOGRAPHY (02/26/2024 10:11 AM CDT) [facility] Mammography Normal Historical Provider HEALTH MAINTENANCE Final Result * COLONOSCOPY (01/10/2024 4:12 PM CDT) Pathologist [facility] Scribed Colonoscopy Normal Nolberto Slaughter MD HEALTH [...] performed by: [facility], [address] [place] [address]., [id number] Blood specimen (specimen) 12/22/2019 2:20 PM CDT 12/23/2019 9:46 AM CDT Louise Recio NP LAB MICROBIOLOGY - GENERAL OR DERABLES Final Result JASMYN HATCH (CROSS TIMBERS) 1 [facility] Department [place] [address] from Last 3 Months or Most Recently Relevant to Health Maintenance Insurance [employer] MEDICARE PPO [facility] HU[employer] CHOICE MEDICARE PPO Advance Directives For more information, please contact: [phone] * Full Code (Latest Code Status on File) Date Activated Date Inactivated Comments 02/08/2022 11:09 AM 02/08/2022 5:49 PM * Full Code Date Activated Date Inactivated Comments 02/08/2022 11:09 AM 02/08/2022 11:09 AM Care Teams Transit Department Clerk Relationship Specialty Start Date End Date Louise Recio NP [address] [place] [address] PCP - General Family Medicine 08/20/24 Bharath Witt MD [address] [place] [address] Referring Physician Vascular Surgery 12/04/17 Atul Garrido MD [address] [facility] [address] [facility] [address] [place] [address] Referring Physician Obstetrics and Gynecology 04/17/19 Yamilet Bernal DO [address] [facility] [address] BRENNA Guerrier [facility] [address] [place] [address] Consulting Physician Otolaryngology 02/25/24 Brandon Gutierrez MD [address] [facility] [address] BRENNA Guerrier [facility] [address] [place] [address] Consulting Physician Neurology 02/25/24 Brandon Roque MD [address] [place] [address] Consulting Physician Cardiology 02/25/24 Tucker Evans Neuropsychology 02/25/24 Nolberto Uriostegui MD [address] [facility] [address] [facility] [address] [place] [address] Referring Physician Gastroenterology 02/25/24
--- OUTSIDE RECORDS SUMMARY | 2025-05-14 17:19 | XMS_ITS | Clinical Summary ---
Author Organization [facility] Address [address] [place] [address] Care Team Providers Care Chain Pegger Name Role Phone Unavailable Primary Care Provider Unavailabl e Social History Tobacco Use Types Packs/Day Years Used Date Smoking Tobacco: Never Assessed Comments Unknown Sex and Gender Information Value Date Recorded Sex Assigned at Not on file Legal Sex Female 2:39 AM ASSISTANT ATHLETIC TRAINER Gender Identity Not on file Sexual Orientation Not on file Plan of Treatment Upcoming Encounters Date Type Department Care Team (Late st Contact Info) Description 05/18/2025 1:40 PM ASSISTANT ATHLETIC TRAINER Office Visit [facility] Family & Internal Medicine [address] [phone] Judith Contreras, DO [address] [address] Health Maintenance Due Date Last [...] patient's age to complete this topic Insurance , [place], [place] [id number] HU[employer] MEDICARE
--- OUTSIDE RECORDS SUMMARY | 2025-05-14 17:20 | XMS_ITS | Clinical Summary ---
Author Organization [facility] [employer] Address [address] [place] [address] Care Team Providers Care Electroencephalogram Technologist Name Role Phone Unavailable Primary Care Provider Unavailabl e Source Comments [facility],non-owned Affiliates and Associated Physician Practices is amultiple site organization consisting of ambulatory clinics and hospital sitesin [place], [place], [place] and [place]. This disclosure is being madepursuant to the Care Everywhere program and may not contain all information available regarding this patient. Last updated 18.[facility] [employer] Allergies No known active allergies Medications * [...] CDT 04/18/2017 Narrative Resulting Agency Comment [facility] [address] [facility] [phone] us Anoop Romero MD LAB - CHEMISTRY ORDERABLE S Final Result Performing Organization Address City/[facility]/ZIP Co de Phone Number [facility] ACCOUNT BILL [address] [place] [address] * (ABNORMAL) LIPID PROFILE (04/18/2017 12:24 PM [...] CDT 04/18/2017 Narrative Resulting Agency Comment [facility] [address] [facility] [phone] Anoop Romero MD LAB - CHEMISTRY ORDERABLE S Final Result Performing Organization Address [facility] de Phone Number [facility] ACCOUNT BILL [address] [place] [address] from Last 3 Months or Most Recently Relevant to Health Maintenance Insurance [facility] * Guarantor: KORTNEY HAYWOOD Account Type Relation to Patient Date of Phone Billing Address Personal/Family [address] [place] [address] [facility] SELF PAY NO INSURANCE Member Subscriber Plan / Payer (Ef fective for All Dates) Name:Kortney Haywood Member ID:Not on file Relation to Subscriber:Not on file Name:KORTNEY HAYWOOD Subscriber ID:Not on file Address: [address] [place] [address] Payer ID:Not on file Group ID:Not on file Type:Self Pay Address: [place], [place] * Guarantor: KORTNEY HAYWOOD Account Type Relation to Patient Date of Phone Billing Address Personal/Family [address] [place] [address] [facility] SELF PAY NO INSURANCE Member Subscriber Plan / Payer (Ef fective for All Dates) Name:Kortney Haywood Member ID:Not on file Relation to Subscriber:Not on file Name:KORTNEY HAYWOOD Subscriber ID:Not on file (Home) Address: [address] [place] [address] Payer ID:Not on file Group ID:Not on file Type:Self Pay Address: [place], [place] * Guarantor: KORTNEY HAYWOOD Account Type Relation to Patient Date of Phone Billing Address Personal/Family [address] [place] [address] [facility] SELF PAY NO INSURANCE Member Subscriber Plan / Payer (Ef fective for All Dates) Name:Kortney Haywood Member ID:Not on file Relation to Subscriber:Not on file Name:KORTNEY HAYWOOD Subscriber ID:Not on file (Home) Address: [address] [place] [address] Payer ID:Not on file Group ID:Not on file Type:Self Pay Address: [place], [place]
[2025-05-18 15:09] LABS: Pancreatic Elastase, Fecal 256 (>200)
[2025-05-19 08:08] LABS: Calprotectin, Fecal 87 ug/g (0-120)
== END 2025-05-14 12:57 | disposition home or self-care (01) ==
LOC: ANHLAB 12:57
PROVIDERS: PCP Nurse Practitioner Family; Visit Provider Nurse Practitioner Family
DX: R11.2 Nausea with vomiting, unspecified (principal); R15.9 Full incontinence of feces; K59.1 Functional diarrhea
CPT/HCPCS: 82653; 83993; 87045; 87046; 87427

== ENCOUNTER 2025-06-11 10:43 | Outpatient (CLI) | payer MEDICARE, SELFPAY ==
--- NOTE | ~2025-06-11 | CT_ITS ---
EXAM/PROCEDURE: CT sinus wo con HISTORY: Chronic sinusitis COMPARISON: None available. TECHNIQUE: Paranasal sinus CT FINDINGS: Minimal a sigmoidal air cell opacification is present. Both ostiomeatal complexes are patent. Minimal mucoperiosteal thickening in the left maxillary sinus. The right maxillary sinus, both frontal sinuses and sphenoid sinuses are fully aerated. No air-fluid level. No suspicious lesion or mass seen. The nasal septum is midline. Turbinates appear normal. IMPRESSION: Minimal paranasal sinus disease. No air-fluid level to confirm acute sinusitis. Reviewed, dictated and finalized at location A. N RESOURCES BENEFITS MANAGER
== END 2025-06-11 10:44 | disposition home or self-care (01) ==
LOC: MICIMG 10:43
PROVIDERS: PCP Nurse Practitioner Family; Visit Provider Otolaryngology Otolaryngology/Facial Plastic Surgery
DX: J32.8 Other chronic sinusitis (principal)
CPT/HCPCS: 70486